=== PATIENT | female | born 1970 | race Caucasian/White ===

== ENCOUNTER → 2016-04-22 | Outpatient (REF) | payer MEDICARE, MEDICAID, OTHER ==
[~2016-04-22] MED LIST: AMIT25TA2 OR; ANTIBIOTIC PO; BACL10TA2 PO; FLEXERIL OR; GABA-283 PO; NAPR250T OR; SOMA250T PO; TRAM50TA2 OR; VICO5TAB OR
[2016-04-22 18:54] LABS: ANION GAP 5 MEQ/L (8-16); BLOOD UREA NITROGEN 8 MG/DL (7-18); CALCIUM LEVEL 8.2 MG/DL (8.5-10.1); CARBON DIOXIDE LEVEL 31 MEQ/L (21-32); CHLORIDE LEVEL 105 MEQ/L (98-107); CHOLESTEROL LEVEL 180 MG/DL (<200); GLOMERULAR FILTRATION RATE > 60.0 (>58); GLUCOSE, FASTING 89 MG/DL (70-105); SODIUM LEVEL 141 MEQ/L (136-145); TRIGLYCERIDES LEVEL 105 MG/DL (<150)
== END ==
LOC: M SFHCLERA 10:58
PROVIDERS: ATTEND Family Medicine
DX: Z13.220 Encounter for screening for lipoid disorders (principal); Z13.1 Encounter for screening for diabetes mellitus

== ENCOUNTER 2016-06-15 07:00 | Outpatient (RCR) | payer MEDICARE, MEDICAID | END 2016-06-18 | LOC: M PT 07:00 | PROVIDERS: ATTEND Family Medicine | DX: Z51.89 Encounter for other specified aftercare (principal); M54.2 Cervicalgia; M77.11 Lateral epicondylitis, right elbow; M54.12 Radiculopathy, cervical region | CPT/HCPCS: 97035; 97110; 97140; 97162; 97166; G8978; G8979; G8984; G8985 ==

== ENCOUNTER → 2016-06-27 | Outpatient (CLI) | payer OTHER, MEDICAID, MEDICARE ==
--- NOTE | 2016-07-11 02:27 | ECWPNPC ---
PATIENT NAME: RADHA RAY : 1970 GENDER: FEMALE VISIT DATE: 06/27/2016 DISCHARGE DATE: 06/27/16 1704 VISIT LOCKED DATE TIME: PHYSICIAN: RACHEL ABRAHAM RESOURCE: RACHEL ABRAHAM REASON FOR APPOINTMENT 1. MEDS HISTORY OF PRESENT ILLNESS HISTORY OF PRESENT ILLNESS: PAIN THE PATIENT DESCRIBES THE PAIN... 45 YEAR OLD FEMALE PATIENT WITH HISTORY OF CHRONIC LOW BACK PAIN. PATIENT DESCRIBES THE PAIN ACHING, SHARP, TENDER, THROBBING, SORE, AND HAVING IT ALL THE TIME WITH A PAIN SCORE OF 9/10 ON TODAY'S VISIT. 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 PATIENT REACHED DOWN TO STOP THE BOY FROM PASSING THROUGH AND HURT HER BACK. PATIENT DENIES HAVING ANY SURGERY ON HER BACK. PATIENT STATES THE PAIN STARTS IN THE LOWER BACK AND MIGRATES TO THE RIGHT HIP AND SHE FEELS A BUMP IN THE RIGHT BUTTOCK AREA. MRS. RAY STATES THAT PHYSICAL THERAPY KEEPS HER MOBILE AND FUNCTIONAL AND MAKES IT EASIER TO TASKS SUCH GETTING DRESSED, PUTTING SHOES ON, AND DAILY ACTIVITIES. PATIENT DENIES UNEXPLAINABLE WEIGHT LOSS, FEVER, CHILLS, NEW CHANGES ON HER URINARY OR BOWEL CONTROL. FALL RISK SCREENING: SCREENING :NO FALLS IN THE PAST YEAR CURRENT MEDICATIONS TAKING TRAMADOL HCL 50 MG TABLET 1-2 TABLETS ORALLY EVERY 6 HRS PRN PAIN MDD=6 TAKING AMITRIPTYLINE HCL 10 MG TABLET 1 TO 2 TABLET AT BEDTIME ORALLY AT BEDTIME TAKING GABAPENTIN 300 MG CAPSULE 1 CAP ORALLY BEFORE BEDTIME TAKING BACLOFEN 10 MG TABLET 1 TABLET WITH FOOD OR MILK ORALLY THREE TIMES A DAY NEEDED FOR SPASMS AND PAIN NOT-TAKING VALIUM 5 MG TABLET 1 TABLET NEEDED ORALLY 3 HRS PRIOR MRI MAY REPEAT 1 HR PRIOR MRI NOT-TAKING SOMA 350 MG TABLET 1 TABLET NEEDED ORALLY 2 HRS BEFORE MRI MEDICATION LIST REVIEWED AND RECONCILED WITH THE PATIENT PAST MEDICAL HISTORY ARTHRITIS, BACK/HIP PAIN (NIDA BELL NP, [facility]) HX OF ABNORMAL PAP PERSISTENT PELVIC PAIN/OVARIAN CYSTS 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) ASVD 05/05 (0.7%) ALLERGIES NONE SURGICAL HISTORY PARTIAL HYSTERECTOMY 2002 CHOLECYSTECTOMY 2010 KNEE-RIGHT 2005 BLADDER LIFT ([place]) 2007 FOOT 05/2014 FAMILY HISTORY FATHER: , DIAGNOSED WITH CANCER MOTHER: ALIVE, DIAGNOSED WITH HYPERTENSION, OTHER 1 BROTHER(S) , 1 SISTER(S) . 3DAUGHTER(S) . FATHER: ESOPHAGUS CAMOTHER: HIGH CHOLESTEROLBROTHER: MS. SOCIAL HISTORY GENERAL: PAIN CLINIC PFS, CLERGY, PUBLIC HEALTH REFERRALS CLERGY REFERRAL NEEDED?NO WAS THE PROVIDER NOTIFIED OF ANY PERTINENT INFO?NO PFS REFERRAL NEEDED?NO PUBLIC HEALTH REFERRAL NEEDED?NO PATIENT: ____. HOSPITALIZATION/MAJOR DIAGNOSTIC PROCEDURE SEE ABOVE REVIEW OF SYSTEMS CONSTITUTIONAL: ANY CHANGE IN YOUR MEDICAL CONDITION? NO . CHILLS NO . FEVER NO . INFECTION: DO YOU HAVE NEW INFECTIONS? NO . DO YOU HAVE HISTORY OF MRSA? NO . MUSCULOSKELETAL: ANY NEW PATTERNS OF PAIN OR NUMBNESS? NO . GASTROENTEROLOGY: ANY NEW CHANGE IN BOWEL CONTROL? NO . GENITOURINARY: ANY NEW CHANGE IN BLADDER CONTROL? NO . IS THERE A CHANCE YOU COULD BE ? NO . HEMATOLOGY/LYMPH: DO YOU TAKE ANY BLOOD THINNERS? (FOR EXAMPLE- COUMADIN, PLAVIX, AGGRENOX, PLATEL, PRADAXA, OR XARELTO) NO . WHEN WAS YOUR LAST DOSE? DATE: TIME: . NEUROLOGY: HAVE YOU FALLEN IN THE PAST 6 MONTHS? NO . ANY NEW EXTREMITY NUMBNESS OR WEAKNESS? NO . CARDIOLOGY: DO YOU HAVE A PACEMAKER OR DEFIBRILLATOR? NO . RESPIRATORY: HAVE YOU BEEN SICK IN THE PAST WEEK? NO . FEVER NO . FLU LIKE SYMPTOMS? NO . COUGH NO . INTEGUMENTARY: DO YOU HAVE ANY RASHES OR OPEN SORES? NO . ALLERGIC/IMMUNO: ARE YOU ALLERGIC TO SHELLFISH OR IV DYE? NO . ANY NEW ALLERGIES? NO . PSYCHIATRIC: DO YOU HAVE THOUGHTS OF HURTING YOURSELF OR SOMEONE ELSE? NO . ARE YOU ABUSED, NEGLECTED, OR IN AN UNSAFE ENVIRONMENT? NO . ENDOCRINOLOGY: ARE YOU DIABETIC? NO . OTHER: DO YOU NEED ANY PRESCRIPTIONS? YES . IF YES, PLEASE LIST: ____AMYTRIPTYLINE . ANY NEW PROBLEMS WITH YOUR MEDICATIONS? NO . WHEN DID YOU LAST EAT? ____ . WHEN DID YOU LAST DRINK? ____ . WHAT DID YOU LAST DRINK? ____ . NAME OF PERSON DRIVING YOU HOME? ____ . DO YOU HAVE ANY OTHER QUESTIONS OR CONCERNS NO . REVIEWED BY: PROVIDER: RACHEL ABRAHAM MD . VITAL SIGNS WT 177.6 LBS, HT 66 IN, BMI 28.66 INDEX, BP 117/60 MM HG, HR 89 /MIN, RR 18 /MIN, TEMP 98.3 F, OXYGEN SAT % 98%, NA INITIALS SC 15:42, REVIEWED BY: CL. EXAMINATION : PATIENT IS ALERT O X 3 AND COOPERATIVE. PATIENT'S RIGHT LEG IS WEAKER AT FLEXION AND EXTENSION COMPARED TO THE LEFT LEG. STRAIGHT LEG RAISING IS POSITIVE FOR PAIN AT 45 DEGREES ON THE RIGHT LEG. FABERE TEST IS POSITIVE ON THE RIGHT LEG. MRI DONE ON 05/22/2008 SHOWS DEGENERATIVE CHANGES. ASSESSMENTS INTERVERTEBRAL DISC DISORDERS WITH RADICULOPATHY, LUMBAR REGION - M51.16 (PRIMARY) INTERVERTEBRAL DISC DISORDERS WITH RADICULOPATHY, LUMBOSACRAL REGION - M51.17 TREATMENT INTERVERTEBRAL DISC DISORDERS WITH RADICULOPATHY, LUMBAR REGION NOTES: WE DISCUSSED SEVERAL ISSUES WITH MRS. RAY PAIN MANAGEMENT CASE. I WAS WITH THE PATIENT MORE THAN 30 MINS IN THE ENCOUNTER TODAY, MORE THAN HALF THE TIME WAS DEDICATED TO DISCUSSING ALTERNATIVES, MEDICATIONS, AND COUNSELING. AT THIS TIME THE PATIENT WILL CONTINUE WITH TRAMADOL FOR THE SOMATIC PAIN, GABAPENTIN FOR THE NEUROPATHIC PAIN, BACLOFEN FOR THE SPASMS, AND AMITRIPTYLINE FOR THE SOMATIC PAIN. PATIENT DENIES ABUSE OF ANY MEDICATION, DENIES USE OF ILLEGAL SUBSTANCES AND STATES SHE IS ONLY USING THE MEDICATION FOR PAIN MANAGEMENT. AFTER REVIEWING THE PATIENT AND EXAMINING THE PATIENT IS A GOOD CANDIDATE FOR A LUMBAR EPIDURAL. WE DISCUSSED THE RISK, BENEFITS, AND ALTERNATIVES, DUE TO THE PAIN, ANXIETY, AND DISCOMFORT THIS PROCEDURE WILL CAUSE HER MS. RAY WANTS IV SEDATION. I WILL REVIEW UNDER X-RAY ON WHICH LEVEL TO PROCEED (L3-L4, L4-L5, OR L5-S1). PATIENT WISHES TO PROCEED FORWARD WITH THE INJECTION WITH IV SEDATION. PATIENT WILL BE BOOKED PENDING APPROVAL. PATIENT WILL FOLLOW UP WITH ME IN 6 WEEKS. INSTRUCTIONS WERE GIVEN, QUESTIONS WERE ANSWERED, PATIENT REPORTS UNDERSTANDING AND AGREES WITH THE PLAN. I, ADARSH TAMAYO, DOCUMENTED THE ABOVE INFORMATION ACTING A SCRIBE FOR DR. ABRAHAM. I HAVE REVIEWED THE ABOVE DOCUMENT, WRITTEN BY ADARSH TAMAYO SCRIBMariah AND I VERIFY THAT IT IS ACCURATE. OTHERS REFILL AMITRIPTYLINE HCL TABLET, 25 MG, 1 TO 2 TABLET AT BEDTIME, ORALLY, AT BEDTIME, 30 DAY(S), 50, REFILLS 2 REFILL TRAMADOL HCL TABLET, 50 MG, 1-2 TABLETS, ORALLY, EVERY 6 HRS PRN PAIN MDD=4, 30 DAY(S), 120, REFILLS 0 REFILL GABAPENTIN CAPSULE, 300 MG, 1 CAP, ORALLY, BEFORE BEDTIME, 30 DAY(S), 30 CAPSULE, REFILLS 1 REFILL BACLOFEN TABLET, 10 MG, 1 TABLET WITH FOOD OR MILK, ORALLY, THREE TIMES A DAY NEEDED FOR SPASMS AND PAIN, 30 DAY(S), 90, REFILLS 1 NOTES: LUMBAR EPIDURAL INJECTION: YOUR PROCEDURE MATERIAL WAS PRINTED,WHAT IS LUMBAR EPIDURAL INJECTION? MATERIAL WAS PRINTED. PROCEDURES PN WORKMANS' COMP OPINION IN YOUR OPINION, WAS THE INCIDENT THAT THE PATIENT DESCRIBED THE COMPETENT MEDICAL CAUSE OF THIS INJURY/ILLNESS? YES ARE THE PATIENT'S COMPLAINTS CONSISTENT WITH HIS/HER HISTORY OF THE INJURY/ILLNESS? YES IS THE PATIENT'S HISTORY OF THE INJURY/ILLNESS CONSISTENT WITH YOUR OBJECTIVE FINDING? YES WHAT IS THE PERCENTAGE OF TEMPORARY IMPAIRMENT? MODERATE TO MARKED = 66.7% IS THE PATIENT WORKING? NO DOCTOR ON SITE: RACHEL MOJICA MD PROCEDURE CODES FA211 ESTABILISHED PATIENT [facility] FACILITY CHARGE G8730 PAIN ASSESS POS TOOL F/U PLAN DOC G8427 DOC MEDS VERIFIED W/PT OR RE DISPOSITION & COMMUNICATION FOLLOW UP L[facility]I PENDING APPROVAL ELECTRONICALLY SIGNED BY RACHEL ABRAHAM MD ON 07/10/2016 AT 06:27 PM EDT DISCLAIMER : THIS IS A VISIT SUMMARY EXTRACTED FROM THE [employer] CHART. IT IS NOT A COPY OF THE [employer] PROGRESS NOTE. CALVIN
== END ==
LOC: M PAIN 15:30
PROVIDERS: ATTEND Anesthesiology
DX: G89.29 Other chronic pain (principal); M51.16 Intervertebral disc disorders with radiculopathy, lumbar region; M51.17 Intervertebral disc disorders with radiculopathy, lumbosacral region; M47.812 Spondylosis without myelopathy or radiculopathy, cervical region; H91.8X9 Other specified hearing loss, unspecified ear; Z79.891 Long term (current) use of opiate analgesic; Z79.899 Other long term (current) drug therapy

== ENCOUNTER 2016-07-12 07:00 | Outpatient (RCR) | payer MEDICARE, MEDICAID | END 2016-07-19 | disposition home or self-care (01) | LOC: M PT 07:00 | PROVIDERS: ATTEND Family Medicine | DX: Z51.89 Encounter for other specified aftercare (principal); M54.2 Cervicalgia; M77.11 Lateral epicondylitis, right elbow | CPT/HCPCS: 97035; 97110; 97140; 97168; G0283; G8978; G8979; G8984; G8985 ==

== ENCOUNTER → 2016-08-29 | Outpatient (CLI) | payer OTHER, MEDICAID, MEDICARE ==
[~2016-08-29] MED LIST changes: +AMIT10TA; +AMIT25TA; +BACL10TA2; +BACT800T5 PO; +CARI350T; +DIAZ5TAB; +GABA-279; +GABA-282; +HYDR-3713 PO; +KEFL500C17 PO; +KETO10TAB PO; +MONI2KIT VA; +SIME180C PO; +TRAM50TA2; +VALI5TAB PO
--- NOTE | 2016-09-12 01:32 | ECWPNPC ---
PATIENT NAME: RADHA RAY : 1970 GENDER: FEMALE VISIT DATE: 08/29/2016 DISCHARGE DATE: 08/29/16 0000 VISIT LOCKED DATE TIME: PHYSICIAN: RACHEL ABRAHAM RESOURCE: RACHEL ABRAHAM REASON FOR APPOINTMENT 1. W/C LOW BACK PAIN HISTORY OF PRESENT ILLNESS HISTORY OF PRESENT ILLNESS: PAIN THE PATIENT DESCRIBES THE PAIN... 46 YEAR OLD FEMALE PATIENT WITH HISTORY OF CHRONIC LOW BACK PAIN. PATIENT DESCRIBES THE PAIN ACHING, SHARP, TENDER, THROBBING, SORE, AND HAVING IT ALL THE TIME WITH A PAIN SCORE OF 7/10 ON TODAY'S VISIT. 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 PATIENT REACHED DOWN TO STOP THE BOY FROM PASSING THROUGH AND HURT HER BACK. PATIENT DENIES HAVING ANY SURGERY ON HER BACK. PATIENT STATES THE PAIN STARTS IN THE LOWER BACK AND MIGRATES TO THE RIGHT HIP AND SHE FEELS A BUMP IN THE RIGHT BUTTOCK AREA. MRS. RAY STATES THAT PHYSICAL THERAPY HAS AIDED GREATLY IN PAIN RELIEF WELL MOBILITY AND FUNCTIONALITY. PATIENT STATES IT IS EASIER FOR HER TO GET DRESSED, SHOWER, AND DO OTHER EVERYDAY ACTIVITIES SINCE STARTING PHYSICAL THERAPY. PATIENT DENIES UNEXPLAINABLE WEIGHT LOSS, FEVER, CHILLS, NEW CHANGES ON HER URINARY OR BOWEL CONTROL. FALL RISK SCREENING: SCREENING :NO FALLS IN THE PAST YEAR CURRENT MEDICATIONS TAKING AMITRIPTYLINE HCL 25 MG TABLET 1 TO 2 TABLET AT BEDTIME ORALLY AT BEDTIME TAKING TRAMADOL HCL 50 MG TABLET 2 TABLETS ORALLY EVERY 6 HRS PRN PAIN MDD=4 TAKING GABAPENTIN 300 MG CAPSULE 1 CAP ORALLY BEFORE BEDTIME TAKING BACLOFEN 10 MG TABLET 1 TABLET WITH FOOD OR MILK ORALLY THREE TIMES A DAY NEEDED FOR SPASMS AND PAIN NOT-TAKING VALIUM 5 MG TABLET 1 TABLET NEEDED ORALLY 3 HRS PRIOR MRI MAY REPEAT 1 HR PRIOR MRI NOT-TAKING SOMA 350 MG TABLET 1 TABLET NEEDED ORALLY 2 HRS BEFORE MRI MEDICATION LIST REVIEWED AND RECONCILED WITH THE PATIENT PAST MEDICAL HISTORY ARTHRITIS, BACK/HIP PAIN (NIDA BELL NP, [facility]) HX OF ABNORMAL PAP PERSISTENT PELVIC PAIN/OVARIAN CYSTS 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) ASVD 05/05 (0.7%) ALLERGIES HAY FEVER SURGICAL HISTORY PARTIAL HYSTERECTOMY 2002 CHOLECYSTECTOMY 2009 KNEE-RIGHT 2005 BLADDER LIFT ([place]) 2007 FOOT 05/2014 FAMILY HISTORY FATHER: , DIAGNOSED WITH CANCER MOTHER: ALIVE, DIAGNOSED WITH HYPERTENSION, OTHER 1 BROTHER(S) , 1 SISTER(S) . 3DAUGHTER(S) . FATHER: ESOPHAGUS CAMOTHER: HIGH CHOLESTEROLBROTHER: . 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 ADVANCE DIRECTIVES HEALTH CARE PROXY?YES NAME OF HCP UNSURE DO YOU HAVE A DNR?NO WOULD YOU LIKE MORE INFORMATION?NO LIVING WILL?NO WOULD YOU LIKE MORE INFORMATION?NO POWER OF MANAGER INSTALLATION?NO WOULD YOU LIKE MORE INFORMATION?NO HOSPITALIZATION/MAJOR DIAGNOSTIC PROCEDURE SEE ABOVE REVIEW OF SYSTEMS REVIEWED BY: PROVIDER: . CONSTITUTIONAL: ANY CHANGE IN YOUR MEDICAL CONDITION? NO . CHILLS NO . FEVER NO . INFECTION: DO YOU HAVE NEW INFECTIONS? NO . DO YOU HAVE HISTORY OF MRSA? NO . MUSCULOSKELETAL: ANY NEW PATTERNS OF PAIN OR NUMBNESS? NO . GASTROENTEROLOGY: ANY NEW CHANGE IN BOWEL CONTROL? NO . GENITOURINARY: ANY NEW CHANGE IN BLADDER CONTROL? NO . IS THERE A CHANCE YOU COULD BE ? NO . HEMATOLOGY/LYMPH: DO YOU TAKE ANY BLOOD THINNERS? (FOR EXAMPLE- COUMADIN, PLAVIX, AGGRENOX, PLATEL, PRADAXA, OR XARELTO) NO . WHEN WAS YOUR LAST DOSE? DATE: TIME: . NEUROLOGY: HAVE YOU FALLEN IN THE PAST 6 MONTHS? NO . ANY NEW EXTREMITY NUMBNESS OR WEAKNESS? NO . CARDIOLOGY: DO YOU HAVE A PACEMAKER OR DEFIBRILLATOR? NO . RESPIRATORY: HAVE YOU BEEN SICK IN THE PAST WEEK? NO . FEVER NO . FLU LIKE SYMPTOMS? NO . COUGH NO . INTEGUMENTARY: DO YOU HAVE ANY RASHES OR OPEN SORES? NO . ALLERGIC/IMMUNO: ARE YOU ALLERGIC TO SHELLFISH OR IV DYE? NO . ANY NEW ALLERGIES? NO . PSYCHIATRIC: DO YOU HAVE THOUGHTS OF HURTING YOURSELF OR SOMEONE ELSE? NO . ARE YOU ABUSED, NEGLECTED, OR IN AN UNSAFE ENVIRONMENT? NO . ENDOCRINOLOGY: ARE YOU DIABETIC? NO . OTHER: DO YOU NEED ANY PRESCRIPTIONS? YES . IF YES, PLEASE LIST: TRAMADOL . ANY NEW PROBLEMS WITH YOUR MEDICATIONS? NO . WHEN DID YOU LAST EAT? ____ . WHEN DID YOU LAST DRINK? ____ . WHAT DID YOU LAST DRINK? ____ . NAME OF PERSON DRIVING YOU HOME? ____ . DO YOU HAVE ANY OTHER QUESTIONS OR CONCERNS NO . VITAL SIGNS WT 173.8 LBS, HT 66 IN, BMI 28.05 INDEX, BP 124/54 MM HG, HR 96 /MIN, RR 18 /MIN, TEMP 99.2 F, OXYGEN SAT % 96%, NA INITIALS SC 15:40, REVIEWED BY: ELIO. EXAMINATION : PATIENT IS ALERT O X 3 AND COOPERATIVE. PATIENT'S RIGHT LEG IS WEAKER AT FLEXION AND EXTENSION COMPARED TO THE LEFT LEG. STRAIGHT LEG RAISING IS POSITIVE FOR PAIN AT 45 DEGREES ON THE RIGHT LEG. FABERE TEST IS POSITIVE ON THE RIGHT LEG. MRI DONE ON 06/13/2016 SHOWS BILGES BULGES AT L3-L4 AND L4-L5 AND FACET ATROPHY. ASSESSMENTS INTERVERTEBRAL DISC DISORDERS WITH RADICULOPATHY, LUMBAR REGION - M51.16 (PRIMARY) TREATMENT INTERVERTEBRAL DISC DISORDERS WITH RADICULOPATHY, LUMBAR REGION NOTES: WE DISCUSSED SEVERAL ISSUES WITH MRS. RAY' PAIN MANAGEMENT CASE. AT THIS TIME THE PATIENT WILL CONTINUE WITH THE SAME MEDICATION REGIME BEFORE. PATIENT IS USING TRAMADOL FOR THE SOMATIC PAIN, GABAPENTIN FOR THE NEUROPATHIC PAIN, BACLOFEN FOR THE MUSCLE SPASMS, AND AMITRIPTYLINE FOR THE SOMATIC PAIN. PATIENT DENIES ABUSE OF ANY MEDICATION, DENIES USE OF ILLEGAL SUBSTANCES, AND STATES SHE IS ONLY USING THE MEDICATION FOR PAIN MANAGEMENT. AT THIS TIME THE PATIENT WOULD BENENFITS FROM A LUMBAR EPIDURAL DUE TO THE PAIN RADIATING DOWN HER LEG. WE WILL PROCEED WITH A LUMBAR EPIDURAL, I WOULD LIKE TO VIEW THE PATIENT UNDER X-RAY. WE DISCUSSED THE RISKS, BENENFITS, AND ALTNERATIVES OF THE INJECTION AND THE PATIENT WOULD LIKE TO PROCEED. INSTRUCTIONS WERE GIVEN, QUESTIONS WERE ANSWERED, PATIENT REPORTS UNDERSTANDING AND AGREES WITH THE PLAN. I, BIANCA TRIANA, DOCUMENTED THE ABOVE INFORMATION ACTING A SCRIBE FOR DR. ABRAHAM. I HAVE REVIEWED THE ABOVE DOCUMENT, WRITTEN BY BIANCA PRUITT AND I VERIFY THAT IT IS ACCURATE. OTHERS REFILL AMITRIPTYLINE HCL TABLET, 25 MG, 1 TO 2 TABLET AT BEDTIME, ORALLY, AT BEDTIME, 30 DAY(S), 60, REFILLS 2 REFILL TRAMADOL HCL TABLET, 50 MG, 2 TABLETS, ORALLY, EVERY 6 HRS PRN PAIN MDD=4, 30 DAY(S), 120, REFILLS 0 REFILL GABAPENTIN CAPSULE, 300 MG, 1 CAP, ORALLY, BEFORE BEDTIME, 30 DAY(S), 30 CAPSULE, REFILLS 1 REFILL BACLOFEN TABLET, 10 MG, 1 TABLET WITH FOOD OR MILK, ORALLY, THREE TIMES A DAY NEEDED FOR SPASMS AND PAIN, 30 DAY(S), 90, REFILLS 1 NOTES: CERVICAL EPIDURAL INJECTION: YOUR EXPERIENCE MATERIAL WAS PRINTED,LUMBAR EPIDURAL INJECTION: YOUR PROCEDURE MATERIAL WAS PRINTED. PROCEDURES PN WORKMANS' COMP OPINION IN YOUR OPINION, WAS THE INCIDENT THAT THE PATIENT DESCRIBED THE COMPETENT MEDICAL CAUSE OF THIS INJURY/ILLNESS? YES ARE THE PATIENT'S COMPLAINTS CONSISTENT WITH HIS/HER HISTORY OF THE INJURY/ILLNESS? YES IS THE PATIENT'S HISTORY OF THE INJURY/ILLNESS CONSISTENT WITH YOUR OBJECTIVE FINDING? YES WHAT IS THE PERCENTAGE OF TEMPORARY IMPAIRMENT? MODERATE = 50% IS THE PATIENT WORKING? YES DOCTOR ON SITE: RACHEL MOJICA MD PREVENTIVE MEDICINE GAVE INFORMATION ON LUMBAR EPIDURAL AND PRE PROCEDURE CARE / INTERPERTER PRESENT AND ASSISTING WITH UNDERSTANDING. PROCEDURE CODES FA211 ESTABILISHED PATIENT [facility] FACILITY CHARGE G8427 DOC MEDS VERIFIED W/PT OR RE G8730 PAIN ASSESS POS TOOL F/U PLAN DOC DISPOSITION & COMMUNICATION FOLLOW UP [facility] AFTER APPROVAL ELECTRONICALLY SIGNED BY RACHEL ABRAHAM MD ON 09/11/2016 AT 08:33 PM EDT DISCLAIMER : THIS IS A VISIT SUMMARY EXTRACTED FROM THE [employer] CHART. IT IS NOT A COPY OF THE [employer] PROGRESS NOTE. CALVIN
== END ==
LOC: M PAIN 15:20
PROVIDERS: ATTEND Anesthesiology
DX: G89.29 Other chronic pain (principal); M51.16 Intervertebral disc disorders with radiculopathy, lumbar region; J30.1 Allergic rhinitis due to pollen; Z79.891 Long term (current) use of opiate analgesic; Z79.899 Other long term (current) drug therapy

== ENCOUNTER 2016-09-25 14:52 | Emergency (ER) | payer MEDICARE, MEDICAID ==
[~2016-09-25] VITALS: Ht 170.2 cm; Wt 77.2 kg
[~2016-09-25 14:52] MED LIST changes: -AMIT10TA; -AMIT25TA; -BACL10TA2; -BACT800T5 PO; -CARI350T; -DIAZ5TAB; -GABA-279; -GABA-282; -HYDR-3713 PO; -KEFL500C17 PO; -KETO10TAB PO; -MONI2KIT VA; -SIME180C PO; -TRAM50TA2; -VALI5TAB PO
[2016-09-25] MEDS ORDERED: KETOROLAC 60 MG/2 ML VIAL (J1885) IM ONE (17:45)
--- NOTE | 2016-09-25 18:15 | REP ---
CERVICAL SPINE, SEVEN VIEWS: HISTORY: Neck pain. There is no acute fracture. The C5-6 and C6-7 intervertebral discs are decreased in height consistent with disc degeneration. Osteophytes are present on C5 through 7. There is narrowing of the right C5 and 6 and left C4 through 6 neural foramina secondary to uncinate process hypertrophy. There are 2 mm of anterior subluxation of C4 on 5 with flexion. This is not seen in neutral or extension radiographs. IMPRESSION: Degenerative change as described above. Signed by Aleks Marie MD 09/25/2016 06:18 P
--- NOTE | 2016-09-25 18:29 | REP ---
RIGHT SHOULDER, THREE VIEWS: HISTORY: Pain. There is no acute fracture or dislocation. There is narrowing of the acromioclavicular joint with associated osteophyte formation. Calcification is present superior to the acromioclavicular joint. This represents ligamentous or tendon calcification. IMPRESSION: Degenerative change as described above. Signed by Aleks Marie MD 09/25/2016 06:32 P
--- NOTE | 2016-09-25 18:40 | REPUSA ---
HISTORY: Right upper arm swelling. TECHNIQUE: The right upper extremity venous ultrasound examination was performed with high-resolution song scale sonography, color flow Doppler imaging, and spectral waveform analysis, with compression and augmentation procedures performed. FINDINGS: The examination demonstrates normal flow and patency with compression and augmentation demo nstrated in the deep venous system extending from the jugular vein, subclavian vein, axillary vein, c ephalic vein brachial vein, and basilic vein, with no intraluminal filling defects and no evidence of deep vein thrombosis. IMPRESSION: Negative right upper extremity venous ultrasound examination with no evidence of deep vei n thrombosis or superficial vein thrombosis or other vascular abnormality identified..
[2016-09-25] MEDS ORDERED: VALI5TAB PO (19:02)
[2016-09-25] MEDS ORDERED: KETO10TAB PO (19:02)
[2016-09-25 19:08] VITALS: BP 139/73
[2016-10-11] MEDS ORDERED: TRAM50TA2 (12:08)
[2016-10-11] MEDS ORDERED: AMIT10TA (12:08)
[2016-10-11] MEDS ORDERED: DIAZ5TAB (12:08)
[2016-10-11] MEDS ORDERED: GABA-279 (12:08)
[2016-10-11] MEDS ORDERED: AMIT25TA (12:08)
[2016-10-11] MEDS ORDERED: GABA-282 (12:08)
[2016-10-11] MEDS ORDERED: CARI350T (12:08)
== END 2016-09-25 19:44 | disposition home or self-care (01) ==
LOC: M ED 14:52
DX: M54.12 Radiculopathy, cervical region (principal); G89.29 Other chronic pain; M79.89 Other specified soft tissue disorders
CPT/HCPCS: 72052; 73030; 93971; 96372; 99284; J1885; J3360

== ENCOUNTER 2016-10-18 14:49 | Day surgery (SDC) | payer MEDICARE, MEDICAID ==
[~2016-10-18] VITALS: Ht 170.2 cm; Wt 78.5 kg
[~2016-10-18 14:49] MED LIST changes: +AMIT10TA; +AMIT25TA; +CARI350T; +DIAZ5TAB; +GABA-279; +GABA-282; +KETO10TAB PO; +TRAM50TA2; +VALI5TAB PO
[2016-10-18] MEDS ORDERED: LR 1,000 ML IV ONE (15:00)
[2016-10-18] MEDS ORDERED: PROPOFOL 200 MG/20 ML VIAL As Ordered ONE (17:19)
[2016-10-18] MEDS ORDERED: MIDAZOLAM INJ 2 MG/2 ML VIAL (J2250) As Ordered ONE (17:19)
[2016-10-18] MEDS ORDERED: LIDOCAINE 2% INJ 100 MG/5 ML SDV (FOR ANES.) As Ordered ONE (17:19)
[2016-10-18] MEDS ORDERED: ONDANSETRON 4MG/2ML VIAL (J2405) As Ordered ONE ×3 (17:19→22:51)
[2016-10-18] MEDS ORDERED: ROCURONIUM BROMIDE 50 MG/5 ML VIAL/SYRINGE As Ordered ONE (17:19)
[2016-10-18] MEDS ORDERED: dexameTHASONE 4 MG/ML 1ML VIAL (J1100) As Ordered ONE (17:19)
[2016-10-18] MEDS ORDERED: fentaNYL 100 MCG/2 ML INJECTION (J3010) As Ordered ONE ×2 (17:19→20:32)
[2016-10-18] MEDS ORDERED: HYDR-3713 PO (18:09)
[2016-10-18] MEDS ORDERED: BUPIVACAINE HCL 0.25% 30 ML VIAL As Ordered ONE (18:10)
[2016-10-18] MEDS ORDERED: HYDROmorphone HCL 2 MG/ML 1ML VIAL (J1170) As Ordered ONE (19:22)
[2016-10-18] MEDS ORDERED: GLYCOPYRROLATE INJ 0.2 MG/ML 2 ML VIAL As Ordered ONE (19:32)
[2016-10-18] MEDS ORDERED: KETOROLAC 60 MG/2 ML VIAL (J1885) As Ordered ONE (19:32)
[2016-10-18] MEDS ORDERED: NEOSTIGMINE 1MG/ML 5 ML SYRINGE (J2710) As Ordered ONE (19:32)
[2016-10-18] MEDS ORDERED: METHYLENE BLUE 0.5% (5MG/ML) 10 ML AMP (PROVAYBLUE)(Q9968 PER 1MG) As Ordered ONE (19:49)
[2016-10-18] MEDS ORDERED: LR 1,000 ML IV SCH (20:45)
[2016-10-18] MEDS ORDERED: ONDANSETRON 4MG/2ML VIAL (J2405) IV PRN (20:45)
[2016-10-18] MEDS ORDERED: fentaNYL 100 MCG/2 ML INJECTION (J3010) IV PRN (20:45)
[2016-10-18] MEDS ORDERED: METOCLOPRAMIDE INJ 10MG/2ML VIAL (J2765) IV PRN (20:45)
[2016-10-18] MEDS ORDERED: MEPERIDINE INJ 25 MG/ML VIAL (J2175) IV PRN (20:45)
[2016-10-18] MEDS: PERCOCET 5MG/325MG TAB PO PRN ×2 (21:25→22:05)
[2016-10-18] MEDS ORDERED: PERCOCET 5MG/325MG TAB As Ordered ONE (21:59)
[2016-10-18] MEDS ORDERED: ONDANSETRON 4MG/2ML VIAL (J2405) IV ONE (23:00)
[2016-10-18 23:20] VITALS: BP 132/60
--- NOTE | 2016-10-19 07:49 | RO ---
DATE OF PROCEDURE: 10/18/2016 PREPROCEDURE DIAGNOSIS: Left ovarian dermoid cyst. POSTPROCEDURE DIAGNOSIS: Left ovarian dermoid cyst. PROCEDURE: Laparoscopic left salpingo-oophorectomy, cystoscopy. SURGEON: Aleks Singh MD MAKE UP ARRANGER: ANESTHESIA: General endotracheal. ESTIMATED BLOOD LOSS: Minimal. URINE OUTPUT: 200 mL. FINDINGS: 6 cm dermoid cyst of the left ovary. There was no normal ovarian tissue visible, surgically absent uterus, normal appearing right ovary and fallopian tube, normal appearing upper abdomen, including liver and stomach. DESCRIPTION OF PROCEDURE: The patient was taken to the operating room where general endotracheal anesthesia was induced. She was prepped and draped in a sterile fashion in the dorsal lithotomy position. Agrawal catheter was placed. Sponge stick was placed in the vagina to use as a manipulator. Periumbilical incision was made with a scalpel. Veress needle was placed through this incision while tenting up on the skin of the abdomen. Intraabdominal location of the Veress needle was assessed with the use of a saline filled syringe. Pneumoperitoneum was created. Veress needle was removed. 11 mm trocar was placed through this incision. Two 5 mm suprapubic ports were placed under direct visualization. A grasping instrument was used to evaluate the pelvis. The ovaries were visualized, as described above. The left ovary was in the posterior cul-de-sac and was obscured by the sigmoid colon, which was draped over top of the ovary. Colon was also adherent to the pelvic sidewall, ovary and IP ligament. The left ovary was grasped and elevated. Adhesions of the sigmoid colon to the IP ligament were dissected sharply using EndoShears. LigaSure device was used to cross clamp the IP ligament at its insertion near the ovary and the IP ligament was coagulated and incised, the specimen, including the ovary, fallopian tube, was released. Specimen was placed in the Endo Catch back and removed through the umbilical port. Good hemostasis was noted. All instruments were removed. The fascia at the umbilical port was closed with interrupted suture of #0 Vicryl. Skin was closed with #4-0 Monocryl subcuticular sutures. The patient received Methylene blue dye intravenously. Cystoscopy was performed using a 70-degree cystoscope. Bilateral ureteral jets were identified. There was no evidence of injury to the bladder. Cystoscope was removed. The patient was extubated and went to the recovery room in stable condition. CALVIN
== END 2016-10-18 23:48 | disposition home or self-care (01) ==
LOC: M SDC 14:49
PROVIDERS: ATTEND Specialist
DX: D27.1 Benign neoplasm of left ovary (principal); N73.6 Female pelvic peritoneal adhesions (postinfective); Z79.899 Other long term (current) drug therapy
CPT/HCPCS: 36415; 58661; 85014; 85018; 88307; J1100; J1170; J1885; J2250; J2405; J2710; J2765; J3010; Q9968

== ENCOUNTER 2016-10-21 18:26 | Emergency (ER) | payer MEDICARE, MEDICAID ==
[~2016-10-21] VITALS: Ht 170.2 cm; Wt 77.3 kg
[~2016-10-21 18:26] MED LIST changes: +HYDR-3713 PO
[2016-10-21] MEDS ORDERED: MORPHINE 2 MG/ML 1ML SYRINGE IV PRN (19:30)
[2016-10-21] MEDS ORDERED: ONDANSETRON 4MG/2ML VIAL (J2405) IV ONE (19:30)
[2016-10-21] MEDS ORDERED: NS 1,000 ML IV ONE (19:30)
[2016-10-21] MEDS ORDERED: SIMETHICONE 80 MG CHEW TAB PO ONE (19:30)
[2016-10-21 19:58] LABS: CALCIUM OXALATE CRYSTALS SMALL
[2016-10-21 20:30] LABS: BASO % 0.5 % (0.0-1.0); EOS # 0.1 K/mm3 (0.0-0.50); EOS % 0.6 % (0.0-3.0); LARGE UNSTAINED CELL # 0.1 K/mm3 (0.0-0.4); LARGE UNSTAINED CELL % 1.4 % (0.0-4.0); LYMPH # 2.6 K/mm3 (1.5-4.5); MEAN CORPUSCULAR HEMOGLOBIN 30.4 pg (27.0-33.0); MEAN CORPUSCULAR HGB CONC 34.5 g/dl (32.0-36.5); MONO # 0.7 K/mm3 (0.0-0.8); MONO % 6.7 % (0.0-5.0); NEUTROPHILS # 6.6 K/mm3 (1.8-7.7); NEUTROPHILS % 65.8 % (36.0-66.0); PLATELET COUNT, AUTOMATED 258 k/mm3 (150-450); RED CELL DISTRIBUTION WIDTH 12.2 % (11.5-14.5)
[2016-10-21 20:34] LABS: ALBUMIN 3.8 GM/DL (3.2-5.2); ALBUMIN/GLOBULIN RATIO 1.03 (1.00-1.93); ALKALINE PHOSPHATASE 59 U/L (45-117); ALT/SGPT 62 U/L (12-78); ANION GAP 6 MEQ/L (8-16); AST/SGOT 17 U/L (15-37); BILIRUBIN,DIRECT < 0.1 MG/DL (0.0-0.2); BILIRUBIN,TOTAL 0.4 MG/DL (0.2-1.0); BLOOD UREA NITROGEN 16 MG/DL (7-18); CALCIUM LEVEL 9.5 MG/DL (8.5-10.1); CARBON DIOXIDE LEVEL 32 MEQ/L (21-32); CHLORIDE LEVEL 103 MEQ/L (98-107); GLOMERULAR FILTRATION RATE > 60.0 (>58); GLUCOSE, FASTING 96 MG/DL (70-105); SODIUM LEVEL 141 MEQ/L (136-145); TOTAL PROTEIN 7.5 GM/DL (6.4-8.2)
[2016-10-21] MEDS ORDERED: ISOVUE-370 76% 100ML VIAL (Q9967) As Ordered ONE (20:36)
--- NOTE | 2016-10-21 21:32 | REP ---
Clinical: Acute periumbilical pain. Technique: Axial contrast enhanced images from the lung bases to the pubic symphysis using 100 ml Isovue 370 intravenous contrast material with coronal and sagittal re-formations. Comparison: 03/05/2013. Findings: Lung bases are clear. Visualized heart and pericardium normal. Scattered sub centimeter hepatic cysts are again identified and similar to prior examination. Liver, spleen, pancreas, bilateral adrenal glands and kidneys are otherwise normal. The patient is status post cholecystectomy. The enteric system is without obstruction. Colonic and sigmoid diverticula noted without evidence for acute diverticulitis although a mild colitis cannot definitively be excluded and should be correlated with physical examination. Normal terminal ileum are appreciated in the right lower quadrant. The appendix is not definitively visualized, but no free fluid in the right lower quadrant and/or pelvis is noted. Pelvis demonstrates normal bladder and evidence for partial hysterectomy. No ascites. No free air. No obvious adenopathy. Abdominal aorta and vasculature appears relatively normal. Musculoskeletal structures demonstrate age-related changes without focal osseous abnormality. Impression: 1. No obvious acute abdominopelvic pathology appreciated. 2. Scattered subcentimeter hepatic cysts similar to prior examination. 3. Colonic diverticula without acute diverticulitis although mild colitis cannot be excluded and should be correlated with physical examination. 4. No free fluid, free air, adenopathy, or mass lesion appreciated. Signed by Nathaniel Weir MD 10/21/2016 09:23 P
[2016-10-21] MEDS ORDERED: MONI2KIT VA (21:35)
[2016-10-21] MEDS ORDERED: SIME180C PO (21:36)
[2016-10-21 21:55] VITALS: BP 111/53
--- NOTE | 2016-10-22 09:14 | ED PDOC ---
Post-Departure Follow-Up CT ABD/P FAXED TO DR ALVAREZ FOR FOLLOW UP James Simmons MD Oct 22, 2016 09:14
== END 2016-10-21 22:35 | disposition home or self-care (01) ==
LOC: M ED 18:26
DX: N76.0 Acute vaginitis (principal)
CPT/HCPCS: 74177; 80048; 80076; 81001; 83605; 83690; 85025; 87086; 96361; 96374; 96375; 99283; J2405; Q9967

== ENCOUNTER → 2016-11-22 | Outpatient (CLI) | payer MEDICARE, MEDICAID ==
[~2016-11-22] MED LIST changes: +BACL10TA2; +BACT800T5 PO; +KEFL500C17 PO; +MONI2KIT VA; +SIME180C PO
--- NOTE | 2016-11-22 14:17 | REP ---
Right finger four views: There are four views of a right finger. Mineralization joint spaces are normal. There is no fracture or dislocation. No calcifications or foreign bodies. Impression: Negative right finger. Signed by Santos White MD 11/22/2016 02:08 P
== END ==
LOC: M WUC 13:43
PROVIDERS: ATTEND Physician Assistant
DX: M79.644 Pain in right finger(s) (principal); M65.9 Synovitis and tenosynovitis, unspecified

== ENCOUNTER 2016-11-24 15:16 | Emergency (ER) | payer MEDICARE, MEDICAID ==
[~2016-11-24] VITALS: Ht 170.2 cm; Wt 77.3 kg
[~2016-11-24 15:16] MED LIST changes: -BACL10TA2; -BACT800T5 PO; -KEFL500C17 PO
[2016-11-24] MEDS ORDERED: TRAM50TA2 (16:40)
[2016-11-24] MEDS ORDERED: GABA-282 (16:40)
[2016-11-24] MEDS ORDERED: BACL10TA2 (16:40)
[2016-11-24] MEDS ORDERED: MORPHINE 4 MG/ML 1ML SYRINGE IV ONE ×2 (17:00→18:00)
[2016-11-24 17:32] LABS: BASO # 0.1 10^3/uL (0.0-0.2); BASO % 0.4 % (0.0-1.0); EOS % 0.2 % (0.0-3.0); IMMATURE GRANULOCYTE % 0.6 % (0-0); LYMPH # 3.1 10^3/uL (1.5-4.5); LYMPH % 18.7 % (24.0-44.0); MEAN CORPUSCULAR HEMOGLOBIN 30.4 pg (27.0-33.0); MEAN CORPUSCULAR HGB CONC 33.9 g/dl (32.0-36.5); MEAN CORPUSCULAR VOLUME 89.5 fl (80.0-96.0); MONO # 0.8 10^3/uL (0.0-0.8); MONO % 5.1 % (0.0-5.0); NEUTROPHILS # 12.3 10^3/uL (1.8-7.7); PLATELET COUNT, AUTOMATED 267 10^3/uL (150-450); RED CELL DISTRIBUTION WIDTH 13.1 % (11.5-14.5); WHITE BLOOD COUNT 16.4 10^3/uL (4.0-10.0)
[2016-11-24] MEDS ORDERED: ONDANSETRON 4MG/2ML VIAL (J2405) IV ONE (18:00)
[2016-11-24 18:02] LABS: ANION GAP 8 MEQ/L (8-16); BLOOD UREA NITROGEN 11 MG/DL (7-18); CALCIUM LEVEL 8.7 MG/DL (8.5-10.1); CARBON DIOXIDE LEVEL 27 MEQ/L (21-32); CHLORIDE LEVEL 104 MEQ/L (98-107); CREATININE FOR GFR 0.58 MG/DL (0.55-1.02); GLOMERULAR FILTRATION RATE > 60.0 (>58); GLUCOSE, FASTING 80 MG/DL (70-105); POTASSIUM SERUM 3.5 MEQ/L (3.5-5.1); SODIUM LEVEL 139 MEQ/L (136-145); URIC ACID 4.2 MG/DL (2.6-6.0)
[2016-11-24 18:53] LABS: ERYTHROCYTE SEDIMENTATION RATE 11 mm/hr (0-20)
[2016-11-24] MEDS ORDERED: GI COCKTAIL 50ML BTL(HYOSCYAMINE/MAALOX/LIDOCAINE VISCOUS)(1:3:1) PO ONE (19:30)
[2016-11-24 20:34] VITALS: BP 159/78
[2016-11-24] MEDS ORDERED: BACT800T5 PO (20:54)
[2016-11-24] MEDS ORDERED: KEFL500C17 PO (20:54)
[2016-11-24] MEDS ORDERED: NORCO 5/325MG TABLET (BULK FOR ED) PO ONE (21:00)
[2016-11-24] MEDS ORDERED: BACTRIM 160MG/800MG DS TAB PO ONE (21:00)
--- NOTE | 2016-11-25 05:47 | ECGEPIP ---
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 Order Number: [id number] Reading MD: Esdras Gutierrez Measurements Intervals [place] Rate: 74 P: 76 MT: 141 QRS: 66 QRSD: 105 T: 26 QT: 391 QTc: 434 Interpretive Statements SINUS RHYTHM WITH SINUS ARRHYTHMIA NO PRIORS Electronically Signed On 11-25-2016 5:47:18 EDT by Esdras Gutierrez
== END 2016-11-24 21:37 | disposition home or self-care (01) ==
LOC: M ED 15:16
DX: L03.011 Cellulitis of right finger (principal); Z79.899 Other long term (current) drug therapy; Z85.41 Personal history of malignant neoplasm of cervix uteri
CPT/HCPCS: 80048; 84550; 85025; 85652; 86140; 87040; 93005; 96374; 96375; 96376; 99284; J0690; J2405

== ENCOUNTER → 2016-11-24 | Outpatient (CLI) | payer OTHER, MEDICAID, MEDICARE | LOC: M PAIN 14:30 | PROVIDERS: ATTEND Anesthesiology | DX: Z53.29 Procedure and treatment not carried out because of patient's decision for other reasons (principal) ==

== ENCOUNTER 2016-11-25 18:03 | Emergency (ER) | payer MEDICARE, MEDICAID ==
[~2016-11-25] VITALS: Ht 170.2 cm; Wt 77.3 kg
[~2016-11-25 18:03] MED LIST changes: +BACL10TA2; +BACT800T5 PO; +KEFL500C17 PO
[2016-11-25 20:17] LABS: BASO % 0.4 % (0.0-1.0); EOS # 0.1 10^3/uL (0.0-0.50); EOS % 0.8 % (0.0-3.0); IMMATURE GRANULOCYTE % 0.7 % (0-0); LYMPH # 2.4 10^3/uL (1.5-4.5); LYMPH % 23.2 % (24.0-44.0); MEAN CORPUSCULAR HEMOGLOBIN 30.4 pg (27.0-33.0); MEAN CORPUSCULAR HGB CONC 33.6 g/dl (32.0-36.5); MEAN CORPUSCULAR VOLUME 90.4 fl (80.0-96.0); MONO # 0.8 10^3/uL (0.0-0.8); MONO % 7.4 % (0.0-5.0); NEUTROPHILS # 6.9 10^3/uL (1.8-7.7); NEUTROPHILS % 67.5 % (36.0-66.0); PLATELET COUNT, AUTOMATED 233 10^3/uL (150-450); RED CELL DISTRIBUTION WIDTH 12.9 % (11.5-14.5); WHITE BLOOD COUNT 10.3 10^3/uL (4.0-10.0)
[2016-11-25 20:58] VITALS: BP 136/75
[2016-11-26] MEDS ORDERED: HYDR-3713 PO (09:05)
== END 2016-11-25 21:15 | disposition home or self-care (01) ==
LOC: M ED 18:03
DX: L03.011 Cellulitis of right finger (principal)

== ENCOUNTER 2016-11-26 06:02 | Emergency (ER) | payer MEDICARE, MEDICAID ==
[2016-11-26] MEDS ORDERED: CLINDAMYCIN 600 MG in APPROPRIATE DILUENT 1 EA IV ONE (07:30)
[2016-11-26] MEDS ORDERED: MORPHINE 2 MG/ML 1ML SYRINGE IV ONE (07:30)
[2016-11-26 07:44] LABS: BASO % 0.5 % (0.0-1.0); EOS # 0.1 10^3/uL (0.0-0.50); EOS % 1.4 % (0.0-3.0); IMMATURE GRANULOCYTE % 0.6 % (0-0); LYMPH # 2.8 10^3/uL (1.5-4.5); LYMPH % 31.9 % (24.0-44.0); MEAN CORPUSCULAR HEMOGLOBIN 30.8 pg (27.0-33.0); MEAN CORPUSCULAR HGB CONC 34.5 g/dl (32.0-36.5); MEAN CORPUSCULAR VOLUME 89.2 fl (80.0-96.0); MONO # 0.7 10^3/uL (0.0-0.8); MONO % 7.8 % (0.0-5.0); NEUTROPHILS # 5.1 10^3/uL (1.8-7.7); NEUTROPHILS % 57.8 % (36.0-66.0); PLATELET COUNT, AUTOMATED 226 10^3/uL (150-450); WHITE BLOOD COUNT 8.8 10^3/uL (4.0-10.0)
[2016-11-26 07:47] LABS: ADD MANUAL DIFFER NO; DIFF SLIDE NUMBER 97
[2016-11-26] MEDS ORDERED: ONDANSETRON 4MG/2ML VIAL (J2405) IV ONE (08:00)
[2016-11-26 08:41] VITALS: BP 131/57
[2016-11-26] MEDS ORDERED: HYDR-3713 PO (09:05)
[2016-11-26 10:43] LABS: ERYTHROCYTE SEDIMENTATION RATE 14 mm/hr (0-20)
== END 2016-11-26 09:20 | disposition home or self-care (01) ==
LOC: M ED 06:02
DX: L03.011 Cellulitis of right finger (principal)
CPT/HCPCS: 85025; 85652; 96365; 96375; 99284; J2405

== ENCOUNTER → 2016-12-15 | Outpatient (CLI) | payer MEDICARE, MEDICAID ==
--- NOTE | 2016-12-15 11:04 | REP ---
ULTRASOUND RIGHT POPLITEAL FOSSA: Real-time sonographic evaluation of the right popliteal fossa performed. There is a large somewhat complex fluid collection at the posterior aspect of the knee extending inferiorly to the mid posterior calf region. It measures about 15.1 cm in length and between 1.2 and 1.4 cm in thickness. This most likely represents a ruptured Castillo's cyst. Signed by Santos Kern MD 12/15/2016 05:48 P
== END ==
LOC: M RAD 09:58
PROVIDERS: ATTEND Family Medicine
DX: M25.561 Pain in right knee (principal); M25.461 Effusion, right knee; L08.9 Local infection of the skin and subcutaneous tissue, unspecified; M79.641 Pain in right hand; R60.0 Localized edema
CPT/HCPCS: 73130; 76882; 85025; 85652; 86140; 87040; 96372; G0463

== ENCOUNTER → 2016-12-15 | Outpatient (REF) | payer MEDICARE, MEDICAID, OTHER ==
[2016-12-15 14:26] LABS: BASO % 0.4 % (0.0-1.0); EOS # 0.1 10^3/uL (0.0-0.50); EOS % 0.6 % (0.0-3.0); IMMATURE GRANULOCYTE % 0.2 % (0-0); LYMPH # 1.9 10^3/uL (1.5-4.5); LYMPH % 22.4 % (24.0-44.0); MEAN CORPUSCULAR HEMOGLOBIN 30.2 pg (27.0-33.0); MEAN CORPUSCULAR HGB CONC 33.1 g/dl (32.0-36.5); MEAN CORPUSCULAR VOLUME 91.3 fl (80.0-96.0); MONO # 0.5 10^3/uL (0.0-0.8); MONO % 5.8 % (0.0-5.0); NEUTROPHILS % 70.6 % (36.0-66.0); PLATELET COUNT, AUTOMATED 282 10^3/uL (150-450); RED CELL DISTRIBUTION WIDTH 12.8 % (11.5-14.5); WHITE BLOOD COUNT 8.5 10^3/uL (4.0-10.0)
[2016-12-15 15:38] LABS: ERYTHROCYTE SEDIMENTATION RATE 17 mm/hr (0-20)
== END ==
LOC: M SFHCLERA 12:30
PROVIDERS: ATTEND Physician Assistant
DX: L08.9 Local infection of the skin and subcutaneous tissue, unspecified (principal)

== ENCOUNTER → 2016-12-15 | Outpatient (CLI) | payer MEDICARE, MEDICAID ==
--- NOTE | 2016-12-15 12:58 | REP ---
Right hand four views: Comparison is the right middle finger study of 11/22/2016. Graph additional history provided by the x-ray technologist states that the the patient had surgery recently and now has skin and subcutaneous soft tissue infection and soft tissue swelling and cannot straighten the finger. There is diffuse soft tissue edema of the middle finger. There is no radiopaque foreign body. Mineralization and joint spaces are normal. There is no lytic, blastic or destructive skeletal change. There is no fracture or dislocation. Impression: Diffuse middle finger soft tissue swelling. Otherwise negative study. Signed by Santos White MD 12/15/2016 12:49 P
== END ==
LOC: M LRY 12:17
PROVIDERS: ATTEND Physician Assistant
DX: M79.641 Pain in right hand (principal); R60.0 Localized edema; L08.9 Local infection of the skin and subcutaneous tissue, unspecified

== ENCOUNTER → 2016-12-25 | Outpatient (CLI) | payer MEDICARE, MEDICAID ==
--- NOTE | 2016-12-25 16:58 | REP ---
LEFT ANKLE, FOUR VIEWS: HISTORY: Sprain. There is no acute fracture or dislocation. The joint space is normal in appearance. IMPRESSION: There is no acute fracture or dislocation. Signed by Aleks Marie MD 12/25/2016 04:59 P
== END ==
LOC: M LRY 14:31
PROVIDERS: ATTEND Family Medicine
DX: S93.412A Sprain of calcaneofibular ligament of left ankle, initial encounter (principal); X58.XXXA Exposure to other specified factors, initial encounter; Y92.9 Unspecified place or not applicable; Y93.9 Activity, unspecified
CPT/HCPCS: 73610; G0463

== ENCOUNTER → 2017-01-05 | Outpatient (CLI) | payer OTHER, MEDICARE, MEDICAID ==
--- NOTE | 2017-01-24 01:25 | ECWPNPC ---
PATIENT NAME: RADHA RAY : 1970 GENDER: FEMALE VISIT DATE: 01/05/2017 DISCHARGE DATE: 01/05/17 1414 VISIT LOCKED DATE TIME: PHYSICIAN: RACHEL ABRAHAM RESOURCE: RACHEL ABRAHAM REASON FOR APPOINTMENT 1. W/C, BACK W/C HISTORY OF PRESENT ILLNESS HISTORY OF PRESENT ILLNESS: PAIN THE PATIENT DESCRIBES THE PAIN... 46 YEAR OLD FEMALE PATIENT WITH HISTORY OF CHRONIC LOW BACK PAIN. PATIENT DESCRIBES THE PAIN ACHING, SHARP, TENDER, THROBBING, SORE, AND HAVING IT ALL THE TIME WITH A PAIN SCORE OF 7-8/10 ON TODAY'S VISIT. 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 PATIENT REACHED DOWN TO STOP THE BOY FROM PASSING THROUGH AND HURT HER BACK. PATIENT DENIES HAVING ANY SURGERY ON HER BACK. PATIENT STATES THE PAIN STARTS IN THE LOWER BACK AND MIGRATES TO THE RIGHT HIP AND SHE FEELS A BUMP IN THE RIGHT BUTTOCK AREA. MRS. RAY STATES THAT PHYSICAL THERAPY HAS AIDED GREATLY IN PAIN RELIEF WELL MOBILITY AND FUNCTIONALITY. PATIENT STATES IT IS EASIER FOR HER TO GET DRESSED, SHOWER, AND DO OTHER EVERYDAY ACTIVITIES SINCE STARTING PHYSICAL THERAPY. PATIENT DENIES UNEXPLAINABLE WEIGHT LOSS, FEVER, CHILLS, NEW CHANGES ON HER URINARY OR BOWEL CONTROL. FALL RISK SCREENING: SCREENING :NO FALLS IN THE PAST YEAR CURRENT MEDICATIONS TAKING GABAPENTIN 600 MG TABLET 1 CAP ORALLY THREE TIMES DAILY TAKING BACLOFEN 10 MG TABLET 1 TABLET WITH FOOD OR MILK ORALLY THREE TIMES A DAY NEEDED FOR SPASMS AND PAIN TAKING AMITRIPTYLINE HCL 25 MG TABLET 1 TO 2 TABLET AT BEDTIME ORALLY AT BEDTIME TAKING TRAMADOL HCL 50 MG TABLET 2 TABLETS ORALLY EVERY 6 HRS PRN PAIN MDD=4 TAKING DICLOFENAC SODIUM 50 MG TABLET DELAYED RELEASE 1 TABLET WITH FOOD OR MILK ORALLY THREE TIMES A DAY TAKING IBUPROFEN 800 MG TABLET 1 TABLET WITH FOOD OR MILK ORALLY THREE TIMES DAILY NEEDED TAKING NEOSPORIN PLUS MAX ST 4 % OINTMENT 1 APPLICATION TO AFFECTED AREA EXTERNALLY ONCE A DAY TAKING ACETAMINOPHEN-CODEINE 300-15 MG TABLET 1 TABLET NEEDED ORALLY EVERY 6 HRS TAKING DIFLUCAN 150 MG TABLET 1 TABLET ORALLY ONCE NOT-TAKING KEFLEX 250 MG CAPSULE 2 CAPSULE ORALLY EVERY 6 HRS NOT-TAKING VALIUM 5 MG TABLET 1 TABLET NEEDED ORALLY 3 HRS PRIOR MRI MAY REPEAT 1 HR PRIOR MRI NOT-TAKING SOMA 350 MG TABLET 1 TABLET NEEDED ORALLY 2 HRS BEFORE MRI MEDICATION LIST REVIEWED AND RECONCILED WITH THE PATIENT PAST MEDICAL HISTORY ARTHRITIS, BACK/HIP PAIN (NIDA BELL NP, [facility]) HX OF ABNORMAL PAP PERSISTENT PELVIC PAIN/OVARIAN CYSTS 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) ASVD 3 (0.7%) BAKERS CYST RIGHT KNEE ALLERGIES HAY FEVER SURGICAL HISTORY PARTIAL HYSTERECTOMY 2002 CHOLECYSTECTOMY 2010 KNEE-RIGHT 2005 BLADDER LIFT ([place]) 2007 FOOT 05/2014 LEFT OVARY - TERITOMA 10/2016 REMOVED INFECTION UNDER SHEATH OFR HAND MIDDLE FINGER 11/2016 SOCIAL HISTORY GENERAL: TOBACCO USE ARE YOU A:NONSMOKER ALCOHOL SCREENING DID YOU HAVE A DRINK CONTAINING ALCOHOL IN THE PAST YEAR?YES HOW OFTEN DID YOU HAVE A DRINK CONTAINING ALCOHOL IN THE PAST YEAR?NEVER (0 POINTS) POINTS0 INTERPRETATIONNEGATIVE HOW MANY DRINKS DID YOU HAVE ON A TYPICAL DAY WHEN YOU WERE DRINKING IN THE PAST YEAR?1 OR 2 (0 POINTS) HOW OFTEN DID YOU HAVE SIX OR MORE DRINKS ON ONE OCCASION IN THE PAST YEAR?NEVER (0 POINTS) RECREATIONAL DRUG USE DRUG USE?NO CAFFEINE CAFFEINE USE?YES HOW OFTEN AND HOW MUCH? OCC HIV / HEP-C SCREENING HIV TEST OFFERED TO PATIENT:YES DATE OFFERED:11/27/2016 TEST ACCEPTED:NO REASON:PATIENT DECLINED HEP-C TEST OFFERED TO PATIENT:NO OCCUPATION: UNEMPLOYED. DIET: REGULAR. EXERCISE: NO REGULAR EXERCISE. MARITAL STATUS: SINGLE. OTHERS AT HOME: CHILD. 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 ADVANCE DIRECTIVES HEALTH CARE PROXY?YES NAME OF HCP UNSURE DO YOU HAVE A DNR?NO WOULD YOU LIKE MORE INFORMATION?NO LIVING WILL?NO WOULD YOU LIKE MORE INFORMATION?NO POWER OF SHADING PAINTER?NO WOULD YOU LIKE MORE INFORMATION?NO REVIEW OF SYSTEMS REVIEWED BY: PROVIDER: RACHEL ABRAHAM MD . CONSTITUTIONAL: ANY CHANGE IN YOUR MEDICAL CONDITION? YES, S/P RIGHT HAND SURGERY, SCAR NOTED TO RIGHT HAND DIGIT #3. . CHILLS NO . FEVER NO . INFECTION: DO YOU HAVE NEW INFECTIONS? NO . DO YOU HAVE HISTORY OF MRSA? NO . MUSCULOSKELETAL: ANY NEW PATTERNS OF PAIN OR NUMBNESS? NO . GASTROENTEROLOGY: ANY NEW CHANGE IN BOWEL CONTROL? NO . GENITOURINARY: ANY NEW CHANGE IN BLADDER CONTROL? NO . IS THERE A CHANCE YOU COULD BE ? NO . HEMATOLOGY/LYMPH: DO YOU TAKE ANY BLOOD THINNERS? (FOR EXAMPLE- COUMADIN, PLAVIX, AGGRENOX, PLATEL, PRADAXA, OR XARELTO) NO . WHEN WAS YOUR LAST DOSE? DATE: TIME: . NEUROLOGY: HAVE YOU FALLEN IN THE PAST 6 MONTHS? NO . ANY NEW EXTREMITY NUMBNESS OR WEAKNESS? NO . CARDIOLOGY: DO YOU HAVE A PACEMAKER OR DEFIBRILLATOR? NO . RESPIRATORY: HAVE YOU BEEN SICK IN THE PAST WEEK? NO . FEVER NO . FLU LIKE SYMPTOMS? NO . COUGH NO . INTEGUMENTARY: DO YOU HAVE ANY RASHES OR OPEN SORES? NO . ALLERGIC/IMMUNO: ARE YOU ALLERGIC TO SHELLFISH OR IV DYE? NO . ANY NEW ALLERGIES? NO . PSYCHIATRIC: DO YOU HAVE THOUGHTS OF HURTING YOURSELF OR SOMEONE ELSE? NO . ARE YOU ABUSED, NEGLECTED, OR IN AN UNSAFE ENVIRONMENT? NO . ENDOCRINOLOGY: ARE YOU DIABETIC? NO . OTHER: DO YOU NEED ANY PRESCRIPTIONS? NO . IF YES, PLEASE LIST: ____ . ANY NEW PROBLEMS WITH YOUR MEDICATIONS? NO . WHEN DID YOU LAST EAT? ____ . WHEN DID YOU LAST DRINK? ____ . WHAT DID YOU LAST DRINK? ____ . NAME OF PERSON DRIVING YOU HOME? ____ . DO YOU HAVE ANY OTHER QUESTIONS OR CONCERNS NO . EXAMINATION : PATIENT IS ALERT O X 3 AND COOPERATIVE. PATIENT'S RIGHT LEG IS WEAKER AT FLEXION AND EXTENSION COMPARED TO THE LEFT LEG. STRAIGHT LEG RAISING IS POSITIVE FOR PAIN AT 45 DEGREES ON THE RIGHT LEG. FABERE TEST IS POSITIVE ON THE RIGHT LEG. MRI DONE ON 06/13/2016 SHOWS BILGES BULGES AT L3-L4 AND L4-L5 AND FACET ATROPHY. ASSESSMENTS INTERVERTEBRAL DISC DISORDER WITH RADICULOPATHY OF LUMBAR REGION - M51.16 (PRIMARY) SACROILIITIS, NOT ELSEWHERE CLASSIFIED - M46.1 MYALGIA - M79.1 TREATMENT INTERVERTEBRAL DISC DISORDER WITH RADICULOPATHY OF LUMBAR REGION NOTES: WE DISCUSSED SEVERAL ISSUES WITH MRS. RAY' PAIN MANAGEMENT CASE. AT THIS TIME THE PATIENT WILL CONTINUE WITH THE SAME MEDICATION REGIME BEFORE. PATIENT IS USING TRAMADOL FOR THE SOMATIC PAIN, GABAPENTIN FOR THE NEUROPATHIC PAIN, BACLOFEN FOR THE MUSCLE SPASMS, AND AMITRIPTYLINE FOR THE SOMATIC PAIN. PATIENT DENIES ABUSE OF ANY MEDICATION, DENIES USE OF ILLEGAL SUBSTANCES, AND STATES SHE IS ONLY USING THE MEDICATION FOR PAIN MANAGEMENT. PATIENT WILL PERFORM A URINE TOXICOLOGY REPORT AT THE NEXT VISIT. PATIENT WAS REMINDED TO BRING ALL PAIN MEDICATIONS TO EVERY VISIT. I WOULD LIEK THE PATIENT TO CONTINUE PHYSICAL THERAPY IT INCREASES HER RANGE OF MOTION WELL MOBILITY AND FUNCTIONALITY. PATIENT STATES IT IS EASIER FOR HER TO BEND OVER, CLEAN, COOK, AND GROCERY SHOP WHEN ATTENDING PHYSICAL THERAPY. DUE TO THE RADICULAR PAIN I WOULD LIEK TO PROCEED WITH A LUMBAR EPIDURAL. PATIENT HAS HAD GOOD RELIEF FROM EPIDURAL'S IN THE PAST. WE DISCUSSED THE RISKS, BENENFITS, AND ALTNERATIVES OF THE INJECTION AND THE PATIENT WOULD LIKE TO PROCEED AT THIS TIME. INSTRUCTIONS WERE GIVEN, QUESTIONS WERE ANSWERED, PATIENT REPORTS UNDERSTANDING AND AGREES WITH THE PLAN. I, BIANCA TRIANA, DOCUMENTED THE ABOVE INFORMATION ACTING A SCRIBE FOR DR. ABRAHAM. I HAVE REVIEWED THE ABOVE DOCUMENT, WRITTEN BY BIANCA PRUITT AND I VERIFY THAT IT IS ACCURATE. PROCEDURES PN WORKMANS' COMP OPINION IN YOUR OPINION, WAS THE INCIDENT THAT THE PATIENT DESCRIBED THE COMPETENT MEDICAL CAUSE OF THIS INJURY/ILLNESS? YES ARE THE PATIENT'S COMPLAINTS CONSISTENT WITH HIS/HER HISTORY OF THE INJURY/ILLNESS? YES IS THE PATIENT'S HISTORY OF THE INJURY/ILLNESS CONSISTENT WITH YOUR OBJECTIVE FINDING? YES WHAT IS THE PERCENTAGE OF TEMPORARY IMPAIRMENT? MARKED = 75% IS THE PATIENT WORKING? NO DOCTOR ON SITE: RACHEL MOJICA MD PROCEDURE CODES FA211 ESTABILISHED PATIENT [facility] FACILITY CHARGE G8427 DOC MEDS VERIFIED W/PT OR RE G8730 PAIN ASSESS POS TOOL F/U PLAN DOC DISPOSITION & COMMUNICATION FOLLOW UP LESI AFTER APPROVAL ELECTRONICALLY SIGNED BY RACHEL ABRAHAM MD ON 01/22/2017 AT 06:39 PM EST DISCLAIMER : THIS IS A VISIT SUMMARY EXTRACTED FROM THE [employer] CHART. IT IS NOT A COPY OF THE [employer] PROGRESS NOTE. MTDD
== END ==
LOC: M PAIN 13:30
PROVIDERS: ATTEND Anesthesiology
DX: M51.16 Intervertebral disc disorders with radiculopathy, lumbar region (principal); M46.1 Sacroiliitis, not elsewhere classified; M79.1 Myalgia; G89.29 Other chronic pain; Z79.891 Long term (current) use of opiate analgesic; Z79.899 Other long term (current) drug therapy; J30.9 Allergic rhinitis, unspecified

== ENCOUNTER → 2017-01-30 | Outpatient (CLI) | payer MEDICARE, MEDICAID, OTHER | LOC: M PAIN 10:00 | DX: G89.29 Other chronic pain (principal); M50.20 Other cervical disc displacement, unspecified cervical region; M54.12 Radiculopathy, cervical region; M46.92 Unspecified inflammatory spondylopathy, cervical region; M79.1 Myalgia; H91.90 Unspecified hearing loss, unspecified ear; J30.1 Allergic rhinitis due to pollen; N83.209 Unspecified ovarian cyst, unspecified side; M71.21 Synovial cyst of popliteal space [Baker], right knee; Z79.891 Long term (current) use of opiate analgesic; Z79.1 Long term (current) use of non-steroidal anti-inflammatories (NSAID); Z79.899 Other long term (current) drug therapy | CPT/HCPCS: G0463 ==

== ENCOUNTER 2017-02-15 13:29 | Outpatient (RCR) | payer MEDICARE, MEDICAID | END 2017-02-18 | LOC: M PT 13:29 | DX: Z51.89 Encounter for other specified aftercare (principal); S93.412D Sprain of calcaneofibular ligament of left ankle, subsequent encounter; X58.XXXD Exposure to other specified factors, subsequent encounter; Y92.9 Unspecified place or not applicable; Y93.9 Activity, unspecified | CPT/HCPCS: 97162 ==

== ENCOUNTER 2017-02-20 12:22 | Outpatient (RCR) | payer MEDICARE, MEDICAID | END 2017-03-21 | LOC: M PT 12:22 | DX: Z51.89 Encounter for other specified aftercare (principal); S93.412D Sprain of calcaneofibular ligament of left ankle, subsequent encounter; X58.XXXD Exposure to other specified factors, subsequent encounter; Y92.9 Unspecified place or not applicable; Y93.9 Activity, unspecified; Y99.9 Unspecified external cause status | CPT/HCPCS: 97110 ==

== ENCOUNTER → 2017-03-13 | Outpatient (CLI) | payer MEDICARE, MEDICAID, OTHER | LOC: M PAIN 13:00 | DX: M50.20 Other cervical disc displacement, unspecified cervical region (principal); M54.12 Radiculopathy, cervical region; M46.92 Unspecified inflammatory spondylopathy, cervical region; M79.1 Myalgia; Z79.891 Long term (current) use of opiate analgesic; Z79.899 Other long term (current) drug therapy; J30.2 Other seasonal allergic rhinitis | CPT/HCPCS: G0463 ==

== ENCOUNTER → 2017-04-10 | Outpatient (CLI) | payer MEDICARE, MEDICAID, OTHER ==
[~2017-04-10] MED LIST changes: -AMIT10TA; -AMIT25TA; -AMIT25TA2 OR; -ANTIBIOTIC PO; -BACL10TA2; -BACL10TA2 PO; -BACT800T5 PO; +BUPIVACAINE HCL 0.25% 10 ML VIAL As Ordered; +BUPIVACAINE HCL 0.25% 30 ML VIAL As Ordered; -CARI350T; -DIAZ5TAB; -FLEXERIL OR; -GABA-279; -GABA-282; -GABA-283 PO; -HYDR-3713 PO; -KEFL500C17 PO; -KETO10TAB PO; -MONI2KIT VA; -NAPR250T OR; -SIME180C PO; -SOMA250T PO; -TRAM50TA2; -TRAM50TA2 OR; +TRIAMCINOLONE ACETONIDE SUSP 40 MG/ML VIAL (J3301) As Ordered; -VALI5TAB PO; -VICO5TAB OR
== END ==
LOC: M PAIN 14:45
DX: G89.29 Other chronic pain (principal); M54.2 Cervicalgia; M25.511 Pain in right shoulder; M54.6 Pain in thoracic spine; M79.1 Myalgia; J30.2 Other seasonal allergic rhinitis; Z79.891 Long term (current) use of opiate analgesic; Z79.899 Other long term (current) drug therapy
CPT/HCPCS: J3301

== ENCOUNTER → 2017-04-10 | Outpatient (CLI) | payer MEDICARE, OTHER, MEDICAID | LOC: M PAIN 14:00 | DX: M54.5 Low back pain (principal); M79.1 Myalgia; M66.0 Rupture of popliteal cyst; Z79.891 Long term (current) use of opiate analgesic; Z79.899 Other long term (current) drug therapy; J30.1 Allergic rhinitis due to pollen | CPT/HCPCS: G0463 ==

== ENCOUNTER → 2017-05-01 | Outpatient (CLI) | payer MEDICARE, MEDICAID, OTHER | LOC: M PAIN 13:30 | DX: M79.1 Myalgia (principal); M50.20 Other cervical disc displacement, unspecified cervical region; M54.12 Radiculopathy, cervical region; M46.92 Unspecified inflammatory spondylopathy, cervical region; Z79.891 Long term (current) use of opiate analgesic; Z79.899 Other long term (current) drug therapy; J30.2 Other seasonal allergic rhinitis | CPT/HCPCS: G0463 ==

== ENCOUNTER → 2017-05-17 | Outpatient (CLI) | payer MEDICARE, MEDICAID, OTHER ==
[~2017-05-17] MED LIST changes: -BUPIVACAINE HCL 0.25% 10 ML VIAL As Ordered; +ISOVUE-M 300 61% 15ML VIAL (Q9967) As Ordered; +LIDOCAINE 1% SDV INJ 30 ML VIAL As Ordered; +MIDAZOLAM INJ 2 MG/2 ML VIAL (J2250) As Ordered; +fentaNYL 100 MCG/2 ML INJECTION (J3010) As Ordered
== END ==
LOC: M PAIN 10:45
DX: G89.29 Other chronic pain (principal); M47.812 Spondylosis without myelopathy or radiculopathy, cervical region; M47.813 Spondylosis without myelopathy or radiculopathy, cervicothoracic region; M16.9 Osteoarthritis of hip, unspecified; J30.1 Allergic rhinitis due to pollen; Z79.891 Long term (current) use of opiate analgesic; Z79.899 Other long term (current) drug therapy
CPT/HCPCS: J3301

== ENCOUNTER → 2017-05-22 | Outpatient (CLI) | payer MEDICARE, MEDICAID, OTHER | LOC: M PAIN 13:30 | DX: M51.26 Other intervertebral disc displacement, lumbar region (principal); M79.1 Myalgia; M54.16 Radiculopathy, lumbar region; J30.2 Other seasonal allergic rhinitis; Z79.891 Long term (current) use of opiate analgesic; Z79.899 Other long term (current) drug therapy | CPT/HCPCS: G0463 ==

== ENCOUNTER → 2017-05-31 | Outpatient (CLI) | payer MEDICARE, MEDICAID, OTHER | LOC: M PAIN 13:00 | DX: M47.812 Spondylosis without myelopathy or radiculopathy, cervical region (principal); M79.1 Myalgia; M54.12 Radiculopathy, cervical region; Z79.899 Other long term (current) drug therapy; Z79.891 Long term (current) use of opiate analgesic; J30.2 Other seasonal allergic rhinitis | CPT/HCPCS: G0463 ==

== ENCOUNTER 2017-06-09 16:45 | Emergency (ER) | payer MEDICARE, MEDICAID, OTHER ==
[2017-06-09] MEDS: NORCO, ANEXSIA 5/325MG TABLET (HYDROcodone/ACETAMINOPHEN) PO (19:03)
== END 2017-06-09 20:32 | disposition home or self-care (01) ==
LOC: M ED 16:45
DX: M54.2 Cervicalgia (principal); N80.9 Endometriosis, unspecified; Z79.899 Other long term (current) drug therapy
CPT/HCPCS: 70450

== ENCOUNTER → 2017-06-22 | Outpatient (CLI) | payer MEDICARE, MEDICAID, OTHER | LOC: M PAIN 14:00 | DX: M54.81 Occipital neuralgia (principal); M47.812 Spondylosis without myelopathy or radiculopathy, cervical region; M79.1 Myalgia; M54.12 Radiculopathy, cervical region; M16.10 Unilateral primary osteoarthritis, unspecified hip; J30.1 Allergic rhinitis due to pollen; Z79.891 Long term (current) use of opiate analgesic; Z79.899 Other long term (current) drug therapy | CPT/HCPCS: G0463 ==

== ENCOUNTER → 2017-07-03 | Outpatient (CLI) | payer MEDICARE, MEDICAID, OTHER | LOC: M PAIN 13:15 | DX: M79.1 Myalgia (principal); M54.81 Occipital neuralgia; M47.812 Spondylosis without myelopathy or radiculopathy, cervical region; M54.12 Radiculopathy, cervical region; M19.90 Unspecified osteoarthritis, unspecified site; J30.1 Allergic rhinitis due to pollen; Z79.891 Long term (current) use of opiate analgesic; Z79.899 Other long term (current) drug therapy | CPT/HCPCS: G0463 ==

== ENCOUNTER → 2017-07-10 | Outpatient (CLI) | payer OTHER, MEDICARE, MEDICAID | LOC: M PAIN 14:00 | DX: Z53.8 Procedure and treatment not carried out for other reasons (principal) ==

== ENCOUNTER → 2017-07-18 | Outpatient (CLI) | payer MEDICARE, MEDICAID, OTHER ==
[~2017-07-18] MED LIST changes: +BUPIVACAINE HCL 0.25% 10 ML VIAL As Ordered; -ISOVUE-M 300 61% 15ML VIAL (Q9967) As Ordered; -LIDOCAINE 1% SDV INJ 30 ML VIAL As Ordered; -MIDAZOLAM INJ 2 MG/2 ML VIAL (J2250) As Ordered; +diazePAM 5 MG TAB As Ordered; -fentaNYL 100 MCG/2 ML INJECTION (J3010) As Ordered; +oxyCODONE 5MG TAB As Ordered
== END ==
LOC: M PAIN 11:45
DX: G89.29 Other chronic pain (principal); M79.1 Myalgia; M54.2 Cervicalgia; M25.511 Pain in right shoulder; M54.6 Pain in thoracic spine; M19.90 Unspecified osteoarthritis, unspecified site; J30.2 Other seasonal allergic rhinitis
CPT/HCPCS: J3301

== ENCOUNTER → 2017-08-10 | Outpatient (CLI) | payer MEDICARE, MEDICAID, OTHER | LOC: M PAIN 13:30 | DX: M79.1 Myalgia (principal); M54.12 Radiculopathy, cervical region; M46.92 Unspecified inflammatory spondylopathy, cervical region; M77.11 Lateral epicondylitis, right elbow; M19.90 Unspecified osteoarthritis, unspecified site; J30.2 Other seasonal allergic rhinitis; Z79.891 Long term (current) use of opiate analgesic; Z79.899 Other long term (current) drug therapy | CPT/HCPCS: G0463 ==

== ENCOUNTER → 2017-08-15 | Outpatient (CLI) | payer OTHER, MEDICARE, MEDICAID ==
[~2017-08-15] MED LIST changes: -BUPIVACAINE HCL 0.25% 10 ML VIAL As Ordered; -BUPIVACAINE HCL 0.25% 30 ML VIAL As Ordered; +ISOVUE-M 300 61% 15ML VIAL (Q9967) As Ordered; +LIDOCAINE 1% SDV INJ 30 ML VIAL As Ordered; +MIDAZOLAM INJ 2 MG/2 ML VIAL (J2250) As Ordered; -TRIAMCINOLONE ACETONIDE SUSP 40 MG/ML VIAL (J3301) As Ordered; -diazePAM 5 MG TAB As Ordered; +fentaNYL 100 MCG/2 ML INJECTION (J3010) As Ordered; +methylPREDNISolone SUSP 40 MG/ML (DEPO-medrol) VIAL (J1030) As Ordered; -oxyCODONE 5MG TAB As Ordered
== END ==
LOC: M PAIN 13:00
DX: G89.29 Other chronic pain (principal); M51.16 Intervertebral disc disorders with radiculopathy, lumbar region; Z79.891 Long term (current) use of opiate analgesic; Z79.899 Other long term (current) drug therapy; J30.2 Other seasonal allergic rhinitis
CPT/HCPCS: J1030

== ENCOUNTER → 2017-09-14 | Outpatient (CLI) | payer OTHER, MEDICAID, MEDICARE | LOC: M PAIN 13:15 | DX: M51.16 Intervertebral disc disorders with radiculopathy, lumbar region (principal); M54.5 Low back pain; M46.1 Sacroiliitis, not elsewhere classified; J30.2 Other seasonal allergic rhinitis; M16.10 Unilateral primary osteoarthritis, unspecified hip; Z79.891 Long term (current) use of opiate analgesic; Z79.899 Other long term (current) drug therapy | CPT/HCPCS: G0463 ==

== ENCOUNTER → 2017-09-24 | Outpatient (CLI) | payer MEDICARE, MEDICAID ==
[~2017-09-24] MED LIST changes: +BUPIVACAINE HCL 0.25% 10 ML VIAL As Ordered; +BUPIVACAINE HCL 0.25% 30 ML VIAL As Ordered; -ISOVUE-M 300 61% 15ML VIAL (Q9967) As Ordered; -LIDOCAINE 1% SDV INJ 30 ML VIAL As Ordered; -MIDAZOLAM INJ 2 MG/2 ML VIAL (J2250) As Ordered; +TRIAMCINOLONE ACETONIDE SUSP 40 MG/ML VIAL (J3301) As Ordered; +diazePAM 5 MG TAB As Ordered; -fentaNYL 100 MCG/2 ML INJECTION (J3010) As Ordered; -methylPREDNISolone SUSP 40 MG/ML (DEPO-medrol) VIAL (J1030) As Ordered; +oxyCODONE 5MG TAB As Ordered
== END ==
LOC: M PAIN 14:00
DX: M79.1 Myalgia (principal); H91.90 Unspecified hearing loss, unspecified ear; J30.1 Allergic rhinitis due to pollen; R10.2 Pelvic and perineal pain; Z90.49 Acquired absence of other specified parts of digestive tract; Z79.899 Other long term (current) drug therapy
CPT/HCPCS: J3301

== ENCOUNTER 2017-10-02 05:43 | Emergency (ER) | payer OTHER, MEDICARE, MEDICAID ==
[2017-10-02 07:35] LABS: BASO % 0.4 % (0.0-1.0); EOS # 0.2 10^3/uL (0.0-0.50); EOS % 2.4 % (0.0-3.0); HEMATOCRIT 34.5 % (36.0-47.0); HEMOGLOBIN 11.7 g/dl (12.0-15.5); IMMATURE GRANULOCYTE % 0.2 % (0-3.0); LYMPH # 1.7 10^3/uL (1.5-4.5); LYMPH % 20.5 % (24.0-44.0); MEAN CORPUSCULAR HEMOGLOBIN 29.9 pg (27.0-33.0); MEAN CORPUSCULAR HGB CONC 33.9 g/dl (32.0-36.5); MEAN CORPUSCULAR VOLUME 88.2 fl (80.0-96.0); MONO # 0.9 10^3/uL (0.0-0.8); MONO % 10.3 % (0.0-5.0); NEUTROPHILS # 5.6 10^3/uL (1.8-7.7); NEUTROPHILS % 66.2 % (36.0-66.0); PLATELET COUNT, AUTOMATED 232 10^3/uL (150-450); RED BLOOD COUNT 3.91 10^6/uL (4.00-5.40); RED CELL DISTRIBUTION WIDTH 11.9 % (11.5-14.5); WHITE BLOOD COUNT 8.4 10^3/uL (4.0-10.0)
[2017-10-02 07:59] LABS: CONTROL LINE HCG INT CTR LINE PRESENT; HCG, SERUM QUALITATIVE NEGATIVE (NEGATIVE)
[2017-10-02] MEDS: KETOROLAC 30 MG/ML VIAL (J1885) IV (08:00)
[2017-10-02 08:05] LABS: ALBUMIN 3.1 GM/DL (3.2-5.2); ALBUMIN/GLOBULIN RATIO 0.89 (1.00-1.93); ALKALINE PHOSPHATASE 62 U/L (45-117); ALT/SGPT 19 U/L (12-78); ANION GAP 5 MEQ/L (8-16); AST/SGOT 14 U/L (7-37); BILIRUBIN,DIRECT 0.1 MG/DL (0.0-0.2); BILIRUBIN,TOTAL 0.5 MG/DL (0.2-1.0); BLOOD UREA NITROGEN 6 MG/DL (7-18); CALCIUM LEVEL 8.3 MG/DL (8.5-10.1); CARBON DIOXIDE LEVEL 32 MEQ/L (21-32); CHLORIDE LEVEL 106 MEQ/L (98-107); CREATININE FOR GFR 0.65 MG/DL (0.55-1.30); GLOMERULAR FILTRATION RATE > 60.0 (>58); GLUCOSE, FASTING 94 MG/DL (70-100); LIPASE 94 U/L (73-393); POTASSIUM SERUM 3.6 MEQ/L (3.5-5.1); SODIUM LEVEL 143 MEQ/L (136-145); TOTAL PROTEIN 6.6 GM/DL (6.4-8.2)
== END 2017-10-02 10:55 | disposition home or self-care (01) ==
LOC: M ED 05:43
DX: M54.10 Radiculopathy, site unspecified (principal); G89.29 Other chronic pain; Z91.81 History of falling; Z79.899 Other long term (current) drug therapy
CPT/HCPCS: J1885

== ENCOUNTER → 2017-10-08 | Outpatient (CLI) | payer MEDICARE, MEDICAID | LOC: M PAIN 13:15 | DX: M79.1 Myalgia (principal); M54.12 Radiculopathy, cervical region; M46.1 Sacroiliitis, not elsewhere classified; M77.11 Lateral epicondylitis, right elbow; M19.90 Unspecified osteoarthritis, unspecified site; J30.2 Other seasonal allergic rhinitis; Z79.891 Long term (current) use of opiate analgesic; Z79.899 Other long term (current) drug therapy | CPT/HCPCS: G0463 ==

== ENCOUNTER → 2017-12-07 | Outpatient (CLI) | payer OTHER, MEDICAID | LOC: M PAIN 14:30 | DX: M79.18 Myalgia, other site (principal); M51.26 Other intervertebral disc displacement, lumbar region; M54.16 Radiculopathy, lumbar region; J30.1 Allergic rhinitis due to pollen; H91.93 Unspecified hearing loss, bilateral; Z79.899 Other long term (current) drug therapy | CPT/HCPCS: G0463 ==

== ENCOUNTER 2017-12-13 17:11 | Emergency (ER) | payer MEDICAID, MEDICARE, OTHER ==
[2017-12-13] MEDS: NAPROXEN 250 MG TAB PO ×2 (19:24)
== END 2017-12-13 19:35 | disposition home or self-care (01) ==
LOC: M ED 17:11
DX: M77.11 Lateral epicondylitis, right elbow (principal); M79.641 Pain in right hand; M50.30 Other cervical disc degeneration, unspecified cervical region; H91.90 Unspecified hearing loss, unspecified ear; Z79.899 Other long term (current) drug therapy
CPT/HCPCS: 99282

== ENCOUNTER → 2018-01-04 | Outpatient (CLI) | payer MEDICARE, MEDICAID | LOC: M RAD 13:43 | DX: M77.11 Lateral epicondylitis, right elbow (principal) | CPT/HCPCS: 73221 ==

== ENCOUNTER → 2018-02-22 | Outpatient (CLI) | payer OTHER, MEDICAID ==
[~2018-02-22] MED LIST changes: +ACET30TAB PO; +AMIT10TA; +AMIT25TA; +AMIT25TA PO; +AMIT25TA2 OR; +ANTIBIOTIC PO; +BACL10TA2; +BACL10TA2 PO; +BACT800T5 PO; -BUPIVACAINE HCL 0.25% 10 ML VIAL As Ordered; -BUPIVACAINE HCL 0.25% 30 ML VIAL As Ordered; +CARI1TAB7; +CARI1TAB7 PO; +DIAZ5TAB; +DICL75TA PO; +FLEXERIL OR; +GABA-1171; +GABA-843; +GABA-845 PO; +HYDR-3713 PO; +KEFL500C17 PO; +KETO10TAB PO; +LYRI75CA PO; +MONI2KIT VA; +NAPR-50 PO; +NAPR250T OR; +NORCOTAB PO; +SIME180C PO; +SOMA250T PO; +TRAM50TA2; +TRAM50TA2 OR; -TRIAMCINOLONE ACETONIDE SUSP 40 MG/ML VIAL (J3301) As Ordered; +VALI5TAB PO; +VICO5TAB OR; -diazePAM 5 MG TAB As Ordered; -oxyCODONE 5MG TAB As Ordered
--- NOTE | 2018-03-11 00:21 | ECWPNPC ---
PATIENT NAME: RADHA RAY : 1970 GENDER: FEMALE VISIT DATE: 02/22/2018 DISCHARGE DATE: 02/22/18 1537 VISIT LOCKED DATE TIME: PHYSICIAN: RACHEL ABRAHAM MD RESOURCE: RACHEL ABRAHAM MD REASON FOR APPOINTMENT 1. W/C MED VISIT HISTORY OF PRESENT ILLNESS HISTORY OF PRESENT ILLNESS: PAIN THE PATIENT DESCRIBES THE PAIN... 47 YEAR OLD FEMALE PATIENT WITH A HISTORY OF CHRONIC LOW BACK PAIN. THE PATIENT DESCRIBES THE PAIN ACHING, SORE, TENDER, AND CONTINUOUS WITH A PAIN SCORE OF 7-10/10 DEPENDING ON PHYSICAL ACTIVITY. THE PATIENT WAS HURT IN A WORK RELATED INJURY ON 06/20/2007 WHILE WORKING AT THE [employer] WHEN SHE WAS BLOCKING A DOORWAY TO PREVENT A STUDENT FROM GETTING TO ANOTHER STUDENT AND SHE TWISTED HER BACK CAUSING AN INJURY. THE PATIENT DID PHYSICAL THERAPY IN THE PAST AND SAYS THAT IT HELPED TEMPORARILY. THE PATIENT IS CURRENTLY USING SOMA, TRAMADOL, AND LYRICA TO AID IN PAIN RELIEF AND REPORTS THAT THE MEDICATIONS HELP KEEP HER MOBILE AND FUNCTIONAL. THE PATIENT SAYS THE PAIN RADIATES DOWN INTO HER RIGHT BUTTOCK AND RIGHT GROIN. THE PATIENT REPORTS THAT IT IS VERY PAINFUL TO LAY ON HER BACK AND SHE REPOSITIONS HERSELF TO HER RIGHT HIP, BUT THE PAIN INCREASES IN HER BACK AND SITTING ON HER LEFT HIP GETS PAINFUL AFTER A SHORT PERIOD OF TIME. PATIENT DENIES UNEXPLAINABLE WEIGHT LOSS, FEVER, CHILLS, NEW CHANGES ON HER URINARY OR BOWEL CONTROL. FALL RISK SCREENING: SCREENING :NO FALLS IN THE PAST YEAR CURRENT MEDICATIONS TAKING LORATADINE 10 MG TABLET 1 TAB ORALLY PRN TAKING DICLOFENAC SODIUM 75 MG TABLET DELAYED RELEASE 1 TABLET WITH FOOD OR MILK ORALLY DAILY TAKING AMITRIPTYLINE HCL 25 MG TABLET 1 TO 2 TABLET AT BEDTIME ORALLY AT BEDTIME TAKING DICLOFENAC SODIUM 50 MG TABLET DELAYED RELEASE 1 TABLET WITH FOOD OR MILK ORALLY BID PRN PAIN TAKING LYRICA 75 MG CAPSULE 1 CAPSULE ORALLY BID MDD=2 TAKING TRAMADOL HCL 50 MG TABLET 2 TABLETS ORALLY EVERY 6 HRS PRN PAIN MDD=4 TAKING CARISOPRODOL 350 MG TABLET 1 TABLET NEEDED ORALLY BID PRNMUSCLE SPASMS MDD=2 TAKING NAPROXEN 250 MG TABLET 1 TABLET WITH FOOD OR MILK ORALLY TWICE A DAY NOT-TAKING CARISOPRODOL 350 MG TABLET 1 TABLET NEEDED ORALLY BID PRN SPASM MDD=2, NOTES: DUPLICATE MEDICATION LIST REVIEWED AND RECONCILED WITH THE PATIENT PAST MEDICAL HISTORY ARTHRITIS, BACK/HIP PAIN (NIDA BELL NP, [facility]) HX OF ABNORMAL PAP PERSISTENT PELVIC PAIN/OVARIAN CYSTS 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) ASVD 3 (0.7%) BAKERS CYST RIGHT KNEE ALLERGIES HAY FEVER SURGICAL HISTORY PARTIAL HYSTERECTOMY 2003 CHOLECYSTECTOMY 2010 KNEE-RIGHT 2005 BLADDER LIFT ([place]) 2007 FOOT 05/2014 LEFT OVARY - TERITOMA 10/2016 REMOVED INFECTION UNDER SHEATH OFR HAND MIDDLE FINGER 11/2016 FAMILY HISTORY FATHER: , DIAGNOSED WITH CANCER MOTHER: ALIVE, DIAGNOSED WITH HYPERTENSION, OTHER 1 BROTHER(S) , 1 SISTER(S) . 3DAUGHTER(S) . FATHER: ESOPHAGUS CAMOTHER: HIGH CHOLESTEROLBROTHER: MSGRANDMOTHER WITH MULTIPLE MYELOMA. SOCIAL HISTORY GENERAL: TOBACCO USE ARE YOU A:NONSMOKER ALCOHOL SCREENING DID YOU HAVE A DRINK CONTAINING ALCOHOL IN THE PAST YEAR?YES HOW OFTEN DID YOU HAVE SIX OR MORE DRINKS ON ONE OCCASION IN THE PAST YEAR?NEVER (0 POINTS) HOW MANY DRINKS DID YOU HAVE ON A TYPICAL DAY WHEN YOU WERE DRINKING IN THE PAST YEAR?1 OR 2 (0 POINTS) HOW OFTEN DID YOU HAVE A DRINK CONTAINING ALCOHOL IN THE PAST YEAR?TWO TO FOUR TIMES A MONTH (2 POINTS) POINTS2 INTERPRETATIONNEGATIVE RECREATIONAL DRUG USE DRUG USE?NO CAFFEINE CAFFEINE USE?YES HOW OFTEN AND HOW MUCH? 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 DIET: REGULAR. EXERCISE: NO REGULAR EXERCISE. MARITAL STATUS: SINGLE. OTHERS AT HOME: CHILD. PAIN CLINIC PFS, CLERGY, PUBLIC HEALTH REFERRALS PFS REFERRAL NEEDED?NO CLERGY REFERRAL NEEDED?NO PUBLIC HEALTH REFERRAL NEEDED?NO WAS THE PROVIDER NOTIFIED OF ANY PERTINENT INFO?NO HAS THE PATIENT BEEN EDUCATED REGARDING HIS/HER PLAN OF CARE?YES HAS THE PATIENT BEEN EDUCATED REGARDING PAIN, THE RISK FOR PAIN, THE IMPORTANCE OF EFFECTIVE PAIN MANAGEMENT, AND THE PAIN ASSESSMENT PROCESS?YES ADVANCE DIRECTIVE ADVANCE DIRECTIVE DISCUSSED WITH PATIENT:YES PT STATES SHE HAS HCP--DAUGHTER-KAMAR [phone]. REVIEWED WITH PATIENT 12/07/17 1506 JSREVIEWED WITH PATIENT 02/22/18 1415 LAS. HOSPITALIZATION/MAJOR DIAGNOSTIC PROCEDURE SURGERY RELATED REVIEW OF SYSTEMS REVIEWED BY: PROVIDER: RACHEL ABRAHAM MD . CONSTITUTIONAL: ANY CHANGE IN YOUR MEDICAL CONDITION? NO . CHILLS NO . FEVER NO . INFECTION: DO YOU HAVE NEW INFECTIONS? NO . DO YOU HAVE HISTORY OF MRSA? NO . MUSCULOSKELETAL: ANY NEW PATTERNS OF PAIN OR NUMBNESS? NO . GASTROENTEROLOGY: ANY NEW CHANGE IN BOWEL CONTROL? NO . GENITOURINARY: ANY NEW CHANGE IN BLADDER CONTROL? NO . IS THERE A CHANCE YOU COULD BE ? NO . HEMATOLOGY/LYMPH: DO YOU TAKE ANY BLOOD THINNERS? (FOR EXAMPLE- COUMADIN, PLAVIX, AGGRENOX, PLATEL, PRADAXA, OR XARELTO) NO . WHEN WAS YOUR LAST DOSE? DATE: TIME: . NEUROLOGY: HAVE YOU FALLEN IN THE PAST 6 MONTHS? YES PT REPORTS TWO FALLS IN PAST SIX MONTHS, STATES HER RIGHT LEG IS WEAK, CAUSING IT TO GIVE WAY. SHE FELL ONTO HER LEFT SIDE, DENIES INJURIES OR ED VISITS . ANY NEW EXTREMITY NUMBNESS OR WEAKNESS? NO . CARDIOLOGY: DO YOU HAVE A PACEMAKER OR DEFIBRILLATOR? NO . RESPIRATORY: HAVE YOU BEEN SICK IN THE PAST WEEK? NO . FEVER NO . FLU LIKE SYMPTOMS? NO . COUGH NO . INTEGUMENTARY: DO YOU HAVE ANY RASHES OR OPEN SORES? NO . ALLERGIC/IMMUNO: ARE YOU ALLERGIC TO SHELLFISH OR IV DYE? NO . ANY NEW ALLERGIES? NO . PSYCHIATRIC: DO YOU HAVE THOUGHTS OF HURTING YOURSELF OR SOMEONE ELSE? NO . ARE YOU ABUSED, NEGLECTED, OR IN AN UNSAFE ENVIRONMENT? NO . ENDOCRINOLOGY: ARE YOU DIABETIC? NO . OTHER: DO YOU NEED ANY PRESCRIPTIONS? NO . IF YES, PLEASE LIST: ____ . ANY NEW PROBLEMS WITH YOUR MEDICATIONS? NO . WHEN DID YOU LAST EAT? ____ . WHEN DID YOU LAST DRINK? ____ . WHAT DID YOU LAST DRINK? ____ . NAME OF PERSON DRIVING YOU HOME? ____ . DO YOU HAVE ANY OTHER QUESTIONS OR CONCERNS YES PT WOULD LIKE TO KNOW ABOUT BED SUPPORT THROUGH WORKER'S COMP . VITAL SIGNS WT 189.6 LBS, HT 66 IN, BMI 30.60 INDEX, BP 111/61 MM HG, HR 75 /MIN, RR 18 /MIN, TEMP 97.5 F, OXYGEN SAT % 100%, SAFE IN ENV? (Y/N) YES, NA INITIALS SC 14:05, REVIEWED BY: DOMINGO. EXAMINATION GENERAL EXAMINATION: PATIENT IS ALERT O X 3 AND COOPERATIVE. TENDERNESS IN THE PARASPINAL MUSCLE GROUP OVER THE LOW BACK AREA. RIGHT LEG WEAKER AT EXTENSION AND FLEXION. STRAIGHT LEG RAISE OF THE RIGHT LEG CAUSES SOME DISCOMFORT AT 60 DEGREES. MRI OF THE LUMBAR SPINE DONE ON 11/05/2017 SHOWS A DISC PROTRUSION AT L3-L4 AND L4-L5. ASSESSMENTS INTERVERTEBRAL DISC DISORDER WITH RADICULOPATHY OF LUMBAR REGION - M51.16 (PRIMARY) TREATMENT INTERVERTEBRAL DISC DISORDER WITH RADICULOPATHY OF LUMBAR REGION CLINICAL NOTES: WE DISCUSSED SEVERAL ISSUES WITH MRS. RAY'S PAIN MANAGEMENT CASE. THE PATIENT WILL CONTINUE USING THE SAME MEDICATION REGIMENT, BUT WE WILL CONSIDER REDUCING THEM AFTER THE WINTER BECAUSE THE COLD WEATHER CAUSES HER PAIN TO INCREASE. I WILL PERFORM A URINE TOXICOLOGY TODAY AND ISTOP _[id number] WAS REVIEWED. WE WILL NOT BE MOVING FORWARD WITH ANY INTERVENTIONS AT THIS TIME DUE TO IT BEING DIFFICULT TO COMMUNICATE WITH THE PATIENT. THE PATIENT IS REQUESTING A LUMBAR SUPPORT CUSHION TO HELP RELIEVE THE PAIN IN HER LOWER BACK SO THAT SHE CAN LAY ON HER BACK. THE PATIENT REPORTS THAT SHE HAS USED LUMBAR SUPPORT CUSHIONS IN THE PAST DURING IMAGING STUDIES AND IT HELPED DECREASE HER LOW BACK PAIN SO THAT SHE WAS ABLE TO LAY ON HER BACK FOR AN EXTENDED TIME PERIOD. I WOULD LIKE TO ORDER A MEMORY FOAM LUMBAR BACK SPINAL SUPPORT CUSHION TO HELP THE PATIENT WITH HER SPINAL INSTABILITY AND PAIN. THE PATIENT WILL FOLLOW UP IN 2 MONTHS. INSTRUCTIONS WERE GIVEN, QUESTIONS WERE ANSWERED, PATIENT REPORTS UNDERSTANDING AND AGREES WITH THE PLAN. I, JOSE L ROACH, DOCUMENTED THE ABOVE INFORMATION ACTING A SCRIBE FOR DR. ABRAHAM. I HAVE REVIEWED THE ABOVE DOCUMENT, WRITTEN BY JOSE L PRUITT AND I VERIFY THAT IT IS ACCURATE. OTHERS REFILL CARISOPRODOL TABLET, 350 MG, 1 TABLET NEEDED, ORALLY, BID PRNMUSCLE SPASMS MDD=2, 30 DAY(S), 60, REFILLS 0 REFILL TRAMADOL HCL TABLET, 50 MG, 2 TABLETS, ORALLY, EVERY 6 HRS PRN PAIN MDD=4, 30 DAY(S), 120, REFILLS 0 REFILL LYRICA CAPSULE, 75 MG, 1 CAPSULE, ORALLY, BID MDD=2, 30 DAY(S), 60, REFILLS 0 PROCEDURES PN WORKMANS' COMP OPINION IN YOUR OPINION, WAS THE INCIDENT THAT THE PATIENT DESCRIBED THE COMPETENT MEDICAL CAUSE OF THIS INJURY/ILLNESS? YES ARE THE PATIENT'S COMPLAINTS CONSISTENT WITH HIS/HER HISTORY OF THE INJURY/ILLNESS? YES IS THE PATIENT'S HISTORY OF THE INJURY/ILLNESS CONSISTENT WITH YOUR OBJECTIVE FINDING? YES WHAT IS THE PERCENTAGE OF TEMPORARY IMPAIRMENT? MODERATE TO MARKED = 66.7% IS THE PATIENT WORKING? NO DOCTOR ON SITE: RACHEL MOJICA MD PROCEDURE CODES FA211 ESTABILISHED PATIENT [facility] FACILITY CHARGE G8427 CURRENT MEDS W/DOSAGES DOCUMENTED G8730 PAIN ASSESS POS TOOL F/U PLAN DOC DISPOSITION & COMMUNICATION FOLLOW UP 2 MONTHS ELECTRONICALLY SIGNED BY RACHEL ABRAHAM MD, MD ON 03/10/2018 AT 10:33 AM EST DISCLAIMER : THIS IS A VISIT SUMMARY EXTRACTED FROM THE [employer] CHART. IT IS NOT A COPY OF THE [employer] PROGRESS NOTE. CALVIN
== END ==
LOC: M PAIN 13:45
PROVIDERS: ATTEND Anesthesiology
DX: M51.16 Intervertebral disc disorders with radiculopathy, lumbar region (principal); G89.29 Other chronic pain; M19.90 Unspecified osteoarthritis, unspecified site; J30.2 Other seasonal allergic rhinitis; Z79.891 Long term (current) use of opiate analgesic; Z79.899 Other long term (current) drug therapy; Z86.61 Personal history of infections of the central nervous system

== ENCOUNTER → 2018-03-19 | Outpatient (REF) | payer MEDICARE, MEDICAID ==
[2018-03-19 21:04] LABS: BASO % 0.5 % (0.0-1.0); EOS # 0.1 10^3/uL (0.0-0.50); EOS % 1.2 % (0.0-3.0); HEMATOCRIT 40.2 % (36.0-47.0); HEMOGLOBIN 13.5 g/dl (12.0-15.5); LYMPH # 2.5 10^3/uL (1.5-4.5); LYMPH % 36.8 % (24.0-44.0); MEAN CORPUSCULAR HEMOGLOBIN 29.7 pg (27.0-33.0); MEAN CORPUSCULAR HGB CONC 33.6 g/dl (32.0-36.5); MEAN CORPUSCULAR VOLUME 88.4 fl (80.0-96.0); MONO # 0.4 10^3/uL (0.0-0.8); MONO % 6.2 % (0.0-5.0); NEUTROPHILS # 3.7 10^3/uL (1.8-7.7); NEUTROPHILS % 55.1 % (36.0-66.0); PLATELET COUNT, AUTOMATED 263 10^3/uL (150-450); RED BLOOD COUNT 4.55 10^6/uL (4.00-5.40); WHITE BLOOD COUNT 6.7 10^3/uL (4.0-10.0)
[2018-03-19 21:06] LABS: BLOOD UREA NITROGEN 6 MG/DL (7-18); CALCIUM LEVEL 8.7 MG/DL (8.5-10.1); CARBON DIOXIDE LEVEL 30 MEQ/L (21-32); CHLORIDE LEVEL 102 MEQ/L (98-107); CREATININE FOR GFR 0.67 MG/DL (0.55-1.30); GLOMERULAR FILTRATION RATE > 60.0 (>58); GLUCOSE, FASTING 88 MG/DL (70-100); POTASSIUM SERUM 3.6 MEQ/L (3.5-5.1); SODIUM LEVEL 139 MEQ/L (136-145); THYROID STIMULATING HORMONE 0.596 uIU/ML (0.358-3.740)
[2018-03-19 22:59] LABS: CHLAMYDIA DNA AMPLIFICATION NEGATIVE (NEGATIVE); GC DNA AMPLIFICATION NEGATIVE (NEGATIVE)
[2018-03-20 10:57] LABS: HIV 1&2 SCREEN CENTAUR NEGATIVE (NEGATIVE)
== END ==
LOC: M SFHCLERA 17:04
PROVIDERS: ATTEND Family Medicine
DX: R55 Syncope and collapse (principal); Z11.3 Encounter for screening for infections with a predominantly sexual mode of transmission
CPT/HCPCS: 80048; 84443; 85025; 86780; 87389; 87491; 87591; 93005; G0463

== ENCOUNTER → 2018-03-22 | Outpatient (CLI) | payer MEDICARE, MEDICAID ==
--- NOTE | 2018-03-25 00:34 | HOLTMON ---
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 No activity reported with the maximum heart rate. No pause. Rare isolated PVCs. No ventricular run. Rare isolated PACs. One supraventricular run made of 7 beats and going at about 150 bpm. Symptoms: Dizziness. No associated arrhythmia. Electronically Signed On 03-25-2018 0:33:31 EST by Jose Denise
== END ==
LOC: M EKG 13:15
PROVIDERS: ATTEND Family Medicine
DX: R55 Syncope and collapse (principal)

== ENCOUNTER → 2018-04-26 | Outpatient (CLI) | payer OTHER, MEDICAID | LOC: M PAIN 14:15 | PROVIDERS: ATTEND Anesthesiology | DX: M54.5 Low back pain (principal); G89.29 Other chronic pain; Z53.29 Procedure and treatment not carried out because of patient's decision for other reasons ==

== ENCOUNTER → 2018-05-13 | Outpatient (CLI) | payer OTHER, MEDICAID ==
[~2018-05-13] MED LIST changes: +ACET-716 PO; -ACET30TAB PO; +HYDR-3715 PO; -NAPR-50 PO; +NAPR-837 PO; -NORCOTAB PO
--- NOTE | 2018-05-26 23:30 | ECWPNPC ---
PATIENT NAME: RADHA RAY : 1970 GENDER: FEMALE VISIT DATE: 05/13/2018 DISCHARGE DATE: 05/13/18 1533 VISIT LOCKED DATE TIME: PHYSICIAN: RACHEL ABRAHAM MD RESOURCE: RACHEL ABRAHAM MD REASON FOR APPOINTMENT 1. W/C-LOW BACK HISTORY OF PRESENT ILLNESS HISTORY OF PRESENT ILLNESS: PAIN THE PATIENT DESCRIBES THE PAIN... 47 YEAR OLD FEMALE PATIENT WITH A HISTORY OF CHRONIC LOW BACK PAIN. THE PATIENT DESCRIBES THE PAIN ACHING, SORE, TENDER, AND CONTINUOUS WITH A PAIN SCORE OF 7-10/10 DEPENDING ON PHYSICAL ACTIVITY. THE PATIENT WAS HURT IN A WORK RELATED INJURY ON 06/20/2007 WHILE WORKING AT THE [facility] [place] [employer] WHEN SHE WAS BLOCKING A DOORWAY TO PREVENT A STUDENT FROM GETTING TO ANOTHER STUDENT AND SHE TWISTED HER BODY CAUSING HER TO INJURE HER BACK. THE PATIENT SAYS THAT HER PAIN STARTS IN HER LOW BACK AND RADIATES DOWN HER RIGHT LEG. THE PATIENT SAYS THAT SHE HAS DIFFICULTY DOING DAILY ACTIVITIES SUCH COOKING, CLEANING, AND GROCERY SHOPPING DUE TO THIS PAIN. THE PATIENT IS CURRENTLY USING TRAMADOL, LYRICA, AND SOMA TO AID IN PAIN RELIEF. THE PATIENT DENIES THE ABUSE OF ANY MEDICATIONS AND SAYS SHE IS ONLY USING THEM FOR PAIN MANAGEMENT. PATIENT DENIES UNEXPLAINABLE WEIGHT LOSS, FEVER, CHILLS, NEW CHANGES ON HER URINARY OR BOWEL CONTROL. FALL RISK SCREENING: SCREENING :NO FALLS REPORTED IN THE LAST YEAR CURRENT MEDICATIONS TAKING CARISOPRODOL 350 MG TABLET 1 TABLET NEEDED ORALLY BID PRNMUSCLE SPASMS MDD=2 TAKING TRAMADOL HCL 50 MG TABLET 2 TABLETS ORALLY EVERY 6 HRS PRN PAIN MDD=4 TAKING LYRICA 75 MG CAPSULE 1 CAPSULE ORALLY BID MDD=2 TAKING LORATADINE 10 MG TABLET 1 TAB ORALLY PRN TAKING DICLOFENAC SODIUM 50 MG TABLET DELAYED RELEASE 1 TABLET WITH FOOD OR MILK ORALLY BID PRN PAIN TAKING AMITRIPTYLINE HCL 25 MG TABLET 1 TO 2 TABLET AT BEDTIME ORALLY AT BEDTIME TAKING DICLOFENAC SODIUM 75 MG TABLET DELAYED RELEASE 1 TABLET WITH FOOD OR MILK ORALLY DAILY NOT-TAKING NAPROXEN 250 MG TABLET 1 TABLET WITH FOOD OR MILK ORALLY TWICE A DAY DISCONTINUED CARISOPRODOL 350 MG TABLET 1 TABLET NEEDED ORALLY BID PRN SPASM MDD=2, NOTES: DUPLICATE MEDICATION LIST REVIEWED AND RECONCILED WITH THE PATIENT PAST MEDICAL HISTORY ARTHRITIS, BACK/HIP PAIN (NIDA BELL NP, [facility]) HX OF ABNORMAL PAP PERSISTENT PELVIC PAIN/OVARIAN CYSTS 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 3DAUGHTER(S) - HEALTHY. FATHER: ESOPHAGUS CA\NMOTHER: HIGH CHOLESTEROL\NBROTHER: MS\NGRANDMOTHER WITH MULTIPLE MYELOMA. SOCIAL HISTORY GENERAL: TOBACCO USE ARE YOU A:NONSMOKER LATEX QUESTIONNAIRE LATEX ALLERGY : HAVE YOU EVER DEVELOPED ANY TYPE OF REACTION AFTER HANDLING LATEX PRODUCTS SUCH RUBBER GLOVES, CONDOMS, DIAPHRAGMS, BALLOONS, SOCKS, OR UNDERWEAR?NO LATEX ALLERGY : HAVE YOU EVER DEVELOPED ANY TYPE OF REACTION DURING OR AFTER DENTAL APPOINTMENT, VAGINAL/RECTAL EXAMINATION, SURGICAL PROCEDURE, OR ANY OTHER EXPOSURE?NO LATEX RISK : HAVE YOU EVER HAD ANY DIFFICULTY BREATHING OR HIVES AFTER EATING OR HANDLING ANY FRUITS, OR VEGETABLES; SUCH KIWI, BANANAS, STONE FRUITS, OR CHESTNUTSNO LATEX RISK : DO YOU HAVE A PREVIOUS PERSONAL HISTORY OF MORE THAN NINE SURGERIES, SPINA BIFIDA, OR REPEATED CATHERTIZATIONS? NO LATEX RISK : ARE YOU FREQUENTLY EXPOSED TO LATEX PRODUCTS IN YOUR OCCUPATION?NO DATE ASKED : 05/13/2018 ALCOHOL SCREENING DID YOU HAVE A DRINK CONTAINING ALCOHOL IN THE PAST YEAR?YES HOW OFTEN DID YOU HAVE SIX OR MORE DRINKS ON ONE OCCASION IN THE PAST YEAR?NEVER (0 POINTS) HOW MANY DRINKS DID YOU HAVE ON A TYPICAL DAY WHEN YOU WERE DRINKING IN THE PAST YEAR?1 OR 2 (0 POINTS) HOW OFTEN DID YOU HAVE A DRINK CONTAINING ALCOHOL IN THE PAST YEAR?TWO TO FOUR TIMES A MONTH (2 POINTS) POINTS2 INTERPRETATIONNEGATIVE RECREATIONAL DRUG USE DRUG USE?NO CAFFEINE CAFFEINE USE?YES HOW OFTEN AND HOW MUCH? OCC SEXUAL HX HAD SEX IN THE LAST 12 MONTHS (VAGINAL, ORAL, OR ANAL)?YES WITHMEN ONLY USE PROTECTION?NO HIV / HEP-C SCREENING HIV TEST OFFERED TO PATIENT:YES DATE OFFERED:03/19/2018 TEST ACCEPTED:YES HEP-C TEST OFFERED TO PATIENT:YES DATE OFFERED:03/19/2018 TEST ACCEPTED:YES BROCHURE PROVIDED TO PATIENTYES RESTORATION [id number] NONE LANGUAGE LANGUAGES SPOKEN:INDIAN ASL EDUCATION LEVEL OF EDUCATION:COLLEGE LEARNING BARRIERS / SPECIAL NEEDS CHANGE FROM LAST VISIT?NO BARRIERS TO LEARNING?YES HEARING IMPAIRED?YES USES RESEARCH COMPLIANCE SPECIALIST AND HAS LEFT EAR HEARING AID VISION IMPAIRED?YES :CORRECTIVE LENSES COGNITIVELY IMPAIRED?NO READINESS TO LEARN?YES LEARNING PREFERENCES?YES :OTHER (PLEASE COMMENT) 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 DIET: REGULAR. EXERCISE: NO REGULAR EXERCISE. MARITAL STATUS: SINGLE. OTHERS AT HOME: CHILD. PAIN CLINIC PFS, CLERGY, PUBLIC HEALTH REFERRALS PFS REFERRAL NEEDED?NO CLERGY REFERRAL NEEDED?NO PUBLIC HEALTH REFERRAL NEEDED?NO WAS THE PROVIDER NOTIFIED OF ANY PERTINENT INFO? N/A HAS THE PATIENT BEEN EDUCATED REGARDING HIS/HER PLAN OF CARE?YES HAS THE PATIENT BEEN EDUCATED REGARDING PAIN, THE RISK FOR PAIN, THE IMPORTANCE OF EFFECTIVE PAIN MANAGEMENT, AND THE PAIN ASSESSMENT PROCESS?YES ADVANCE DIRECTIVE ADVANCE DIRECTIVE DISCUSSED WITH PATIENT:YES PT STATES SHE HAS HCP--DAUGHTER-KAMAR [phone]. REVIEWED WITH PATIENT 12/07/17 1506 JSREVIEWED WITH PATIENT 02/22/18 1415 LAS05/13/18 REVIEWED WITH PT. AD. HOSPITALIZATION/MAJOR DIAGNOSTIC PROCEDURE SURGERY RELATED REVIEW OF SYSTEMS REVIEWED BY: PROVIDER: RACHEL ABRAHAM MD . CONSTITUTIONAL: ANY CHANGE IN YOUR MEDICAL CONDITION? NO . CHILLS NO . FEVER NO . INFECTION: DO YOU HAVE NEW INFECTIONS? NO . DO YOU HAVE HISTORY OF MRSA? NO . MUSCULOSKELETAL: ANY NEW PATTERNS OF PAIN OR NUMBNESS? NO . GASTROENTEROLOGY: ANY NEW CHANGE IN BOWEL CONTROL? NO . GENITOURINARY: ANY NEW CHANGE IN BLADDER CONTROL? NO . IS THERE A CHANCE YOU COULD BE ? NO . HEMATOLOGY/LYMPH: DO YOU TAKE ANY BLOOD THINNERS? (FOR EXAMPLE- COUMADIN, PLAVIX, AGGRENOX, PLATEL, PRADAXA, OR XARELTO) NO . WHEN WAS YOUR LAST DOSE? DATE: TIME: . NEUROLOGY: HAVE YOU FALLEN IN THE PAST 12 MONTHS? YES, A COUPLE OF TIMES SHE JUST LOST HER BALANCE. LAST TIME APPROX A FEW WEEKS AGO, SHE BRACED HERSELF WITH HER LEFT HAND AND LANDED ON HER RIGHT HIP. SHE IS STILL HAVING PAIN IN BOTH AREAS . ANY NEW EXTREMITY NUMBNESS OR WEAKNESS? NO . CARDIOLOGY: DO YOU HAVE A PACEMAKER OR DEFIBRILLATOR? NO . RESPIRATORY: HAVE YOU BEEN SICK IN THE PAST WEEK? NO . FEVER NO . FLU LIKE SYMPTOMS? NO . COUGH NO . INTEGUMENTARY: DO YOU HAVE ANY RASHES OR OPEN SORES? YES, DISCOLORED AREA ON LEFT LOWER ARM THAT WON'T GO AWAY, SHE HAS HAD THIS FOR A COUPLE OF WEEKS. SHE IS NOT SURE WHAT HAPPENED. . ALLERGIC/IMMUNO: ARE YOU ALLERGIC TO IV DYE? NO . ANY NEW ALLERGIES? NO . PSYCHIATRIC: DO YOU HAVE THOUGHTS OF HURTING YOURSELF OR SOMEONE ELSE? NO . ARE YOU ABUSED, NEGLECTED, OR IN AN UNSAFE ENVIRONMENT? NO . ENDOCRINOLOGY: ARE YOU DIABETIC? NO . OTHER: DO YOU NEED ANY PRESCRIPTIONS? YES . IF YES, PLEASE LIST: TRAMADOL, AMITRIPTYLINE, SOMA . ANY NEW PROBLEMS WITH YOUR MEDICATIONS? NO . WHEN DID YOU LAST EAT? ____ . WHEN DID YOU LAST DRINK? ____ . WHAT DID YOU LAST DRINK? ____ . NAME OF PERSON DRIVING YOU HOME? ____ . DO YOU HAVE ANY OTHER QUESTIONS OR CONCERNS SHE HAS BEEN HAVING PAIN RIGHT GROIN AREA. IT WAS REALLY BAD A COUPLE OF DAYS AGO--IT WAS A SEVERE SHARP, STABBING PAIN. 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 VITAL SIGNS WT 181.4 LBS, HT 66 IN, BMI 29.28 INDEX, BP 133/68 MM HG, HR 84 /MIN, RR 16 /MIN, TEMP 99.5 F, OXYGEN SAT % 96%, SAFE IN ENV? (Y/N) Y, NA INITIALS AW 1323, REVIEWED BY: AD. EXAMINATION GENERAL EXAMINATION: PATIENT IS ALERT O X 3 AND COOPERATIVE. RIGHT LEG IS WEAKER AT EXTENSION AND FLEXION. STRAIGHT LEG RAISE OF THE RIGHT LEG IS POSITIVE AT 45 DEGREES FOR RADICULOPATHY. MRI OF THE LUMBAR SPINE DONE ON 11/05/2017 SHOWS A DISC PROTRUSION AT L3-L4. ASSESSMENTS INTERVERTEBRAL DISC DISORDER WITH RADICULOPATHY OF LUMBAR REGION - M51.16 (PRIMARY) TREATMENT INTERVERTEBRAL DISC DISORDER WITH RADICULOPATHY OF LUMBAR REGION CLINICAL NOTES: WE DISCUSSED SEVERAL ISSUES WITH MRS. RAY'S PAIN MANAGEMENT CASE. DUE TO THE LUMBAR RADICULOPATHY, I WOULD LIKE TO MOVE FORWARD WITH A RIGHT L3 AND RIGHT L4 TRANSFORAMINAL EPIDURAL STEROID INJECTION AT THIS TIME. WE DISCUSSED THE BENEFITS, RISKS, AND ALTERNATIVES OF THE INJECTION AND THE PATIENT WOULD LIKE TO PROCEED. THE PATIENT WOULD LIKE TO MOVE FORWARD WITH IV SEDATION DUE TO PAIN AND ANXIETY ASSOCIATED WITH THE PROCEDURE. THE PATIENT WILL CONTINUE USING TRAMADOL FOR THE SOMATIC PAIN, LYRICA FOR THE NEUROPATHIC PAIN, AND SOMA FOR THE SPASMS. THE PATIENT SAYS THAT HER PAIN IS DIFFICULT TO MANAGE IF SHE REDUCES HER MEDICATIONS. ISTOP _#[id number] WAS REVIEWED. URINE TOXICOLOGY DONE ON 02/22/2018 SHOWS CONCURRENT RESULTS. THE PATIENT WILL COME IN FOR A PRE SEDATION FOLLOW UP PRIOR TO THE INJECTION. INSTRUCTIONS WERE GIVEN, QUESTIONS WERE ANSWERED, PATIENT REPORTS UNDERSTANDING AND AGREES WITH THE PLAN. I, JOSE L ROACH, DOCUMENTED THE ABOVE INFORMATION ACTING A SCRIBE FOR DR. ABRAHAM. I HAVE REVIEWED THE ABOVE DOCUMENT, WRITTEN BY JOSE L LOMELIIBMariah AND I VERIFY THAT IT IS ACCURATE. . OTHERS REFILL CARISOPRODOL TABLET, 350 MG, 1 TABLET NEEDED, ORALLY, BID PRNMUSCLE SPASMS MDD=2, 30 DAY(S), 60, REFILLS 0 REFILL TRAMADOL HCL TABLET, 50 MG, 2 TABLETS, ORALLY, EVERY 6 HRS PRN PAIN MDD=4, 30 DAY(S), 120, REFILLS 0 REFILL LYRICA CAPSULE, 75 MG, 1 CAPSULE, ORALLY, BID MDD=2, 30 DAY(S), 60, REFILLS 0 PROCEDURES PN WORKMANS' COMP OPINION IN YOUR OPINION, WAS THE INCIDENT THAT THE PATIENT DESCRIBED THE COMPETENT MEDICAL CAUSE OF THIS INJURY/ILLNESS? YES ARE THE PATIENT'S COMPLAINTS CONSISTENT WITH HIS/HER HISTORY OF THE INJURY/ILLNESS? YES IS THE PATIENT'S HISTORY OF THE INJURY/ILLNESS CONSISTENT WITH YOUR OBJECTIVE FINDING? YES WHAT IS THE PERCENTAGE OF TEMPORARY IMPAIRMENT? MODERATE TO MARKED = 66.7% IS THE PATIENT WORKING? NO DOCTOR ON SITE: RACHEL MOJICA MD PREVENTIVE MEDICINE PAIN CLINIC TEACHING: PROCEDURE TEACHING PRE PROCEDURE TEACHING AND INSTRUCTIONS REVIEWED WITH PATIET AND PT'S MOM. PT VERBALIZES UNDERSTANDING. 05/13/18 1537 LAS. PROCEDURE CODES FA211 ESTABILISHED PATIENT [facility] FACILITY CHARGE G8427 CURRENT MEDS W/DOSAGES DOCUMENTED G8730 PAIN ASSESS POS TOOL F/U PLAN DOC DISPOSITION & COMMUNICATION FOLLOW UP 2 MONTHS ELECTRONICALLY SIGNED BY RACHEL ABRAHAM MD, MD ON 05/26/2018 AT 03:50 PM EDT DISCLAIMER : THIS IS A VISIT SUMMARY EXTRACTED FROM THE [facility] CHART. IT IS NOT A COPY OF THE [facility] PROGRESS NOTE. MTDD
== END ==
LOC: M PAIN 12:15
PROVIDERS: ATTEND Anesthesiology
DX: M51.16 Intervertebral disc disorders with radiculopathy, lumbar region (principal); H91.92 Unspecified hearing loss, left ear; M19.90 Unspecified osteoarthritis, unspecified site; J30.1 Allergic rhinitis due to pollen; R10.2 Pelvic and perineal pain; M71.21 Synovial cyst of popliteal space [Baker], right knee; Z79.891 Long term (current) use of opiate analgesic; Z79.899 Other long term (current) drug therapy; Z90.49 Acquired absence of other specified parts of digestive tract

== ENCOUNTER → 2018-05-17 | Outpatient (CLI) | payer MEDICARE, MEDICAID ==
[~2018-05-17] MED LIST changes: -ACET-716 PO; +ACET30TAB PO; -HYDR-3715 PO; +NAPR-50 PO; -NAPR-837 PO; +NORCOTAB PO
--- NOTE | 2018-05-17 14:38 | REP ---
Clinical: Right lower quadrant pelvic pain to the . Technique: Transabdominal pelvic ultrasound followed by transvaginal examination for better evaluation of the endometrium and adnexa with color Doppler evaluation of the ovaries. Findings: Bladder is unremarkable and measures 7.7 x 7.2 x 5.5 cm . The patient is noted to be status post hysterectomy and left oophorectomy without pelvic mass or fluid collection. Right ovary is normal in appearance and vascularity without evidence for torsion. Right ovary measures 2.9 x 2.6 x 2.5 cm with 2.6 cm presumed physiologic cyst ; R I = 0.60. Impression: 1. Evidence for prior hysterectomy and left oophorectomy. 2. Right ovary includes 2.6 cm presumed physiologic cyst and no evidence for torsion. No pelvic fluid. Consider reevaluation and 4-6 weeks to evaluate for resolution. Electronically Signed by Nathaniel Weir MD 05/17/2018 02:29 P
== END ==
LOC: M RAD 12:57
PROVIDERS: ATTEND Nurse Practitioner Family
DX: R10.31 Right lower quadrant pain (principal); Z90.710 Acquired absence of both cervix and uterus; Z90.722 Acquired absence of ovaries, bilateral

== ENCOUNTER 2018-06-04 06:07 | Day surgery (SDC) | payer MEDICARE, MEDICAID ==
[~2018-06-04] VITALS: Ht 170.2 cm; Wt 81.6 kg
[~2018-06-04 06:07] MED LIST changes: +ACET-716 PO; -ACET30TAB PO; +AMIT50TA PO; +HYDR-3715 PO; +LIDOCAINE 1% MDV 20ML VIAL SQ PRN; -NAPR-50 PO; +NAPR-837 PO; -NORCOTAB PO; +TRAM50TA2 PO
[2018-06-04] MEDS ORDERED: BUPIVACAINE HCL 0.25% 10 ML VIAL ONE (06:08)
[2018-06-04] MEDS ORDERED: LIDOCAINE 1% MDV 20ML VIAL ONE (06:08)
[2018-06-04] MEDS ORDERED: ceFAZolin 2 GM/D5W 50 ML IV BAG (J0690 PER 500MG) As Ordered ONE (06:36)
[2018-06-04] MEDS ORDERED: LR 1,000 ML IV ONE (06:45)
[2018-06-04] MEDS ORDERED: LIDOCAINE 2% INJ 100 MG/5 ML SDV (FOR ANES.) As Ordered ONE (07:12)
[2018-06-04] MEDS ORDERED: fentaNYL 100 MCG/2 ML INJECTION (J3010) As Ordered ONE ×2 (07:12→07:13)
[2018-06-04] MEDS ORDERED: MIDAZOLAM INJ 2 MG/2 ML VIAL (J2250) As Ordered ONE ×2 (07:12→07:13)
[2018-06-04] MEDS ORDERED: PROPOFOL 200 MG/20 ML VIAL As Ordered ONE (07:12)
[2018-06-04] MEDS ORDERED: BUPIVACAINE HCL 0.25% 30 ML VIAL As Ordered ONE ×2 (07:18→07:47)
[2018-06-04] MEDS ORDERED: ROCURONIUM BROMIDE 50 MG/5 ML VIAL As Ordered ONE (07:40)
[2018-06-04] MEDS ORDERED: dexameTHASONE 4 MG/ML 1ML VIAL (J1100) As Ordered ONE (07:56)
[2018-06-04] MEDS ORDERED: MIDAZOLAM INJ 2 MG/2 ML VIAL (J2250) IV ONE (08:00)
[2018-06-04] MEDS ORDERED: fentaNYL 100 MCG/2 ML INJECTION (J3010) IV ONE (08:00)
[2018-06-04] MEDS ORDERED: GLYCOPYRROLATE INJ 0.2 MG/ML 2 ML VIAL As Ordered ONE (08:16)
[2018-06-04] MEDS ORDERED: ONDANSETRON 4MG/2ML VIAL (J2405) As Ordered ONE (08:16)
[2018-06-04] MEDS ORDERED: NEOSTIGMINE 10 MG/10 ML VIAL (J2710) As Ordered ONE (08:16)
[2018-06-04] MEDS ORDERED: LR 1,000 ML IV SCH (09:00)
[2018-06-04] MEDS ORDERED: ACETAMINOPHEN TAB 650MG DOSE (2X325MG) PO PRN (09:00)
[2018-06-04] MEDS ORDERED: MORPHINE 4 MG/ML 1ML VIAL/SYRINGE (J2270) IV PRN (09:00)
[2018-06-04] MEDS ORDERED: ONDANSETRON 4MG/2ML VIAL (J2405) IV PRN ×2 (09:00→09:15)
[2018-06-04] MEDS ORDERED: NORCO, ANEXSIA 5/325MG TABLET (HYDROcodone/ACETAMINOPHEN) PO PRN (09:15)
--- NOTE | 2018-06-04 10:00 | RO ---
DATE OF PROCEDURE: 06/04/2018 PREOPERATIVE DIAGNOSIS: Right elbow lateral epicondylitis. POSTOPERATIVE DIAGNOSIS: Right elbow lateral epicondylitis. PLANNED PROCEDURE: Right elbow arthroscopy and debridement of the lateral epicondyle and intraarticular surgery. PROCEDURE PERFORMED: Right elbow arthroscopy and debridement of the lateral epicondyle and intraarticular surgery (debridement of extensor carpi radialis brevis (ECRB)). SURGEON: Geoffrey Garcia MD WAREHOUSE FORKLIFT OPERATOR: Dr. Barrios TYPE OF ANESTHESIA: General anesthetic plus nerve block. OPERATIVE PREAMBLE: This 47-year-old female failed extensive nonoperative management of her lateral epicondylitis. She had MRI and clinically confirmed lateral epicondylitis. We talked about the pros and cons and risks and benefits of going ahead with operative management in the form of right elbow arthroscopy and debridement of ECRB plus lateral epicondyle. She wished to go ahead, and we confirmed the patient and the site, and I marked the site in preoperative holding. OPERATIVE REPORT: The patient was administered a nerve block prior to surgery. They were brought to the operating theater. They were placed supine on the operating room table. The patient and site was confirmed. General anesthesia was induced. The patient was moved to the right lateral decubitus with the aid of a sandbag. An 18-inch tourniquet was applied to the right upper extremity. A western elbow positioner was used with the left arm moved away. Axillary roll was placed, and the extremity was appropriately padded. 2 grams of intravenous (IV) Ancef was administered prior to the start of the case. The right upper extremity was prepped and draped in the usual sterile fashion. Preoperative time-out was performed. We confirmed the patient and the site. A sterile knee arthroscopy drape was used. The limb was exsanguinated with a 4-inch sterile Esmarch bandage and then the tourniquet inflated to 250 mmHg for the entirety of the case before being taken down at the end of the case. The olecranon tip, lateral and medial epicondyles were marked, as well as radial head and ulnar nerve. Lateral and medial intermuscular septum was also marked. I started the case by distending the joint with approximately 25 mL of sterile normal saline with a spinal needle. I did this through the soft spot portal of the elbow. I confirmed adequate pressure backflow. I then made a proximal anteromedial portal with a skin larry incision using a #11 blade scalpel. I made this 1 cm proximal and anterior to the medial epicondyle. I then spread the subcutaneous tissues using a snap. I then stayed along the anterior crest of the humerus and then entered the joint and spread the track. I then introduced the arthroscope, gravity inflow. I visualized the entirety of the joint. There was no obvious chondral defects. The ECRB origin did appear to have some small evidence of partial thickness tearing and small wavy fibers. I then used inside-out technique to localize my proximal anterolateral portal. I used a spinal needle to localize the portal to just proximal to the radiocapitellar joint. Then I used a #11 blade to cut down on the needle. I introduced the 4.0-mm straight shaver instrument intraarticular. I then debrided away the entirety of the pathologic ECRB tendon, ensuring to stay well above the equator of the radiocapitellar joint as to not disrupt the ACL. I did some debridement, as well, at the ECRB origin/lateral epicondyle. I ensured that I saw the muscular fibers of the extensor carpi radialis longus (ECRL) muscle. I then used a switching stick to examine the joint from the lateral side. There was no obvious cartilage lesions, loose bodies, or intraarticular plica. I thoroughly irrigated the joint and withdrew the arthroscope and shaving instrument. I then closed the portal sites with interrupted 3-0 Ethilon suture. The skin was cleaned with wet and dry dressing, followed by application of Adaptic, 4 x 8 gauze, and sterile 4-inch Gilberto bandage. The patient was transferred off the operating room table, woken up from the general anesthetic, and taken to the postanesthetic care unit in stable condition. All sponge, needle, instrument counts were correct. There were no complications or excess blood loss associated with the procedure. ESTIMATED BLOOD LOSS: Was likely 5 mL. The plan for the patient is to be range of motion as tolerated and followup in either 3 days or 2 weeks to discontinue the sutures.
[2018-06-04 10:30] VITALS: BP 128/59
== END 2018-06-04 11:08 | disposition home or self-care (01) ==
LOC: M ADMPAT 06:07 → M SDC 11:08
PROVIDERS: ATTEND Orthopaedic Surgery Sports Medicine
DX: M77.11 Lateral epicondylitis, right elbow (principal)
CPT/HCPCS: 29837; J0690; J1100; J2250; J2405; J2710; J3010

== ENCOUNTER → 2018-09-17 | Outpatient (CLI) | payer MEDICARE, MEDICAID ==
[~2018-09-17] MED LIST changes: -LIDOCAINE 1% MDV 20ML VIAL SQ PRN
--- NOTE | 2018-09-17 14:18 | REP ---
MRI LEFT ELBOW WITHOUT CONTRAST: HISTORY: Pain in the left elbow. Rule out tennis elbow. Comparison radiographs are from April 26 2010. TECHNIQUE: Axial, coronal and sagittal imaging planes utilized. T1- and T2-weighted scans were included with and without fat saturation. MRI FINDINGS: Cortical and medullary bone signal intensity are normal. There is no evidence of significant joint effusion. No bursal effusion is seen. Triceps, biceps, and brachialis tendons appear intact. Skeletal muscle and vascular structures show normal contours and signal intensity. On coronal T2-weighted scans, the medial epicondyle and medial collateral ligament insertions appear intact. At the lateral epicondyle however, there is a mild pattern of increased T2 signal intensity which may reflect some edema and swelling of the common extensor tendon at the lateral epicondyle. This it is consistent with mild lateral epicondylitis. No tricia tear is seen. No evidence of loose body. No articular cartilage lesion is seen. IMPRESSION: Very mild changes of increased signal intensity and swelling in the tendon insertion at the lateral epicondyle consistent with lateral epicondylitis. Otherwise negative. Electronically Signed by Les Rosado MD 09/17/2018 02:23 P
== END ==
LOC: M RAD 12:32
PROVIDERS: ATTEND Orthopaedic Surgery Sports Medicine
DX: M25.522 Pain in left elbow (principal)

== ENCOUNTER → 2018-09-23 | Outpatient (CLI) | payer MEDICARE, MEDICAID ==
--- NOTE | 2018-10-02 01:41 | ECWPNPC ---
PATIENT NAME: RADHA RAY : 1970 GENDER: FEMALE VISIT DATE: 09/23/2018 DISCHARGE DATE: 09/23/18 1545 VISIT LOCKED DATE TIME: PHYSICIAN: RACHEL ABRAHAM MD RESOURCE: RACHEL ABRAHAM MD REASON FOR APPOINTMENT 1. NON COMP NECK HISTORY OF PRESENT ILLNESS HISTORY OF PRESENT ILLNESS: PAIN THE PATIENT DESCRIBES THE PAIN... 48 YEAR OLD FEMALE WITH A HISTORY OF CHRONIC RIGHT NECK PAIN. THE PATIENT DESCRIBES THE PAIN ACHING, SHARP, PINCHING NERVE, AND CONTINUOUS WITH A PAIN SCORE OF 7-10/10 DEPENDING ON PHYSICAL ACTIVITY. THE PATIENT STATES HER PAIN BEGINS HIGH IN HER NECK AND RADIATES DOWN TOWARDS HER SHOULDER BLADES. THE PATIENT SAYS HER PAIN BEGAN ABOUT 4 YEARS AGO AROUND THE SAME TIME SHE EXPERIENCED TENNIS ELBOW PAIN, WHICH SHE HAD SURGERY ON. THE PATIENT RECEIVED A CERVICAL FACET BLOCK ON 04/27/2017, WHICH PROVIDED HER WITH GOOD PAIN RELIEF. THE PATIENT MENTIONS SHE IS ALSO EXPERIENCING THORACIC PAIN. PATIENT DENIES UNEXPLAINABLE WEIGHT LOSS, FEVER, CHILLS, NEW CHANGES ON HER URINARY OR BOWEL CONTROL. FALL RISK SCREENING: SCREENING :NO FALLS REPORTED IN THE LAST YEAR CURRENT MEDICATIONS TAKING DICLOFENAC SODIUM 50 MG TABLET DELAYED RELEASE 1 TABLET WITH FOOD OR MILK ORALLY BID PRN PAIN TAKING TRAMADOL HCL 50 MG TABLET 1 TABLET NEEDED ORALLY EVERY 6 HRS PRN PAIN MDD=4 TAKING CARISOPRODOL 350 MG TABLET 1 TABLET NEEDED ORALLY BID PRNMUSCLE SPASMS MDD=2 TAKING AMITRIPTYLINE HCL 25 MG TABLET 1 TO 2 TABLET AT BEDTIME ORALLY AT BEDTIME TAKING LYRICA 75 MG CAPSULE 1 CAPSULE ORALLY BID MDD=2 NOT-TAKING FLONASE ALLERGY RELIEF 50 MCG/ACT SUSPENSION 1 SPRAY IN EACH NOSTRIL NASALLY ONCE A DAY NOT-TAKING IBUPROFEN 600 MG TABLET 1 TABLET WITH FOOD OR MILK NEEDED ORALLY THREE TIMES A DAY NOT-TAKING LORATADINE 10 MG TABLET 1 TAB ORALLY PRN NOT-TAKING PERCOCET 5-325 MG TABLET 1 TABLET NEEDED ORALLY EVERY 6 HRS, NOTES: UNSURE OF DOSE NOT-TAKING IBUPROFEN 800 MG TABLET 1 TABLET WITH FOOD OR MILK NEEDED ORALLY THREE TIMES A DAY MEDICATION LIST REVIEWED AND RECONCILED WITH THE PATIENT PAST MEDICAL HISTORY ARTHRITIS, BACK/HIP PAIN (NIDA BELL NP, 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 3DAUGHTER(S) - HEALTHY. FATHER: ESOPHAGUS [place]\\\\NMOTHER: HIGH CHOLESTEROL\\\\NBROTHER: MS\\\\NGRANDMOTHER WITH MULTIPLE MYELOMA. SOCIAL HISTORY GENERAL: TOBACCO USE ARE YOU A:NONSMOKER HIV / HEP-C SCREENING HIV TEST OFFERED TO PATIENT:YES DATE OFFERED:03/19/2018 TEST ACCEPTED:YES HEP-C TEST OFFERED TO PATIENT:YES DATE OFFERED:03/19/2018 TEST ACCEPTED:YES BROCHURE PROVIDED TO PATIENTYES OTHERS AT HOME: CHILD. EDUCATION LEVEL OF EDUCATION:COLLEGE DIET: REGULAR. LANGUAGE LANGUAGES SPOKEN:SPANISH ASL DOMESTIC VIOLENCE DO YOU FEEL SAFE IN YOUR ENVIRONMENT?YES RECREATIONAL DRUG USE DRUG USE?NO EXERCISE: NO REGULAR EXERCISE. LEARNING BARRIERS / SPECIAL NEEDS CHANGE FROM LAST VISIT?NO BARRIERS TO LEARNING?YES HEARING IMPAIRED?YES USES DROP WIRE ALIGNER AND HAS LEFT EAR HEARING AID VISION IMPAIRED?YES COGNITIVELY IMPAIRED?NO :CORRECTIVE LENSES READINESS TO LEARN?YES LEARNING PREFERENCES?YES :OTHER (PLEASE COMMENT) BOOT TRIMMER LEARNING CAPABILITIES PRESENT?NO EMOTIONAL BARRIERS?NO SPECIAL DEVICES?NO DROP WIRE ALIGNER NEEDED?YES [facility] PFS, CLERGY, PUBLIC HEALTH REFERRALS PFS REFERRAL NEEDED?NO CLERGY REFERRAL NEEDED?NO PUBLIC HEALTH REFERRAL NEEDED?NO WAS THE PROVIDER NOTIFIED OF ANY PERTINENT INFO? N/A HAS THE PATIENT BEEN EDUCATED REGARDING HIS/HER PLAN OF CARE?YES HAS THE PATIENT BEEN EDUCATED REGARDING PAIN, THE RISK FOR PAIN, THE IMPORTANCE OF EFFECTIVE PAIN MANAGEMENT, AND THE PAIN ASSESSMENT PROCESS?YES LATEX QUESTIONNAIRE LATEX ALLERGY : HAVE YOU EVER DEVELOPED ANY TYPE OF REACTION AFTER HANDLING LATEX PRODUCTS SUCH RUBBER GLOVES, CONDOMS, DIAPHRAGMS, BALLOONS, SOCKS, OR UNDERWEAR?NO LATEX ALLERGY : HAVE YOU EVER DEVELOPED ANY TYPE OF REACTION DURING OR AFTER DENTAL APPOINTMENT, VAGINAL/RECTAL EXAMINATION, SURGICAL PROCEDURE, OR ANY OTHER EXPOSURE?NO DATE ASKED : 05/14/2018 LATEX RISK : HAVE YOU EVER HAD ANY DIFFICULTY BREATHING OR HIVES AFTER EATING OR HANDLING ANY FRUITS, OR VEGETABLES; SUCH KIWI, BANANAS, STONE FRUITS, OR CHESTNUTSNO LATEX RISK : DO YOU HAVE A PREVIOUS PERSONAL HISTORY OF MORE THAN NINE SURGERIES, SPINA BIFIDA, OR REPEATED CATHERIZATIONS? YES - PLEASE INDICATE : > 9 SURGERIES LATEX RISK : ARE YOU FREQUENTLY EXPOSED TO LATEX PRODUCTS IN YOUR OCCUPATION?NO CAFFEINE CAFFEINE USE?YES HOW OFTEN AND HOW MUCH? OCC ADVANCE DIRECTIVE ADVANCE DIRECTIVE DISCUSSED WITH PATIENT:YES PT STATES SHE HAS HCP--DAUGHTER-KAMAR [phone]. ISLAM [id number] NONE MARITAL STATUS: SINGLE. ALCOHOL SCREENING DID YOU HAVE A DRINK CONTAINING ALCOHOL IN THE PAST YEAR?YES HOW OFTEN DID YOU HAVE SIX OR MORE DRINKS ON ONE OCCASION IN THE PAST YEAR?NEVER (0 POINTS) HOW MANY DRINKS DID YOU HAVE ON A TYPICAL DAY WHEN YOU WERE DRINKING IN THE PAST YEAR?1 OR 2 (0 POINTS) HOW OFTEN DID YOU HAVE A DRINK CONTAINING ALCOHOL IN THE PAST YEAR?TWO TO FOUR TIMES A MONTH (2 POINTS) POINTS2 INTERPRETATIONNEGATIVE OCCUPATION: UNEMPLOYED. SEXUAL HX HAD SEX IN THE LAST 12 MONTHS (VAGINAL, ORAL, OR ANAL)?YES WITHMEN ONLY USE PROTECTION?NO REVIEWED WITH PATIENT 12/07/17 1506 JSREVIEWED WITH PATIENT 02/22/18 1415 LAS05/13/18 REVIEWED WITH PT. AD. HOSPITALIZATION/MAJOR DIAGNOSTIC PROCEDURE SURGERY RELATED REVIEW OF SYSTEMS REVIEWED BY: PROVIDER: RACHEL ABRAHAM MD . CONSTITUTIONAL: ANY CHANGE IN YOUR MEDICAL CONDITION? NO . CHILLS NO . FEVER NO . INFECTION: DO YOU HAVE NEW INFECTIONS? NO . DO YOU HAVE HISTORY OF MRSA? NO . MUSCULOSKELETAL: ANY NEW PATTERNS OF PAIN OR NUMBNESS? NO . GASTROENTEROLOGY: ANY NEW CHANGE IN BOWEL CONTROL? NO . GENITOURINARY: ANY NEW CHANGE IN BLADDER CONTROL? NO . IS THERE A CHANCE YOU COULD BE ? NO . HEMATOLOGY/LYMPH: DO YOU TAKE ANY BLOOD THINNERS? (FOR EXAMPLE- COUMADIN, PLAVIX, AGGRENOX, PLATEL, PRADAXA, OR XARELTO) NO . WHEN WAS YOUR LAST DOSE? DATE: TIME: . NEUROLOGY: HAVE YOU FALLEN IN THE PAST 12 MONTHS? YES, PRIOR TO LAST VISIT . ANY NEW EXTREMITY NUMBNESS OR WEAKNESS? NO . CARDIOLOGY: DO YOU HAVE A PACEMAKER OR DEFIBRILLATOR? NO . RESPIRATORY: HAVE YOU BEEN SICK IN THE PAST WEEK? NO . FEVER NO . FLU LIKE SYMPTOMS? NO . COUGH NO . INTEGUMENTARY: DO YOU HAVE ANY RASHES OR OPEN SORES? NO . ALLERGIC/IMMUNO: ARE YOU ALLERGIC TO IV DYE? NO . ANY NEW ALLERGIES? NO . PSYCHIATRIC: DO YOU HAVE THOUGHTS OF HURTING YOURSELF OR SOMEONE ELSE? NO . ARE YOU ABUSED, NEGLECTED, OR IN AN UNSAFE ENVIRONMENT? NO . ENDOCRINOLOGY: ARE YOU DIABETIC? NO . OTHER: DO YOU NEED ANY PRESCRIPTIONS? YES, DICLOFENAC . IF YES, PLEASE LIST: ____ . ANY NEW PROBLEMS WITH YOUR MEDICATIONS? NO . WHEN DID YOU LAST EAT? ____ . WHEN DID YOU LAST DRINK? ____ . WHAT DID YOU LAST DRINK? ____ . NAME OF PERSON DRIVING YOU HOME? ____ . DO YOU HAVE ANY OTHER QUESTIONS OR CONCERNS NO . VITAL SIGNS WT 174.6 LBS, HT 66 IN, BMI 28.18 INDEX, BP 130/56 MM HG, HR 82 /MIN, RR 18 /MIN, TEMP 97.6 F, OXYGEN SAT % 100%, NA INITIALS AW 1419, REVIEWED BY: EM. EXAMINATION GENERAL EXAMINATION: PATIENT IS ALERT O X 3 AND COOPERATIVE. LUNGS CLEAR, TO AUSCULTATION. HEART: NO MURMURS OR GALLOPS; FACIAL CRANIAL NERVES ARE GROSSLY NORMAL. GOOD SYMMETRY OF FACIAL MUSCLE MOVEMENT. NORMAL VISUAL ZALDIVAR. PAIN INCREASES OVER THE CERVICAL FACET JOINTS WITH EXTENSION AND LATERAL ROTATION OF THE NECK. TENDERNESS OVER THE THORACIC AREA. MRI OF THE CERVICAL SPINE DONE ON 04/21/2016 SHOWS FACET ARTHROPATHY CHANGES. ASSESSMENTS SPONDYLOSIS OF CERVICAL REGION WITHOUT MYELOPATHY OR RADICULOPATHY - M47.812 (PRIMARY) PAIN IN THORACIC SPINE - M54.6 OTHER CHRONIC PAIN - G89.29 TREATMENT SPONDYLOSIS OF CERVICAL REGION WITHOUT MYELOPATHY OR RADICULOPATHY CLINICAL NOTES: WE DISCUSSED SEVERAL ISSUES WITH MS. RAY' PAIN MANAGEMENT CASE. DUE TO THE CERVICAL SPONDYLOSIS, I WOULD LIKE TO MOVE FORWARD WITH A THERAPEUTIC CERVICAL FACET BLOCK AT THIS TIME. THE PATIENT WOULD LIKE TO MOVE FORWARD WITH IV SEDATION DUE TO DISCOMFORT, PAIN, AND ANXIETY ASSOCIATED WITH THE PROCEDURE. WE DISCUSSED THE BENEFITS, RISKS, AND ALTERNATIVES OF THE INJECTION AND THE PATIENT WOULD LIKE TO PROCEED. I PRESCRIBED TWO VALIUM 5 MG TABLETS FOR THE PATIENT TO TAKE BEFORE THE PROCEDURE TO HELP WITH ANXIETY. ISTOP _# [id number] WAS REVIEWED. I AM ORDERING FOR A THORACIC MRI TO BE PERFORMED SINCE THERE ARE NO THORACIC STUDIES, AND DEPENDING ON THE MRI RESULTS, RECOMMENDATIONS WILL BE MADE. THE PATIENT WILL FOLLOW UP WITH THE NURSE PRACTITIONER IN 6 WEEKS AFTER THE PROCEDURE. INSTRUCTIONS WERE GIVEN, QUESTIONS WERE ANSWERED, PATIENT REPORTS UNDERSTANDING AND AGREES WITH THE PLAN. I, RIA CAMPOS, DOCUMENTED THE ABOVE INFORMATION ACTING A SCRIBE FOR DR. ABRAHAM. I HAVE REVIEWED THE ABOVE DOCUMENT, WRITTEN BY RIA LOMELIIBMariah AND I VERIFY THAT IT IS ACCURATE. . OTHERS START DIAZEPAM TABLET, 5 MG, 1 TABLET NEEDED, ORALLY ON THE WAY TO MRI MAY REPEAT AT MRI [address], DAILY, 1 DAYS, 2, REFILLS 0 PROCEDURE CODES FA211 ESTABILISHED PATIENT [facility] FACILITY CHARGE G8427 CURRENT MEDS W/DOSAGES DOCUMENTED G8730 PAIN ASSESS POS TOOL F/U PLAN DOC DISPOSITION & COMMUNICATION FOLLOW UP 6 WEEKS (REASON: CERVICAL FB WITH IV SEDATION--PRE-OP FU WAS DONE TODAY. THORACIC MRI ORDER. F/U WITH STRUCTURAL ENGINEER IN 6 WKS) ELECTRONICALLY SIGNED BY RACHEL ABRAHAM MD, MD ON 10/01/2018 AT 12:52 PM EDT DISCLAIMER : THIS IS A VISIT SUMMARY EXTRACTED FROM THE [employer] CHART. IT IS NOT A COPY OF THE [employer] PROGRESS NOTE. MEKAD
== END ==
LOC: M PAIN 14:00
PROVIDERS: ATTEND Anesthesiology
DX: M47.812 Spondylosis without myelopathy or radiculopathy, cervical region (principal); M54.6 Pain in thoracic spine; G89.29 Other chronic pain; Z79.899 Other long term (current) drug therapy

== ENCOUNTER 2018-09-30 21:20 | Emergency (ER) | payer MEDICARE, MEDICAID ==
[~2018-09-30] VITALS: Ht 170.2 cm; Wt 77.3 kg
[2018-09-30 21:21] VITALS: BP 122/63
== END 2018-10-01 01:07 | disposition left against medical advice (07) ==
LOC: M ED 21:20
DX: L98.9 Disorder of the skin and subcutaneous tissue, unspecified (principal); Z53.21 Procedure and treatment not carried out due to patient leaving prior to being seen by health care provider

== ENCOUNTER → 2018-10-01 | Outpatient (REF) | payer MEDICARE, MEDICAID ==
[2018-10-04 00:07] LABS: Lyme Disease IgG/IgM Antibodie <0.91 ISR (0.00-0.90); Lyme Disease IgM Ab Quantitati <0.80 index (0.00-0.79)
== END ==
LOC: M SFHCLERA 16:38
PROVIDERS: ATTEND Family Medicine
DX: L30.9 Dermatitis, unspecified (principal)
CPT/HCPCS: 86617; G0463

== ENCOUNTER → 2018-10-07 | Outpatient (CLI) | payer MEDICARE, MEDICAID ==
--- NOTE | 2018-10-07 18:13 | REP ---
Soft-tissue ultrasound right popliteal space. History: Knee pain. Prior sonography 2017 showed a large fluid collection suggestive of Castillo's cyst. Findings: Scanning posterior popliteal soft tissues demonstrate a complex cystic lesion 5.6 x 2.1 x 3.1 cm without vascularity consistent with a recurrent Castillo's cyst. Electronically Signed by Les Rosado MD 10/07/2018 06:05 P
== END ==
LOC: M RAD 17:12
PROVIDERS: ATTEND Family Medicine
DX: M25.861 Other specified joint disorders, right knee (principal); M25.561 Pain in right knee

== ENCOUNTER → 2018-10-07 | Outpatient (CLI) | payer MEDICARE, MEDICAID ==
--- NOTE | 2018-10-08 14:55 | REPVR ---
EXAM: MR Thoracic Spine Without Contrast EXAM DATE/TIME: 10/07/2018 7:55 PM CLINICAL HISTORY: 48 years old, female; Pain in thoracic spine; Without myelpathy or radiculopathy; Additional info: Severe back pain, thoracic; US first mri second TECHNIQUE: Imaging protocol: Multiplanar magnetic resonance images of the thoracic spine without intravenous contrast. COMPARISON: XA FLUORO GUIDE SPINE INJECTION 08/15/2017 1:36 PM (report not provided) FINDINGS: Vertebral body heights are intact. Alignment is maintained. The spinal cord appears normal in signal. There are varying degrees of disc desiccation indicating intervertebral disc degeneration. Schmorl's nodes are present at several levels. Partially visualized is a 5 mm T2 signal lesion in the left lobe of the thyroid gland. No followup is necessary. The visualized mediastinal and abdominal structures appear unremarkable. C5-6: Included on the sagittal sequences only, there appears to be a disc osteophyte complex with severe right and moderate left neural foraminal narrowing and possibly spinal stenosis. C6-7: Included on the sagittal sequences only, there appears to be a disc osteophyte complex with an inferiorly directed central extrusion leading to severe right and moderate left neural foraminal narrowing and possibly spinal stenosis. C7-T1: Minimal bulge without significant neural foraminal narrowing or spinal stenosis. T1-2: Small bulge without significant neural foraminal narrowing or spinal stenosis. T2-3: Disc osteophyte complex combining with facet arthrosis to lead to very mild right and mild left neural foraminal narrowing without significant spinal stenosis. T3-4: Disc osteophyte complex combining with facet arthrosis to lead to mild bilateral neural foraminal narrowing without significant spinal stenosis. T4-5: Disc osteophyte complex combining with facet arthrosis to lead to very mild bilateral neural foraminal narrowing without significant spinal stenosis. T5-6: No significant disc displacement. T6-7: No significant disc displacement. T7-8: Small broad-based right paracentral protrusion without significant neural foraminal narrowing or spinal stenosis. T8-9: Further central protrusion which mildly indents the anterior aspect of the spinal cord, without causing significant spinal stenosis or neural foraminal narrowing. T9-10: Small broad-based right paracentral protrusion without significant neural foraminal narrowing or spinal stenosis. T10-11: No significant disc displacement. T11-12: No significant disc displacement. T12-L1: No significant disc displacement. If surgery is considered, recommend level confirmation. IMPRESSION: Multilevel disc desiccation indicating intervertebral disk degeneration with disc displacements as described. This includes some lower cervical disc displacements which are partially evaluated but may be associated with spinal stenosis. Consider dedicated imaging. Electronically signed by: Antoine Cole On 10/08/2018 14:54:44 PM
== END ==
LOC: M RAD 17:30
PROVIDERS: ATTEND Anesthesiology
DX: M51.34 Other intervertebral disc degeneration, thoracic region (principal); M25.861 Other specified joint disorders, right knee; M25.561 Pain in right knee

== ENCOUNTER → 2018-11-05 | Outpatient (CLI) | payer MEDICARE, MEDICAID ==
--- NOTE | 2018-11-05 19:35 | REP ---
MRI RIGHT KNEE: TECHNIQUE: Axial proton density fat saturation, sagittal proton density T2 STIR, water excitation, coronal proton density, proton density fat saturation. I do not see evidence of a meniscal tear. Cruciate and collateral ligaments are intact. Extensor mechanism is intact. There is mid chondromalacia of the patella. There is mild diffuse chondromalacia of the medial tibial plateau with a moderate degree of chondromalacia of the medial femoral condyle. Bone marrow signal is homogeneous and unremarkable with no bone marrow edema or occult fracture. There is a moderate joint effusion. There is a Castillo's cyst in the medial popliteal fossa measuring 5.9 x 3.3 x 2.7 cm. Medial and lateral patellar retinacula are intact. IMPRESSION: No evidence of meniscal tear. Cruciate and collateral ligaments intact. Mild chondromalacia lateral patellar facet and medial tibial plateau. Moderate chondromalacia medial femoral condyle. Moderate joint effusion. Csatillo's cyst. Electronically Signed by Santos Kern MD 11/07/2018 04:36 P
== END ==
LOC: M RAD 17:59
PROVIDERS: ATTEND Orthopaedic Surgery Sports Medicine
DX: M25.561 Pain in right knee (principal)

== ENCOUNTER → 2018-11-07 | Outpatient (CLI) | payer MEDICARE, MEDICAID ==
--- NOTE | 2018-11-23 01:20 | ECWPNPC ---
PATIENT NAME: RADHA RAY : 1970 GENDER: FEMALE VISIT DATE: 11/07/2018 DISCHARGE DATE: 11/07/18 1622 VISIT LOCKED DATE TIME: PHYSICIAN: RACHEL ABRAHAM MD RESOURCE: RACHEL ABRAHAM MD REASON FOR APPOINTMENT 1. PRE SEDATE HISTORY OF PRESENT ILLNESS HISTORY OF PRESENT ILLNESS: PAIN THE PATIENT DESCRIBES THE PAIN... 48 YEAR OLD FEMALE PATIENT WITH A HISTORY OF CHRONIC NECK PAIN. THE PATIENT DESCRIBES THE PAIN ACHING, SHARP, PINCHING NERVES, AND CONTINUOUS WITH A PAIN SCORE OF 6-10/10 DEPENDING ON PHYSICAL ACTIVITY. THE PATIENT STATES HER PAIN IS MORE SEVERE IN HER RIGHT NECK AREA. THE PATIENT SAYS SHE HAS BEEN SUFFERING FROM THIS PAIN FOR SEVERAL YEARS. PATIENT DENIES UNEXPLAINABLE WEIGHT LOSS, FEVER, CHILLS, NEW CHANGES ON HER URINARY OR BOWEL CONTROL. FALL RISK SCREENING: SCREENING :NO FALLS REPORTED IN THE LAST YEAR CURRENT MEDICATIONS TAKING DIAZEPAM 5 MG TABLET 1 TABLET NEEDED ORALLY ON THE WAY TO MRI MAY REPEAT AT MRI [address] DAILY, NOTES: FOR MRIS TAKING AMITRIPTYLINE HCL 25 MG TABLET 1 TO 2 TABLET AT BEDTIME ORALLY AT BEDTIME TAKING LORATADINE 10 MG TABLET 1 TAB ORALLY PRN, NOTES: PRN TAKING TRAMADOL HCL 50 MG TABLET 1 TABLET NEEDED ORALLY EVERY 6 HRS PRN PAIN MDD=4 TAKING CARISOPRODOL 350 MG TABLET 1 TABLET NEEDED ORALLY BID PRNMUSCLE SPASMS MDD=2 TAKING LYRICA 75 MG CAPSULE 1 CAPSULE ORALLY BID MDD=2 NOT-TAKING NAPROXEN 500 MG TABLET 1 TABLET NEEDED ORALLY EVERY 12 HRS NOT-TAKING TRIAMCINOLONE ACETONIDE 0.025 % OINTMENT 1 APPLICATION TO AFFECTED AREA OF RIGHT LEG EXTERNALLY TWICE A DAY NOT-TAKING DICLOFENAC SODIUM 50 MG TABLET DELAYED RELEASE 1 TABLET WITH FOOD OR MILK ORALLY BID PRN PAIN NOT-TAKING FLONASE ALLERGY RELIEF 50 MCG/ACT SUSPENSION 1 SPRAY IN EACH NOSTRIL NASALLY ONCE A DAY NOT-TAKING PERCOCET 5-325 MG TABLET 1 TABLET NEEDED ORALLY EVERY 6 HRS, NOTES: UNSURE OF DOSE MEDICATION LIST REVIEWED AND RECONCILED WITH THE PATIENT PAST MEDICAL HISTORY ARTHRITIS, BACK/HIP PAIN (NIDA BELL NP, [facility]) HX OF ABNORMAL PAP PERSISTENT PELVIC PAIN/OVARIAN CYSTS 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 3DAUGHTER(S) - HEALTHY. FATHER: ESOPHAGUS [place]\\\\NMOTHER: HIGH CHOLESTEROL\\\\NBROTHER: MS\\\\NGRANDMOTHER WITH MULTIPLE MYELOMA. SOCIAL HISTORY GENERAL: TOBACCO USE ARE YOU A:NONSMOKER HIV / HEP-C SCREENING HIV TEST OFFERED TO PATIENT:YES DATE OFFERED:03/19/2018 TEST ACCEPTED:YES HEP-C TEST OFFERED TO PATIENT:YES DATE OFFERED:03/19/2018 TEST ACCEPTED:YES BROCHURE PROVIDED TO PATIENTYES OTHERS AT HOME: CHILD. EDUCATION LEVEL OF EDUCATION:COLLEGE DIET: REGULAR. LANGUAGE LANGUAGES SPOKEN:FAROESE ASL DOMESTIC VIOLENCE DO YOU FEEL SAFE IN YOUR ENVIRONMENT?YES RECREATIONAL DRUG USE DRUG USE?NO EXERCISE: NO REGULAR EXERCISE. 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 N/A HAS THE PATIENT BEEN EDUCATED REGARDING HIS/HER PLAN OF CARE?YES HAS THE PATIENT BEEN EDUCATED REGARDING PAIN, THE RISK FOR PAIN, THE IMPORTANCE OF EFFECTIVE PAIN MANAGEMENT, AND THE PAIN ASSESSMENT PROCESS?YES LATEX QUESTIONNAIRE LATEX ALLERGY : HAVE YOU EVER DEVELOPED ANY TYPE OF REACTION AFTER HANDLING LATEX PRODUCTS SUCH RUBBER GLOVES, CONDOMS, DIAPHRAGMS, BALLOONS, SOCKS, OR UNDERWEAR?NO LATEX ALLERGY : HAVE YOU EVER DEVELOPED ANY TYPE OF REACTION DURING OR AFTER DENTAL APPOINTMENT, VAGINAL/RECTAL EXAMINATION, SURGICAL PROCEDURE, OR ANY OTHER EXPOSURE?NO DATE ASKED : 05/14/2018 LATEX RISK : HAVE YOU EVER HAD ANY DIFFICULTY BREATHING OR HIVES AFTER EATING OR HANDLING ANY FRUITS, OR VEGETABLES; SUCH KIWI, BANANAS, STONE FRUITS, OR CHESTNUTSNO LATEX RISK : DO YOU HAVE A PREVIOUS PERSONAL HISTORY OF MORE THAN NINE SURGERIES, SPINA BIFIDA, OR REPEATED CATHERIZATIONS? YES - PLEASE INDICATE : > 9 SURGERIES LATEX RISK : ARE YOU FREQUENTLY EXPOSED TO LATEX PRODUCTS IN YOUR OCCUPATION?NO CAFFEINE CAFFEINE USE?YES HOW OFTEN AND HOW MUCH? OCC ADVANCE DIRECTIVE ADVANCE DIRECTIVE DISCUSSED WITH PATIENT:YES PT STATES SHE HAS HCP--DAUGHTER-KAMAR [phone]. MANDAEN [id number] NONE MARITAL STATUS: SINGLE. ALCOHOL SCREENING DID YOU HAVE A DRINK CONTAINING ALCOHOL IN THE PAST YEAR?YES HOW OFTEN DID YOU HAVE SIX OR MORE DRINKS ON ONE OCCASION IN THE PAST YEAR?NEVER (0 POINTS) HOW MANY DRINKS DID YOU HAVE ON A TYPICAL DAY WHEN YOU WERE DRINKING IN THE PAST YEAR?1 OR 2 (0 POINTS) HOW OFTEN DID YOU HAVE A DRINK CONTAINING ALCOHOL IN THE PAST YEAR?TWO TO FOUR TIMES A MONTH (2 POINTS) POINTS2 INTERPRETATIONNEGATIVE OCCUPATION: UNEMPLOYED. SEXUAL HX HAD SEX IN THE LAST 12 MONTHS (VAGINAL, ORAL, OR ANAL)?YES WITHMEN ONLY USE PROTECTION?NO REVIEWED WITH PATIENT 12/07/17 1506 JSREVIEWED WITH PATIENT 02/22/18 1415 LAS05/13/18 REVIEWED WITH PT. AD. HOSPITALIZATION/MAJOR DIAGNOSTIC PROCEDURE SURGERY RELATED REVIEW OF SYSTEMS REVIEWED BY: PROVIDER: RACHEL ABRAHAM MD . CONSTITUTIONAL: ANY CHANGE IN YOUR MEDICAL CONDITION? NO . CHILLS NO . FEVER NO . INFECTION: DO YOU HAVE NEW INFECTIONS? NO . DO YOU HAVE HISTORY OF MRSA? NO . MUSCULOSKELETAL: ANY NEW PATTERNS OF PAIN OR NUMBNESS? NO . GASTROENTEROLOGY: ANY NEW CHANGE IN BOWEL CONTROL? NO . GENITOURINARY: ANY NEW CHANGE IN BLADDER CONTROL? NO . IS THERE A CHANCE YOU COULD BE ? NO . HEMATOLOGY/LYMPH: DO YOU TAKE ANY BLOOD THINNERS? (FOR EXAMPLE- COUMADIN, PLAVIX, AGGRENOX, PLATEL, PRADAXA, OR XARELTO) NO . WHEN WAS YOUR LAST DOSE? DATE: TIME: . NEUROLOGY: HAVE YOU FALLEN IN THE PAST 12 MONTHS? YES, PRIOR TO LAST VISIT . ANY NEW EXTREMITY NUMBNESS OR WEAKNESS? YES, RIGHT LEG WEAKNESS . CARDIOLOGY: DO YOU HAVE A PACEMAKER OR DEFIBRILLATOR? NO . RESPIRATORY: HAVE YOU BEEN SICK IN THE PAST WEEK? NO . FEVER NO . FLU LIKE SYMPTOMS? NO . COUGH NO . INTEGUMENTARY: DO YOU HAVE ANY RASHES OR OPEN SORES? NO . ALLERGIC/IMMUNO: ARE YOU ALLERGIC TO IV DYE? NO . ANY NEW ALLERGIES? NO . PSYCHIATRIC: DO YOU HAVE THOUGHTS OF HURTING YOURSELF OR SOMEONE ELSE? NO . ARE YOU ABUSED, NEGLECTED, OR IN AN UNSAFE ENVIRONMENT? NO . ENDOCRINOLOGY: ARE YOU DIABETIC? NO . OTHER: DO YOU NEED ANY PRESCRIPTIONS? NO . IF YES, PLEASE LIST: ____ . ANY NEW PROBLEMS WITH YOUR MEDICATIONS? NO . WHEN DID YOU LAST EAT? ____ . WHEN DID YOU LAST DRINK? ____ . WHAT DID YOU LAST DRINK? ____ . NAME OF PERSON DRIVING YOU HOME? ____ . DO YOU HAVE ANY OTHER QUESTIONS OR CONCERNS NO . VITAL SIGNS WT 182.2 LBS, HT 66 IN, BMI 29.40 INDEX, BP 120/59 MM HG, HR 82 /MIN, RR 18 /MIN, TEMP 98.7 F, OXYGEN SAT % 98%, NA INITIALS AW 1426, REVIEWED BY: EM. EXAMINATION GENERAL EXAMINATION: PATIENT IS ALERT O X 3 AND COOPERATIVE. LUNGS CLEAR, TO AUSCULTATION. HEART: NO MURMURS OR GALLOPS; FACIAL CRANIAL NERVES ARE GROSSLY NORMAL. GOOD SYMMETRY OF FACIAL MUSCLE MOVEMENT. NORMAL VISUAL ZALDIVAR. TENDERNESS IN THE RIGHT CERVICAL AREA. PAIN INCREASES OVER THE CERVICAL FACET JOINTS WITH EXTENSION AND LATERAL ROTATION OF THE NECK. MRI OF THE CERVICAL SPINE DONE ON 04/21/2016 SHOWS FACET ARTHROPATHY CHANGES. ASSESSMENTS SPONDYLOSIS OF CERVICAL REGION WITHOUT MYELOPATHY OR RADICULOPATHY - M47.812 (PRIMARY) TREATMENT SPONDYLOSIS OF CERVICAL REGION WITHOUT MYELOPATHY OR RADICULOPATHY CLINICAL NOTES: WE DISCUSSED SEVERAL ISSUES WITH MS. RAY' PAIN MANAGEMENT CASE. DUE TO THE CERVICAL SPONDYLOSIS, I WOULD LIKE TO MOVE FORWARD WITH A THERAPEUTIC CERVICAL FACET BLOCK AT THIS TIME. THE PATIENT WOULD LIKE TO MOVE FORWARD WITH IV SEDATION DUE TO DISCOMFORT, PAIN, AND ANXIETY ASSOCIATED WITH THE PROCEDURE. WE DISCUSSED THE BENEFITS, RISKS, AND ALTERNATIVES FO THE INJECTION AND THE PATIENT WOULD LIKE TO PROCEED. THE PATIENT WILL CONTINUE WITH LYRICA, SOMA, AND TRAMADOL, WHICH I REFILLED FOR HER TODAY. THE PATIENT WILL FOLLOW UP IN SEVERAL WEEKS AFTER THE INJECTION. INSTRUCTIONS WERE GIVEN, QUESTIONS WERE ANSWERED, PATIENT REPORTS UNDERSTANDING AND AGREES WITH THE PLAN. I, RIA CAMPOS, DOCUMENTED THE ABOVE INFORMATION ACTING A SCRIBE FOR DR. ABRAHAM. I HAVE REVIEWED THE ABOVE DOCUMENT, WRITTEN BY RIA LOMELIIBMariah AND I VERIFY THAT IT IS ACCURATE. . OTHERS CONTINUE TRAMADOL HCL TABLET, 50 MG, 1 TABLET NEEDED, ORALLY, EVERY 6 HRS PRN PAIN MDD=4, 30 DAYS, 120, REFILLS 0 CONTINUE CARISOPRODOL TABLET, 350 MG, 1 TABLET NEEDED, ORALLY, BID PRN MUSCLE SPASMS MDD=2, 30 DAYS, 60, REFILLS 0 CONTINUE LYRICA CAPSULE, 75 MG, 1 CAPSULE, ORALLY FOR PAIN, BID MDD=2, 30 DAYS, 60, REFILLS 0 PROCEDURE CODES G8427 CURRENT MEDS W/DOSAGES DOCUMENTED G8730 PAIN ASSESS POS TOOL F/U PLAN DOC FA211 ESTABILISHED PATIENT [facility] CHARGE DISPOSITION & COMMUNICATION ELECTRONICALLY SIGNED BY RACHEL ABRAHAM MD, MD ON 11/22/2018 AT 09:51 AM EDT DISCLAIMER : THIS IS A VISIT SUMMARY EXTRACTED FROM THE [employer] CHART. IT IS NOT A COPY OF THE [employer] PROGRESS NOTE. MTDD
== END ==
LOC: M PAIN 14:30
PROVIDERS: ATTEND Anesthesiology
DX: M47.812 Spondylosis without myelopathy or radiculopathy, cervical region (principal); G89.29 Other chronic pain; Z79.899 Other long term (current) drug therapy

== ENCOUNTER → 2018-11-12 | Outpatient (CLI) | payer MEDICARE, MEDICAID ==
[~2018-11-12] MED LIST changes: +BUPIVACAINE HCL 0.25% 30 ML VIAL As Ordered ONE; +ISOVUE-M 300 61% 15ML VIAL (Q9967) As Ordered ONE; +LIDOCAINE 1% SDV INJ 30 ML VIAL As Ordered ONE; +MIDAZOLAM INJ 2 MG/2 ML VIAL (J2250) As Ordered ONE; +TRIAMCINOLONE ACETONIDE SUSP 40 MG/ML VIAL (J3301) As Ordered ONE; +fentaNYL 100 MCG/2 ML INJECTION (J3010) As Ordered ONE
--- NOTE | 2018-11-12 15:58 | REP ---
C-ARM VIEW OF THE CERVICAL SPINE: CLINICAL HISTORY: Pain. Single C-arm view of the cervical spine performed during right cervical facet injection performed by Dr. Belcher. Two needles are seen overlying the cervical facets. 47 seconds fluoroscopy time utilized. Electronically Signed by Santos Kern MD 11/12/2018 04:27 P
--- NOTE | 2018-11-23 01:45 | ECWPNPC ---
PATIENT NAME: RADHA RAY : 1970 GENDER: FEMALE VISIT DATE: 11/12/2018 DISCHARGE DATE: 11/12/18 1508 VISIT LOCKED DATE TIME: PHYSICIAN: RACHEL ABRAHAM MD RESOURCE: RACHEL ABRAHAM MD REASON FOR APPOINTMENT 1. CERVICAL FB WITH IV SEDATION- HISTORY OF PRESENT ILLNESS HISTORY OF PRESENT ILLNESS: PAIN THE PATIENT DESCRIBES THE PAIN... FALL RISK SCREENING: SCREENING :NO FALLS REPORTED IN THE LAST YEAR CURRENT MEDICATIONS TAKING DIAZEPAM 5 MG TABLET 1 TABLET NEEDED ORALLY ON THE WAY TO MRI MAY REPEAT AT MRI [address] DAILY, NOTES: FOR MRIS TAKING AMITRIPTYLINE HCL 25 MG TABLET 1 TO 2 TABLET AT BEDTIME ORALLY AT BEDTIME TAKING LORATADINE 10 MG TABLET 1 TAB ORALLY PRN, NOTES: PRN TAKING TRAMADOL HCL 50 MG TABLET 1 TABLET NEEDED ORALLY EVERY 6 HRS PRN PAIN MDD=4, NOTES: 11/11/18 PM TAKING CARISOPRODOL 350 MG TABLET 1 TABLET NEEDED ORALLY BID PRN MUSCLE SPASMS MDD=2 TAKING LYRICA 75 MG CAPSULE 1 CAPSULE ORALLY FOR PAIN BID MDD=2 NOT-TAKING NAPROXEN 500 MG TABLET 1 TABLET NEEDED ORALLY EVERY 12 HRS NOT-TAKING TRIAMCINOLONE ACETONIDE 0.025 % OINTMENT 1 APPLICATION TO AFFECTED AREA OF RIGHT LEG EXTERNALLY TWICE A DAY NOT-TAKING DICLOFENAC SODIUM 50 MG TABLET DELAYED RELEASE 1 TABLET WITH FOOD OR MILK ORALLY BID PRN PAIN NOT-TAKING FLONASE ALLERGY RELIEF 50 MCG/ACT SUSPENSION 1 SPRAY IN EACH NOSTRIL NASALLY ONCE A DAY NOT-TAKING PERCOCET 5-325 MG TABLET 1 TABLET NEEDED ORALLY EVERY 6 HRS, NOTES: UNSURE OF DOSE MEDICATION LIST REVIEWED AND RECONCILED WITH THE PATIENT PAST MEDICAL HISTORY ARTHRITIS, BACK/HIP PAIN (NIDA BELL NP, [facility]) HX OF ABNORMAL PAP PERSISTENT PELVIC PAIN/OVARIAN CYSTS 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) ASVD 05/05 (0.7%) BAKERS CYST RIGHT KNEE ALLERGIES HAY FEVER: SNEEZING, STUFFY NOSE SURGICAL HISTORY PARTIAL HYSTERECTOMY 2003 CHOLECYSTECTOMY 2010 KNEE-RIGHT 2005 BLADDER LIFT (EEK) 2007 FOOT-RIGHT TOE 05/2014 LEFT OVARY - TERATOMA 10/2016 REMOVED INFECTION UNDER SHEATH OFR HAND MIDDLE FINGER 11/2016 LASIK SURGERY-BILATERAL 2007 BILATERAL EYE LID LIFT 2016 RIGHT ELBOW 06/04/18 FAMILY HISTORY FATHER: , DIAGNOSED WITH OTHER MALIGNANT NEOPLASM OF UNSPECIFIED SITE MOTHER: ALIVE, HYPERTENSION, OTHER SPECIFIED CONDITIONS INFLUENCING HEALTH STATUS 1 BROTHER(S) , 1 SISTER(S) . 3DAUGHTER(S) - HEALTHY. FATHER: ESOPHAGUS [place]\\\\NMOTHER: HIGH CHOLESTEROL\\\\NBROTHER: MS\\\\NGRANDMOTHER WITH MULTIPLE MYELOMA. SOCIAL HISTORY GENERAL: TOBACCO USE ARE YOU A:NONSMOKER HIV / HEP-C SCREENING HIV TEST OFFERED TO PATIENT:YES DATE OFFERED:03/19/2018 TEST ACCEPTED:YES HEP-C TEST OFFERED TO PATIENT:YES DATE OFFERED:03/19/2018 TEST ACCEPTED:YES BROCHURE PROVIDED TO PATIENTYES OTHERS AT HOME: CHILD. EDUCATION LEVEL OF EDUCATION:COLLEGE DIET: REGULAR. LANGUAGE LANGUAGES SPOKEN:KYRGYZ ASL DOMESTIC VIOLENCE DO YOU FEEL SAFE IN YOUR ENVIRONMENT?YES RECREATIONAL DRUG USE DRUG USE?NO EXERCISE: NO REGULAR EXERCISE. 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 PFS, CLERGY, PUBLIC HEALTH REFERRALS PFS REFERRAL NEEDED?NO CLERGY REFERRAL NEEDED?NO PUBLIC HEALTH REFERRAL NEEDED?NO WAS THE PROVIDER NOTIFIED OF ANY PERTINENT INFO? N/A HAS THE PATIENT BEEN EDUCATED REGARDING HIS/HER PLAN OF CARE?YES HAS THE PATIENT BEEN EDUCATED REGARDING PAIN, THE RISK FOR PAIN, THE IMPORTANCE OF EFFECTIVE PAIN MANAGEMENT, AND THE PAIN ASSESSMENT PROCESS?YES LATEX QUESTIONNAIRE LATEX ALLERGY : HAVE YOU EVER DEVELOPED ANY TYPE OF REACTION AFTER HANDLING LATEX PRODUCTS SUCH RUBBER GLOVES, CONDOMS, DIAPHRAGMS, BALLOONS, SOCKS, OR UNDERWEAR?NO LATEX ALLERGY : HAVE YOU EVER DEVELOPED ANY TYPE OF REACTION DURING OR AFTER DENTAL APPOINTMENT, VAGINAL/RECTAL EXAMINATION, SURGICAL PROCEDURE, OR ANY OTHER EXPOSURE?NO DATE ASKED : 05/14/2018 LATEX RISK : HAVE YOU EVER HAD ANY DIFFICULTY BREATHING OR HIVES AFTER EATING OR HANDLING ANY FRUITS, OR VEGETABLES; SUCH KIWI, BANANAS, STONE FRUITS, OR CHESTNUTSNO LATEX RISK : DO YOU HAVE A PREVIOUS PERSONAL HISTORY OF MORE THAN NINE SURGERIES, SPINA BIFIDA, OR REPEATED CATHERIZATIONS? YES - PLEASE INDICATE : > 9 SURGERIES LATEX RISK : ARE YOU FREQUENTLY EXPOSED TO LATEX PRODUCTS IN YOUR OCCUPATION?NO CAFFEINE CAFFEINE USE?YES HOW OFTEN AND HOW MUCH? OCC ADVANCE DIRECTIVE ADVANCE DIRECTIVE DISCUSSED WITH PATIENT:YES PT STATES SHE HAS HCP--DAUGHTER-KAMAR [phone]. 11/12/18 ANABAPTISM [id number] NONE MARITAL STATUS: SINGLE. ALCOHOL SCREENING DID YOU HAVE A DRINK CONTAINING ALCOHOL IN THE PAST YEAR?YES HOW OFTEN DID YOU HAVE SIX OR MORE DRINKS ON ONE OCCASION IN THE PAST YEAR?NEVER (0 POINTS) HOW MANY DRINKS DID YOU HAVE ON A TYPICAL DAY WHEN YOU WERE DRINKING IN THE PAST YEAR?1 OR 2 (0 POINTS) HOW OFTEN DID YOU HAVE A DRINK CONTAINING ALCOHOL IN THE PAST YEAR?TWO TO FOUR TIMES A MONTH (2 POINTS) POINTS2 INTERPRETATIONNEGATIVE OCCUPATION: UNEMPLOYED. SEXUAL HX HAD SEX IN THE LAST 12 MONTHS (VAGINAL, ORAL, OR ANAL)?YES WITHMEN ONLY USE PROTECTION?NO REVIEWED WITH PATIENT 12/07/17 1506 JSREVIEWED WITH PATIENT 02/22/18 1415 LAS05/13/18 REVIEWED WITH PT. AD11/12/18 1325 REVIEWED WITH PT BV. HOSPITALIZATION/MAJOR DIAGNOSTIC PROCEDURE SURGERY RELATED REVIEW OF SYSTEMS REVIEWED BY: PROVIDER: . CONSTITUTIONAL: ANY CHANGE IN YOUR MEDICAL CONDITION? NO . CHILLS NO . FEVER NO . INFECTION: DO YOU HAVE NEW INFECTIONS? NO . DO YOU HAVE HISTORY OF MRSA? NO . MUSCULOSKELETAL: ANY NEW PATTERNS OF PAIN OR NUMBNESS? NO . GASTROENTEROLOGY: ANY NEW CHANGE IN BOWEL CONTROL? NO . GENITOURINARY: ANY NEW CHANGE IN BLADDER CONTROL? NO . IS THERE A CHANCE YOU COULD BE ? NO . HEMATOLOGY/LYMPH: DO YOU TAKE ANY BLOOD THINNERS? (FOR EXAMPLE- COUMADIN, PLAVIX, AGGRENOX, PLATEL, PRADAXA, OR XARELTO) NO . WHEN WAS YOUR LAST DOSE? DATE: TIME: . NEUROLOGY: HAVE YOU FALLEN IN THE PAST 12 MONTHS? NO . ANY NEW EXTREMITY NUMBNESS OR WEAKNESS? NO . CARDIOLOGY: DO YOU HAVE A PACEMAKER OR DEFIBRILLATOR? NO . RESPIRATORY: HAVE YOU BEEN SICK IN THE PAST WEEK? NO . FEVER NO . FLU LIKE SYMPTOMS? NO . COUGH NO . INTEGUMENTARY: DO YOU HAVE ANY RASHES OR OPEN SORES? NO . ALLERGIC/IMMUNO: ARE YOU ALLERGIC TO IV DYE? NO . ANY NEW ALLERGIES? NO . PSYCHIATRIC: DO YOU HAVE THOUGHTS OF HURTING YOURSELF OR SOMEONE ELSE? NO . ARE YOU ABUSED, NEGLECTED, OR IN AN UNSAFE ENVIRONMENT? NO . ENDOCRINOLOGY: ARE YOU DIABETIC? NO . OTHER: DO YOU NEED ANY PRESCRIPTIONS? NO . IF YES, PLEASE LIST: ____ . ANY NEW PROBLEMS WITH YOUR MEDICATIONS? NO . WHEN DID YOU LAST EAT? 11/11/181999 . WHEN DID YOU LAST DRINK? 11-12-18 10AM . WHAT DID YOU LAST DRINK? WATER . NAME OF PERSON DRIVING YOU HOME? RENETTA . DO YOU HAVE ANY OTHER QUESTIONS OR CONCERNS NO . VITAL SIGNS WT 182.2 LBS, HT 66 IN, BMI 29.40 INDEX, BP 111/71 MM HG, HR 90 /MIN, RR 18 /MIN, TEMP 98.5 F, OXYGEN SAT % 94%, NA INITIALS AW 1311, REVIEWED BY: BV. ASSESSMENTS SPONDYLOSIS OF CERVICAL REGION WITHOUT MYELOPATHY OR RADICULOPATHY - M47.812 (PRIMARY) TREATMENT SPONDYLOSIS OF CERVICAL REGION WITHOUT MYELOPATHY OR RADICULOPATHY SMC FACET BLOCK (PAIN)[id number] PROCEDURES PN CERVICAL FACET BLOCK LOW BILATERAL CERVICAL PRE PROCEDURE DIAGNOSIS CERVICAL SPONDYLOSIS POST PROCEDURE DIAGNOSIS CERVICAL SPONDYLOSIS PROCEDURE RIGHT C4-C5 AND RIGHT C5-C6 CERVICAL FACET BLOCK THERAPEUTIC SURGEON DR. RACHEL ABRAHAM HEATER ROOM HELPER NONE ANESTHESIA LOCAL WITH IV SEDATION PRE PROCEDURE NOTE THE PATIENT HAS HISTORY OF CHRONIC CERVICAL PAIN. I EVALUATED THE PATIENT AND REVIEWED THE CHART. I WENT OVER THE RISKS, ALTERNATIVES, AND BENEFITS ASSOCIATED WITH THIS PROCEDURE. THE PATIENT WOULD LIKE TO MOVE FORWARD WITH IV SEDATION DUE TO DISCOMFORT, PAIN, AND ANXIETY ASSOCIATED WITH THE PROCEDURE. THE PATIENT WOULD LIKE TO PROCEED AND GIVES CONSENT TO PERFORM THE PROCEDURE. THE PATIENT DENIES UNEXPLAINABLE WEIGHT LOSS, FEVER, CHILLS, OR NEW CHANGES IN URINARY OR BOWEL CONTROL. DESCRIPTION OF PROCEDURE THE PATIENT WAS BROUGHT TO THE PROCEDURE ROOM AND PLACED IN THE PRONE POSITION. THE CERVICOTHORACIC AREA WAS CLEANED WITH CHLORAPREP SOLUTION AND DRAPED ASEPTICALLY. THE PROCEDURE WAS DONE UNDER STERILE CONDITIONS. I CHECKED LATERALITY AND THE LEVEL WHERE THE PROCEDURE WAS GOING TO BE PERFORMED WITH THE PATIENT AND THE SUPPORTING STAFF AT THE MOMENT OF THE TIME OUT IN THE PROCEDURE ROOM. UNDER FLUOROSCOPIC GUIDANCE, TARGET POINT WAS SELECTED AT THE RIGHT C4-C5 AND RIGHT C5-C6 CERVICAL FACET JOINTS. TARGET POINTS WERE SELECTED AFTER LATERAL ROTATION AND TILT OF THE MAGNIFIER OF THE C-ARM. LIDOCAINE 0.5% WAS USED TO NUMB THE SKIN AND THE SUBCUTANEOUS TISSUE BELOW IT. SPINAL NEEDLES, 22-GAUGE, WERE ADVANCED UNDER FLUOROSCOPIC GUIDANCE AND FOLLOWING PATIENT FEEDBACK UNTIL THE TARGETS WERE TOUCHED. THE POSITION OF THE NEEDLES WAS VERIFIED WITH AP AND LATERAL VIEWS. AFTER PROPER POSITION OF THE NEEDLES WAS ACHIEVED, ISOVUE M DYE 30, 0.1 ML WAS INJECTED SHOWING SPREAD OF THE DYE. THEN A SOLUTION OF 0.9 ML OF BUPIVACAINE 0.125% AND KENALOG 10 MG WAS INJECTED AT EACH SITE. THERE WAS NO EVIDENCE OF BLOOD, PARESTHESIA OR CEREBROSPINAL FLUID DURING THE PROCEDURE. THE PATIENT WAS SENT TO THE RECOVERY ROOM. THE PATIENT WAS MOVING THE EXTREMITIES AND DOING WELL. THERE WAS NO COMPLICATION DURING THE PROCEDURE. PATIENT RECEIVED VERSED 2 MG AND FENTANYL 100 MCG IV DIVIDED DOSES. FACE TO FACE TIME WAS 25 MINUTES. FLUOROSCOPY TIME WAS 47 SECONDS POST PROCEDURE NOTE THE PATIENT WILL BE SEEN IN A FOLLOW UP IN THE NEXT FEW WEEKS. INSTRUCTIONS WERE GIVEN, QUESTIONS WERE ANSWERED, AND THE PATIENT EXPRESSED UNDERSTANDING AND AGREES WITH THE PLAN. I, RIA CAMPOS, DOCUMENTED THE ABOVE INFORMATION ACTING A SCRIBE FOR DR. ABRAHAM. I HAVE REVIEWED THE ABOVE DOCUMENT, WRITTEN BY RIA CAMPOS SCRIBE AND I VERIFY THAT IT IS ACCURATE. PROCEDURE CODES 18364 INJ PARAVERT F JNT C/T 1 LEV, MODIFIERS: RT 36235 INJ PARAVERT F JNT C/T 2 LEV, MODIFIERS: RT 6045F RADXPS IN END [id number] PXD 86154 MOD SED SAME PHYS/QHP 5/>YRS 16746 MOD SED SAME PHYS/QHP EA DISPOSITION & COMMUNICATION FOLLOW UP 3 WEEKS ELECTRONICALLY SIGNED BY RACHEL ABRAHAM MD, MD ON 11/22/2018 AT 12:54 PM EDT DISCLAIMER : THIS IS A VISIT SUMMARY EXTRACTED FROM THE [employer] CHART. IT IS NOT A COPY OF THE [employer] PROGRESS NOTE. MTDD
== END ==
LOC: M PAIN 13:00
PROVIDERS: ATTEND Anesthesiology
DX: M47.812 Spondylosis without myelopathy or radiculopathy, cervical region (principal); M19.90 Unspecified osteoarthritis, unspecified site; R10.2 Pelvic and perineal pain; H91.93 Unspecified hearing loss, bilateral; M71.21 Synovial cyst of popliteal space [Baker], right knee; J30.1 Allergic rhinitis due to pollen; Z90.49 Acquired absence of other specified parts of digestive tract; Z79.899 Other long term (current) drug therapy; Z79.891 Long term (current) use of opiate analgesic
CPT/HCPCS: 64490; 64491; 99152; 99153; J2250; J3010; J3301; Q9967

== ENCOUNTER → 2018-12-16 | Outpatient (CLI) | payer MEDICARE, MEDICAID ==
[~2018-12-16] MED LIST changes: -BUPIVACAINE HCL 0.25% 30 ML VIAL As Ordered ONE; -ISOVUE-M 300 61% 15ML VIAL (Q9967) As Ordered ONE; -LIDOCAINE 1% SDV INJ 30 ML VIAL As Ordered ONE; -MIDAZOLAM INJ 2 MG/2 ML VIAL (J2250) As Ordered ONE; -TRIAMCINOLONE ACETONIDE SUSP 40 MG/ML VIAL (J3301) As Ordered ONE; -fentaNYL 100 MCG/2 ML INJECTION (J3010) As Ordered ONE
--- NOTE | 2018-12-17 07:30 | REP ---
Clinical: Right ovarian cyst. History of oophorectomy for teratoma. Technique: Transabdominal pelvic ultrasound followed by transvaginal examination for better evaluation of the endometrium and adnexa with color Doppler evaluation of the ovaries. Comparison: 05/17/2018. Findings: Bladder is unremarkable and measures 5.5 x 5.1 x 7.6 cm. The patient is noted to be status post hysterectomy and left oophorectomy without pelvic fluid or significant mass lesion. A nonspecific 1.7 x 0.9 x 1.1 cm left adnexal cyst is identified. The right ovary measures 3.7 x 1.6 x 1.5 cm; RI 0.50 and includes 9 x 6 x 6 mm involuting cyst decreased from prior examination. Impression: 1. Small nonspecific cyst in the left adnexa. 2. Involuting right ovarian cyst decreased from prior examination. 3. Evidence for hysterectomy and left oophorectomy. Electronically Signed by Nathaniel Weir MD 12/16/2018 03:49 P
== END ==
LOC: M LRY 13:46
PROVIDERS: ATTEND Family Medicine
DX: N83.201 Unspecified ovarian cyst, right side (principal); Z90.710 Acquired absence of both cervix and uterus; Z90.721 Acquired absence of ovaries, unilateral; R10.2 Pelvic and perineal pain

== ENCOUNTER → 2019-01-15 | Outpatient (CLI) | payer MEDICARE, MEDICAID ==
--- NOTE | 2019-01-21 05:38 | ECWPNPC ---
PATIENT NAME: RADHA RAY : 1970 GENDER: FEMALE VISIT DATE: 01/15/2019 DISCHARGE DATE: 01/15/19 1216 VISIT LOCKED DATE TIME: PHYSICIAN: PAUL MTZ RESOURCE: PAUL MTZ REASON FOR APPOINTMENT 1. NON COMP-POST PROC HISTORY OF PRESENT ILLNESS HISTORY OF PRESENT ILLNESS: PAIN THE PATIENT DESCRIBES THE PAIN... 48 YEAR OLD FEMALE IN FOR POST CERVICAL FACET BLOCK FOLLOW UP. SHE FEELS THE PROCEDURE WORKED WELL OVERALL. SHE RATES HER PAIN PREPROCEDURE AT A 10/10 AND POST PROCEDURE AT A 3/10. SHE RATES HER PAIN CURRENTLY AT A 3/10 AND DESCRIBES IT ACHING, SHARP, AND TENDER. FALL RISK SCREENING: SCREENING :NO FALLS REPORTED IN THE LAST YEAR CURRENT MEDICATIONS TAKING AMITRIPTYLINE HCL 25 MG TABLET 1 TO 2 TABLET AT BEDTIME ORALLY AT BEDTIME TAKING LORATADINE 10 MG TABLET 1 TAB ORALLY PRN TAKING TRAMADOL HCL 50 MG TABLET 1 TABLET NEEDED ORALLY EVERY 6 HRS PRN PAIN MDD=4 TAKING CARISOPRODOL 350 MG TABLET 1 TABLET NEEDED ORALLY BID PRN MUSCLE SPASMS MDD=2 TAKING LYRICA 75 MG CAPSULE 1 CAPSULE ORALLY FOR PAIN BID MDD=2 NOT-TAKING NAPROXEN 500 MG TABLET 1 TABLET NEEDED ORALLY EVERY 12 HRS NOT-TAKING DIAZEPAM 5 MG TABLET 1 TABLET NEEDED ORALLY ON THE WAY TO MRI MAY REPEAT AT MRI SUITE [address] DAILY, NOTES: FOR MRIS NOT-TAKING TRIAMCINOLONE ACETONIDE 0.025 % OINTMENT 1 APPLICATION TO AFFECTED AREA OF RIGHT LEG EXTERNALLY TWICE A DAY NOT-TAKING DICLOFENAC SODIUM 50 MG TABLET DELAYED RELEASE 1 TABLET WITH FOOD OR MILK ORALLY BID PRN PAIN NOT-TAKING FLONASE ALLERGY RELIEF 50 MCG/ACT SUSPENSION 1 SPRAY IN EACH NOSTRIL NASALLY ONCE A DAY NOT-TAKING PERCOCET 5-325 MG TABLET 1 TABLET NEEDED ORALLY EVERY 6 HRS, NOTES: UNSURE OF DOSE MEDICATION LIST REVIEWED AND RECONCILED WITH THE PATIENT PAST MEDICAL HISTORY ARTHRITIS, BACK/HIP PAIN (NIDA BELL NP, [facility]) HX OF ABNORMAL PAP PERSISTENT PELVIC PAIN/OVARIAN CYSTS 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 3DAUGHTER(S) - HEALTHY. FATHER: ESOPHAGUS [place]\\\\NMOTHER: HIGH CHOLESTEROL\\\\NBROTHER: MS\\\\NGRANDMOTHER WITH MULTIPLE MYELOMA. SOCIAL HISTORY GENERAL: TOBACCO USE ARE YOU A:NONSMOKER HIV / HEP-C SCREENING HIV TEST OFFERED TO PATIENT:YES DATE OFFERED:03/19/2018 TEST ACCEPTED:YES HEP-C TEST OFFERED TO PATIENT:YES DATE OFFERED:03/19/2018 TEST ACCEPTED:YES BROCHURE PROVIDED TO PATIENTYES OTHERS AT HOME: CHILD. EDUCATION LEVEL OF EDUCATION:COLLEGE DIET: REGULAR. LANGUAGE LANGUAGES SPOKEN:ITALIAN ASL DOMESTIC VIOLENCE DO YOU FEEL SAFE IN YOUR ENVIRONMENT?YES RECREATIONAL DRUG USE DRUG USE?NO EXERCISE: NO REGULAR EXERCISE. 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 N/A HAS THE PATIENT BEEN EDUCATED REGARDING HIS/HER PLAN OF CARE?YES HAS THE PATIENT BEEN EDUCATED REGARDING PAIN, THE RISK FOR PAIN, THE IMPORTANCE OF EFFECTIVE PAIN MANAGEMENT, AND THE PAIN ASSESSMENT PROCESS?YES LATEX QUESTIONNAIRE LATEX ALLERGY : HAVE YOU EVER DEVELOPED ANY TYPE OF REACTION AFTER HANDLING LATEX PRODUCTS SUCH RUBBER GLOVES, CONDOMS, DIAPHRAGMS, BALLOONS, SOCKS, OR UNDERWEAR?NO LATEX ALLERGY : HAVE YOU EVER DEVELOPED ANY TYPE OF REACTION DURING OR AFTER DENTAL APPOINTMENT, VAGINAL/RECTAL EXAMINATION, SURGICAL PROCEDURE, OR ANY OTHER EXPOSURE?NO LATEX RISK : HAVE YOU EVER HAD ANY DIFFICULTY BREATHING OR HIVES AFTER EATING OR HANDLING ANY FRUITS, OR VEGETABLES; SUCH KIWI, BANANAS, STONE FRUITS, OR CHESTNUTSNO LATEX RISK : DO YOU HAVE A PREVIOUS PERSONAL HISTORY OF MORE THAN NINE SURGERIES, SPINA BIFIDA, OR REPEATED CATHERIZATIONS? YES - PLEASE INDICATE : > 9 SURGERIES LATEX RISK : ARE YOU FREQUENTLY EXPOSED TO LATEX PRODUCTS IN YOUR OCCUPATION?NO DATE ASKED : 05/14/2018 CAFFEINE CAFFEINE USE?YES HOW OFTEN AND HOW MUCH? OCC ADVANCE DIRECTIVE ADVANCE DIRECTIVE DISCUSSED WITH PATIENT:YES PT STATES SHE HAS HCP--DAUGHTER-KAMAR [phone]. 11/12/18 TAOISM [id number] NONE MARITAL STATUS: SINGLE. ALCOHOL SCREENING DID YOU HAVE A DRINK CONTAINING ALCOHOL IN THE PAST YEAR?YES HOW OFTEN DID YOU HAVE SIX OR MORE DRINKS ON ONE OCCASION IN THE PAST YEAR?NEVER (0 POINTS) HOW MANY DRINKS DID YOU HAVE ON A TYPICAL DAY WHEN YOU WERE DRINKING IN THE PAST YEAR?1 OR 2 (0 POINTS) HOW OFTEN DID YOU HAVE A DRINK CONTAINING ALCOHOL IN THE PAST YEAR?TWO TO FOUR TIMES A MONTH (2 POINTS) POINTS2 INTERPRETATIONNEGATIVE OCCUPATION: UNEMPLOYED. SEXUAL HX HAD SEX IN THE LAST 12 MONTHS (VAGINAL, ORAL, OR ANAL)?YES WITHMEN ONLY USE PROTECTION?NO REVIEWED WITH PATIENT 12/07/17 1506 JSREVIEWED WITH PATIENT 02/22/18 1415 LAS05/13/18 REVIEWED WITH PT. AD11/12/18 1325 REVIEWED WITH PT BV12/01/18 REVIEWED WITH PATIENT JPREVIEWED WITH PATIENT 01/15/19 1123 JS. HOSPITALIZATION/MAJOR DIAGNOSTIC PROCEDURE SURGERY RELATED REVIEW OF SYSTEMS REVIEWED BY: PROVIDER: TIFFANY SIMON . CONSTITUTIONAL: ANY CHANGE IN YOUR MEDICAL CONDITION? NO . CHILLS NO . FEVER NO . INFECTION: DO YOU HAVE NEW INFECTIONS? NO . DO YOU HAVE HISTORY OF MRSA? NO . MUSCULOSKELETAL: ANY NEW PATTERNS OF PAIN OR NUMBNESS? NO . GASTROENTEROLOGY: ANY NEW CHANGE IN BOWEL CONTROL? NO . GENITOURINARY: ANY NEW CHANGE IN BLADDER CONTROL? NO . IS THERE A CHANCE YOU COULD BE ? NO . HEMATOLOGY/LYMPH: DO YOU TAKE ANY BLOOD THINNERS? (FOR EXAMPLE- COUMADIN, PLAVIX, AGGRENOX, PLATEL, PRADAXA, OR XARELTO) NO . WHEN WAS YOUR LAST DOSE? DATE: TIME: . NEUROLOGY: HAVE YOU FALLEN IN THE PAST 12 MONTHS? YES, STATES PRIOR TO LAST VISIT, DISCUSSED AT PREVIOUS VISIT . ANY NEW EXTREMITY NUMBNESS OR WEAKNESS? NO . CARDIOLOGY: DO YOU HAVE A PACEMAKER OR DEFIBRILLATOR? NO . RESPIRATORY: HAVE YOU BEEN SICK IN THE PAST WEEK? YES, STATES A COLD . FEVER NO . FLU LIKE SYMPTOMS? NO . COUGH NO . INTEGUMENTARY: DO YOU HAVE ANY RASHES OR OPEN SORES? NO . ALLERGIC/IMMUNO: ARE YOU ALLERGIC TO IV DYE? NO . ANY NEW ALLERGIES? NO . PSYCHIATRIC: DO YOU HAVE THOUGHTS OF HURTING YOURSELF OR SOMEONE ELSE? NO . ARE YOU ABUSED, NEGLECTED, OR IN AN UNSAFE ENVIRONMENT? NO . ENDOCRINOLOGY: ARE YOU DIABETIC? NO . OTHER: DO YOU NEED ANY PRESCRIPTIONS? YES . IF YES, PLEASE LIST: ____SOMA, AMITRIPTYLINE, TRAMADOL,LYRICA . ANY NEW PROBLEMS WITH YOUR MEDICATIONS? NO . WHEN DID YOU LAST EAT? ____ . WHEN DID YOU LAST DRINK? ____ . WHAT DID YOU LAST DRINK? ____ . NAME OF PERSON DRIVING YOU HOME? ____ . DO YOU HAVE ANY OTHER QUESTIONS OR CONCERNS FLU, TETANUS, AND WHOOPING COUGH VACCINES IN NOVEMBER . VITAL SIGNS WT 177.0 LBS, HT 66 IN, BMI 28.57 INDEX, BP 135/60 MM HG, HR 75 /MIN, RR 18 /MIN, TEMP 97.7 F, OXYGEN SAT % 96%, SAFE IN ENV? (Y/N) YES, NA INITIALS AW 1120, REVIEWED BY: MATIAS. EXAMINATION GENERAL EXAMINATION: GENERALNO ACUTE DISTRESS, WELL NOURISHED AND HYDRATED. PSYCHAPPROPRIATE MOOD AND AFFECT . LUNGS:CLEAR TO AUSCULTATION BILATERALLY, NO WHEEZES, RHONCHI, RALES. HEART:NO MURMURS, REGULAR RATE AND RHYTHM. ASSESSMENTS SPONDYLOSIS OF CERVICAL REGION WITHOUT MYELOPATHY OR RADICULOPATHY - M47.812 (PRIMARY) TREATMENT SPONDYLOSIS OF CERVICAL REGION WITHOUT MYELOPATHY OR RADICULOPATHY REFILL AMITRIPTYLINE HCL TABLET, 25 MG, 1 TO 2 TABLET AT BEDTIME, ORALLY, AT BEDTIME, 30 DAY(S), 60, REFILLS 5 CLINICAL NOTES: 48 YEAR OLD FEMALE IN FOR POST CERVICAL FACET BLOCK FOLLOW UP. GIVEN PRESENTING SYMPTOMS AND RESULTS OF PHYSICAL EXAMINATION RECOMMENDED FOLLOW UP IN 2 MONTHS AND CONTINUATION OF CURRENT MEDICATION REGIMEN. PATIENT HAS EXPRESSED UNDERSTANDING OF AND WAS IN AGREEMENT WITH TREATMENT PLAN. GIVEN TIME TO ASK QUESTIONS AND EXPRESS CONCERNS., ISTOP REGISTRY REVIEWED AND DEMONSTRATES COMPLLIANCE. (REF # [id number] ) BRINGS IN MEDICATIONS WHICH IS APPROPRIATE FOR WHAT WAS DISPENSED. RECENT URINE TOXICOLOGY REVIEWED. NO UNAUTHORIZED MEDICATIONS. NO ILLICIT SUBSTANCES AND PRESCRIBED MEDICATIONS WERE PRESENT. OTHERS REFILL TRAMADOL HCL TABLET, 50 MG, 1 TABLET NEEDED, ORALLY, EVERY 6 HRS PRN PAIN MDD=4, 30 DAYS, 120, REFILLS 0 REFILL CARISOPRODOL TABLET, 350 MG, 1 TABLET NEEDED, ORALLY, BID PRN MUSCLE SPASMS MDD=2, 30 DAYS, 60, REFILLS 0 REFILL LYRICA CAPSULE, 75 MG, 1 CAPSULE, ORALLY FOR PAIN, BID MDD=2, 30 DAYS, 60, REFILLS 0 PROCEDURE CODES FA211 ESTABILISHED PATIENT [facility] FACILITY CHARGE DISPOSITION & COMMUNICATION FOLLOW UP 2 MONTHS (REASON: NECK PAIN ) ELECTRONICALLY SIGNED BY NAHID BAINS ON 01/20/2019 AT 08:47 AM EST DISCLAIMER : THIS IS A VISIT SUMMARY EXTRACTED FROM THE [employer] CHART. IT IS NOT A COPY OF THE [employer] PROGRESS NOTE. CALVIN
== END ==
LOC: M PAIN 10:30
PROVIDERS: ATTEND Family Medicine
DX: M47.812 Spondylosis without myelopathy or radiculopathy, cervical region (principal)

== ENCOUNTER → 2019-01-21 | Outpatient (REF) | payer MEDICARE, MEDICAID | LOC: M SFHCPLAZ 14:30 | PROVIDERS: ATTEND Specialist | DX: Z12.4 Encounter for screening for malignant neoplasm of cervix (principal) | CPT/HCPCS: 87624; G0123 ==

== ENCOUNTER 2019-01-30 11:24 | Day surgery (SDC) | payer MEDICAID, MEDICARE ==
[~2019-01-30] VITALS: Ht 170.2 cm; Wt 78.6 kg
[~2019-01-30 11:24] MED LIST changes: +LR 1,000 ML IV ONE; +ceFAZolin SOD 2 GM in IV 1 EA IV ONE
[2019-01-30] MEDS ORDERED: EPINEPHrine INJ 1 MG/ML 1ML AMP ONE (11:25)
[2019-01-30] MEDS ORDERED: dexameTHASONE 10 MG/1 ML VIAL PRES.FREE (J1100) ONE (11:25)
[2019-01-30] MEDS ORDERED: ROPIvacaine 0.5% 30 ML INJECTION (J2795 PER 1MG) ONE (11:25)
[2019-01-30] MEDS ORDERED: SUGAMMADEX SODIUM 500 MG/5 ML VIAL (BRIDION) As Ordered ONE (12:15)
[2019-01-30] MEDS ORDERED: LIDOCAINE 2% INJ 100 MG/5 ML SDV (FOR ANES.) As Ordered ONE (12:15)
[2019-01-30] MEDS ORDERED: PROPOFOL 200 MG/20 ML VIAL As Ordered ONE (12:15)
[2019-01-30] MEDS ORDERED: fentaNYL 100 MCG/2 ML INJECTION (J3010) As Ordered ONE ×2 (12:15→14:05)
[2019-01-30] MEDS ORDERED: ONDANSETRON 4MG/2ML VIAL (J2405) As Ordered ONE (12:15)
[2019-01-30] MEDS ORDERED: ROCURONIUM BROMIDE 50 MG/5 ML VIAL As Ordered ONE (12:15)
[2019-01-30] MEDS ORDERED: KETOROLAC 60 MG/2 ML VIAL (J1885) As Ordered ONE (12:15)
[2019-01-30] MEDS ORDERED: dexameTHASONE 4 MG/ML 1ML VIAL (J1100) As Ordered ONE (12:15)
[2019-01-30] MEDS ORDERED: MIDAZOLAM INJ 2 MG/2 ML VIAL (J2250) As Ordered ONE ×2 (12:15→14:05)
[2019-01-30] MEDS: fentaNYL 100 MCG/2 ML INJECTION (J3010) IV SCH ×3 (14:25→15:05)
[2019-01-30] MEDS ORDERED: MIDAZOLAM INJ 2 MG/2 ML VIAL (J2250) IV ONE (15:00)
[2019-01-30] MEDS: fentaNYL 100 MCG/2 ML INJECTION (J3010) IV PRN ×4 (16:32→16:50)
[2019-01-30] MEDS ORDERED: ACETAMINOPHEN TAB 650MG DOSE (2X325MG) PO PRN (16:45)
[2019-01-30] MEDS ORDERED: PERCOCET 5MG/325MG TAB PO PRN ×2 (16:45)
[2019-01-30] MEDS ORDERED: MORPHINE 4 MG/ML 1ML VIAL/SYRINGE (J2270) IV PRN (16:45)
[2019-01-30] MEDS ORDERED: LR 1,000 ML IV SCH ×2 (16:45)
[2019-01-30] MEDS ORDERED: ONDANSETRON 4MG/2ML VIAL (J2405) IV PRN ×2 (16:45)
[2019-01-30] MEDS ORDERED: NORCO, ANEXSIA 5/325MG TABLET (HYDROcodone/ACETAMINOPHEN) As Ordered ONE (17:15)
--- NOTE | 2019-01-30 17:19 | RO ---
DATE OF PROCEDURE: 01/30/2019 PREPROCEDURE DIAGNOSIS: Left elbow lateral epicondylitis. POSTOPERATIVE DIAGNOSIS: Left elbow lateral epicondylitis. PLANNED PROCEDURE: Left elbow arthroscopy, debridement lateral epicondyle. PROCEDURE PERFORMED: Left elbow arthroscopy, debridement lateral epicondyle. SURGEON: Geoffrey Garcia MD TYPE OF ANESTHESIA: General anesthetic plus block. CARD FEEDER: Ashtyn. OPERATIVE PREAMBLE: This 48-year-old female had complaints of left elbow lateral epicondylitis. She had already undergone right elbow arthroscopy, lateral epicondylitis debridement. Procedure described was the same procedure on the left side. We talked about the pros and cons, risks and benefits of nonoperative care versus surgical management. She wished to go ahead with this. Signed consent form. I reiterated these risks in preoperative holding, and we proceeded with surgery. Limb was marked prior to the case. DESCRIPTION OF PROCEDURE: The patient was brought to the operating theater after having administered a block. Two grams of IV Ancef was administered. General anesthesia was induced. Preoperative block was performed. She was placed supine on the operating room table. Patient was transferred to left lateral decubitus with a beanbag positioner. All bony prominences were padded. Sequential compression devices (SCDs) were used. Axillary roll was used. Western elbow positioner was used. An 18-inch tourniquet was applied and secured in place. The limb was prepped and draped in the usual sterile fashion. Prep solution was allowed to thoroughly dry prior to draping. Preoperative time-out was performed to confirm the site, the patient and the surgery. Tourniquet was inflated to 250 mmHg. I began by marking out the medial and lateral epicondyles. I began by making a standard anteromedial portal. I insufflated the joint with 20 mL of normal saline through the normal soft spot portal. I then used a curved snap to enter into the joint and dilate the portal. The arthroscope was introduced. Joint was visualized. There was some mild thickening and fraying to the extensor carpi radialis brevis (ECRB) undersurface. Anterolateral portal was then made through inside-out spinal needle localization. A curved tip shaver instrument was introduced. Intra-articular extent of the ECRB was then fully debrided as well as mild debridement at the origin. I ensured to stay above the equator to avoid iatrogenic damage to the lateral ulnar collateral ligament (LUCL) complex. Performed thorough debridement until the muscle belly of extensor carpi radialis longus (ECRL) was showing. I then switched the arthroscope into the anterolateral portal. I performed a gentle debridement from the contralateral portal, again using the curved tip shaver instrument. Arthroscopic pictures were taken throughout. I withdrew the arthroscope. I made a standard posterior working portal in the midline of the triceps 3 cm proximal to the triceps insertion. I then inserted 3 cm lateral to this another working portal. I debrided the posterior compartment of the elbow. There were no obvious osteophytes. Pictures were taken. Scope was withdrawn. Joint was thoroughly irrigated. Skin was cleaned with a wet and dry dressing followed by closure of the portal sites with #3-0 Ethilon suture in an interrupted fashion. Adaptic, 4 x 8 gauze, ABD dressings were then placed and overwrapped with sterile 6 inch Gilberto bandage. The patient's upper extremity was then placed into a sling. The patient was woken up from general anesthetic, transferred off the operating table and taken to the postanesthetic care unit in stable condition. All sponge, needle, and instrument counts were correct. No complications. Estimated blood loss 50 mL. PLAN: Plan for the patient will be to discharge home according to day surgery criteria. Begin gentle active and passive range of motion of the elbow. Followup in the clinic in 2 weeks time to discontinue the sutures. Pain control will be achieved with oral medications which have been electronically sent into their pharmacy of choice. I would like them to change dressing postoperative day #2.
[2019-01-30] MEDS ORDERED: NORCO, ANEXSIA 5/325MG TABLET (HYDROcodone/ACETAMINOPHEN) PO PRN (17:30)
[2019-01-30 19:15] VITALS: BP 129/70
== END 2019-01-30 19:15 | disposition home or self-care (01) ==
LOC: M SDC 11:24
PROVIDERS: ATTEND Orthopaedic Surgery Sports Medicine
DX: M77.12 Lateral epicondylitis, left elbow (principal); H91.3 Deaf nonspeaking, not elsewhere classified; Z79.899 Other long term (current) drug therapy; M54.5 Low back pain
CPT/HCPCS: 29837; 64418; J0690; J1100; J1885; J2250; J2405; J2795; J3010

== ENCOUNTER → 2019-03-17 | Outpatient (CLI) | payer MEDICARE, MEDICAID ==
[~2019-03-17] MED LIST changes: -LR 1,000 ML IV ONE; -ceFAZolin SOD 2 GM in IV 1 EA IV ONE
--- NOTE | 2019-03-19 02:54 | ECWPNPC ---
PATIENT NAME: RADHA RAY : 1970 GENDER: FEMALE VISIT DATE: 03/17/2019 DISCHARGE DATE: 03/17/19 1216 VISIT LOCKED DATE TIME: PHYSICIAN: PAUL MTZ RESOURCE: PAUL MTZ REASON FOR APPOINTMENT 1. 2 MONS HISTORY OF PRESENT ILLNESS HISTORY OF PRESENT ILLNESS: 48-YEAR-OLD FEMALE IN FOR CHRONIC PAIN FOLLOW-UP. SHE RATES HER PAIN CURRENTLY AT A 6 OUT OF 10 AND DESCRIBES IT ACHING. SHE HAS HAD CERVICAL FACET BLOCKS IN THE PAST AND THESE HELPED TO ALLEVIATE HER SYMPTOMS. FALL RISK SCREENING: SCREENING :NO FALLS REPORTED IN THE LAST YEAR CURRENT MEDICATIONS TAKING AMITRIPTYLINE HCL 25 MG TABLET 1 TO 2 TABLET AT BEDTIME ORALLY AT BEDTIME TAKING DICLOFENAC SODIUM 50 MG TABLET DELAYED RELEASE 1 TABLET WITH FOOD OR MILK ORALLY BID PRN PAIN TAKING TRAMADOL HCL 50 MG TABLET 1 TABLET NEEDED ORALLY EVERY 6 HRS PRN PAIN MDD=4 TAKING CARISOPRODOL 350 MG TABLET 1 TABLET NEEDED ORALLY BID PRN MUSCLE SPASMS MDD=2 TAKING LYRICA 75 MG CAPSULE 1 CAPSULE ORALLY FOR PAIN BID MDD=2 NOT-TAKING LORATADINE 10 MG TABLET 1 TAB ORALLY PRN DISCONTINUED AMOXICILLIN-POT CLAVULANATE 875-125 MG TABLET 1 TABLET ORALLY EVERY 12 HRS MEDICATION LIST REVIEWED AND RECONCILED WITH THE PATIENT PAST MEDICAL HISTORY ARTHRITIS, BACK/HIP PAIN (NIDA BELL NP, [facility]) HX OF ABNORMAL PAP PERSISTENT PELVIC PAIN/OVARIAN CYSTS 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) ASVD 3 (0.7%) BAKERS CYST RIGHT KNEE ALLERGIES HAY FEVER: SNEEZING, STUFFY NOSE SURGICAL HISTORY PARTIAL HYSTERECTOMY 2003 CHOLECYSTECTOMY 2010 KNEE-RIGHT 2005 BLADDER LIFT ([place]) 2007 FOOT-RIGHT TOE 05/2014 LEFT OVARY - TERATOMA 10/2016 REMOVED INFECTION UNDER SHEATH OFR HAND MIDDLE FINGER 11/2016 LASIK SURGERY-BILATERAL 2007 BILATERAL EYE LID LIFT 2015 RIGHT ELBOW 06/04/18 LEFT ELBOW REPAIR 01/2019 FAMILY HISTORY FATHER: , DIAGNOSED WITH OTHER MALIGNANT NEOPLASM OF UNSPECIFIED SITE MOTHER: ALIVE, HYPERTENSION, OTHER SPECIFIED CONDITIONS INFLUENCING HEALTH STATUS 1 BROTHER(S) , 1 SISTER(S) . 3DAUGHTER(S) - HEALTHY. FATHER: ESOPHAGUS [place]\\\\NMOTHER: HIGH CHOLESTEROL\\\\NBROTHER: MS\\\\NGRANDMOTHER WITH MULTIPLE MYELOMA. SOCIAL HISTORY GENERAL: TOBACCO USE ARE YOU A:NONSMOKER HIV / HEP-C SCREENING HIV TEST OFFERED TO PATIENT:YES DATE OFFERED:03/19/2018 TEST ACCEPTED:YES HEP-C TEST OFFERED TO PATIENT:YES DATE OFFERED:03/19/2018 TEST ACCEPTED:YES BROCHURE PROVIDED TO PATIENTYES OTHERS AT HOME: CHILD. EDUCATION LEVEL OF EDUCATION:COLLEGE DIET: REGULAR. LANGUAGE LANGUAGES SPOKEN:ROMANIAN ASL DOMESTIC VIOLENCE DO YOU FEEL SAFE IN YOUR ENVIRONMENT?YES RECREATIONAL DRUG USE DRUG USE?NO EXERCISE: NO REGULAR EXERCISE. 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 N/A HAS THE PATIENT BEEN EDUCATED REGARDING HIS/HER PLAN OF CARE?YES HAS THE PATIENT BEEN EDUCATED REGARDING PAIN, THE RISK FOR PAIN, THE IMPORTANCE OF EFFECTIVE PAIN MANAGEMENT, AND THE PAIN ASSESSMENT PROCESS?YES LATEX QUESTIONNAIRE LATEX ALLERGY : HAVE YOU EVER DEVELOPED ANY TYPE OF REACTION AFTER HANDLING LATEX PRODUCTS SUCH RUBBER GLOVES, CONDOMS, DIAPHRAGMS, BALLOONS, SOCKS, OR UNDERWEAR?NO LATEX ALLERGY : HAVE YOU EVER DEVELOPED ANY TYPE OF REACTION DURING OR AFTER DENTAL APPOINTMENT, VAGINAL/RECTAL EXAMINATION, SURGICAL PROCEDURE, OR ANY OTHER EXPOSURE?NO DATE ASKED : 05/14/2018 LATEX RISK : HAVE YOU EVER HAD ANY DIFFICULTY BREATHING OR HIVES AFTER EATING OR HANDLING ANY FRUITS, OR VEGETABLES; SUCH KIWI, BANANAS, STONE FRUITS, OR CHESTNUTSNO LATEX RISK : DO YOU HAVE A PREVIOUS PERSONAL HISTORY OF MORE THAN NINE SURGERIES, SPINA BIFIDA, OR REPEATED CATHERIZATIONS? YES - PLEASE INDICATE : > 9 SURGERIES LATEX RISK : ARE YOU FREQUENTLY EXPOSED TO LATEX PRODUCTS IN YOUR OCCUPATION?NO CAFFEINE CAFFEINE USE?YES HOW OFTEN AND HOW MUCH? OCC ADVANCE DIRECTIVE ADVANCE DIRECTIVE DISCUSSED WITH PATIENT:YES PT STATES SHE HAS HCP--DAUGHTER-KAMAR [phone]. CATHOLIC [id number] NONE MARITAL STATUS: SINGLE. ALCOHOL SCREENING DID YOU HAVE A DRINK CONTAINING ALCOHOL IN THE PAST YEAR?YES HOW OFTEN DID YOU HAVE SIX OR MORE DRINKS ON ONE OCCASION IN THE PAST YEAR?NEVER (0 POINTS) HOW MANY DRINKS DID YOU HAVE ON A TYPICAL DAY WHEN YOU WERE DRINKING IN THE PAST YEAR?1 OR 2 (0 POINTS) HOW OFTEN DID YOU HAVE A DRINK CONTAINING ALCOHOL IN THE PAST YEAR?TWO TO FOUR TIMES A MONTH (2 POINTS) POINTS2 INTERPRETATIONNEGATIVE OCCUPATION: UNEMPLOYED. SEXUAL HX HAD SEX IN THE LAST 12 MONTHS (VAGINAL, ORAL, OR ANAL)?YES WITHMEN ONLY USE PROTECTION?NO REVIEWED WITH PATIENT 12/07/17 1506 JSREVIEWED WITH PATIENT 02/22/18 1415 LAS05/13/18 REVIEWED WITH PT. AD11/12/18 1325 REVIEWED WITH PT BV12/01/18 REVIEWED WITH PATIENT JPREVIEWED WITH PATIENT 01/15/19 1123 JS. HOSPITALIZATION/MAJOR DIAGNOSTIC PROCEDURE SURGERY RELATED REVIEW OF SYSTEMS REVIEWED BY: PROVIDER: TIFFANY SIMON . CONSTITUTIONAL: ANY CHANGE IN YOUR MEDICAL CONDITION? NO . CHILLS NO . FEVER NO . INFECTION: DO YOU HAVE NEW INFECTIONS? YES, URI RESOLVED W ABX [place] . DO YOU HAVE HISTORY OF MRSA? NO . MUSCULOSKELETAL: ANY NEW PATTERNS OF PAIN OR NUMBNESS? NO . GASTROENTEROLOGY: ANY NEW CHANGE IN BOWEL CONTROL? NO . GENITOURINARY: ANY NEW CHANGE IN BLADDER CONTROL? NO . IS THERE A CHANCE YOU COULD BE ? NO . HEMATOLOGY/LYMPH: DO YOU TAKE ANY BLOOD THINNERS? (FOR EXAMPLE- COUMADIN, PLAVIX, AGGRENOX, PLATEL, PRADAXA, OR XARELTO) NO . WHEN WAS YOUR LAST DOSE? DATE: TIME: . NEUROLOGY: HAVE YOU FALLEN IN THE PAST 12 MONTHS? YES, NOT COMPLETE FALL, TRIPPED OVER SOMETHING . ANY NEW EXTREMITY NUMBNESS OR WEAKNESS? NO . CARDIOLOGY: DO YOU HAVE A PACEMAKER OR DEFIBRILLATOR? NO . RESPIRATORY: HAVE YOU BEEN SICK IN THE PAST WEEK? YES . FEVER NO . FLU LIKE SYMPTOMS? NO . COUGH YES, RESOLVED . INTEGUMENTARY: DO YOU HAVE ANY RASHES OR OPEN SORES? NO . ALLERGIC/IMMUNO: ARE YOU ALLERGIC TO IV DYE? NO . ANY NEW ALLERGIES? NO . PSYCHIATRIC: DO YOU HAVE THOUGHTS OF HURTING YOURSELF OR SOMEONE ELSE? NO . ARE YOU ABUSED, NEGLECTED, OR IN AN UNSAFE ENVIRONMENT? NO . ENDOCRINOLOGY: ARE YOU DIABETIC? NO . OTHER: DO YOU NEED ANY PRESCRIPTIONS? NO . IF YES, PLEASE LIST: ____ . ANY NEW PROBLEMS WITH YOUR MEDICATIONS? NO . WHEN DID YOU LAST EAT? ____ . WHEN DID YOU LAST DRINK? ____ . WHAT DID YOU LAST DRINK? ____ . NAME OF PERSON DRIVING YOU HOME? ____ . DO YOU HAVE ANY OTHER QUESTIONS OR CONCERNS NO . VITAL SIGNS WT 182 LBS, HT 66 IN, BMI 29.37 INDEX, BP 101/68 MM HG, HR 93 /MIN, RR 16 /MIN, TEMP 98.4 F, OXYGEN SAT % 95, REVIEWED BY: EM. EXAMINATION GENERAL EXAMINATION: GENERALNO ACUTE DISTRESS, WELL NOURISHED AND HYDRATED. PSYCHAPPROPRIATE MOOD AND AFFECT . NECK:POINT TENDER ALONG CERVICAL SPINE, SURROUNDING SKIN SHOWS NO ERYTHEMA, ECCHYMOSIS, INCREASED WARMTH, AND/OR SKIN ERUPTIONS NOTED. PATIENT DOES ENDORSE INCREASED PAIN WITH FACET LOADING. . LUNGS:CLEAR TO AUSCULTATION BILATERALLY, NO WHEEZES, RHONCHI, RALES. HEART:NO MURMURS, REGULAR RATE AND RHYTHM. ASSESSMENTS SPONDYLOSIS OF CERVICAL REGION WITHOUT MYELOPATHY OR RADICULOPATHY - M47.812 (PRIMARY) TREATMENT SPONDYLOSIS OF CERVICAL REGION WITHOUT MYELOPATHY OR RADICULOPATHY NOTES: THERAPEUTIC CERVICAL FACET BLOCK WITH IV SEDATION C4-C5 C5-C6. CLINICAL NOTES: 48-YEAR-OLD FEMALE IN FOR CHRONIC PAIN FOLLOW-UP. GIVEN PRESENTING SYMPTOMS AND RESULTS OF PHYSICAL EXAMINATION RECOMMENDED CERVICAL FACET BLOCK WITH POSTPROCEDURAL FOLLOW-UP. PATIENT HAS EXPRESSED UNDERSTANDING OF AND WAS IN AGREEMENT WITH TREATMENT PLAN. GIVEN TIME TO ASK QUESTIONS AND EXPRESS CONCERNS., ISTOP REGISTRY REVIEWED AND DEMONSTRATES COMPLLIANCE. (REF # [id number] ) BRINGS IN MEDICATIONS WHICH IS APPROPRIATE FOR WHAT WAS DISPENSED. RECENT URINE TOXICOLOGY REVIEWED. NO UNAUTHORIZED MEDICATIONS. NO ILLICIT SUBSTANCES AND PRESCRIBED MEDICATIONS WERE PRESENT. PROCEDURE CODES FA211 ESTABILISHED PATIENT [facility] FACILITY CHARGE DISPOSITION & COMMUNICATION FOLLOW UP POSTPROCEDURE (REASON: THERAPEUTIC CERVICAL FACET BLOCK WITH IV SEDATION C4-C5 C5-C6) ELECTRONICALLY SIGNED BY NAHID BAINS ON 03/18/2019 AT 08:52 AM EST DISCLAIMER : THIS IS A VISIT SUMMARY EXTRACTED FROM THE [employer] CHART. IT IS NOT A COPY OF THE [employer] PROGRESS NOTE. CALVIN
== END ==
LOC: M PAIN 11:15
PROVIDERS: ATTEND Family Medicine
DX: M47.812 Spondylosis without myelopathy or radiculopathy, cervical region (principal)

== ENCOUNTER → 2019-03-25 | Outpatient (CLI) | payer MEDICARE, MEDICAID ==
--- NOTE | 2019-03-25 13:23 | REP ---
MRI left knee without contrast: History: Synovial cyst in the popliteal space. Rule out lateral meniscal tear. No comparison left knee imaging. Technique: Axial, coronal and sagittal imaging planes were utilized. T1, proton density and T2-weighted scans were obtained with and without fat saturation. MRI findings: MRI study confirms the presence of a small Castillo's cyst in the posterior popliteal soft tissues. No significant joint effusion is seen. Cortical and medullary bone signal intensity are normal. Patellar and quadriceps tendons have an intact appearance. Anterior and posterior cruciate ligaments are intact. There is no evidence of medial or lateral collateral ligament disruption. There is horizontally oriented linear area of increased signal intensity within the medial meniscus posterior horn and posterior body. This extends to the inferior articular margin near its free edge and is consistent with a horizontal posterior horn medial meniscal tear. There is some fraying of the inner free margin of the posterior horn as well. No displaced meniscal material is appreciated. No lateral meniscal tear is seen. No significant chondromalacia or articular cartilage deficit is appreciated. Study is otherwise unremarkable. Impression: Very small Castillo's cyst. Horizontal tear pattern posterior body and posterior horn medial meniscus. Otherwise negative. Electronically Signed by Les Rosado MD 03/25/2019 06:54 P
== END ==
LOC: M RAD 11:00
PROVIDERS: ATTEND Orthopaedic Surgery Sports Medicine
DX: M71.22 Synovial cyst of popliteal space [Baker], left knee (principal)

== ENCOUNTER → 2019-03-27 | Outpatient (CLI) | payer MEDICARE, MEDICAID ==
[~2019-03-27] MED LIST changes: +LIDOCAINE 1% MDV 20ML VIAL As Ordered ONE; +diazePAM 5 MG TAB As Ordered ONE; +diazePAM 5 MG TAB PO ONE
[2019-03-27 10:02] VITALS: BP 139/96
[2019-03-27 10:41] LABS: BODY FLUID RHEUMATOID SCREEN NEGATIVE (NEGATIVE); MUCIN CLOT TEST NO CLOT (4+)
[2019-03-27 10:48] LABS: CRYSTALS, BODY FLUID CA PYROPHOSPHATE (NONE SEEN); SOURCE, BODY FLUID CRYSTALS RT KNEE
[2019-03-27 11:00] LABS: SOURCE, BODY FLUID GLUCOSE RT KNEE; SOURCE, BODY FLUID URIC ACID RT KNEE
[2019-03-27 11:20] LABS: SOURCE, BODY FLUID RT KNEE; SYNOVIAL FLUID COLOR YELLOW (YELLOW)
--- NOTE | 2019-03-28 08:23 | REP ---
ULTRASOUND-GUIDED RIGHT KNEE CASTILLO'S CYST ASPIRATION The procedure was performed under the direct supervision of Dr. Rosado. The risks and benefits of the procedure were explained to the patient and informed consent was obtained. The right Castillo's cyst was localized using ultrasound guidance. The skin was prepped and draped in a sterile fashion. 1% lidocaine was used as a local anesthetic. Using ultrasound guidance a 5-Israeli centesis needle was inserted using trocar technique. 5 ml of clear yellow fluid was withdrawn and sent to lab for analysis. The patient tolerated the procedure well and there were no immediate complications. After the appropriate amount of monitored convalescence the patient was discharged from the department. Electronically Signed by JAMES Mims 03/27/2019 05:38 P Electronically Signed by Les Rosado MD 03/28/2019 08:14 A
== END ==
LOC: M IRPRO 08:26
PROVIDERS: ATTEND Orthopaedic Surgery Sports Medicine
DX: M71.21 Synovial cyst of popliteal space [Baker], right knee (principal)

== ENCOUNTER → 2019-05-01 | Outpatient (REF) | payer MEDICARE, MEDICAID ==
[~2019-05-01] MED LIST changes: -LIDOCAINE 1% MDV 20ML VIAL As Ordered ONE; -diazePAM 5 MG TAB As Ordered ONE; -diazePAM 5 MG TAB PO ONE
[2019-05-02 01:13] LABS: CHLAMYDIA DNA AMPLIFICATION NEGATIVE (NEGATIVE); GC DNA AMPLIFICATION NEGATIVE (NEGATIVE)
== END ==
LOC: M SFHCWAGY 17:51
PROVIDERS: ATTEND Specialist
DX: Z20.2 Contact with and (suspected) exposure to infections with a predominantly sexual mode of transmission (principal)
CPT/HCPCS: 87491; 87591; G0463

== ENCOUNTER → 2019-07-10 | Outpatient (CLI) | payer MEDICARE, MEDICAID | LOC: M LABSMTC 12:07 | PROVIDERS: ATTEND Anesthesiology | DX: Z01.818 Encounter for other preprocedural examination (principal); Z11.59 Encounter for screening for other viral diseases ==

== ENCOUNTER 2019-08-26 20:56 | Emergency (ER) | payer MEDICARE, MEDICAID ==
[~2019-08-26] VITALS: Ht 170.2 cm; Wt 84.1 kg
[2019-08-26] MEDS ORDERED: DICL50TAB (21:40)
[2019-08-26] MEDS ORDERED: IBUPROFEN 600MG TAB PO ONE (22:00)
--- NOTE | 2019-08-26 22:46 | REPVR ---
PROCEDURE INFORMATION: Exam: XR Sacrum and Coccyx, 2 or More Views Exam date and time: 08/26/19 (10:09pm) Age: 49 years old Clinical indication: Fall. Initial encounter. Tenderness. TECHNIQUE: Imaging protocol: XR of the sacrum and coccyx, 2 or more views COMPARISON: Right hip and pelvis plain films of 10/02/17 FINDINGS: Bones/joints: Unremarkable. No acute fracture nor dislocation. Soft tissues: Unremarkable. IMPRESSION: No acute findings. Electronically signed by: Abby Cantu On 08/26/2019 22:45:27 PM
[2019-08-26 23:18] VITALS: BP 127/71
== END 2019-08-26 23:21 | disposition home or self-care (01) ==
LOC: M ED 20:56
DX: S30.0XXA Contusion of lower back and pelvis, initial encounter (principal); W19.XXXA Unspecified fall, initial encounter; Y92.9 Unspecified place or not applicable; Y93.9 Activity, unspecified; Y99.9 Unspecified external cause status; N80.9 Endometriosis, unspecified; H91.90 Unspecified hearing loss, unspecified ear; Z85.41 Personal history of malignant neoplasm of cervix uteri; Z79.899 Other long term (current) drug therapy

== ENCOUNTER → 2019-09-05 | Outpatient (CLI) | payer MEDICARE, MEDICAID ==
[~2019-09-05] MED LIST changes: +DICL50TAB
== END ==
LOC: M LABSMTC 13:55
PROVIDERS: ATTEND Anesthesiology
DX: Z11.59 Encounter for screening for other viral diseases (principal); Z20.828 Contact with and (suspected) exposure to other viral communicable diseases
CPT/HCPCS: C9803; U0003

== ENCOUNTER → 2019-09-08 | Outpatient (CLI) | payer MEDICARE, MEDICAID ==
--- NOTE | 2019-09-09 02:22 | ECWPNPC ---
PATIENT NAME: RADHA RAY : 1970 GENDER: FEMALE VISIT DATE: 09/08/2019 DISCHARGE DATE: 09/08/19 1450 VISIT LOCKED DATE TIME: PHYSICIAN: RACHEL ABRAHAM MD RESOURCE: RACHEL ABRAHAM MD REASON FOR APPOINTMENT 1. PRESEDATE APPT. HISTORY OF PRESENT ILLNESS GENERAL: 49-YEAR-OLD FEMALE PATIENT WITH A HISTORY OF CHRONIC NECK PAIN. THE PATIENT DESCRIBES THE PAIN ACHING, SHARP AND TENDER WITH A PAIN SCORE RANGING FROM 5-10/10 DEPENDING ON PHYSICAL ACTIVITY. THE PAIN IS MAINLY LOCATED OVER THE RIGHT SIDE. PATIENT DENIES UNEXPLAINABLE WEIGHT LOSS, FEVER, CHILLS, NEW CHANGES ON HER URINARY OR BOWEL CONTROL. FALL RISK SCREENING: SCREENING :TWO OR MORE FALLS WITH INJURY IN THE PAST YEAR EDUCATED PT REGARDING USING ASSISTANCE FOR AMBULATION SUCH A CANE PAIN SCREENING: PATIENT HAS A COMPLAINT OF ACUTE OR CHRONIC PAIN :YES LOCATION OF PAIN:OTHER: TAILBONE INTENSITY OF PAIN (SCALE OF 1 TO 10):10 WHAT DOES YOUR PAIN FEEL LIKE:ACHING, SHARP, TENDER NURSING NOTE: -. PAIN CENTER INTAKE QUESTIONS: DO YOU HAVE A HISTORY OF MRSA? :NO DO YOU TAKE A BLOOD THINNERS? :NO DO YOU HAVE ANY BLEEDING DISORDERS? :NO ANY NEW NUMBNESS OR WEAKNESS IN YOUR LEGS OR ARMS? :NO ANY PACEMAKER,DEFIBRILLATOR, OR DORSAL COLUMN STIMULATOR? :NO DO YOU HAVE ANY RASHES OR OPEN SORES? :NO ARE YOU ALLERGIC TO IV DYE? :NO ARE YOU DIABETIC? :NO ANY NEW PROBLEMS WITH YOUR MEDICATIONS? :NO HAVE YOU RECEIVED A VACCINE IN THE PAST 30 DAYS? :NO DO YOU PLAN TO RECEIVE A VACCINE IN THE NEXT 21 DAYS? :NO DO YOU NEED ANY PRESCRIPTION? :NO DO YOU TAKE ANY IMMUNOSUPPRESSIVE MEDICATIONS? :NO IS THERE A CHANCE YOU COULD BE ? :NO ARE YOU BREAST FEEDING? :NO CURRENT MEDICATIONS TAKING AMITRIPTYLINE HCL 25 MG TABLET 1 TO 2 TABLET AT BEDTIME ORALLY AT BEDTIME TAKING DICLOFENAC SODIUM 50 MG TABLET DELAYED RELEASE 1 TABLET WITH FOOD OR MILK ORALLY BID PRN PAIN TAKING LYRICA 75 MG CAPSULE 1 CAPSULE ORALLY FOR PAIN BID MDD=2 TAKING CARISOPRODOL 350 MG TABLET 1 TABLET NEEDED ORALLY BID PRN MUSCLE SPASMS MDD=2 TAKING TRAMADOL HCL 50 MG TABLET 1 TABLET NEEDED ORALLY EVERY 6 HRS PRN PAIN MDD=4 NOT-TAKING LORATADINE 10 MG TABLET 1 TAB ORALLY PRN MEDICATION LIST REVIEWED AND RECONCILED WITH THE PATIENT PAST MEDICAL HISTORY ARTHRITIS, BACK/HIP PAIN (NIDA BELL NP, [facility]) HX OF ABNORMAL PAP PERSISTENT PELVIC PAIN/OVARIAN CYSTS 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) ASVD 05/05 (0.7%) BAKERS CYST RIGHT KNEE ALLERGIES HAY FEVER: SNEEZING, STUFFY NOSE SURGICAL HISTORY PARTIAL HYSTERECTOMY 2003 CHOLECYSTECTOMY 2010 KNEE-RIGHT 2005 BLADDER LIFT (SHEBA) 2007 FOOT-RIGHT TOE 05/2014 LEFT OVARY - TERATOMA 10/2016 REMOVED INFECTION UNDER SHEATH OFR HAND MIDDLE FINGER 11/2016 LASIK SURGERY-BILATERAL 2007 BILATERAL EYE LID LIFT 2015 RIGHT ELBOW 06/04/18 LEFT ELBOW REPAIR 01/2019 LEFT KNEE 04/2019 RIGHT KNEE SCOPE 06/2019 FAMILY HISTORY FATHER: , DIAGNOSED WITH OTHER MALIGNANT NEOPLASM OF UNSPECIFIED SITE MOTHER: ALIVE, HYPERTENSION, OTHER SPECIFIED CONDITIONS INFLUENCING HEALTH STATUS 1 BROTHER(S) , 1 SISTER(S) . 3DAUGHTER(S) - HEALTHY. FATHER: ESOPHAGUS [place]\\\\NMOTHER: HIGH CHOLESTEROL\\\\NBROTHER: MS\\\\NGRANDMOTHER WITH MULTIPLE MYELOMA. SOCIAL HISTORY GENERAL: TOBACCO USE ARE YOU A:NONSMOKER LATEX QUESTIONNAIRE LATEX ALLERGY : HAVE YOU EVER DEVELOPED ANY TYPE OF REACTION AFTER HANDLING LATEX PRODUCTS SUCH RUBBER GLOVES, CONDOMS, DIAPHRAGMS, BALLOONS, SOCKS, OR UNDERWEAR?NO LATEX ALLERGY : HAVE YOU EVER DEVELOPED ANY TYPE OF REACTION DURING OR AFTER DENTAL APPOINTMENT, VAGINAL/RECTAL EXAMINATION, SURGICAL PROCEDURE, OR ANY OTHER EXPOSURE?NO LATEX RISK : HAVE YOU EVER HAD ANY DIFFICULTY BREATHING OR HIVES AFTER EATING OR HANDLING ANY FRUITS, OR VEGETABLES; SUCH KIWI, BANANAS, STONE FRUITS, OR CHESTNUTSNO LATEX RISK : DO YOU HAVE A PREVIOUS PERSONAL HISTORY OF MORE THAN NINE SURGERIES, SPINA BIFIDA, OR REPEATED CATHERIZATIONS? YES - PLEASE INDICATE : > 9 SURGERIES LATEX RISK : ARE YOU FREQUENTLY EXPOSED TO LATEX PRODUCTS IN YOUR OCCUPATION?NO DATE ASKED : 09/08/2019 ALCOHOL SCREENING DID YOU HAVE A DRINK CONTAINING ALCOHOL IN THE PAST YEAR?YES HOW OFTEN DID YOU HAVE SIX OR MORE DRINKS ON ONE OCCASION IN THE PAST YEAR?NEVER (0 POINTS) HOW MANY DRINKS DID YOU HAVE ON A TYPICAL DAY WHEN YOU WERE DRINKING IN THE PAST YEAR?1 OR 2 (0 POINTS) HOW OFTEN DID YOU HAVE A DRINK CONTAINING ALCOHOL IN THE PAST YEAR?TWO TO FOUR TIMES A MONTH (2 POINTS) POINTS2 INTERPRETATIONNEGATIVE RECREATIONAL DRUG USE DRUG USE?NO CAFFEINE CAFFEINE USE?YES HOW OFTEN AND HOW MUCH? 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 DIET: REGULAR. EXERCISE: NO REGULAR EXERCISE. MARITAL STATUS: SINGLE. OTHERS AT HOME: CHILD. PAIN CLINIC PFS, CLERGY, PUBLIC HEALTH REFERRALS PFS REFERRAL NEEDED?NO CLERGY REFERRAL NEEDED?NO PUBLIC HEALTH REFERRAL NEEDED?NO WAS THE PROVIDER NOTIFIED OF ANY PERTINENT INFO? N/A HAS THE PATIENT BEEN EDUCATED REGARDING HIS/HER PLAN OF CARE?YES HAS THE PATIENT BEEN EDUCATED REGARDING PAIN, THE RISK FOR PAIN, THE IMPORTANCE OF EFFECTIVE PAIN MANAGEMENT, AND THE PAIN ASSESSMENT PROCESS?YES ADVANCE DIRECTIVE ADVANCE DIRECTIVE DISCUSSED WITH PATIENT:YES PT STATES SHE HAS HCP--DAUGHTER-KAMAR [phone]. HOSPITALIZATION/MAJOR DIAGNOSTIC PROCEDURE SURGERY RELATED ER VISIT TO ED FOR FALL ON [address] COMPLETED 08/26/2019 REVIEW OF SYSTEMS GLAUCOMA: NOTHYROID DISEASE: NOHYPERTENSION: NOHEART DISEASE: NOLUNG DISEASE: NODIABETES: NOGI DISEASE: NO LIVER DISEASE: NO KIDNEY DISEASE: NOSTERIOD USE: NONEUROLOGICAL DISEASE: NOBACK PROBLEMS: NOEXTREMITIES: NOGENITOURINARY: NOBLEEDING DISORDER: NOASA CLASS: [id number] CLASS: II. VITAL SIGNS WT 185.5 LBS, HT 66 IN, BMI 29.94 INDEX, BP 131/74 MM HG, HR 87 /MIN, RR 18 /MIN, TEMP 97.9 F, OXYGEN SAT % 96%, SAFE IN ENV? (Y/N) Y, NA INITIALS AW 1353, REVIEWED BY: JAVIER. EXAMINATION GENERAL EXAMINATION: THE PATIENT IS ALERT, ORIENTED TIMES THREE AND COOPERATIVE. HEART SHOWS REGULAR RHYTHM, NO MURMURS AND NO GALLOPS. LUNGS ARE CLEAR TO AUSCULTATION. THERE IS TENDERNESS OVER THE CERVICAL FACETS WITH ROTATION OVER THE RIGHT SIDE. CERVICAL MRI DONE ON 04/21/2016 SHOWS SOME FACET ARTHROPATHY CHANGES AT MULTIPLE LEVELS. ASSESSMENTS SPONDYLOSIS OF CERVICAL REGION WITHOUT MYELOPATHY OR RADICULOPATHY - M47.812 (PRIMARY) TREATMENT SPONDYLOSIS OF CERVICAL REGION WITHOUT MYELOPATHY OR RADICULOPATHY CLINICAL NOTES: WE DISCUSSED SEVERAL ALTERNATIVES WITH MS. RAY REGARDING HER TREATMENT OPTIONS AND CARE. WE ARE GOING TO MOVE FORWARD WITH THERAPEUTIC RIGHT CERVICAL FACET BLOCK C4-C5, C5-C6. THE PATIENT WOULD LIKE TO MOVE FORWARD WITH IV SEDATION DUE TO ANXIETY AND DISCOMFORT ASSOCIATED WITH THE PROCEDURE. I DISCUSSED THAT THE USE OF STEROIDS MAY CONTRIBUTE TO IMMUNOSUPPRESSION OF THE PATIENT'S BODY AGAINST INFECTIONS SUCH COVID-19. THE PATIENT IS AWARE OF THE POTENTIAL COMPLICATIONS ASSOCIATED WITH THIS VIRUS, INCLUDING, BUT NOT LIMITED TO, . I DISCUSSED THE USE OF DEXAMETHASONE INSTEAD OF KENALOG; HOWEVER, THE PATIENT WOULD LIKE TO MOVE FORWARD WITH KENALOG. THE PATIENT KNOWS TO CALL THE OFFICE IF SHE HAS ANY QUESTIONS OR CONCERNS. THE PATIENT UNDERSTANDS AND IS IN AGREEMENT WITH THE TREATMENT PLAN. I, CHAGO RODRIGUEZ, DOCUMENTED THE ABOVE INFORMATION ACTING A SCRIBE FOR DR. ABRAHAM. I HAVE REVIEWED THE ABOVE DOCUMENT, WRITTEN BY CHAGO RODRIGUEZ, PAINT MAKER, AND I VERIFY THAT IT IS ACCURATE. PROCEDURE CODES FA211 ESTABILISHED PATIENT [facility] CHARGE [id number] OFFICE/OUTPATIENT VISIT EST DISPOSITION & COMMUNICATION FOLLOW UP CFBT RT C4-C5, C5-C6 (REASON: CFBT RT C4-C5, C5-C6 WITH IV SED) ELECTRONICALLY SIGNED BY RACHEL ABRAHAM MD, MD ON 09/08/2019 AT 05:51 PM EDT DISCLAIMER : THIS IS A VISIT SUMMARY EXTRACTED FROM THE [employer] CHART. IT IS NOT A COPY OF THE [employer] PROGRESS NOTE. MTDD
== END ==
LOC: M PAIN 13:45
PROVIDERS: ATTEND Anesthesiology
DX: M47.812 Spondylosis without myelopathy or radiculopathy, cervical region (principal)

== ENCOUNTER 2019-09-18 22:49 | Emergency (ER) | payer MEDICARE, MEDICAID ==
[~2019-09-18 22:49] MED LIST changes: +AUGMENTIN 875 MG TAB ONE; +KETOROLAC TROMETHAMINE 10 MG TAB ONE; +diazePAM 5 MG TAB ONE
== END 2019-09-18 22:54 | disposition home or self-care (01) ==
LOC: M ED 22:49
DX: S51.001A Unspecified open wound of right elbow, initial encounter (principal); S80.871A Other superficial bite, right lower leg, initial encounter; W54.0XXA Bitten by dog, initial encounter; Y92.008 Other place in unspecified non-institutional (private) residence as the place of occurrence of the external cause

== ENCOUNTER → 2019-09-19 | Outpatient (RCR) | payer MEDICARE, MEDICAID ==
[~2019-09-19] MED LIST changes: -AUGMENTIN 875 MG TAB ONE; -KETOROLAC TROMETHAMINE 10 MG TAB ONE; -diazePAM 5 MG TAB ONE
== END | disposition home or self-care (01) ==
LOC: M PT 08-25 09:54
PROVIDERS: ATTEND Orthopaedic Surgery Sports Medicine
DX: Z47.89 Encounter for other orthopedic aftercare (principal)

== ENCOUNTER → 2019-10-06 | Outpatient (CLI) | payer MEDICARE, MEDICAID | LOC: M RAD 14:00 | PROVIDERS: ATTEND Orthopaedic Surgery Sports Medicine | DX: S32.2XXA Fracture of coccyx, initial encounter for closed fracture (principal); W19.XXXA Unspecified fall, initial encounter; Y92.89 Other specified places as the place of occurrence of the external cause; Y93.89 Activity, other specified; Y99.8 Other external cause status ==

== ENCOUNTER → 2019-10-20 | Outpatient (RCR) | payer MEDICARE, MEDICAID | LOC: M PT 09-22 11:15 | PROVIDERS: ATTEND Orthopaedic Surgery Sports Medicine | DX: Z47.89 Encounter for other orthopedic aftercare (principal) ==

== ENCOUNTER 2019-11-17 13:00 | Outpatient (RCR) | payer MEDICARE, MEDICAID | END 2019-11-19 | disposition home or self-care (01) | LOC: M PT 13:00 | PROVIDERS: ATTEND Orthopaedic Surgery Sports Medicine | DX: M25.551 Pain in right hip (principal) ==

== ENCOUNTER 2019-12-15 11:45 | Outpatient (RCR) | payer MEDICARE, MEDICAID | END 2019-12-20 | LOC: M PT 11:45 | PROVIDERS: ATTEND Orthopaedic Surgery Sports Medicine | DX: M25.551 Pain in right hip (principal) ==

== ENCOUNTER → 2019-12-31 | Outpatient (CLI) | payer MEDICARE, MEDICAID ==
--- NOTE | 2020-01-02 03:09 | ECWPNPC ---
PATIENT NAME: RADHA RAY : 1970 GENDER: FEMALE VISIT DATE: 12/31/2019 DISCHARGE DATE: 12/31/19 1431 VISIT LOCKED DATE TIME: PHYSICIAN: PAUL MTZ PHYSICIAN PAGER NO: ACTIVE RESOURCE: PAUL MTZ REASON FOR APPOINTMENT 1. F/U HISTORY OF PRESENT ILLNESS GENERAL: - 49 YEAR OLD FEMALE IN FOR CHRONIC PAIN FOLLOW UP. SHE RATES HER PAIN AT A 2/10 CURRENTLY AND DESCRIBES IT UNCOMFORTABLE. SHE FEELS HER MEDICATIONS ARE HELPFUL AND DENIES MED SIDE EFFECTS AT THIS TIME. FALL RISK SCREENING: SCREENING :ONE FALL WITHOUT INJURY IN THE PAST YEAR NEAR FALL. PAIN SCREENING: PATIENT HAS A COMPLAINT OF ACUTE OR CHRONIC PAIN :YES LOCATION OF PAIN: NECK INTENSITY OF PAIN (SCALE OF 1 TO 10):2 WHAT DOES YOUR PAIN FEEL LIKE:SHARP UNCOMFORTABLE AND STIFF DURATION:INTERMITTENT PAIN IS INCREASED BY:ACTIVITIES PLAN/GOALS/TREATMENT/INTERVENTION/FOLLOW UP:SEE PLAN NURSING NOTE: -. PAIN CENTER INTAKE QUESTIONS: DO YOU HAVE A HISTORY OF MRSA? :NO DO YOU TAKE A BLOOD THINNERS? :NO DO YOU HAVE ANY BLEEDING DISORDERS? :NO ANY NEW NUMBNESS OR WEAKNESS IN YOUR LEGS OR ARMS? :NO ANY PACEMAKER,DEFIBRILLATOR, OR DORSAL COLUMN STIMULATOR? :NO DO YOU HAVE ANY RASHES OR OPEN SORES? :NO ARE YOU ALLERGIC TO IV DYE? :NO ARE YOU DIABETIC? :NO ANY NEW PROBLEMS WITH YOUR MEDICATIONS? :NO HAVE YOU RECEIVED A VACCINE IN THE PAST 30 DAYS? :NO DO YOU PLAN TO RECEIVE A VACCINE IN THE NEXT 21 DAYS? :NO DO YOU NEED ANY PRESCRIPTION? :YES LYRICA, OTHER TO MEDICATIONS HAVE ALREADY BEEN PLACED. DO YOU TAKE ANY IMMUNOSUPPRESSIVE MEDICATIONS? :NO IS THERE A CHANCE YOU COULD BE ? :NO ARE YOU BREAST FEEDING? :NO CURRENT MEDICATIONS TAKING DICLOFENAC SODIUM 50 MG TABLET DELAYED RELEASE 1 TABLET WITH FOOD OR MILK ORALLY BID PRN PAIN TAKING AMITRIPTYLINE HCL 25 MG TABLET 1 TO 2 TABLET AT BEDTIME ORALLY AT BEDTIME TAKING LYRICA 75 MG CAPSULE 1 CAPSULE ORALLY FOR PAIN BID MDD=2 TAKING CARISOPRODOL 350 MG TABLET 1 TABLET NEEDED ORALLY BID PRN MUSCLE SPASMS MDD=2 TAKING TRAMADOL HCL 50 MG TABLET 1 TABLET NEEDED ORALLY EVERY 6 HRS PRN PAIN MDD=4 NOT-TAKING LORATADINE 10 MG TABLET 1 TAB ORALLY PRN MEDICATION LIST REVIEWED AND RECONCILED WITH THE PATIENT PAST MEDICAL HISTORY ARTHRITIS, BACK/HIP PAIN (NIDA BELL NP, [facility]) HX OF ABNORMAL PAP PERSISTENT PELVIC PAIN/OVARIAN CYSTS 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) ASVD 05/05 (0.7%) BAKERS CYST RIGHT KNEE ALLERGIES HAY FEVER: SNEEZING, STUFFY NOSE SURGICAL HISTORY PARTIAL HYSTERECTOMY 2003 CHOLECYSTECTOMY 2010 KNEE-RIGHT 2005 BLADDER LIFT ([place]) 2007 FOOT-RIGHT TOE 05/2014 LEFT OVARY - TERATOMA 10/2016 REMOVED INFECTION UNDER SHEATH OFR HAND MIDDLE FINGER 11/2016 LASIK SURGERY-BILATERAL 2007 BILATERAL EYE LID LIFT 2016 RIGHT ELBOW 06/04/18 LEFT ELBOW REPAIR 01/2019 LEFT KNEE 04/2019 RIGHT KNEE SCOPE 06/2019 FAMILY HISTORY FATHER: , DIAGNOSED WITH OTHER MALIGNANT NEOPLASM OF UNSPECIFIED SITE MOTHER: ALIVE, HYPERTENSION, OTHER SPECIFIED CONDITIONS INFLUENCING HEALTH STATUS 1 BROTHER(S) , 1 SISTER(S) . 3DAUGHTER(S) - HEALTHY. FATHER: ESOPHAGUS [place]\\\\NMOTHER: HIGH CHOLESTEROL\\\\NBROTHER: MS\\\\NGRANDMOTHER WITH MULTIPLE MYELOMA. SOCIAL HISTORY GENERAL: TOBACCO USE ARE YOU A:NONSMOKER LATEX QUESTIONNAIRE LATEX ALLERGY : HAVE YOU EVER DEVELOPED ANY TYPE OF REACTION AFTER HANDLING LATEX PRODUCTS SUCH RUBBER GLOVES, CONDOMS, DIAPHRAGMS, BALLOONS, SOCKS, OR UNDERWEAR?NO LATEX ALLERGY : HAVE YOU EVER DEVELOPED ANY TYPE OF REACTION DURING OR AFTER DENTAL APPOINTMENT, VAGINAL/RECTAL EXAMINATION, SURGICAL PROCEDURE, OR ANY OTHER EXPOSURE?NO LATEX RISK : HAVE YOU EVER HAD ANY DIFFICULTY BREATHING OR HIVES AFTER EATING OR HANDLING ANY FRUITS, OR VEGETABLES; SUCH KIWI, BANANAS, STONE FRUITS, OR CHESTNUTSNO LATEX RISK : DO YOU HAVE A PREVIOUS PERSONAL HISTORY OF MORE THAN NINE SURGERIES, SPINA BIFIDA, OR REPEATED CATHERIZATIONS? YES - PLEASE INDICATE : > 9 SURGERIES LATEX RISK : ARE YOU FREQUENTLY EXPOSED TO LATEX PRODUCTS IN YOUR OCCUPATION?NO DATE ASKED : 12/31/2019 ALCOHOL SCREENING DID YOU HAVE A DRINK CONTAINING ALCOHOL IN THE PAST YEAR?YES HOW OFTEN DID YOU HAVE SIX OR MORE DRINKS ON ONE OCCASION IN THE PAST YEAR?NEVER (0 POINTS) HOW MANY DRINKS DID YOU HAVE ON A TYPICAL DAY WHEN YOU WERE DRINKING IN THE PAST YEAR?1 OR 2 (0 POINTS) HOW OFTEN DID YOU HAVE A DRINK CONTAINING ALCOHOL IN THE PAST YEAR?TWO TO FOUR TIMES A MONTH (2 POINTS) POINTS2 INTERPRETATIONNEGATIVE RECREATIONAL DRUG USE DRUG USE?NO CAFFEINE CAFFEINE USE?YES HOW OFTEN AND HOW MUCH? 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 DIET: REGULAR. EXERCISE: NO REGULAR EXERCISE. MARITAL STATUS: SINGLE. OTHERS AT HOME: CHILD. PAIN CLINIC PFS, CLERGY, PUBLIC HEALTH REFERRALS PFS REFERRAL NEEDED?NO CLERGY REFERRAL NEEDED?NO PUBLIC HEALTH REFERRAL NEEDED?NO WAS THE PROVIDER NOTIFIED OF ANY PERTINENT INFO? N/A HAS THE PATIENT BEEN EDUCATED REGARDING HIS/HER PLAN OF CARE?YES HAS THE PATIENT BEEN EDUCATED REGARDING PAIN, THE RISK FOR PAIN, THE IMPORTANCE OF EFFECTIVE PAIN MANAGEMENT, AND THE PAIN ASSESSMENT PROCESS?YES ADVANCE DIRECTIVE ADVANCE DIRECTIVE DISCUSSED WITH PATIENT:YES PT STATES SHE HAS HCP--DAUGHTER (KAMAR ) [phone]. HOSPITALIZATION/MAJOR DIAGNOSTIC PROCEDURE SURGERY RELATED [facility] REVIEW OF SYSTEMS CONSTITUTIONAL: ANY RECENT FEVER NO . CHILLS NO . WEIGHT CHANGE OF UNKNOWN REASONS NO . GASTROENTEROLOGY: NEW UNEXPLAINABLE CHANGES IN BOWEL CONTROL NO . CONSTIPATION NO . GENITOURINARY: ANY NEW CHANGE IN BLADDER CONTROL? NO . NEUROLOGY: NEW ONSET DIZZINESS OR NEUROLOGICAL CHANGES NOT MENTIONED NO . NEW NUMBNESS OR PAIN PATTERNS NOT MENTIONED AND PERTINENT TO TODAY'S VISIT NO . CARDIOLOGY: NEW CHEST PRESSURE NO . NEW CHEST PAIN NO . RESPIRATORY: UNEXPLAINABLE COUGH NO . NEW SHORTNESS OF BREATH NO . VITAL SIGNS WT 183.8 LBS, HT 66 IN, BMI 29.66 INDEX, BP 119/56 MM HG, HR 84 /MIN, RR 18 /MIN, TEMP 96.8 F, OXYGEN SAT % 94%, NA INITIALS SC 13:57. EXAMINATION GENERAL EXAMINATION: GENERALNO ACUTE DISTRESS, WELL NOURISHED AND HYDRATED. PSYCHAPPROPRIATE MOOD AND AFFECT . LUNGS:CLEAR TO AUSCULTATION BILATERALLY, NO WHEEZES, RHONCHI, RALES. HEART:NO MURMURS, REGULAR RATE AND RHYTHM. ASSESSMENTS SPONDYLOSIS OF CERVICAL REGION WITHOUT MYELOPATHY OR RADICULOPATHY - M47.812 (PRIMARY) TREATMENT SPONDYLOSIS OF CERVICAL REGION WITHOUT MYELOPATHY OR RADICULOPATHY NOTES: 49 YEAR OLD FEMALE IN FOR CHRONIC PAIN FOLLOW UP. GIVEN PRESENTING SYMPTOMS AND RESULTS OF PHYSICAL EXAMINATION RECOMMEND FOLLOW UP IN 1 MONTH. PATIENT HAS EXPRESSED UNDERSTANDING OF AND WAS IN AGREEMENT WITH TREATMENT PLAN. GIVEN TIME TO ASK QUESTIONS AND EXPRESS CONCERNS. [employer] REGISTRY REVIEWED AND DEMONSTRATES COMPLLIANCE. (REF #[id number] ) BRINGS IN MEDICATIONS WHICH IS APPROPRIATE FOR WHAT WAS DISPENSED. RECENT URINE TOXICOLOGY REVIEWED. NO UNAUTHORIZED MEDICATIONS. NO ILLICIT SUBSTANCES AND PRESCRIBED MEDICATIONS WERE PRESENT. ,. OTHERS REFILL LYRICA CAPSULE, 75 MG, 1 CAPSULE, ORALLY FOR PAIN, BID MDD=2, 30 DAYS, 60, REFILLS 0 PROCEDURE CODES FA211 ESTABILISHED PATIENT [facility] CHARGE DISPOSITION & COMMUNICATION FOLLOW UP 4 WEEKS (REASON: NECK PAIN ) ELECTRONICALLY SIGNED BY NAHID BAINS ON 01/01/2020 AT 12:58 PM EST DISCLAIMER : THIS IS A VISIT SUMMARY EXTRACTED FROM THE [employer] CHART. IT IS NOT A COPY OF THE [employer] PROGRESS NOTE. MTDD
== END ==
LOC: M PAIN 13:45
PROVIDERS: ATTEND Family Medicine
DX: M47.812 Spondylosis without myelopathy or radiculopathy, cervical region (principal); R10.2 Pelvic and perineal pain; H91.93 Unspecified hearing loss, bilateral; J30.1 Allergic rhinitis due to pollen; Z79.891 Long term (current) use of opiate analgesic; Z79.899 Other long term (current) drug therapy

== ENCOUNTER → 2020-02-25 | Outpatient (REF) | payer MEDICARE, MEDICAID ==
[~2020-02-25] MED LIST changes: -AMIT25TA; -AMIT25TA PO; +AMIT25TA17; +AMIT25TA17 PO; +GABA-282; -GABA-843
== END ==
LOC: M SFHCWAGY 10:10
PROVIDERS: ATTEND Specialist
DX: Z01.419 Encounter for gynecological examination (general) (routine) without abnormal findings (principal)
CPT/HCPCS: G0101; G0123

== ENCOUNTER → 2020-03-10 | Outpatient (CLI) | payer OTHER, MEDICARE, MEDICAID ==
--- NOTE | 2020-03-11 23:54 | ECWPNPC ---
PATIENT NAME: RADHA RAY : 1970 GENDER: FEMALE VISIT DATE: 03/10/2020 DISCHARGE DATE: 03/10/20 1541 VISIT LOCKED DATE TIME: PHYSICIAN: PAUL MTZ PHYSICIAN PAGER NO: ACTIVE RESOURCE: PAUL MTZ REASON FOR APPOINTMENT 1. [facility]MEDICARE HISTORY OF PRESENT ILLNESS DEPRESSION SCREENING: PHQ-2 (2015 EDITION) LITTLE INTEREST OR PLEASURE IN DOING THINGS?SEVERAL DAYS FEELING DOWN, DEPRESSED, OR HOPELESS?NOT AT ALL TOTAL SCORE1 49-YEAR-OLD FEMALE IN FOR CHRONIC PAIN FOLLOW-UP. SHE RATES HER PAIN CURRENTLY AT A 6 OUT OF 10 AND DESCRIBES IT ACHING, AND PINCHING. PATIENT HAS HAD CERVICAL FACET BLOCKS IN THE PAST WITH GOOD RESULTS AND WE WILL DISCUSS REPEAT PROCEDURES TODAY. GENERAL: -. FALL RISK SCREENING: SCREENING :NO FALLS REPORTED IN THE LAST YEAR PAIN SCREENING: PATIENT HAS A COMPLAINT OF ACUTE OR CHRONIC PAIN :YES LOCATION OF PAIN:NECK, LEG(S) RADIATES DOWN SHOULDER, INNER RIGHT LEG INTENSITY OF PAIN (SCALE OF 1 TO 10):6 WHAT DOES YOUR PAIN FEEL LIKE:ACHING, OTHER PINCHING DURATION:CONTINOUS, CONSTANT PAIN IS INCREASED BY:ACTIVITIES, OTHERS TURNING HEAD PAIN IS DECREASED BY:USE OF PAIN MEDICATIONS, OTHERS HEAT AND REST NURSING NOTE: -. PAIN CENTER INTAKE QUESTIONS: DO YOU HAVE A HISTORY OF MRSA? :NO DO YOU TAKE A BLOOD THINNERS? :NO DO YOU HAVE ANY BLEEDING DISORDERS? :NO ANY NEW NUMBNESS OR WEAKNESS IN YOUR LEGS OR ARMS? :NO ANY PACEMAKER,DEFIBRILLATOR, OR DORSAL COLUMN STIMULATOR? :NO DO YOU HAVE ANY RASHES OR OPEN SORES? :YES SCRATCHES ON BOTH LEGS ARE YOU ALLERGIC TO IV DYE? :NO ARE YOU DIABETIC? :NO ANY NEW PROBLEMS WITH YOUR MEDICATIONS? :NO HAVE YOU RECEIVED A VACCINE IN THE PAST 30 DAYS? :NO DO YOU PLAN TO RECEIVE A VACCINE IN THE NEXT 21 DAYS? :NO DO YOU NEED ANY PRESCRIPTION? :YES AMYTRIPTLINE DO YOU TAKE ANY IMMUNOSUPPRESSIVE MEDICATIONS? :NO IS THERE A CHANCE YOU COULD BE ? :NO ARE YOU BREAST FEEDING? :NO CURRENT MEDICATIONS TAKING DICLOFENAC SODIUM 50 MG TABLET DELAYED RELEASE 1 TABLET WITH FOOD OR MILK ORALLY BID PRN PAIN TAKING AMITRIPTYLINE HCL 25 MG TABLET 1 TO 2 TABLET AT BEDTIME ORALLY AT BEDTIME TAKING LYRICA 75 MG CAPSULE 1 CAPSULE ORALLY FOR PAIN BID MDD=2 TAKING TRAMADOL HCL 50 MG TABLET 1 TABLET 2-3 TIMES A DAY ORALLY EVERY 6 HRS PRN PAIN MDD=4 TAKING CARISOPRODOL 350 MG TABLET 1 TABLET NEEDED ORALLY BID MUSCLE SPASMS MDD=2 NOT-TAKING LORATADINE 10 MG TABLET 1 TAB ORALLY PRN MEDICATION LIST REVIEWED AND RECONCILED WITH THE PATIENT PAST MEDICAL HISTORY ARTHRITIS, BACK/HIP PAIN (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) HX OF ABNORMAL PAP PERSISTENT PELVIC PAIN/OVARIAN CYSTS 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) ASVD 3/17 (0.7%) BAKERS CYST RIGHT KNEE ALLERGIES HAY FEVER: SNEEZING, STUFFY NOSE SOCIAL HISTORY GENERAL: TOBACCO USE ARE YOU A:NONSMOKER LATEX QUESTIONNAIRE LATEX ALLERGY : HAVE YOU EVER DEVELOPED ANY TYPE OF REACTION AFTER HANDLING LATEX PRODUCTS SUCH RUBBER GLOVES, CONDOMS, DIAPHRAGMS, BALLOONS, SOCKS, OR UNDERWEAR?NO LATEX ALLERGY : HAVE YOU EVER DEVELOPED ANY TYPE OF REACTION DURING OR AFTER DENTAL APPOINTMENT, VAGINAL/RECTAL EXAMINATION, SURGICAL PROCEDURE, OR ANY OTHER EXPOSURE?NO LATEX RISK : HAVE YOU EVER HAD ANY DIFFICULTY BREATHING OR HIVES AFTER EATING OR HANDLING ANY FRUITS, OR VEGETABLES; SUCH KIWI, BANANAS, STONE FRUITS, OR CHESTNUTSNO LATEX RISK : DO YOU HAVE A PREVIOUS PERSONAL HISTORY OF MORE THAN NINE SURGERIES, SPINA BIFIDA, OR REPEATED CATHERIZATIONS? YES - PLEASE INDICATE : > 9 SURGERIES LATEX RISK : ARE YOU FREQUENTLY EXPOSED TO LATEX PRODUCTS IN YOUR OCCUPATION?NO DATE ASKED : 03/10/2020 ALCOHOL USE: YES, OCCASIONALLY. ALCOHOL SCREENING DID YOU HAVE A DRINK CONTAINING ALCOHOL IN THE PAST YEAR?YES HOW OFTEN DID YOU HAVE SIX OR MORE DRINKS ON ONE OCCASION IN THE PAST YEAR?NEVER (0 POINTS) HOW MANY DRINKS DID YOU HAVE ON A TYPICAL DAY WHEN YOU WERE DRINKING IN THE PAST YEAR?1 OR 2 (0 POINTS) HOW OFTEN DID YOU HAVE A DRINK CONTAINING ALCOHOL IN THE PAST YEAR?TWO TO FOUR TIMES A MONTH (2 POINTS) POINTS2 INTERPRETATIONNEGATIVE RECREATIONAL DRUG USE DRUG USE?NO CAFFEINE CAFFEINE USE?YES HOW OFTEN AND HOW MUCH? OCC SEXUAL HX HAD SEX IN THE LAST 12 MONTHS (VAGINAL, ORAL, OR ANAL)?YES WITHMEN ONLY USE PROTECTION?NO HIV / HEP-C SCREENING HIV TEST OFFERED TO PATIENT:YES DATE OFFERED:03/19/2018 TEST ACCEPTED:YES HEP-C TEST OFFERED TO PATIENT:YES DATE OFFERED:03/19/2018 TEST ACCEPTED:YES BROCHURE PROVIDED TO PATIENTYES HOLINESS [id number] NONE LANGUAGE LANGUAGES SPOKEN:SAMI ASL EDUCATION LEVEL OF EDUCATION:COLLEGE LEARNING BARRIERS / SPECIAL NEEDS CHANGE FROM LAST VISIT?NO BARRIERS TO LEARNING?YES HEARING IMPAIRED?YES USES COLUMN PRECASTER AND HAS LEFT EAR HEARING AID :HEARING AIDES VISION IMPAIRED?YES :CORRECTIVE LENSES COGNITIVELY IMPAIRED?NO READINESS TO LEARN?YES LEARNING CAPABILITIES PRESENT?NO EMOTIONAL BARRIERS?NO SPECIAL DEVICES?NO COLUMN PRECASTER NEEDED?YES ASL OCCUPATION: UNEMPLOYED. DIET: REGULAR. EXERCISE: NO REGULAR EXERCISE. MARITAL STATUS: SINGLE. OTHERS AT HOME: CHILD. REVIEW OF SYSTEMS CONSTITUTIONAL: ANY RECENT FEVER NO . CHILLS NO . WEIGHT CHANGE OF UNKNOWN REASONS NO . GASTROENTEROLOGY: NEW UNEXPLAINABLE CHANGES IN BOWEL CONTROL NO . CONSTIPATION NO . GENITOURINARY: ANY NEW CHANGE IN BLADDER CONTROL? NO . NEUROLOGY: NEW ONSET DIZZINESS OR NEUROLOGICAL CHANGES NOT MENTIONED NO . NEW NUMBNESS OR PAIN PATTERNS NOT MENTIONED AND PERTINENT TO TODAY'S VISIT NO . CARDIOLOGY: NEW CHEST PRESSURE NO . NEW CHEST PAIN NO . RESPIRATORY: UNEXPLAINABLE COUGH NO . NEW SHORTNESS OF BREATH NO . VITAL SIGNS WT 186.4 LBS, HT 66 IN, BMI 30.08 INDEX, BP 118/59 MM HG, HR 62 /MIN, RR 18 /MIN, TEMP 98.1 F, OXYGEN SAT % 100, SAFE IN ENV? (Y/N) YES, REVIEWED BY: [employer]. DEAN DONATO. EXAMINATION GENERAL EXAMINATION: GENERALNO ACUTE DISTRESS, WELL NOURISHED AND HYDRATED. PSYCHAPPROPRIATE MOOD AND AFFECT . NECK:POINT TENDER ALONG CERVICAL SPINE, SURROUNDING SKIN SHOWS NO ERYTHEMA, ECCHYMOSIS, INCREASED WARMTH, AND/OR SKIN ERUPTIONS NOTED. PATIENT DOES ENDORSE INCREASED PAIN WITH FACET LOADING. . LUNGS:CLEAR TO AUSCULTATION BILATERALLY, NO WHEEZES, RHONCHI, RALES. HEART:NO MURMURS, REGULAR RATE AND RHYTHM. ASSESSMENTS SPONDYLOSIS OF CERVICAL REGION WITHOUT MYELOPATHY OR RADICULOPATHY - M47.812 (PRIMARY) TREATMENT SPONDYLOSIS OF CERVICAL REGION WITHOUT MYELOPATHY OR RADICULOPATHY START VALIUM TABLET, 5 MG, 1 TABLET NEEDED, ORALLY 30 MINUTES PRIOR TO PROCEDURE THEN 2ND JUST PRIOR TO PROCEDURE, X1, 1 DAYS, 2 [facility] MRI SPINE, CERVICAL WITHOUT [id number] NOTES: 49-YEAR-OLD FEMALE IN FOR CHRONIC PAIN FOLLOW-UP. GIVEN PRESENTING SYMPTOMS AND RESULTS OF PHYSICAL EXAMINATION RECOMMEND RIGHT CERVICAL THERAPEUTIC FACET BLOCK C4-C5 C5-C6 WITH POST PROCEDURAL FOLLOW-UP. PATIENT HAS EXPRESSED UNDER STANDING OF AND WAS IN AGREEMENT WITH TREATMENT PLAN. GIVEN TIME TO ASK QUESTIONS AND EXPRESS CONCERNS. OTHERS REFILL AMITRIPTYLINE HCL TABLET, 25 MG, 1 TO 2 TABLET AT BEDTIME, ORALLY, AT BEDTIME, 90 DAY(S), 90, REFILLS 0 PROCEDURE CODES FA211 ESTABILISHED PATIENT [facility] CHARGE DISPOSITION & COMMUNICATION FOLLOW UP POSTPROCEDURE (REASON: RIGHT THERAPEUTIC CERVICAL FACET BLOCK WITH IV SEDATION C4-C5 C5-C6 MRI OF THE CERVICAL SPINE) ELECTRONICALLY SIGNED BY NAHID BAINS ON 03/11/2020 AT 04:11 PM EST DISCLAIMER : THIS IS A VISIT SUMMARY EXTRACTED FROM THE [employer] CHART. IT IS NOT A COPY OF THE [employer] PROGRESS NOTE. CALVIN
== END ==
LOC: M PAIN 14:15
PROVIDERS: ATTEND Family Medicine
DX: M47.812 Spondylosis without myelopathy or radiculopathy, cervical region (principal); G89.29 Other chronic pain; Z79.891 Long term (current) use of opiate analgesic; Z79.899 Other long term (current) drug therapy

== ENCOUNTER → 2020-03-26 | Outpatient (CLI) | payer OTHER, MEDICARE, MEDICAID ==
--- NOTE | 2020-03-30 00:37 | ECWPNPC ---
PATIENT NAME: RADHA RAY : 1970 GENDER: FEMALE VISIT DATE: 03/26/2020 DISCHARGE DATE: 03/26/20 1534 VISIT LOCKED DATE TIME: PHYSICIAN: RACHEL ABRAHAM MD PHYSICIAN PAGER NO: ACTIVE RESOURCE: RACHEL ABRAHAM MD REASON FOR APPOINTMENT 1. PRE SEDATE FOR RIGHT THERAPEUTIC CERVICAL FACET BLOCK C4-C5, C5-C6 WITH IV SEDATION HISTORY OF PRESENT ILLNESS GENERAL: 49-YEAR-OLD FEMALE PATIENT WITH A HISTORY OF CHRONIC NECK PAIN. SHE HAS BEEN SUFFERING FROM THIS PAIN FOR MANY YEARS. THE PATIENT DESCRIBES THE PAIN ACHING, SHARP AND PRESSURE WITH A PAIN SCORE RANGING FROM 8-10/10 IN THE RIGHT NECK AREA. TURNING HER HEAD MAKES IT WORKS. THIS IS AFFECTING HER ABILITY TO DO ACTIVITIES SUCH CLEANING HER HOUSE AND DOING ACTIVITIES. SHE IS INTERESTED IN REPEATING THE NECK INJECTIONS THAT HAVE HELPED HER IN THE PAST. FALL RISK SCREENING: SCREENING :NO FALLS REPORTED IN THE LAST YEAR PAIN SCREENING: PATIENT HAS A COMPLAINT OF ACUTE OR CHRONIC PAIN :YES LOCATION OF PAIN:NECK, RIGHT SHOULDER, UPPER BACK INTENSITY OF PAIN (SCALE OF 1 TO 10):9 WHAT DOES YOUR PAIN FEEL LIKE:ACHING, SHARP, OTHER PINCHING, PRESSURE DURATION:CONTINOUS WORSE AT TIMES, BETTER AT TIMES PAIN IS INCREASED BY:OTHERS TURNING HEAD PAIN IS DECREASED BY:USE OF PAIN MEDICATIONS, OTHERS HEATING PAD, BIOFREEEZE, INJECTIONS NURSING NOTE: -. PAIN CENTER INTAKE QUESTIONS: DO YOU HAVE A HISTORY OF MRSA? :NO DO YOU TAKE A BLOOD THINNERS? :NO DO YOU HAVE ANY BLEEDING DISORDERS? :NO ANY NEW NUMBNESS OR WEAKNESS IN YOUR LEGS OR ARMS? :YES WEAKNESS IN RIGHT LEG ANY PACEMAKER,DEFIBRILLATOR, OR DORSAL COLUMN STIMULATOR? :NO DO YOU HAVE ANY RASHES OR OPEN SORES? :NO ARE YOU ALLERGIC TO IV DYE? :NO ARE YOU DIABETIC? :NO ANY NEW PROBLEMS WITH YOUR MEDICATIONS? :NO HAVE YOU RECEIVED A VACCINE IN THE PAST 30 DAYS? :NO DO YOU PLAN TO RECEIVE A VACCINE IN THE NEXT 21 DAYS? :NO DO YOU NEED ANY PRESCRIPTION? :YES PAUL HAD MENTIONED A NECK SUPPORT BUT NEVER PUT IN FOR A PRESCRIPTION FOR IT AND PATIENT WAS WONDERING IF IT WAS SOMETHING DR. ABRAHAM COULD DO. DO YOU TAKE ANY IMMUNOSUPPRESSIVE MEDICATIONS? :NO IS THERE A CHANCE YOU COULD BE ? :NO ARE YOU BREAST FEEDING? :NO CURRENT MEDICATIONS TAKING DICLOFENAC SODIUM 50 MG TABLET DELAYED RELEASE 1 TABLET WITH FOOD OR MILK ORALLY BID PRN PAIN TAKING LYRICA 75 MG CAPSULE 1 CAPSULE ORALLY FOR PAIN BID MDD=2 TAKING TRAMADOL HCL 50 MG TABLET 1 TABLET 2-3 TIMES A DAY ORALLY EVERY 6 HRS PRN PAIN MDD=4 TAKING CARISOPRODOL 350 MG TABLET 1 TABLET NEEDED ORALLY BID MUSCLE SPASMS MDD=2 TAKING AMITRIPTYLINE HCL 25 MG TABLET 1 TO 2 TABLET AT BEDTIME ORALLY AT BEDTIME NOT-TAKING VALIUM 5 MG TABLET 1 TABLET NEEDED ORALLY 30 MINUTES PRIOR TO PROCEDURE THEN 2ND JUST PRIOR TO PROCEDURE X1 NOT-TAKING LORATADINE 10 MG TABLET 1 TAB ORALLY PRN MEDICATION LIST REVIEWED AND RECONCILED WITH THE PATIENT PAST MEDICAL HISTORY ARTHRITIS, BACK/HIP PAIN (NIDA BELL NP, [facility]) HX OF ABNORMAL PAP PERSISTENT PELVIC PAIN/OVARIAN CYSTS 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) ASVD 3/ (0.7%) BAKERS CYST RIGHT KNEE ALLERGIES HAY FEVER: SNEEZING, STUFFY NOSE FAMILY HISTORY FATHER: , DIAGNOSED WITH OTHER MALIGNANT NEOPLASM OF UNSPECIFIED SITE MOTHER: ALIVE, HYPERTENSION, OTHER SPECIFIED CONDITIONS INFLUENCING HEALTH STATUS 1 BROTHER(S) , 1 SISTER(S) . 3DAUGHTER(S) - HEALTHY. FATHER: ESOPHAGUS CA\\\\NMOTHER: HIGH CHOLESTEROL\\\\NBROTHER: MS\\\\NGRANDMOTHER WITH MULTIPLE MYELOMA. SOCIAL HISTORY GENERAL: TOBACCO USE ARE YOU A:NONSMOKER LATEX QUESTIONNAIRE LATEX ALLERGY : HAVE YOU EVER DEVELOPED ANY TYPE OF REACTION AFTER HANDLING LATEX PRODUCTS SUCH RUBBER GLOVES, CONDOMS, DIAPHRAGMS, BALLOONS, SOCKS, OR UNDERWEAR?NO LATEX ALLERGY : HAVE YOU EVER DEVELOPED ANY TYPE OF REACTION DURING OR AFTER DENTAL APPOINTMENT, VAGINAL/RECTAL EXAMINATION, SURGICAL PROCEDURE, OR ANY OTHER EXPOSURE?NO LATEX RISK : HAVE YOU EVER HAD ANY DIFFICULTY BREATHING OR HIVES AFTER EATING OR HANDLING ANY FRUITS, OR VEGETABLES; SUCH KIWI, BANANAS, STONE FRUITS, OR CHESTNUTSNO LATEX RISK : DO YOU HAVE A PREVIOUS PERSONAL HISTORY OF MORE THAN NINE SURGERIES, SPINA BIFIDA, OR REPEATED CATHERIZATIONS? YES - PLEASE INDICATE : > 9 SURGERIES LATEX RISK : ARE YOU FREQUENTLY EXPOSED TO LATEX PRODUCTS IN YOUR OCCUPATION?NO DATE ASKED : 03/10/2020 ALCOHOL USE: YES, OCCASIONALLY. ALCOHOL SCREENING DID YOU HAVE A DRINK CONTAINING ALCOHOL IN THE PAST YEAR?YES HOW OFTEN DID YOU HAVE SIX OR MORE DRINKS ON ONE OCCASION IN THE PAST YEAR?NEVER (0 POINTS) HOW MANY DRINKS DID YOU HAVE ON A TYPICAL DAY WHEN YOU WERE DRINKING IN THE PAST YEAR?1 OR 2 (0 POINTS) HOW OFTEN DID YOU HAVE A DRINK CONTAINING ALCOHOL IN THE PAST YEAR?TWO TO FOUR TIMES A MONTH (2 POINTS) POINTS2 INTERPRETATIONNEGATIVE RECREATIONAL DRUG USE DRUG USE?NO CAFFEINE CAFFEINE USE?YES HOW OFTEN AND HOW MUCH? OCC SEXUAL HX HAD SEX IN THE LAST 12 MONTHS (VAGINAL, ORAL, OR ANAL)?YES WITHMEN ONLY USE PROTECTION?NO HIV / HEP-C SCREENING HIV TEST OFFERED TO PATIENT:YES DATE OFFERED:03/19/2018 TEST ACCEPTED:YES HEP-C TEST OFFERED TO PATIENT:YES DATE OFFERED:03/19/2018 TEST ACCEPTED:YES BROCHURE PROVIDED TO PATIENTYES MANDAEN [id number] NONE LANGUAGE LANGUAGES SPOKEN:LIBERIAN ASL EDUCATION LEVEL OF EDUCATION:COLLEGE LEARNING BARRIERS / SPECIAL NEEDS CHANGE FROM LAST VISIT?NO BARRIERS TO LEARNING?YES HEARING IMPAIRED?YES USES STAPLE FIBER WASHER AND HAS LEFT EAR HEARING AID :HEARING AIDES VISION IMPAIRED?YES :CORRECTIVE LENSES COGNITIVELY IMPAIRED?NO READINESS TO LEARN?YES LEARNING CAPABILITIES PRESENT?NO EMOTIONAL BARRIERS?NO SPECIAL DEVICES?NO STAPLE FIBER WASHER NEEDED?YES ASL OCCUPATION: UNEMPLOYED. DIET: REGULAR. EXERCISE: NO REGULAR EXERCISE. MARITAL STATUS: SINGLE. OTHERS AT HOME: CHILD. REVIEW OF SYSTEMS GLAUCOMA: NOTHYROID DISEASE: NOHYPERTENSION: NOHEART DISEASE: NOLUNG DISEASE: NODIABETES: NOGI DISEASE: NO LIVER DISEASE: NO KIDNEY DISEASE: NOSTERIOD USE: NONEUROLOGICAL DISEASE: NOBACK PROBLEMS: YES, PAINEXTREMITIES: YES, PAINGENITOURINARY: NOBLEEDING DISORDER: NOASA CLASS: [id number] CLASS: II. VITAL SIGNS WT 185.2 LBS, HT 66 IN, BMI 29.89 INDEX, BP 113/57 MM HG, HR 70 /MIN, RR 18 /MIN, TEMP 98.5 F, OXYGEN SAT % 98%, SAFE IN ENV? (Y/N) YES, NA INITIALS AW 1435, REVIEWED BY: JSJ. BRIANA RN. EXAMINATION GENERAL EXAMINATION: THE PATIENT IS ALERT, ORIENTED TIMES THREE AND COOPERATIVE. LUNGS ARE CLEAR TO AUSCULTATION. HEART SHOWS REGULAR RHYTHM, NO MURMURS AND NO GALLOPS. SHE CAN ABDUCT HER ARMS WITH MORE DIFFICULTY OVER THE RIGHT ARM. SHE CAN ABDUCT THE RIGHT ARM TO THE SHOULDER LEVEL. THERE IS TENDERNESS OVER THE RIGHT CERVICAL FACET WITH EXTENSION AND LATERAL ROTATION. MRI OF THE CERVICAL DATED 04/21/2016 SHOWS SOME BULGING DISC AT C5-C6, C6-C7, FACET ARTHROPATHY CHANGES. ASSESSMENTS SPONDYLOSIS OF CERVICAL REGION WITHOUT MYELOPATHY OR RADICULOPATHY - M47.812 (PRIMARY) FACET ARTHROPATHY, CERVICAL - M47.812 TREATMENT SPONDYLOSIS OF CERVICAL REGION WITHOUT MYELOPATHY OR RADICULOPATHY IV LACTATED RINGER'S AT KVO (ORDERED FOR 04/23/2020) OXYGEN AT 2 LITERS PER NASAL CANNULA (ORDERED FOR 04/23/2020) MEDICATION: VERSED 1MG IV (MIDAZOLAM) (ORDERED FOR 04/23/2020) MEDICATION: FENTANYL CITRATE 50MCG IV (ORDERED FOR 04/23/2020) CLINICAL NOTES: I DISCUSSED ALTERNATIVES WITH MS. RAY. WE AGREE ON DOING A RIGHT THERAPEUTIC CERVICAL FACET BLOCK C4-C5, C5-C6 WITH IV SEDATION DUE TO ANXIETY AND DISCOMFORT ASSOCIATED WITH THE PROCEDURE. I DISCUSSED THE USE OF STEROIDS AND THE POSSIBLE IMMUNOSUPPRESSION AND THE EFFECTIVENESS OF THE VACCINE WITH THE PATIENT. THE PATIENT REPORTS UNDERSTANDING AND AGREES WITH THE PLAN. I, CHAGO RODRIGUEZ, DOCUMENTED THE ABOVE INFORMATION ACTING A SCRIBE FOR DR. ABRAHAM. I HAVE REVIEWED THE ABOVE DOCUMENT, WRITTEN BY CHAGO RODRIGUEZ, LOADER TECHNICIAN, AND I VERIFY THAT IT IS ACCURATE. OTHERS NOTES: FACET JOINT INJECTION MATERIAL WAS PRINTED AND GIVEN TO PATIENT, PRE PROCEDURE INSTRUCTIONS PROVIDED AND REVIEWED WITH PATIENT 03/26/2020 Tobi BARRETO RN. PROCEDURE CODES FA211 ESTABILISHED PATIENT [facility] FACILITY CHARGE [id number] OFFICE/OUTPATIENT VISIT EST DISPOSITION & COMMUNICATION FOLLOW UP OKAY TO BOOK (REASON: RIGHT THERAPEUTIC CERVICAL FACET BLOCK C4-C5, C5-C6) ELECTRONICALLY SIGNED BY RACHEL ABRAHAM MD, MD ON 03/29/2020 AT 12:21 PM EST DISCLAIMER : THIS IS A VISIT SUMMARY EXTRACTED FROM THE [employer] CHART. IT IS NOT A COPY OF THE [employer] PROGRESS NOTE. [facility]
== END ==
LOC: M PAIN 14:15
PROVIDERS: ATTEND Anesthesiology
DX: M47.812 Spondylosis without myelopathy or radiculopathy, cervical region (principal); G89.29 Other chronic pain; Z79.891 Long term (current) use of opiate analgesic; Z79.899 Other long term (current) drug therapy

== ENCOUNTER → 2020-04-01 | Outpatient (CLI) | payer MEDICARE, MEDICAID | LOC: M LABSMTC 11:45 | PROVIDERS: ATTEND Anesthesiology | DX: Z20.822 Contact with and (suspected) exposure to COVID-19 (principal) ==

== ENCOUNTER → 2020-04-02 | Outpatient (CLI) | payer MEDICARE, MEDICAID ==
[~2020-04-02] MED LIST changes: -AMIT10TA; +AMIT10TA7
--- NOTE | 2020-04-02 10:52 | REPVR ---
PROCEDURE INFORMATION: Exam: MR Cervical Spine Without Contrast Exam date and time: 04/02/2020 9:31 AM Age: 49 years old Clinical indication: Other: Spondylosis; Additional info: Spondylosis of cervical region without myelopathy or radiculopathy. TECHNIQUE: Imaging protocol: Multiplanar magnetic resonance images of the cervical spine without contrast. COMPARISON: [facility] FLUORO GUIDE SPINE INJECTION 08/15/2017 1:36 PM FINDINGS: Vertebrae: Trace 1-2 mm of degenerative retrolisthesis of C6 on C7. No acute fracture seen. Spinal cord: Normal signal. No cord compression. Moderate disc height loss and spondylosis at C5-C6 and C6-C7. Prevertebral spondylosis is mild at C4-C5. C2-C3: No significant disc disease. No significant spinal stenosis. C3-C4: Mild disc bulge does not contribute to central spinal canal stenosis. Uncovertebral and facet arthropathy causing mild right neural foraminal stenosis. The left neural foramen is patent. C4-C5: Subtle central disc protrusion does not contribute to central spinal canal stenosis. Uncovertebral and facet arthropathy causing mild left neural foraminal stenosis. The right neural foramen is patent. C5-C6: Moderate diffuse disc osteophyte complex and mild ligamentum flavum buckling. Central spinal canal stenosis is [id number]. Uncovertebral and facet arthropathy causing severe bilateral neural foraminal stenoses. C6-C7: Retrolisthesis. A shallow component of caudally migrating left paracentral disc extrusion along the C7 superior endplate. Central spinal canal stenosis is [id number]. Uncovertebral and facet arthropathy causing severe bilateral neural foraminal stenoses. C7-T1: No significant disc disease. No significant spinal stenosis. Soft tissues: Unremarkable. Vertebral arteries: Expected flow voids in the vertebral arteries. IMPRESSION: Moderate diffuse disc height loss and spondylosis at C5-C6 and C6-C7 with [id number] central spinal canal stenoses as well as severe bilateral neural foraminal stenoses. Electronically signed by: Lori Lawernce On 04/02/2020 10:52:50 AM
== END ==
LOC: M RAD 09:23
PROVIDERS: ATTEND Family Medicine
DX: M47.812 Spondylosis without myelopathy or radiculopathy, cervical region (principal)

== ENCOUNTER → 2020-04-06 | Outpatient (CLI) | payer OTHER, MEDICARE, MEDICAID ==
[~2020-04-06] MED LIST changes: +AMIT10TA; -AMIT10TA7; +BUPIVACAINE HCL 0.25% 30ML VIAL As Ordered ONE; +ISOVUE-M 300 61% 15ML VIAL As Ordered ONE; +LIDOCAINE 1% SDV 30ML VIAL As Ordered ONE; +MIDAZOLAM INJ 2MG/2ML VIAL (J2250 PER 1MG) As Ordered ONE; +TRIAMCINOLONE ACETONIDE SUSP 40 MG/ML VIAL (J3301) As Ordered ONE; +fentaNYL 100 MCG/2 ML INJECTION (J3010) As Ordered ONE
--- NOTE | 2020-04-06 15:21 | REP ---
INDICATION: CHRONIC PAIN. COMPARISON: None. TECHNIQUE: A single views. 83.8 seconds of fluoroscopy time is reported. FINDINGS: A single last image hold fluoroscopically obtained spot radiograph(s) of the cervical spine document(s) needle position(s) and contrast injection associated with injection procedure. IMPRESSION: Procedural imaging. <Electronically signed by Kelby Rosado > 04/06/20 [id number]
--- NOTE | 2020-04-14 04:33 | ECWPNPC ---
PATIENT NAME: RADHA RAY : 1970 GENDER: FEMALE VISIT DATE: 04/06/2020 DISCHARGE DATE: 04/06/20 1528 VISIT LOCKED DATE TIME: PHYSICIAN: RACHEL ABRAHAM MD PHYSICIAN PAGER NO: ACTIVE RESOURCE: RACHEL ABRAHAM MD REASON FOR APPOINTMENT 1. RIGHT THERAPEUTIC CERVICAL FACET BLOCK C4-C5, C5-C6 WITH IV SEDATION HISTORY OF PRESENT ILLNESS GENERAL: -. FALL RISK SCREENING: SCREENING :NO FALLS REPORTED IN THE LAST YEAR PAIN SCREENING: PATIENT HAS A COMPLAINT OF ACUTE OR CHRONIC PAIN :YES LOCATION OF PAIN:NECK, RIGHT SHOULDER INTENSITY OF PAIN (SCALE OF 1 TO 10):7 WHAT DOES YOUR PAIN FEEL LIKE:ACHING, OTHER HEAVY FEELING DURATION:CONTINOUS, CONSTANT PAIN IS INCREASED BY:ACTIVITIES PAIN IS DECREASED BY:OTHERS HEATING PAD, ICE, REST NURSING NOTE: -. PAIN CENTER INTAKE QUESTIONS: DO YOU HAVE A HISTORY OF MRSA? :NO DO YOU TAKE A BLOOD THINNERS? :NO DO YOU HAVE ANY BLEEDING DISORDERS? :NO ANY NEW NUMBNESS OR WEAKNESS IN YOUR LEGS OR ARMS? :NO ANY PACEMAKER,DEFIBRILLATOR, OR DORSAL COLUMN STIMULATOR? :NO DO YOU HAVE ANY RASHES OR OPEN SORES? :NO ARE YOU ALLERGIC TO IV DYE? :NO ARE YOU DIABETIC? :NO ANY NEW PROBLEMS WITH YOUR MEDICATIONS? :NO HAVE YOU RECEIVED A VACCINE IN THE PAST 30 DAYS? :NO DO YOU PLAN TO RECEIVE A VACCINE IN THE NEXT 21 DAYS? :NO DO YOU TAKE ANY IMMUNOSUPPRESSIVE MEDICATIONS? :NO ANY HISTORY OF SEIZURES? :NO ANY HISTORY OF CARDIAC ISSUES OR EVENTS? :NO DO YOU HAVE SLEEP APNEA? :NO ANY RECENT HEAD INJURY? :NO DO YOU HAVE ANY NEW INFECTIONS? :NO IS THERE A CHANCE YOU COULD BE ? :NO ARE YOU BREAST FEEDING? :NO WHEN DID YOU LAST EAT? : -04/05/20 WHEN DID YOU LAST DRINK? : -04/06/20 0600 WHAT DID YOU LAST DRINK? : -WATER NAME OF PERSON DRIVING YOU HOME? : -MOTHER DO YOU HAVE ANY OTHER QUESTIONS OR CONCERNS? : -DENIES CURRENT MEDICATIONS TAKING DICLOFENAC SODIUM 50 MG TABLET DELAYED RELEASE 1 TABLET WITH FOOD OR MILK ORALLY BID PRN PAIN TAKING LYRICA 75 MG CAPSULE 1 CAPSULE ORALLY FOR PAIN BID MDD=2 TAKING TRAMADOL HCL 50 MG TABLET 1 TABLET 2-3 TIMES A DAY ORALLY EVERY 6 HRS PRN PAIN MDD=4 TAKING CARISOPRODOL 350 MG TABLET 1 TABLET NEEDED ORALLY BID MUSCLE SPASMS MDD=2 TAKING AMITRIPTYLINE HCL 25 MG TABLET 1 TO 2 TABLET AT BEDTIME ORALLY AT BEDTIME NOT-TAKING VALIUM 5 MG TABLET 1 TABLET NEEDED ORALLY 30 MINUTES PRIOR TO PROCEDURE THEN 2ND JUST PRIOR TO PROCEDURE X1 NOT-TAKING LORATADINE 10 MG TABLET 1 TAB ORALLY PRN PAST MEDICAL HISTORY ARTHRITIS, BACK/HIP PAIN (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, [facility]) HX OF ABNORMAL PAP PERSISTENT PELVIC PAIN/OVARIAN CYSTS 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) ASVD 3 (0.7%) BAKERS CYST RIGHT KNEE ALLERGIES HAY FEVER: SNEEZING, STUFFY NOSE SURGICAL HISTORY PARTIAL HYSTERECTOMY 2003 CHOLECYSTECTOMY 2010 KNEE-RIGHT 2005 BLADDER LIFT (SHEBA) 2007 FOOT-RIGHT TOE 05/2014 LEFT OVARY - TERATOMA 10/2016 REMOVED INFECTION UNDER SHEATH OFR HAND MIDDLE FINGER 11/2016 LASIK SURGERY-BILATERAL 2007 BILATERAL EYE LID LIFT 2015 RIGHT ELBOW 06/04/18 LEFT ELBOW REPAIR 01/2019 LEFT KNEE 04/2019 RIGHT KNEE SCOPE 06/2019 SOCIAL HISTORY GENERAL: TOBACCO USE ARE YOU A:NONSMOKER LATEX QUESTIONNAIRE LATEX ALLERGY : HAVE YOU EVER DEVELOPED ANY TYPE OF REACTION AFTER HANDLING LATEX PRODUCTS SUCH RUBBER GLOVES, CONDOMS, DIAPHRAGMS, BALLOONS, SOCKS, OR UNDERWEAR?NO LATEX ALLERGY : HAVE YOU EVER DEVELOPED ANY TYPE OF REACTION DURING OR AFTER DENTAL APPOINTMENT, VAGINAL/RECTAL EXAMINATION, SURGICAL PROCEDURE, OR ANY OTHER EXPOSURE?NO DATE ASKED : 03/10/2020 LATEX RISK : HAVE YOU EVER HAD ANY DIFFICULTY BREATHING OR HIVES AFTER EATING OR HANDLING ANY FRUITS, OR VEGETABLES; SUCH KIWI, BANANAS, STONE FRUITS, OR CHESTNUTSNO LATEX RISK : DO YOU HAVE A PREVIOUS PERSONAL HISTORY OF MORE THAN NINE SURGERIES, SPINA BIFIDA, OR REPEATED CATHERIZATIONS? YES - PLEASE INDICATE : > 9 SURGERIES LATEX RISK : ARE YOU FREQUENTLY EXPOSED TO LATEX PRODUCTS IN YOUR OCCUPATION?NO ALCOHOL USE: YES, OCCASIONALLY. ALCOHOL SCREENING DID YOU HAVE A DRINK CONTAINING ALCOHOL IN THE PAST YEAR?YES HOW OFTEN DID YOU HAVE SIX OR MORE DRINKS ON ONE OCCASION IN THE PAST YEAR?NEVER (0 POINTS) HOW MANY DRINKS DID YOU HAVE ON A TYPICAL DAY WHEN YOU WERE DRINKING IN THE PAST YEAR?1 OR 2 (0 POINTS) HOW OFTEN DID YOU HAVE A DRINK CONTAINING ALCOHOL IN THE PAST YEAR?TWO TO FOUR TIMES A MONTH (2 POINTS) POINTS2 INTERPRETATIONNEGATIVE RECREATIONAL DRUG USE DRUG USE?NO CAFFEINE CAFFEINE USE?YES HOW OFTEN AND HOW MUCH? OCC SEXUAL HX HAD SEX IN THE LAST 12 MONTHS (VAGINAL, ORAL, OR ANAL)?YES WITHMEN ONLY USE PROTECTION?NO HIV / HEP-C SCREENING HIV TEST OFFERED TO PATIENT:YES DATE OFFERED:03/19/2018 TEST ACCEPTED:YES HEP-C TEST OFFERED TO PATIENT:YES DATE OFFERED:03/19/2018 TEST ACCEPTED:YES BROCHURE PROVIDED TO PATIENTYES [id number] NONE LANGUAGE LANGUAGES SPOKEN:UPPER SORBIAN ASL EDUCATION LEVEL OF EDUCATION:COLLEGE LEARNING BARRIERS / SPECIAL NEEDS CHANGE FROM LAST VISIT?NO BARRIERS TO LEARNING?YES HEARING IMPAIRED?YES USES CABIN CREW AND HAS LEFT EAR HEARING AID VISION IMPAIRED?YES COGNITIVELY IMPAIRED?NO :HEARING AIDES :CORRECTIVE LENSES READINESS TO LEARN?YES LEARNING CAPABILITIES PRESENT?NO EMOTIONAL BARRIERS?NO SPECIAL DEVICES?NO CABIN CREW NEEDED?YES ASL OCCUPATION: UNEMPLOYED. DIET: REGULAR. EXERCISE: NO REGULAR EXERCISE. MARITAL STATUS: SINGLE. OTHERS AT HOME: CHILD. HOSPITALIZATION/MAJOR DIAGNOSTIC PROCEDURE SURGERY RELATED ER VISIT TO ED FOR FALL ON [address] COMPLETED 08/26/2019 VITAL SIGNS WT 184.4 LBS, HT 66 IN, BMI 29.76 INDEX, BP 124/57 MM HG, HR 66 /MIN, RR 18 /MIN, TEMP 96.0 F, OXYGEN SAT % 95%, SAFE IN ENV? (Y/N) YES, NA INITIALS AW 1253, REVIEWED BY: CHERYL. EXAMINATION GENERAL EXAMINATION: A HISTORY AND PHYSICAL EXAM ON THE PATIENT WAS DONE ON 03/26/2020 (DATE OF ORIGINAL ASSESSMENT) IN PREPARATION OF SURGERY/PROCEDURE. I HAVE NOW REASSESSED THIS PATIENT'S HEALTH STATUS AND PERFORMED AN UPDATED EXAM TODAY. ALL CHANGES IN THE PATIENT'S HISTORY, PHYSICAL EXAM, PRE-EXISTING CONDITONS, AND INDICATIONS/CONTRAINDICATIONS TO THE PLANNED PROCEDURE AND ANESTHESIA ARE DOCUMENTED AND EVALUATED BELOW. I ATTEST TO THE ADEQUACY AND APPROPRIATENESS OF MY ASSESSMENT, AND CONFIRM THE NECESSITY FOR THE PLANNED PROCEDURE. THE PATIENT IS ALERT, ORIENTED TIMES THREE AND COOPERATIVE. LUNGS ARE CLEAR TO AUSCULTATION. HEART SHOWS REGULAR RHYTHM, NO MURMURS AND NO GALLOPS. ASSESSMENTS SPONDYLOSIS WITHOUT MYELOPATHY OR RADICULOPATHY, CERVICAL REGION - M47.812 (PRIMARY) SPONDYLOSIS OF CERVICAL REGION WITHOUT MYELOPATHY OR RADICULOPATHY - M47.812 TREATMENT SPONDYLOSIS WITHOUT MYELOPATHY OR RADICULOPATHY, CERVICAL REGION SMC FACET BLOCK (PAIN)[id number] CLINICAL NOTES: 22G IV ACCESS OBTAINED IN LAC PATIENT'S FIRST CHOICE OF LOCATION ON FIRST ATTEMPT. PATIENT TOLERATED WELL. CHERYL. SPONDYLOSIS OF CERVICAL REGION WITHOUT MYELOPATHY OR RADICULOPATHY COMPLETION OF PROCEDURAL VISIT WHEN MEETS [facility] 04/06/2020 3:48:03 PM > CRITERIA MET 1525 MED: VERSED 1MG IV MIDAZOLAMJOSE L MOE 04/06/2020 1:41:02 PM > VERIFIED CHAGO RODRIGUEZ 04/06/2020 02:52:37 PM - SECOND DOSE ORDERED, [facility] 3:22:34 PM > VERSED 1 MG ADMINISTERED @ 1444. 2ND DOSE OF VERSED 1 MG ADMINISTERED @ 1453. MEDICATION: FENTANYL CITRATE 50MCG IV ABHIJOSE L BROCK 04/06/2020 1:41:14 PM > VERIFIED CHAGO RODRIGUEZ 04/06/2020 02:51:49 PM - SECOND DOSE ORDERED, VERIFIED WITH CHAGO RAMIREZ 04/06/2020 02:55:26 PM - THIRD DOSE ORDERED, [facility] 04/06/2020 3:24:52 PM > FENTANYL 50 MCG ADMINISTERED AT 1449. FENTANYL 50 MCG 2ND DOSE ADMINISTERED AT 1452 FENTANYL 50 MCG 3RD DOSE ADMINISTERED AT 1455. OXYGEN AT 2 LITERS PER NASAL [facility] 04/06/2020 4:03:45 PM > O2 ADMINISTERED @ 1435, D/C @ 1459. [facility] 04[facility] 3:59:43 PM > 1400- 22 G IV ACCESS OBTAINED IN LAC. PATIENT TOLERATED WELL. CHERYL [facility] 04/06/2020 4:00:35 PM > 1500 - 500CC OF LR ADMINISTERED. CHERYL PROCEDURES PAIN NURSING RECORD PROCEDURE IN ROOM 1428, PHYSICIAN IN ROOM 1439, START 1453, FINISH 1459, PHYSICIAN OUT OF ROOM 1459, OUT OF ROOM 1514, ECG NORMAL SINUS, PATIENT SHIELDED YES, SAFETY STRAP YES, PREP CHLOROPREP BY Chilango NOBLE AND DR ABRAHAM, DRESSING TEGADERM BY DR ABRAHAM LOC: 1. ALERT, ORIENTED, BENITA NOBLE 04/06/2020 2:47:27 PM > RESP: 1. REGULAR, NO DYSPNEA, BENITA NOBLE 04/06/2020 2:47:33 PM > COLOR: 1. PINK, BENITA NOBLE 04/06/2020 2:47:38 PM > SKIN: 1. WARM, DRY, BENITA NOBLE 04/06/2020 2:47:44 PM > POSITION: BENITA NOBLE 04/06/2020 2:48:45 PM > , . LATERAL VITALS: 1425- 60, 107/57, 100% 1430- HR58, 107/57, 100% 1435 - HR 58, 106/55, 100% 2 L 1440 - HR 62, 107/55, 100% 2L 1445 - HR 56, 116/55, 100% 2L 1450- HR 70, 105/53, 100% 2L 1455 - HR 65, 102/ 52, 100% 2L 1500- HR65, 105/52, 100% 2L EXIT VITALS 1425 - HR70, 131/62, 99% RA NOTES Roya NOBLE RN COMPLETION OF PROCEDURE APPOINTMENT: POST PAIN 6, DRESSING SITE DRY AND INTACT, IV DISCONTINUED, CATHETER INTACT, GAIT STEADY, TEACHING COMPLETED, PATIENT ACKNOWLEDGES UNDERSTANDING YES, PROCEDURE APPOINTMENT COMPLETED AT 1525 : PATIENT IS GIVEN POST PROCEDURE INSTRUCTIONS VERBALLY, DUE TO HER BEING DEAF WITH THE UNDERSTANDING THAT SHE WOULD ASK ANY QUESTIONS THRU HER CABIN CREW ABOUT HER INSTRUCTIONS. CABIN CREW ACCOMPANIED PATIENT WHEN SHE DEPARTED. GAIT IS STEADY. PATIENT DENIES NEED FOR ASSISTANCE. PN CERVICAL FACET BLOCK LOW BILATERAL CERVICAL PRE PROCEDURE DIAGNOSIS CERVICAL SPONDYLOSIS POST PROCEDURE DIAGNOSIS CERVICAL SPONDYLOSIS PROCEDURE RIGHT C4-C5 AND RIGHT C5-C6 THERAPEUTIC CERVICAL FACET BLOCK SURGEON DR. RACHEL ABRAHAM INSTRUCTOR KNITTING NONE ANESTHESIA LOCAL WITH IV SEDATION PRE PROCEDURE NOTE THE PATIENT HAS HISTORY OF CHRONIC CERVICAL PAIN. I EVALUATED THE PATIENT AND REVIEWED THE CHART. I WENT OVER THE RISKS, ALTERNATIVES, AND BENEFITS ASSOCIATED WITH THIS PROCEDURE. THE PATIENT WOULD LIKE TO PROCEED AND GIVE CONSENT TO PERFORMED THE PROCEDURE. THE PATIENT WOULD LIKE TO MOVE FORWARD WITH IV SEDATION DUE TO ANXIETY AND DISCOMFORT ASSOCIATED WITH THE PROCEDURE. THE PATIENT DENIES UNEXPLAINABLE WEIGHT LOSS, FEVER, CHILLS, OR NEW CHANGES IN URINARY OR BOWEL CONTROL. THE PATIENT IS COVID-19 NEGATIVE DESCRIPTION OF PROCEDURE THE PATIENT WAS BROUGHT TO THE PROCEDURE ROOM AND PLACED IN THE LEFT LATERAL DECUBITUS POSITION. THE CERVICOTHORACIC AREA WAS CLEANED WITH CHLORAPREP SOLUTION AND DRAPED ASEPTICALLY. THE PROCEDURE WAS DONE UNDER STERILE CONDITIONS. A TIMEOUT WAS PERFORMED WHERE THE CONSENTED SITE WAS VERIFIED WITH EVERYONE IN THE ROOM. UNDER FLUOROSCOPIC GUIDANCE, TARGET POINT WAS SELECTED AT THE RIGHT C4-C5 AND RIGHT C5-C6 CERVICAL FACET JOINT. TARGET POINTS WERE SELECTED AFTER LATERAL ROTATION AND TILT OF THE MAGNIFIER OF THE C-ARM. I CONFIRMED AGAIN THE SITE OF THE TARGET. LIDOCAINE 0.5% WAS USED TO NUMB THE SKIN AND THE SUBCUTANEOUS TISSUE BELOW IT. SPINAL NEEDLES, 22-GAUGE, WERE ADVANCED UNDER FLUOROSCOPIC GUIDANCE AND FOLLOWING PATIENT FEEDBACK UNTIL THE TARGETS WERE TOUCHED. THE POSITION OF THE NEEDLES WAS VERIFIED WITH AP AND LATERAL VIEWS. AFTER PROPER POSITION OF THE NEEDLES WAS ACHIEVED, ISOVUE-M DYE 30%, 0.1 ML, WAS INJECTED SHOWING SPREAD OF THE DYE. KENALOG 10 MG WAS INJECTED AT EACH SITE. THEN A SOLUTION OF 6 ML OF BUPIVACAINE 0.125% WAS USED TO FLUSH EACH SITE. THE MEDICATIONS WERE VERIFIED WITH THE NURSE. THERE WAS NO EVIDENCE OF BLOOD, PARESTHESIA OR CEREBROSPINAL FLUID DURING THE PROCEDURE. THE PATIENT WAS SENT TO THE RECOVERY ROOM. THE PATIENT WAS MOVING THE EXTREMITIES AND DOING WELL. THERE WERE NO COMPLICATIONS DURING THE PROCEDURE. ESTIMATED BLOOD LOSS WAS LESS THAN 5 ML. FLUOROSCOPY TIME WAS 1 MINUTE 23 SECONDS. THE PATIENT RECEIVED VERSED 2 MG AND FENTANYL 150 MCG IV IN DIVIDED DOSES. FACE TO FACE START TIME: 1444 FACE TO FACE END TIME: 1501 TOTAL FACE TO FACE TIME: 17 MINUTES POST PROCEDURE NOTE THE PATIENT WILL BE SEEN IN A FOLLOW UP IN THE NEXT FEW WEEKS. I AM LOOKING FOR LONG LASTING RELIEF FOR THE PATIENT WITH THIS INTERVENTION. INSTRUCTIONS WERE GIVEN, QUESTIONS WERE ANSWERED, AND THE PATIENT EXPRESSED UNDERSTANDING AND AGREES WITH THE PLAN. I, CHAGO RODRIGUEZ, DOCUMENTED THE ABOVE INFORMATION ACTING A SCRIBE FOR DR. ABRAHAM. I HAVE REVIEWED THE ABOVE DOCUMENT, WRITTEN BY CHAGO RODRIGUEZ, SERVICE TESTER, AND I VERIFY THAT IT IS ACCURATE PROCEDURE CODES 11397 INJ PARAVERT F JNT C/T 1 LEV, MODIFIERS: [place] 16422 INJ PARAVERT F JNT C/T 2 LEV, MODIFIERS: [place] [id number] MOD SED SAME PHYS/QHP 5/>YRS DISPOSITION & COMMUNICATION FOLLOW UP FOLLOW UP WITH INTEGRATION CONSULTANT (REASON: POST RIGHT THERAPEUTIC CERVICAL FACET BLOCK C4-C5, C5-C6) ELECTRONICALLY SIGNED BY RACHEL ABRAHAM MD, ON 04/13/2020 AT 03:47 PM EST DISCLAIMER : THIS IS A VISIT SUMMARY EXTRACTED FROM THE [employer] CHART. IT IS NOT A COPY OF THE [employer] PROGRESS NOTE. MTDD
== END ==
LOC: M PAIN 12:30
PROVIDERS: ATTEND Anesthesiology
DX: M47.812 Spondylosis without myelopathy or radiculopathy, cervical region (principal); Z79.899 Other long term (current) drug therapy; Z79.891 Long term (current) use of opiate analgesic; J30.1 Allergic rhinitis due to pollen
CPT/HCPCS: 64490; 64491; 99152; J2250; J3010; J3301; Q9967

== ENCOUNTER → 2020-04-26 | Outpatient (CLI) | payer OTHER ==
[~2020-04-26] MED LIST changes: -AMIT10TA; +AMIT10TA7; -BUPIVACAINE HCL 0.25% 30ML VIAL As Ordered ONE; -ISOVUE-M 300 61% 15ML VIAL As Ordered ONE; -LIDOCAINE 1% SDV 30ML VIAL As Ordered ONE; -MIDAZOLAM INJ 2MG/2ML VIAL (J2250 PER 1MG) As Ordered ONE; -TRIAMCINOLONE ACETONIDE SUSP 40 MG/ML VIAL (J3301) As Ordered ONE; -fentaNYL 100 MCG/2 ML INJECTION (J3010) As Ordered ONE
--- NOTE | 2020-04-28 03:09 | ECWPNPC ---
PATIENT NAME: RADHA RAY : 1970 GENDER: FEMALE VISIT DATE: 04/26/2020 DISCHARGE DATE: 04/26/20 1435 VISIT LOCKED DATE TIME: PHYSICIAN: PAUL MTZ PHYSICIAN PAGER NO: ACTIVE RESOURCE: PAUL MTZ REASON FOR APPOINTMENT 1. BACK PAIN HISTORY OF PRESENT ILLNESS GENERAL: - 49-YEAR-OLD FEMALE IN FOR WORKER'S COMP. CHRONIC PAIN FOLLOW-UP SHE RATES HER PAIN CURRENTLY AT AN 8 OUT OF 10 AND DESCRIBES IT ACHING, STABBING, AND TENDER. PATIENT FEELS HER MEDICATIONS ARE HELPFUL BUT DOES ADMIT TO INCREASED PAIN AT TIMES. FALL RISK SCREENING: SCREENING 1 FALL REPORTED IN THE LAST YEAR WITH INJURY TO RIGHT KNEE. PAIN SCREENING: PATIENT HAS A COMPLAINT OF ACUTE OR CHRONIC PAIN :YES LOCATION OF PAIN:LOW BACK, RIGHT HIP INTENSITY OF PAIN (SCALE OF 1 TO 10):8 WHAT DOES YOUR PAIN FEEL LIKE:ACHING, STABBING, TENDER DURATION:CONTINOUS, CONSTANT PAIN IS INCREASED BY:ACTIVITIES PAIN IS DECREASED BY:USE OF PAIN MEDICATIONS NURSING NOTE: -. PAIN CENTER INTAKE QUESTIONS: DO YOU HAVE A HISTORY OF MRSA? :NO DO YOU TAKE A BLOOD THINNERS? :NO DO YOU HAVE ANY BLEEDING DISORDERS? :NO ANY NEW NUMBNESS OR WEAKNESS IN YOUR LEGS OR ARMS? :YES LEG WEAKNESS ANY PACEMAKER,DEFIBRILLATOR, OR DORSAL COLUMN STIMULATOR? :NO DO YOU HAVE ANY RASHES OR OPEN SORES? :YES LEFT KNEE ROAD RASH ARE YOU ALLERGIC TO IV DYE? :NO ARE YOU DIABETIC? :NO ANY NEW PROBLEMS WITH YOUR MEDICATIONS? :NO HAVE YOU RECEIVED A VACCINE IN THE PAST 30 DAYS? :NO DO YOU PLAN TO RECEIVE A VACCINE IN THE NEXT 21 DAYS? :NO DO YOU NEED ANY PRESCRIPTION? :NO DO YOU TAKE ANY IMMUNOSUPPRESSIVE MEDICATIONS? :NO DO YOU HAVE ANY KIDNEY OR LIVER DISEASE? :NO IS THERE A CHANCE YOU COULD BE ? :NO ARE YOU BREAST FEEDING? :NO CURRENT MEDICATIONS TAKING DICLOFENAC SODIUM 50 MG TABLET DELAYED RELEASE 1 TABLET WITH FOOD OR MILK ORALLY BID PRN PAIN TAKING AMITRIPTYLINE HCL 25 MG TABLET 1 TO 2 TABLET AT BEDTIME ORALLY AT BEDTIME TAKING LYRICA 75 MG CAPSULE 1 CAPSULE ORALLY FOR PAIN BID MDD=2 TAKING TRAMADOL HCL 50 MG TABLET 1 TABLET 2-3 TIMES A DAY ORALLY EVERY 6 HRS PRN PAIN MDD=4 TAKING CARISOPRODOL 350 MG TABLET 1 TABLET NEEDED ORALLY BID MUSCLE SPASMS MDD=2 NOT-TAKING VALIUM 5 MG TABLET 1 TABLET NEEDED ORALLY 30 MINUTES PRIOR TO PROCEDURE THEN 2ND JUST PRIOR TO PROCEDURE X1 NOT-TAKING LORATADINE 10 MG TABLET 1 TAB ORALLY PRN MEDICATION LIST REVIEWED AND RECONCILED WITH THE PATIENT PAST MEDICAL HISTORY ARTHRITIS, BACK/HIP PAIN (NIDA BELL NP, [facility]) HX OF ABNORMAL PAP PERSISTENT PELVIC PAIN/OVARIAN CYSTS 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) ASVD 3/ (0.7%) BAKERS CYST RIGHT KNEE ALLERGIES HAY FEVER: SNEEZING, STUFFY NOSE SOCIAL HISTORY GENERAL: TOBACCO USE ARE YOU A:NONSMOKER LATEX QUESTIONNAIRE LATEX ALLERGY : HAVE YOU EVER DEVELOPED ANY TYPE OF REACTION AFTER HANDLING LATEX PRODUCTS SUCH RUBBER GLOVES, CONDOMS, DIAPHRAGMS, BALLOONS, SOCKS, OR UNDERWEAR?NO LATEX ALLERGY : HAVE YOU EVER DEVELOPED ANY TYPE OF REACTION DURING OR AFTER DENTAL APPOINTMENT, VAGINAL/RECTAL EXAMINATION, SURGICAL PROCEDURE, OR ANY OTHER EXPOSURE?NO DATE ASKED : 03/10/2020 LATEX RISK : HAVE YOU EVER HAD ANY DIFFICULTY BREATHING OR HIVES AFTER EATING OR HANDLING ANY FRUITS, OR VEGETABLES; SUCH KIWI, BANANAS, STONE FRUITS, OR CHESTNUTSNO LATEX RISK : DO YOU HAVE A PREVIOUS PERSONAL HISTORY OF MORE THAN NINE SURGERIES, SPINA BIFIDA, OR REPEATED CATHERIZATIONS? YES - PLEASE INDICATE : > 9 SURGERIES LATEX RISK : ARE YOU FREQUENTLY EXPOSED TO LATEX PRODUCTS IN YOUR OCCUPATION?NO ALCOHOL USE: YES, OCCASIONALLY. ALCOHOL SCREENING DID YOU HAVE A DRINK CONTAINING ALCOHOL IN THE PAST YEAR?YES HOW OFTEN DID YOU HAVE SIX OR MORE DRINKS ON ONE OCCASION IN THE PAST YEAR?NEVER (0 POINTS) HOW MANY DRINKS DID YOU HAVE ON A TYPICAL DAY WHEN YOU WERE DRINKING IN THE PAST YEAR?1 OR 2 (0 POINTS) HOW OFTEN DID YOU HAVE A DRINK CONTAINING ALCOHOL IN THE PAST YEAR?TWO TO FOUR TIMES A MONTH (2 POINTS) POINTS2 INTERPRETATIONNEGATIVE RECREATIONAL DRUG USE DRUG USE?NO CAFFEINE CAFFEINE USE?YES HOW OFTEN AND HOW MUCH? OCC SEXUAL HX HAD SEX IN THE LAST 12 MONTHS (VAGINAL, ORAL, OR ANAL)?YES WITHMEN ONLY USE PROTECTION?NO HIV / HEP-C SCREENING HIV TEST OFFERED TO PATIENT:YES DATE OFFERED:03/19/2018 TEST ACCEPTED:YES HEP-C TEST OFFERED TO PATIENT:YES DATE OFFERED:03/19/2018 TEST ACCEPTED:YES BROCHURE PROVIDED TO PATIENTYES CHRISTIAN [id number] NONE LANGUAGE LANGUAGES SPOKEN:MONGOLIAN ASL EDUCATION LEVEL OF EDUCATION:COLLEGE LEARNING BARRIERS / SPECIAL NEEDS CHANGE FROM LAST VISIT?NO BARRIERS TO LEARNING?YES HEARING IMPAIRED?YES USES TAVERN OPERATOR AND HAS LEFT EAR HEARING AID VISION IMPAIRED?YES COGNITIVELY IMPAIRED?NO :HEARING AIDES :CORRECTIVE LENSES READINESS TO LEARN?YES LEARNING CAPABILITIES PRESENT?NO EMOTIONAL BARRIERS?NO SPECIAL DEVICES?NO TAVERN OPERATOR NEEDED?YES ASL OCCUPATION: UNEMPLOYED. DIET: REGULAR. EXERCISE: NO REGULAR EXERCISE. MARITAL STATUS: SINGLE. OTHERS AT HOME: CHILD. REVIEW OF SYSTEMS CONSTITUTIONAL: ANY RECENT FEVER NO . CHILLS NO . WEIGHT CHANGE OF UNKNOWN REASONS NO . GASTROENTEROLOGY: NEW UNEXPLAINABLE CHANGES IN BOWEL CONTROL NO . CONSTIPATION NO . GENITOURINARY: ANY NEW CHANGE IN BLADDER CONTROL? NO . NEUROLOGY: NEW ONSET DIZZINESS OR NEUROLOGICAL CHANGES NOT MENTIONED NO . NEW NUMBNESS OR PAIN PATTERNS NOT MENTIONED AND PERTINENT TO TODAY'S VISIT NO . CARDIOLOGY: NEW CHEST PRESSURE NO . PATIENT DENIES NO . RESPIRATORY: UNEXPLAINABLE COUGH NO . NEW SHORTNESS OF BREATH NO . VITAL SIGNS WT 184.2 LBS, HT 66 IN, BMI 29.73 INDEX, BP 119/57 MM HG, HR 67 /MIN, RR 18 /MIN, TEMP 98.0 F, OXYGEN SAT % 95%, SAFE IN ENV? (Y/N) Y, NA INITIALS AW 1351, REVIEWED BY: BARAHAN. EXAMINATION GENERAL EXAMINATION: GENERALNO ACUTE DISTRESS, WELL NOURISHED AND HYDRATED. PSYCHAPPROPRIATE MOOD AND AFFECT . LUNGS:CLEAR TO AUSCULTATION BILATERALLY, NO WHEEZES, RHONCHI, RALES. HEART:NO MURMURS, REGULAR RATE AND RHYTHM. ASSESSMENTS OTHER CHRONIC PAIN - G89.29 (PRIMARY) INTERVERTEBRAL DISC DISORDERS WITH RADICULOPATHY, LUMBOSACRAL REGION - M51.17 SKILLED NURSING (CURRENT) USE OF OPIATE ANALGESIC - Z79.891 TREATMENT OTHER CHRONIC PAIN LAB: URINE TEST GROUP ARTHUR HERNANDEZ 04/26/2020 2:28:46 PM > LAST DOSE LYRICA 04/25/20, TRAMADOL 04/26/20 PAIN PROCEDURE LOG (ORDER CANCELLED) NOTES: 49-YEAR-OLD FEMALE IN FOR WORKER'S COMP. CHRONIC PAIN FOLLOW-UP. GIVEN PRESENTING SYMPTOMS RECOMMENDED INCREASING LYRICA TO 100 MG TWICE A DAY WITH FOLLOW-UP IN ONE MONTH TO DETERMINE EFFICACY OF TREATMENT FURTHER RECOMMENDED MRI FOR FURTHER EVALUATION. PATIENT HAS EXPRESSED UNDERSTANDING OF AND WAS IN AGREEMENT WITH TREATMENT PLAN. GIVEN TIME TO ASK QUESTIONS AND EXPRESS CONCERNS. , ISTOP REGISTRY REVIEWED AND DEMONSTRATES COMPLLIANCE. (REF # [id number] ) BRINGS IN MEDICATIONS WHICH IS APPROPRIATE FOR WHAT WAS DISPENSED. RECENT URINE TOXICOLOGY REVIEWED. NO UNAUTHORIZED MEDICATIONS. NO ILLICIT SUBSTANCES AND PRESCRIBED MEDICATIONS WERE PRESENT. INTERVERTEBRAL DISC DISORDERS WITH RADICULOPATHY, LUMBOSACRAL REGION REFILL LYRICA CAPSULE, 100 MG, 1 CAPSULE, ORALLY, BID MDD=2, 30 DAYS, 60, REFILLS 0 [facility] MRI SPINE, L.S. WITHOUT [id number] PROCEDURE CODES FA211 ESTABILISHED PATIENT [facility] CHARGE DISPOSITION & COMMUNICATION FOLLOW UP 4 WEEKS (REASON: MEDICATION INCREASE MRI LUMBAR SPINE) ELECTRONICALLY SIGNED BY NAHID BAINS ON 04/27/2020 AT 01:17 PM EST DISCLAIMER : THIS IS A VISIT SUMMARY EXTRACTED FROM THE [employer] CHART. IT IS NOT A COPY OF THE [employer] PROGRESS NOTE. CALVIN
== END ==
LOC: M PAIN 13:45
PROVIDERS: ATTEND Family Medicine
DX: G89.29 Other chronic pain (principal); M51.17 Intervertebral disc disorders with radiculopathy, lumbosacral region; Z79.891 Long term (current) use of opiate analgesic; Z79.899 Other long term (current) drug therapy

== ENCOUNTER → 2020-04-29 | Outpatient (CLI) | payer OTHER, MEDICARE, MEDICAID ==
--- NOTE | 2020-05-01 04:25 | ECWPNPC ---
PATIENT NAME: RADHA RAY : 1970 GENDER: FEMALE VISIT DATE: 04/29/2020 DISCHARGE DATE: 04/29/20 1523 VISIT LOCKED DATE TIME: PHYSICIAN: PAUL MTZ PHYSICIAN PAGER NO: ACTIVE RESOURCE: PAUL MTZ REASON FOR APPOINTMENT 1. POST RIGHT THERAPEUTIC CERVICAL FACET BLOCK C4-C5, C5-C6 WITH IV SEDATION HISTORY OF PRESENT ILLNESS GENERAL: 49-YEAR-OLD FEMALE IN FOR POST CERVICAL FACET BLOCK FOLLOW-UP. PATIENT FEELS THE PROCEDURE WAS NOT EFFECTIVE IT USED TO BE FURTHER STATING THAT SHE DEVELOPED A NOT IN HER SHOULDER STATUS POST PROCEDURE. SHE RATES HER PAIN CURRENTLY AT AN 8 OUT OF 10 AND DESCRIBES IT ACHING, SHARP, AND SORE. FALL RISK SCREENING: SCREENING : NO FALLS REPORTED IN THE LAST YEAR. PAIN SCREENING: PATIENT HAS A COMPLAINT OF ACUTE OR CHRONIC PAIN :YES LOCATION OF PAIN:NECK INTENSITY OF PAIN (SCALE OF 1 TO 10):8 WHAT DOES YOUR PAIN FEEL LIKE:ACHING, SHARP, SORE DURATION:CONTINOUS, CONSTANT, STEADY, ALL DAY PAIN IS INCREASED BY:OTHERS INHALING & TURNING NECK PAIN IS DECREASED BY:OTHERS HEAT NURSING NOTE: HAD 2 FALLS WITH NO INJURY. PAIN CENTER INTAKE QUESTIONS: DO YOU HAVE A HISTORY OF MRSA? :NO DO YOU TAKE A BLOOD THINNERS? :NO DO YOU HAVE ANY BLEEDING DISORDERS? :NO ANY NEW NUMBNESS OR WEAKNESS IN YOUR LEGS OR ARMS? :YES LEG WEAKNESS ANY PACEMAKER,DEFIBRILLATOR, OR DORSAL COLUMN STIMULATOR? :NO DO YOU HAVE ANY RASHES OR OPEN SORES? :YES LEFT KN[address] RO[address] RASH ARE YOU ALLERGIC TO IV DYE? :NO ARE YOU DIABETIC? :NO ANY NEW PROBLEMS WITH YOUR MEDICATIONS? :NO HAVE YOU RECEIVED A VACCINE IN THE PAST 30 DAYS? :NO DO YOU PLAN TO RECEIVE A VACCINE IN THE NEXT 21 DAYS? :NO DO YOU NEED ANY PRESCRIPTION? :NO DO YOU TAKE ANY IMMUNOSUPPRESSIVE MEDICATIONS? :NO DO YOU HAVE ANY KIDNEY OR LIVER DISEASE? :NO IS THERE A CHANCE YOU COULD BE ? :NO ARE YOU BREAST FEEDING? :NO CURRENT MEDICATIONS TAKING DICLOFENAC SODIUM 50 MG TABLET DELAYED RELEASE 1 TABLET WITH FOOD OR MILK ORALLY BID PRN PAIN TAKING AMITRIPTYLINE HCL 25 MG TABLET 1 TO 2 TABLET AT BEDTIME ORALLY AT BEDTIME TAKING TRAMADOL HCL 50 MG TABLET 1 TABLET 2-3 TIMES A DAY ORALLY EVERY 6 HRS PRN PAIN MDD=4 TAKING CARISOPRODOL 350 MG TABLET 1 TABLET NEEDED ORALLY BID MUSCLE SPASMS MDD=2 TAKING LYRICA 100 MG CAPSULE 1 CAPSULE ORALLY BID MDD=2 NOT-TAKING VALIUM 5 MG TABLET 1 TABLET NEEDED ORALLY 30 MINUTES PRIOR TO PROCEDURE THEN 2ND JUST PRIOR TO PROCEDURE X1 NOT-TAKING LORATADINE 10 MG TABLET 1 TAB ORALLY PRN MEDICATION LIST REVIEWED AND RECONCILED WITH THE PATIENT PAST MEDICAL HISTORY ARTHRITIS, BACK/HIP PAIN (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, [facility]) HX OF ABNORMAL PAP PERSISTENT PELVIC PAIN/OVARIAN CYSTS 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) ASVD 3 (0.7%) BAKERS CYST RIGHT KNEE ALLERGIES HAY FEVER: SNEEZING, STUFFY NOSE SOCIAL HISTORY GENERAL: TOBACCO USE ARE YOU A:NONSMOKER LATEX QUESTIONNAIRE LATEX ALLERGY : HAVE YOU EVER DEVELOPED ANY TYPE OF REACTION AFTER HANDLING LATEX PRODUCTS SUCH RUBBER GLOVES, CONDOMS, DIAPHRAGMS, BALLOONS, SOCKS, OR UNDERWEAR?NO LATEX ALLERGY : HAVE YOU EVER DEVELOPED ANY TYPE OF REACTION DURING OR AFTER DENTAL APPOINTMENT, VAGINAL/RECTAL EXAMINATION, SURGICAL PROCEDURE, OR ANY OTHER EXPOSURE?NO LATEX RISK : HAVE YOU EVER HAD ANY DIFFICULTY BREATHING OR HIVES AFTER EATING OR HANDLING ANY FRUITS, OR VEGETABLES; SUCH KIWI, BANANAS, STONE FRUITS, OR CHESTNUTSNO LATEX RISK : DO YOU HAVE A PREVIOUS PERSONAL HISTORY OF MORE THAN NINE SURGERIES, SPINA BIFIDA, OR REPEATED CATHERIZATIONS? YES - PLEASE INDICATE : > 9 SURGERIES LATEX RISK : ARE YOU FREQUENTLY EXPOSED TO LATEX PRODUCTS IN YOUR OCCUPATION?NO DATE ASKED : 03/10/2020 ALCOHOL USE: YES, OCCASIONALLY. ALCOHOL SCREENING DID YOU HAVE A DRINK CONTAINING ALCOHOL IN THE PAST YEAR?YES HOW OFTEN DID YOU HAVE SIX OR MORE DRINKS ON ONE OCCASION IN THE PAST YEAR?NEVER (0 POINTS) HOW MANY DRINKS DID YOU HAVE ON A TYPICAL DAY WHEN YOU WERE DRINKING IN THE PAST YEAR?1 OR 2 (0 POINTS) HOW OFTEN DID YOU HAVE A DRINK CONTAINING ALCOHOL IN THE PAST YEAR?TWO TO FOUR TIMES A MONTH (2 POINTS) POINTS2 INTERPRETATIONNEGATIVE RECREATIONAL DRUG USE DRUG USE?NO CAFFEINE CAFFEINE USE?YES HOW OFTEN AND HOW MUCH? 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 DIET: REGULAR. EXERCISE: NO REGULAR EXERCISE. MARITAL STATUS: SINGLE. OTHERS AT HOME: CHILD. REVIEW OF SYSTEMS CONSTITUTIONAL: ANY RECENT FEVER NO . CHILLS NO . WEIGHT CHANGE OF UNKNOWN REASONS NO . GASTROENTEROLOGY: NEW UNEXPLAINABLE CHANGES IN BOWEL CONTROL NO . CONSTIPATION NO . GENITOURINARY: ANY NEW CHANGE IN BLADDER CONTROL? NO . NEUROLOGY: NEW ONSET DIZZINESS OR NEUROLOGICAL CHANGES NOT MENTIONED NO . NEW NUMBNESS OR PAIN PATTERNS NOT MENTIONED AND PERTINENT TO TODAY'S VISIT NO . CARDIOLOGY: NEW CHEST PRESSURE NO . PATIENT DENIES NO . RESPIRATORY: UNEXPLAINABLE COUGH NO . NEW SHORTNESS OF BREATH NO . VITAL SIGNS WT 181.6 LBS, HT 66 IN, BMI 29.31 INDEX, BP 131/70 MM HG, HR 92 /MIN, RR 18 /MIN, TEMP 98 F, OXYGEN SAT % 95%, SAFE IN ENV? (Y/N) YES, NA INITIALS VA 14:40, REVIEWED BY: [facility]. DEAN RN. EXAMINATION GENERAL EXAMINATION: GENERALNO ACUTE DISTRESS, WELL NOURISHED AND HYDRATED. PSYCHAPPROPRIATE MOOD AND AFFECT . NECK:POINT TENDER RIGHT SHOULDER, BANDS OF RESTRICTED TISSUE NOTED OVER TRIGGER POINTS. LUNGS:CLEAR TO AUSCULTATION BILATERALLY, NO WHEEZES, RHONCHI, RALES. HEART:NO MURMURS, REGULAR RATE AND RHYTHM. ASSESSMENTS OTHER CHRONIC PAIN - G89.29 (PRIMARY) MYALGIA, OTHER SITE - M79.18 TREATMENT OTHER CHRONIC PAIN PAIN PROCEDURE LOGDATE OF PROCEDURE1PROCEDURE:RIGHT THERAPEUTIC CERVICAL FACET BLOCK C4-C5,C5-V4SKDNTZ OF PRE SEDATEVERSED 1MG,FENTANYL CITRATE 50MGRESULT:NOT EFFECTIVE BEFORE MEDICATION: VALIUM TAB 5MG ORALLY (DIAZEPAM) (ORDERED FOR 05/06/2020) MED: PAIN NORCO TABLET 5MG/325MG ORALLY HYDROCODONE/ACETAMINOPHEN (ORDERED FOR 05/06/2020) NOTES: 49-YEAR-OLD FEMALE IN FOR POST CERVICAL FACET BLOCK FOLLOW-UP. GIVEN PRESENTING SYMPTOMS RECOMMEND RIGHT SHOULDER TRIGGER POINT INJECTIONS WITH POST PROCEDURAL FOLLOW-UP. PATIENT HAS EXPRESSED UNDERSTANDING OF AND WAS IN AGREEMENT WITH TREATMENT PLAN. GIVEN TIME TO ASK QUESTIONS AND EXPRESS CONCERNS. PRE-PROCEDURE INSTRUCTIONS PRINTED AND REVIEWED WITH PATIENT & REGIONAL MANAGER. EDUCATIONAL INFORMATION ON TRIGGER POINT INJECTIONS PRINTED AND GIVEN TO PATIENT. PATIENT REPORTS AN UNDERSTANDING OF PRE-PROCEDURE INSTRUCTIONS. Keiry MORAN RN . DISPOSITION & COMMUNICATION FOLLOW UP POST PROCEDURE (REASON: RIGHT SHOULDER TRIGGER POINT INJECTION) ELECTRONICALLY SIGNED BY NAHID BAINS ON 04/30/2020 AT 01:25 PM EST DISCLAIMER : THIS IS A VISIT SUMMARY EXTRACTED FROM THE [employer] CHART. IT IS NOT A COPY OF THE [employer] PROGRESS NOTE. CALVIN
== END ==
LOC: M PAIN 14:30
PROVIDERS: ATTEND Family Medicine
DX: G89.29 Other chronic pain (principal); M79.18 Myalgia, other site; Z79.891 Long term (current) use of opiate analgesic; Z79.899 Other long term (current) drug therapy

== ENCOUNTER → 2020-04-29 | Outpatient (CLI) | payer OTHER ==
--- NOTE | 2020-04-29 13:13 | REP ---
INDICATION: PAIN IN LEFT KNEE. COMPARISON: None. TECHNIQUE: AP, lateral, tunnel and sunrise views of the left knee. FINDINGS: Osseous structures, joint spaces, and surrounding soft tissues are essentially age-appropriate. No evidence for acute fracture or dislocation. No effusion. No overt arthritic findings. IMPRESSION: Age-appropriate left knee radiographs. No evidence for acute fracture or dislocation. <Electronically signed by Nathaniel Weir > 04/29/20 [id number]
== END ==
LOC: M SOG 11:27
PROVIDERS: ATTEND Orthopaedic Surgery Sports Medicine
DX: M25.562 Pain in left knee (principal)

== ENCOUNTER → 2020-05-20 | Outpatient (CLI) | payer OTHER, MEDICARE, MEDICAID ==
--- NOTE | 2020-05-22 11:24 | ECWPNPC ---
PATIENT NAME: RADHA RAY : 1970 GENDER: FEMALE VISIT DATE: 05/20/2020 DISCHARGE DATE: 05/20/20 1442 VISIT LOCKED DATE TIME: PHYSICIAN: PAUL MTZ PHYSICIAN PAGER NO: ACTIVE RESOURCE: PAUL MTZ REASON FOR APPOINTMENT 1. MEDICATION INCREASE/REVIEW MRI HISTORY OF PRESENT ILLNESS GENERAL: - 49-YEAR-OLD FEMALE IN FOR CHRONIC PAIN FOLLOW-UP AND TO REVIEW RECENT MRI PERFORMED. SHE RATES HER PAIN CURRENTLY AT A 2 OUT OF 10 AND DESCRIBES IT ACHING, PULLING, AND UNCOMFORTABLE. SHE FEELS MEDICATIONS ARE HELPFUL AND DENIES MED SIDE EFFECTS AT THIS TIME. FALL RISK SCREENING: SCREENING ONE FALL REPORTED IN THE LAST YEAR WITH INJURY. PATIENT DID NOT SEEK IMMEDIATE MEDICAL TREATMENT. . PAIN SCREENING: PATIENT HAS A COMPLAINT OF ACUTE OR CHRONIC PAIN :YES LOCATION OF PAIN:RIGHT SHOULDER, UPPER BACK INTENSITY OF PAIN (SCALE OF 1 TO 10):2 PAIN IS AROUND A 2 WHEN TURNING HER HEAD WHAT DOES YOUR PAIN FEEL LIKE:ACHING, OTHER MUSCLE STRAINED, PULLING, UNCOMFORTABLE DURATION:INTERMITTENT ONLY WHEN TURNING HER HEAD PAIN IS INCREASED BY:OTHERS ONLY WHEN TURNING HEAD PAIN IS DECREASED BY:OTHERS HEAT, MEDICATION, STRETCHING NURSING NOTE: -. PAIN CENTER INTAKE QUESTIONS: DO YOU HAVE A HISTORY OF MRSA? :NO DO YOU TAKE A BLOOD THINNERS? :NO DO YOU HAVE ANY BLEEDING DISORDERS? :NO ANY NEW NUMBNESS OR WEAKNESS IN YOUR LEGS OR ARMS? :NO ANY PACEMAKER,DEFIBRILLATOR, OR DORSAL COLUMN STIMULATOR? :NO DO YOU HAVE ANY RASHES OR OPEN SORES? :NO ARE YOU ALLERGIC TO IV DYE? :NO ARE YOU DIABETIC? :NO ANY NEW PROBLEMS WITH YOUR MEDICATIONS? :NO HAVE YOU RECEIVED A VACCINE IN THE PAST 30 DAYS? :YES IF SO WHAT VACCINE AND WHEN? FIRST COVID INJECTION RECEIVED 05/14/2020 DO YOU PLAN TO RECEIVE A VACCINE IN THE NEXT 21 DAYS? :YES IF SO WHAT VACCINE AND WHEN? IS SCHEDULED FOR SECOND COVID VACCINATION AROUND 06/14/2020 DO YOU NEED ANY PRESCRIPTION? :NO DO YOU TAKE ANY IMMUNOSUPPRESSIVE MEDICATIONS? :NO DO YOU HAVE ANY KIDNEY OR LIVER DISEASE? :NO IS THERE A CHANCE YOU COULD BE ? :NO ARE YOU BREAST FEEDING? :NO CURRENT MEDICATIONS TAKING DICLOFENAC SODIUM 50 MG TABLET DELAYED RELEASE 1 TABLET WITH FOOD OR MILK ORALLY BID PRN PAIN TAKING AMITRIPTYLINE HCL 25 MG TABLET 1 TO 2 TABLET AT BEDTIME ORALLY AT BEDTIME TAKING TRAMADOL HCL 50 MG TABLET 1 TABLET 2-3 TIMES A DAY ORALLY EVERY 6 HRS PRN PAIN MDD=4 TAKING CARISOPRODOL 350 MG TABLET 1 TABLET NEEDED ORALLY BID MUSCLE SPASMS MDD=2 UNKNOWN LYRICA 100 MG CAPSULE 1 CAPSULE ORALLY BID MDD=2 UNKNOWN VALIUM 5 MG TABLET 1 TABLET NEEDED ORALLY 30 MINUTES PRIOR TO PROCEDURE THEN 2ND JUST PRIOR TO PROCEDURE X1 UNKNOWN LORATADINE 10 MG TABLET 1 TAB ORALLY PRN MEDICATION LIST REVIEWED AND RECONCILED WITH THE PATIENT PAST MEDICAL HISTORY ARTHRITIS, BACK/HIP PAIN (NIDA BELL NP, [facility]) HX OF ABNORMAL PAP PERSISTENT PELVIC PAIN/OVARIAN CYSTS 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) ASVD 3 (0.7%) BAKERS CYST RIGHT KNEE ALLERGIES HAY FEVER: SNEEZING, STUFFY NOSE SOCIAL HISTORY GENERAL: TOBACCO USE ARE YOU A:NONSMOKER LATEX QUESTIONNAIRE LATEX ALLERGY : HAVE YOU EVER DEVELOPED ANY TYPE OF REACTION AFTER HANDLING LATEX PRODUCTS SUCH RUBBER GLOVES, CONDOMS, DIAPHRAGMS, BALLOONS, SOCKS, OR UNDERWEAR?NO LATEX ALLERGY : HAVE YOU EVER DEVELOPED ANY TYPE OF REACTION DURING OR AFTER DENTAL APPOINTMENT, VAGINAL/RECTAL EXAMINATION, SURGICAL PROCEDURE, OR ANY OTHER EXPOSURE?NO LATEX RISK : HAVE YOU EVER HAD ANY DIFFICULTY BREATHING OR HIVES AFTER EATING OR HANDLING ANY FRUITS, OR VEGETABLES; SUCH KIWI, BANANAS, STONE FRUITS, OR CHESTNUTSNO LATEX RISK : DO YOU HAVE A PREVIOUS PERSONAL HISTORY OF MORE THAN NINE SURGERIES, SPINA BIFIDA, OR REPEATED CATHERIZATIONS? YES - PLEASE INDICATE : > 9 SURGERIES LATEX RISK : ARE YOU FREQUENTLY EXPOSED TO LATEX PRODUCTS IN YOUR OCCUPATION?NO DATE ASKED : 05/20/2020 ALCOHOL USE: YES, OCCASIONALLY. ALCOHOL SCREENING DID YOU HAVE A DRINK CONTAINING ALCOHOL IN THE PAST YEAR?YES HOW OFTEN DID YOU HAVE SIX OR MORE DRINKS ON ONE OCCASION IN THE PAST YEAR?NEVER (0 POINTS) HOW MANY DRINKS DID YOU HAVE ON A TYPICAL DAY WHEN YOU WERE DRINKING IN THE PAST YEAR?1 OR 2 (0 POINTS) HOW OFTEN DID YOU HAVE A DRINK CONTAINING ALCOHOL IN THE PAST YEAR?TWO TO FOUR TIMES A MONTH (2 POINTS) POINTS2 INTERPRETATIONNEGATIVE RECREATIONAL DRUG USE DRUG USE?NO CAFFEINE CAFFEINE USE?YES HOW OFTEN AND HOW MUCH? 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 DIET: REGULAR. EXERCISE: NO REGULAR EXERCISE. MARITAL STATUS: SINGLE. OTHERS AT HOME: CHILD. REVIEW OF SYSTEMS CONSTITUTIONAL: ANY RECENT FEVER NO . CHILLS NO . WEIGHT CHANGE OF UNKNOWN REASONS NO . GASTROENTEROLOGY: NEW UNEXPLAINABLE CHANGES IN BOWEL CONTROL NO . CONSTIPATION NO . GENITOURINARY: ANY NEW CHANGE IN BLADDER CONTROL? NO . NEUROLOGY: NEW ONSET DIZZINESS OR NEUROLOGICAL CHANGES NOT MENTIONED NO . NEW NUMBNESS OR PAIN PATTERNS NOT MENTIONED AND PERTINENT TO TODAY'S VISIT NO . CARDIOLOGY: NEW CHEST PRESSURE NO . PATIENT DENIES NO . RESPIRATORY: UNEXPLAINABLE COUGH NO . NEW SHORTNESS OF BREATH NO . VITAL SIGNS WT 183.4 LBS, HT 66 IN, BMI 29.60 INDEX, BP 132/58 MM HG, HR 85 /MIN, RR 18 /MIN, TEMP 98.6 F, OXYGEN SAT % 94%, SAFE IN ENV? (Y/N) YES, REVIEWED BY: ZARINA EVANS MA. EXAMINATION GENERAL EXAMINATION: GENERALNO ACUTE DISTRESS, WELL NOURISHED AND HYDRATED. PSYCHAPPROPRIATE MOOD AND AFFECT . LUNGS:CLEAR TO AUSCULTATION BILATERALLY, NO WHEEZES, RHONCHI, RALES. HEART:NO MURMURS, REGULAR RATE AND RHYTHM. ASSESSMENTS SPONDYLOSIS OF CERVICAL REGION WITHOUT MYELOPATHY OR RADICULOPATHY - M47.812 (PRIMARY) TREATMENT SPONDYLOSIS OF CERVICAL REGION WITHOUT MYELOPATHY OR RADICULOPATHY NOTES: 49-YEAR-OLD FEMALE IN FOR CHRONIC PAIN FOLLOW-UP. GIVEN PRESENTING SYMPTOMS RECOMMENDED CONTINUATION OF CURRENT MEDICATION REGIMEN WITH FOLLOW-UP IN 3 MONTHS. PATIENT HAS EXPRESSED UNDERSTANDING OF WAS IN AGREEMENT WITH TREATMENT PLAN. GIVEN TIME TO ASK QUESTIONS AND EXPRESS CONCERNS. PROCEDURE CODES FA211 ESTABILISHED PATIENT [facility] CHARGE DISPOSITION & COMMUNICATION FOLLOW UP 3 MONTHS (REASON: NECK PAIN ) ELECTRONICALLY SIGNED BY NAHID BAINS ON 05/21/2020 AT 09:35 AM EDT DISCLAIMER : THIS IS A VISIT SUMMARY EXTRACTED FROM THE [employer] CHART. IT IS NOT A COPY OF THE [employer] PROGRESS NOTE. CALVIN
== END ==
LOC: M PAIN 14:00
PROVIDERS: ATTEND Family Medicine
DX: M47.812 Spondylosis without myelopathy or radiculopathy, cervical region (principal); G89.29 Other chronic pain; Z79.891 Long term (current) use of opiate analgesic; Z79.899 Other long term (current) drug therapy

== ENCOUNTER → 2020-05-27 | Outpatient (CLI) | payer OTHER ==
[~2020-05-27] MED LIST changes: -SIME180C PO; +SIME180C25 PO
--- NOTE | 2020-05-28 08:26 | REP ---
INDICATION: DISC DISORDER LUMBAR REGION. COMPARISON: None. TECHNIQUE: Sagittal T1, T2, stir, axial T1 and T2 weighted images of the lumbar spine are obtained. FINDINGS: There is mild multilevel degenerative disc disease with loss of disc height and disc desiccation seen diffusely throughout the lumbar spine. Vertebral heights are overall preserved. No malalignments. Conus ends normally at L1 level. On the sagittal T2 weighted images, no limiting canal stenosis. On the STIR images, no significant stir signal abnormality to suggest soft tissue or ligamentous injury. On the review of axial images, At L1-2 and L2-3 no significant canal or foraminal narrowing At L3-4 and L4-5 disc bulges with mild canal narrowing and moderate bilateral foraminal narrowing, slightly greater at L3-4 on the right. At L5-S1 a disc bulge and loss of disc height with mild canal narrowing and [id number] bilateral foraminal narrowing. When compared to prior study of 11/05/2017, no definite changes. IMPRESSION: Mild multilevel degenerative disc disease. No definite limiting canal or foraminal stenosis. No disc herniation identified. When compared to prior study of 11/05/2017, no definite changes. <Electronically signed by Avery Ramírez > 05/28/20 [id number]
== END ==
LOC: M RAD 18:13
PROVIDERS: ATTEND Family Medicine
DX: M51.17 Intervertebral disc disorders with radiculopathy, lumbosacral region (principal)

== ENCOUNTER → 2020-07-15 | Outpatient (CLI) | payer OTHER ==
[~2020-07-15] MED LIST changes: +GABA-283 PO; -GABA-845 PO
--- NOTE | 2020-07-15 17:00 | REP ---
INDICATION: PAIN. COMPARISON: None. TECHNIQUE: Internal rotation, external rotation, axillary and Y-view of the right and left shoulder. FINDINGS: Left shoulder demonstrates cortical irregularity and spurring at the acromioclavicular joint as well as small 9 mm corticated density above the greater tuberosity within the subacromial space consistent with tendinopathy. The glenoid and humeral head appear normal. No acute fracture or dislocation. Right shoulder demonstrates cortical irregularity at the acromioclavicular joint. The subacromial space is normal. No periarticular calcifications or loose bodies are identified. The glenoid rim and humeral head are normal. No acute fracture or dislocation. IMPRESSION: Mild bilateral degenerative changes Suspected mild left calcific tendinopathy. <Electronically signed by Nathaniel Weir > 07/15/20 [id number]
== END ==
LOC: M SOG 14:40
PROVIDERS: ATTEND Orthopaedic Surgery Sports Medicine
DX: M19.012 Primary osteoarthritis, left shoulder (principal); M19.011 Primary osteoarthritis, right shoulder; M75.41 Impingement syndrome of right shoulder; M75.42 Impingement syndrome of left shoulder

== ENCOUNTER 2020-08-15 11:53 | Emergency (ER) | payer MEDICARE, MEDICAID ==
[~2020-08-15] VITALS: Ht 170.2 cm; Wt 82.5 kg
[2020-08-15] MEDS ORDERED: BACITRACIN OINTMENT 30GM TUBE TOP STA (13:11)
[2020-08-15] MEDS ORDERED: ACETAMINOPHEN 500 MG TAB PO ONE (13:15)
[2020-08-15] MEDS ORDERED: BOOSTRIX/ADACEL VACCINE (DIPHTH/PERTUSS/ACELL/TETANUS) 0.5ML SYR IM ONE (13:15)
--- NOTE | 2020-08-15 13:29 | REP ---
INDICATION: L knee pain s/p fall COMPARISON: None. TECHNIQUE: AP, lateral, bilateral oblique and sunrise views. FINDINGS: The osseous structures and joint spaces are intact and age-appropriate. There is no evidence for acute fracture or dislocation. No joint effusion is appreciated. Surrounding soft tissues are unremarkable. No subcutaneous emphysema or radiodense foreign body. IMPRESSION: Normal age-appropriate left knee examination. No acute fracture or dislocation. <Electronically signed by Nathaniel Weir > 08/15/20 0905
[2020-08-15] MEDS ORDERED: BACI500O21 TOP (13:50)
[2020-08-15 14:06] VITALS: BP 137/67
== END 2020-08-15 14:02 | disposition home or self-care (01) ==
LOC: M ED 11:53
DX: S80.212A Abrasion, left knee, initial encounter (principal); S80.02XA Contusion of left knee, initial encounter; S83.92XA Sprain of unspecified site of left knee, initial encounter; W01.0XXA Fall on same level from slipping, tripping and stumbling without subsequent striking against object, initial encounter; Y92.009 Unspecified place in unspecified non-institutional (private) residence as the place of occurrence of the external cause; Y93.89 Activity, other specified; Y99.8 Other external cause status; H91.90 Unspecified hearing loss, unspecified ear; M54.9 Dorsalgia, unspecified; G89.29 Other chronic pain; F41.9 Anxiety disorder, unspecified; Z79.899 Other long term (current) drug therapy; Z91.048 Other nonmedicinal substance allergy status

== ENCOUNTER → 2020-09-17 | Outpatient (CLI) | payer MEDICARE, MEDICAID ==
[~2020-09-17] MED LIST changes: +BACI500O21 TOP
[2020-09-17 16:35] LABS: BASO % 0.5 % (0.0-1.0); EOS # 0.1 10^3/uL (0.0-0.5); EOS % 1.3 % (0.0-3.0); HEMATOCRIT 40.2 % (36.0-47.0); HEMOGLOBIN 13.2 g/dl (12.0-15.5); LYMPH # 2.3 10^3/uL (1.5-5.0); LYMPH % 28.2 % (24.0-44.0); MEAN CORPUSCULAR HEMOGLOBIN 29.7 pg (27.0-33.0); MEAN CORPUSCULAR HGB CONC 32.8 g/dl (32.0-36.5); MEAN CORPUSCULAR VOLUME 90.5 fl (80.0-96.0); MONO # 0.5 10^3/uL (0.0-0.8); MONO % 6.5 % (2.0-8.0); NEUTROPHILS # 5.2 10^3/uL (1.5-8.5); NEUTROPHILS % 63.1 % (36.0-66.0); PLATELET COUNT, AUTOMATED 252 10^3/uL (150-450); RED BLOOD COUNT 4.44 10^6/uL (4.00-5.40); WHITE BLOOD COUNT 8.3 10^3/uL (4.0-10.0)
[2020-09-17 16:52] LABS: ALT/SGPT 18 U/L (12-78); BILIRUBIN,TOTAL 0.5 MG/DL (0.2-1.0); BLOOD UREA NITROGEN 6 MG/DL (7-18); CALCIUM LEVEL 8.8 MG/DL (8.5-10.1); CARBON DIOXIDE LEVEL 32 MEQ/L (21-32); CHLORIDE LEVEL 108 MEQ/L (98-107); CHOLESTEROL LEVEL 206 MG/DL (<200); CHOLESTEROL RISK RATIO 3.678 (<5); CREATININE FOR GFR 0.59 MG/DL (0.55-1.30); GLOMERULAR FILTRATION RATE > 60.0 (>51); GLUCOSE, FASTING 87 MG/DL (70-100); HDL CHOLESTEROL 56 MG/DL (>40); LDL CHOLESTEROL 130 MG/DL (<100); NON-HDL-C 150 MG/DL; POTASSIUM SERUM 4.1 MEQ/L (3.5-5.1); SODIUM LEVEL 141 MEQ/L (136-145); TOTAL PROTEIN 6.7 GM/DL (6.4-8.2); TRIGLYCERIDES LEVEL 102 MG/DL (<150)
== END ==
LOC: M WUC 13:31
PROVIDERS: ATTEND Nurse Practitioner Family
DX: Z00.00 Encounter for general adult medical examination without abnormal findings (principal)

== ENCOUNTER → 2020-09-21 | Outpatient (CLI) | payer MEDICARE, MEDICAID ==
--- NOTE | 2020-09-22 09:04 | REP ---
INDICATION: IMPINGEMENT SYNDROME DIGNA, MENISCAL TEAR. COMPARISON: Radiographs 07/15/2020. TECHNIQUE: Coronal oblique T1, T2 fat sat, sagittal oblique T2 fat sat, axial T2 fat sat, gradient echo. FINDINGS: Rotator cuff: A small low signal calcification is seen in the supraspinatus tendon. There are findings of mild supraspinatus tendinopathy/tendinitis. There is a partial thickness bursal surface tear of the distal supraspinatus tendon. Acromioclavicular joint: There are mild hypertrophic degenerative changes of the acromioclavicular joint. Acromion: Type 2 Biceps Tendon: In bicipital groove, with mild surrounding fluid. Hill Sach's deformity: None. Deltoid muscle: No abnormal signal. Biceps labral complex: There is mild fraying of the biceps labral complex. Labrum: No tear. Cartilage: No defects. Bone marrow: There is a cluster of subcentimeter round T2 hyperintensities in the central humeral head, having the appearance of a chondroid lesion, likely an enchondroma. This measures approximately 2 cm in diameter. There is no bone marrow edema or occult fracture. Joint fluid: There is no significant glenohumeral joint effusion. There is a tiny amount of subacromial fluid. IMPRESSION: Findings consistent with mild calcific tendinitis of the supraspinatus tendon, as well as a partial bursal surface tear of the distal aspect of the tendon. Mild hypertrophic degenerative changes acromioclavicular joint with a type 2 acromion. Mild fraying of the biceps labral complex. No discrete labral tear is seen. 2 cm bone lesion in the central humeral head most consistent with an enchondroma. <Electronically signed by Santos Kern > 09/22/20 [id number]
--- NOTE | 2020-09-22 09:09 | REP ---
INDICATION: IMPINGEMENT SYNDROME DIGNA, MENISCAL TEAR. COMPARISON: Radiographs 07/15/2020. TECHNIQUE: Coronal oblique T1, T2 fat sat, sagittal oblique T2 fat sat, axial T2 fat sat, gradient echo. FINDINGS: Rotator cuff: There is mild to moderate diffuse tendinopathy/tendinitis of the supraspinatus tendon. No discrete rotator cuff tendon tear is seen. Acromioclavicular joint: There are moderate hypertrophic degenerative changes of the acromioclavicular joint with subchondral marrow edema. Acromion: Type 2 Biceps Tendon: In bicipital groove, mild to moderate fluid surrounding the biceps tendon in the bicipital groove may represent tenosynovitis.. Hill Sach's deformity: None. Deltoid muscle: No abnormal signal. Biceps labral complex: There is mild fraying of the biceps labral complex. Labrum: The superior labrum appears diffusely frayed. No discrete labral tear is seen. Cartilage: No defects. Bone marrow: There are few tiny subcortical cysts in the superolateral humeral head. Joint fluid: No effusion. IMPRESSION: [id number] supraspinatus tendinopathy/tendinitis, with no discrete rotator cuff tendon tear. Moderate hypertrophic degenerative changes acromioclavicular joint with a type 2 acromion. Mild to moderate fluid surrounding the biceps tendon in the bicipital groove may represent tenosynovitis. Mild fraying of the biceps labral complex and superior labrum. No discrete labral tear. <Electronically signed by Santos Kern > 09/22/20 0905
--- NOTE | 2020-09-22 09:15 | REP ---
INDICATION: IMPINGEMENT SYNDROME DIGNA, MENISCAL TEAR. COMPARISON: MRI 03/25/2019. TECHNIQUE: Multiple sequences obtained in the axial, coronal and sagittal planes. FINDINGS: Menisci: Once again there is a horizontal tear of the posterior horn of the medial meniscus appearing similar to the prior exam. Lateral meniscus is intact. Cruciate ligaments: Intact. Collateral ligaments: Intact. Extensor mechanism/patellar retinacula: Intact. Cartilage: Smooth, no osteochondral defect. Bone marrow: Normal signal, no edema or occult fracture. Joint fluid: A small amount of joint fluid is unchanged. Popliteal region: A thin Castillo's cyst is unchanged. IMPRESSION: Stable MR findings as discussed in detail above. <Electronically signed by Santos Kern > 09/22/20 0967
== END ==
LOC: M RAD 16:50
PROVIDERS: ATTEND Orthopaedic Surgery Sports Medicine
DX: M75.41 Impingement syndrome of right shoulder (principal); S83.242A Other tear of medial meniscus, current injury, left knee, initial encounter; X58.XXXD Exposure to other specified factors, subsequent encounter; Y92.9 Unspecified place or not applicable; Y93.9 Activity, unspecified; Y99.9 Unspecified external cause status; M75.32 Calcific tendinitis of left shoulder; M75.112 Incomplete rotator cuff tear or rupture of left shoulder, not specified as traumatic

== ENCOUNTER → 2020-10-01 | Outpatient (CLI) | payer OTHER, MEDICARE, MEDICAID ==
--- NOTE | 2020-10-05 01:36 | ECWPNPC ---
PATIENT NAME: RADHA RAY : 1970 GENDER: FEMALE VISIT DATE: 10/01/2020 DISCHARGE DATE: 10/01/20 1623 VISIT LOCKED DATE TIME: PHYSICIAN: RACHEL ABRAHAM MD PHYSICIAN PAGER NO: ACTIVE RESOURCE: RACHEL ABRAHAM MD REASON FOR APPOINTMENT 1. LOW BACK PAIN HISTORY OF PRESENT ILLNESS GENERAL: 50-YEAR-OLD FEMALE PATIENT WITH A HISTORY OF CHRONIC LOW BACK PAIN. 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 SINCE THEN, SHE HAS BEEN SUFFERING FROM THIS CHRONIC BACK PAIN. THE PATIENT DESCRIBES THE PAIN SHARP, ACHING WITH A PAIN SCORE RANGING FROM 6-10/10 IN THE BACK WITH RADIATION TO THE LEGS. SHE HAS SOME PAIN IN THE INGUINAL AREA ON THE RIGHT. THIS IS AFFECTING HER ABILITY TO CLEAN HER HOUSE AND GROCERY SHOPPING. THE PATIENT STATES THAT SOMETIMES SHE FEELS DIZZY AND WEAK. FALL RISK SCREENING: SCREENING : NO FALLS REPORTED IN THE LAST YEAR. PAIN SCREENING: PATIENT HAS A COMPLAINT OF ACUTE OR CHRONIC PAIN :YES LOCATION OF PAIN:NECK INTENSITY OF PAIN (SCALE OF 1 TO 10):0 0-1 WHAT DOES YOUR PAIN FEEL LIKE:SHARP DURATION:MOMENTARY PAIN IS INCREASED BY:OTHERS TURNING HEAD OFTEN PAIN IS DECREASED BY:OTHERS REST NURSING NOTE: -. PAIN CENTER INTAKE QUESTIONS: DO YOU HAVE A HISTORY OF MRSA? :NO DO YOU TAKE A BLOOD THINNERS? :NO DO YOU HAVE ANY BLEEDING DISORDERS? :NO ANY NEW NUMBNESS OR WEAKNESS IN YOUR LEGS OR ARMS? :NO ANY PACEMAKER,DEFIBRILLATOR, OR DORSAL COLUMN STIMULATOR? :NO DO YOU HAVE ANY RASHES OR OPEN SORES? :NO ARE YOU ALLERGIC TO IV DYE? :NO ARE YOU DIABETIC? :NO ANY NEW PROBLEMS WITH YOUR MEDICATIONS? :NO HAVE YOU RECEIVED A VACCINE IN THE PAST 30 DAYS? :NO DO YOU PLAN TO RECEIVE A VACCINE IN THE NEXT 21 DAYS? :NO DO YOU NEED ANY PRESCRIPTION? :NO DO YOU TAKE ANY IMMUNOSUPPRESSIVE MEDICATIONS? :NO DO YOU HAVE ANY KIDNEY OR LIVER DISEASE? :NO IS THERE A CHANCE YOU COULD BE ? :NO ARE YOU BREAST FEEDING? :NO CURRENT MEDICATIONS TAKING DICLOFENAC SODIUM 50 MG TABLET DELAYED RELEASE 1 TABLET WITH FOOD OR MILK ORALLY BID PRN PAIN TAKING AMITRIPTYLINE HCL 25 MG TABLET 1 TO 2 TABLET AT BEDTIME ORALLY AT BEDTIME TAKING TRAMADOL HCL 50 MG TABLET 1 TABLET 2-3 TIMES A DAY ORALLY EVERY 6 HRS PRN PAIN MDD=4 TAKING LYRICA 100 MG CAPSULE 1 CAPSULE ORALLY BID MDD=2 TAKING CARISOPRODOL 350 MG TABLET 1 TABLET NEEDED ORALLY BID MUSCLE SPASMS MDD=2 NOT-TAKING VALIUM 5 MG TABLET 1 TABLET NEEDED ORALLY X1 PRIOR TO MRI NOT-TAKING VALIUM 5 MG TABLET 1 TABLET NEEDED ORALLY X1 TO BE ADDED TO PREVIOUS VALIUM SCRIPT FOR A TOTAL OF 2 UNKNOWN VALIUM 5 MG TABLET 1 TABLET NEEDED ORALLY 30 MINUTES PRIOR TO PROCEDURE THEN 2ND JUST PRIOR TO PROCEDURE X1 UNKNOWN LORATADINE 10 MG TABLET 1 TAB ORALLY PRN MEDICATION LIST REVIEWED AND RECONCILED WITH THE PATIENT PAST MEDICAL HISTORY ARTHRITIS, BACK/HIP PAIN (NIDA BELL NP, [facility]) HX OF ABNORMAL PAP PERSISTENT PELVIC PAIN/OVARIAN CYSTS 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) ASVD 3 (0.7%) BAKERS CYST RIGHT KNEE ALLERGIES HAY FEVER: SNEEZING, STUFFY NOSE SOCIAL HISTORY GENERAL: TOBACCO USE ARE YOU A:NONSMOKER LATEX QUESTIONNAIRE LATEX ALLERGY : HAVE YOU EVER DEVELOPED ANY TYPE OF REACTION AFTER HANDLING LATEX PRODUCTS SUCH RUBBER GLOVES, CONDOMS, DIAPHRAGMS, BALLOONS, SOCKS, OR UNDERWEAR?NO LATEX ALLERGY : HAVE YOU EVER DEVELOPED ANY TYPE OF REACTION DURING OR AFTER DENTAL APPOINTMENT, VAGINAL/RECTAL EXAMINATION, SURGICAL PROCEDURE, OR ANY OTHER EXPOSURE?NO LATEX RISK : HAVE YOU EVER HAD ANY DIFFICULTY BREATHING OR HIVES AFTER EATING OR HANDLING ANY FRUITS, OR VEGETABLES; SUCH KIWI, BANANAS, STONE FRUITS, OR CHESTNUTSNO LATEX RISK : DO YOU HAVE A PREVIOUS PERSONAL HISTORY OF MORE THAN NINE SURGERIES, SPINA BIFIDA, OR REPEATED CATHERIZATIONS? YES - PLEASE INDICATE : > 9 SURGERIES LATEX RISK : ARE YOU FREQUENTLY EXPOSED TO LATEX PRODUCTS IN YOUR OCCUPATION?NO DATE ASKED : 05/20/2020 ALCOHOL USE: YES, OCCASIONALLY. ALCOHOL SCREENING DID YOU HAVE A DRINK CONTAINING ALCOHOL IN THE PAST YEAR?YES HOW OFTEN DID YOU HAVE A DRINK CONTAINING ALCOHOL IN THE PAST YEAR?TWO TO FOUR TIMES A MONTH (2 POINTS) HOW MANY DRINKS DID YOU HAVE ON A TYPICAL DAY WHEN YOU WERE DRINKING IN THE PAST YEAR?1 OR 2 (0 POINTS) HOW OFTEN DID YOU HAVE SIX OR MORE DRINKS ON ONE OCCASION IN THE PAST YEAR?NEVER (0 POINTS) POINTS2 INTERPRETATIONNEGATIVE RECREATIONAL DRUG USE DRUG USE?NO CAFFEINE CAFFEINE USE?YES HOW OFTEN AND HOW MUCH? 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 DIET: REGULAR. EXERCISE: NO REGULAR EXERCISE. MARITAL STATUS: SINGLE. OTHERS AT HOME: SELF. REVIEW OF SYSTEMS CONSTITUTIONAL: ANY RECENT FEVER NO . CHILLS NO . WEIGHT CHANGE OF UNKNOWN REASONS NO . GASTROENTEROLOGY: NEW UNEXPLAINABLE CHANGES IN BOWEL CONTROL NO . CONSTIPATION NO . GENITOURINARY: ANY NEW CHANGE IN BLADDER CONTROL? NO . NEUROLOGY: NEW ONSET DIZZINESS OR NEUROLOGICAL CHANGES NOT MENTIONED OCCASIONAL DIZZINESS AND WEAKNESS . NEW NUMBNESS OR PAIN PATTERNS NOT MENTIONED AND PERTINENT TO TODAY'S VISIT NO . CARDIOLOGY: NEW CHEST PRESSURE NO . PATIENT DENIES NO . RESPIRATORY: UNEXPLAINABLE COUGH NO . NEW SHORTNESS OF BREATH NO . VITAL SIGNS WT 174 LBS, WT-KG 78.93 KG, HT 66 IN, BMI 28.08 INDEX, BP 123/59 MM HG, HR 83 /MIN, RR 18 /MIN, TEMP 97.8 F, OXYGEN SAT % 95%, SAFE IN ENV? (Y/N) YES, REVIEWED BY: APA. DEAN RN. EXAMINATION GENERAL EXAMINATION: THE PATIENT IS ALERT, ORIENTED TIMES THREE AND COOPERATIVE. LUNGS ARE CLEAR TO AUSCULTATION. HEART SHOWS REGULAR RHYTHM, NO MURMURS AND NO GALLOPS. THE PATIENT'S WALK IS ANTALGIC. SHE SEEMS TO BE LIMPING FROM THE RIGHT LEG WHICH IS WEAKER THAN THE LEFT LEG ON FLEXION AND EXTENSION. STRAIGHT LEG RAISING IN OVER THE RIGHT LEG IS POSITIVE FOR RADICULOPATHY AT 35 DEGREES. MRI OF THE LUMBOSACRAL SPINE DATED 11/05/2017 IS SHOWING SOME BULGING DISC AT L3-L4 WITH SOME COMPRESSION OF THE NERVE AT L3. ALSO, THERE ARE BANDS OF TISSUE WITH RESTRICTION OF MOVEMENT AND PRESENCE OF TRIGGER POINTS AT THE BACK AREA. ASSESSMENTS MYALGIA - M79.1 (PRIMARY) RADICULOPATHY DUE TO LUMBAR INTERVERTEBRAL DISC DISORDER - M51.16 LUMBAR RADICULOPATHY - M54.16 TREATMENT MYALGIA CONTINUE VALIUM TABLET, 5 MG, 1 TABLET NEEDED, ORALLY, IN WAY TO MRI MAY REPEAT AT MRI UNIT MDD2, 1 DAYS, 2, REFILLS 0 CONTINUE DICLOFENAC SODIUM TABLET DELAYED RELEASE, 50 MG, 1 TABLET WITH FOOD OR MILK, ORALLY, BID PRN PAIN, 30 DAYS, 60, REFILLS 0 CONTINUE TRAMADOL HCL TABLET, 50 MG, 1 TABLET 2-3 TIMES A DAY, ORALLY, EVERY 6 HRS PRN PAIN MDD=4, 30 DAYS, 120, REFILLS 0 CONTINUE LYRICA CAPSULE, 100 MG, 1 CAPSULE, ORALLY, BID MDD=2, 30 DAYS, 60, REFILLS 0 CONTINUE CARISOPRODOL TABLET, 350 MG, 1 TABLET NEEDED, ORALLY, BID MUSCLE SPASMS MDD=2, 30 DAYS, 60, REFILLS 0 CONTINUE AMITRIPTYLINE HCL TABLET, 25 MG, 1 TO 2 TABLET AT BEDTIME, ORALLY, AT BEDTIME, 30 DAYS, 30, REFILLS 0 NOTES: PRE-PROCEDURE INSTRUCTIONS REVIEWED WITH PT. 10/01/20 Kiesha NORWOOD RN. CLINICAL NOTES: I DISCUSSED ALTERNATIVES WITH MS. RAY. I WILL ORDER A LUMBAR MRI SINCE HER LAST ONE WAS DONE IN 2018 AND SHE IS HAVING WORSENING PAIN. THE PATIENT IS ALSO HAVING ROME FACIAL PAIN SO I WILL REQUEST AUTHORIZATION FOR TRIGGER POINT INJECTIONS BILATERAL LOWER BACK. [employer]STOP REFERENCE NUMBER [id number]. WE TALKED ABOUT USING THE DICLOFENAC A LOWER AMOUNT EVERY DAY. THE PATIENT REPORTS UNDERSTANDING AND AGREES WITH THE PLAN. I, CHAGO RODRIGUEZ, DOCUMENTED THE ABOVE INFORMATION ACTING A SCRIBE FOR DR. ABRAHAM. I HAVE REVIEWED THE ABOVE DOCUMENT, WRITTEN BY CHAGO RODRIGUEZ, CARDIOVASCULAR OR NURSE, AND I VERIFY THAT IT IS ACCURATE. RADICULOPATHY DUE TO LUMBAR INTERVERTEBRAL DISC DISORDER [facility] MRI LUMBAR W/O CONTRAST (CPT 66252)[id number] PROCEDURES PN WORKMANS' COMP OPINION IN YOUR OPINION, WAS THE INCIDENT THAT THE PATIENT DESCRIBED THE COMPETENT MEDICAL CAUSE OF THIS INJURY/ILLNESS? YES ARE THE PATIENT'S COMPLAINTS CONSISTENT WITH HIS/HER HISTORY OF THE INJURY/ILLNESS? YES IS THE PATIENT'S HISTORY OF THE INJURY/ILLNESS CONSISTENT WITH YOUR OBJECTIVE FINDING? YES WHAT IS THE PERCENTAGE OF TEMPORARY IMPAIRMENT? MODERATE TO MARKED = 66.7% . IS THE PATIENT WORKING? NO . DOCTOR ON SITE: RACHEL MOJICA MD VISIT CODES PROCEDURE CODES FA211 ESTABILISHED PATIENT [facility] FACILITY CHARGE [id number] OFFICE/OUTPATIENT VISIT EST DISPOSITION & COMMUNICATION FOLLOW UP REQUEST AUTH FOR TRIGGER POINT INJECTIONS BILATERAL LOW BACK. REQUEST AUTHORIZATION FOR LUMBAR MRI (REASON: REQUEST AUTH FOR TRIGGER POINT INJECTIONS BILATERAL LOW BACK. REQUEST AUTHORIZATION FOR LUMBAR MRI) ELECTRONICALLY SIGNED BY RACHEL ABRAHAM MD, MD ON 10/04/2020 AT 04:36 PM EDT DISCLAIMER : THIS IS A VISIT SUMMARY EXTRACTED FROM THE [employer] CHART. IT IS NOT A COPY OF THE [employer] PROGRESS NOTE. [place]
== END ==
LOC: M PAIN 14:30
PROVIDERS: ATTEND Anesthesiology
DX: M79.10 Myalgia, unspecified site (principal); M51.16 Intervertebral disc disorders with radiculopathy, lumbar region; Z79.891 Long term (current) use of opiate analgesic; Z79.899 Other long term (current) drug therapy

== ENCOUNTER → 2021-01-17 | Outpatient (CLI) | payer MEDICARE, MEDICAID ==
[~2021-01-17] MED LIST changes: +IBUP80TA; +VALA500T5
== END ==
LOC: M SOG 15:18
PROVIDERS: ATTEND Orthopaedic Surgery Sports Medicine
DX: M75.42 Impingement syndrome of left shoulder (principal); M19.012 Primary osteoarthritis, left shoulder

== ENCOUNTER 2021-01-20 20:15 | Emergency (ER) | payer OTHER, MEDICARE, MEDICAID ==
[~2021-01-20] VITALS: Ht 170.2 cm; Wt 81.1 kg
[~2021-01-20 20:15] MED LIST changes: -IBUP80TA; -VALA500T5
[2021-01-20 20:17] VITALS: BP 110/56
== END 2021-01-20 23:00 | disposition left against medical advice (07) ==
LOC: M ED 20:15
DX: Z53.21 Procedure and treatment not carried out due to patient leaving prior to being seen by health care provider (principal)

== ENCOUNTER 2021-02-06 18:01 | Emergency (ER) | payer OTHER, MEDICARE, MEDICAID ==
[~2021-02-06] VITALS: Ht 170.2 cm; Wt 83.7 kg
[2021-02-06] MEDS ORDERED: IBUP80TA (18:13)
[2021-02-06] MEDS ORDERED: VALA500T5 (18:13)
[2021-02-06] MEDS ORDERED: MORPHINE 2 MG/ML 1ML VIAL (J2270) IV ONE (18:35)
[2021-02-06 19:13] LABS: BASO # 0.1 10^3/uL (0.0-0.2); BASO % 0.6 % (0.0-1.0); EOS # 0.1 10^3/uL (0.0-0.5); EOS % 1.6 % (0.0-3.0); HEMATOCRIT 36.6 % (36.0-47.0); HEMOGLOBIN 12.3 g/dl (12.0-15.5); LYMPH # 2.7 10^3/uL (1.5-5.0); MEAN CORPUSCULAR HEMOGLOBIN 29.7 pg (27.0-33.0); MEAN CORPUSCULAR HGB CONC 33.6 g/dl (32.0-36.5); MEAN CORPUSCULAR VOLUME 88.4 fl (80.0-96.0); MONO # 0.5 10^3/uL (0.0-0.8); MONO % 6.3 % (2.0-8.0); NEUTROPHILS # 4.9 10^3/uL (1.5-8.5); NEUTROPHILS % 58.9 % (36.0-66.0); PLATELET COUNT, AUTOMATED 213 10^3/uL (150-450); RED BLOOD COUNT 4.14 10^6/uL (4.00-5.40); WHITE BLOOD COUNT 8.3 10^3/uL (4.0-10.0)
[2021-02-06 19:30] LABS: ALBUMIN 3.4 GM/DL (3.2-5.2); ALT/SGPT 48 U/L (12-78); BILIRUBIN,DIRECT < 0.1 MG/DL (0.0-0.2); BILIRUBIN,TOTAL 0.3 MG/DL (0.2-1.0); BLOOD UREA NITROGEN 8 MG/DL (7-18); CARBON DIOXIDE LEVEL 29 MEQ/L (21-32); CHLORIDE LEVEL 107 MEQ/L (98-107); CREATININE FOR GFR 0.56 MG/DL (0.55-1.30); GLOMERULAR FILTRATION RATE > 60.0 (>51); GLUCOSE, FASTING 83 MG/DL (70-100); LIPASE 102 U/L (73-393); POTASSIUM SERUM 4.1 MEQ/L (3.5-5.1); SODIUM LEVEL 140 MEQ/L (136-145); TOTAL PROTEIN 6.6 GM/DL (6.4-8.2)
[2021-02-06] MEDS ORDERED: ISOVUE-370 76% 100ML VIAL As Ordered ONE (19:35)
[2021-02-06 21:53] VITALS: BP 129/59
== END 2021-02-06 21:55 | disposition home or self-care (01) ==
LOC: M ED 18:01
DX: B02.9 Zoster without complications (principal); M54.50 Low back pain, unspecified; M19.90 Unspecified osteoarthritis, unspecified site; Z79.899 Other long term (current) drug therapy
CPT/HCPCS: 36415; 74177; 80048; 80076; 83690; 85025; 93041; 96374; 99285; J2270; Q9967

== ENCOUNTER 2021-02-20 10:45 | Emergency (ER) | payer MEDICARE, MEDICAID ==
[~2021-02-20] VITALS: Ht 170.2 cm; Wt 80.8 kg
[2021-02-20 10:45] VITALS: BP 141/80
[~2021-02-20 10:45] MED LIST changes: +IBUP80TA; +VALA500T5
[2021-02-20] MEDS ORDERED: DOXYCYCLINE HYCLATE 100MG TABLET PO ONE (11:25)
== END 2021-02-20 11:52 | disposition home or self-care (01) ==
LOC: M ED 10:45
DX: S20.369A Insect bite (nonvenomous) of unspecified front wall of thorax, initial encounter (principal); W57.XXXA Bitten or stung by nonvenomous insect and other nonvenomous arthropods, initial encounter; Y92.9 Unspecified place or not applicable; Y93.9 Activity, unspecified; Y99.9 Unspecified external cause status; Z79.899 Other long term (current) drug therapy

== ENCOUNTER → 2021-03-07 | Outpatient (CLI) | payer MEDICARE, MEDICAID ==
[2021-03-07 14:15] LABS: BASO % 0.7 % (0.0-1.0); EOS # 0.1 10^3/uL (0.0-0.5); HEMATOCRIT 39.4 % (36.0-47.0); HEMOGLOBIN 13.2 g/dl (12.0-15.5); LYMPH # 2.2 10^3/uL (1.5-5.0); LYMPH % 36.1 % (24.0-44.0); MEAN CORPUSCULAR HEMOGLOBIN 29.5 pg (27.0-33.0); MEAN CORPUSCULAR HGB CONC 33.5 g/dl (32.0-36.5); MEAN CORPUSCULAR VOLUME 88.1 fl (80.0-96.0); MONO # 0.4 10^3/uL (0.0-0.8); NEUTROPHILS # 3.4 10^3/uL (1.5-8.5); PLATELET COUNT, AUTOMATED 250 10^3/uL (150-450); RED BLOOD COUNT 4.47 10^6/uL (4.00-5.40); WHITE BLOOD COUNT 6.1 10^3/uL (4.0-10.0)
[2021-03-07 14:39] LABS: ALBUMIN 3.6 GM/DL (3.2-5.2); ALT/SGPT 46 U/L (12-78); BILIRUBIN,TOTAL 0.3 MG/DL (0.2-1.0); BLOOD UREA NITROGEN 7 MG/DL (7-18); CALCIUM LEVEL 9.2 MG/DL (8.5-10.1); CARBON DIOXIDE LEVEL 32 MEQ/L (21-32); CHLORIDE LEVEL 105 MEQ/L (98-107); CHOLESTEROL LEVEL 216 MG/DL (<200); CHOLESTEROL RISK RATIO 4.075 (<5); CREATININE FOR GFR 0.66 MG/DL (0.55-1.30); GLOMERULAR FILTRATION RATE > 60.0 (>51); GLUCOSE, FASTING 90 MG/DL (70-100); HDL CHOLESTEROL 53 MG/DL (>40); LDL CHOLESTEROL 135 MG/DL (<100); NON-HDL-C 163 MG/DL; POTASSIUM SERUM 3.8 MEQ/L (3.5-5.1); SODIUM LEVEL 139 MEQ/L (136-145); TOTAL PROTEIN 6.6 GM/DL (6.4-8.2); TRIGLYCERIDES LEVEL 140 MG/DL (<150)
[2021-03-08 16:08] LABS: Lyme Disease IgG/IgM Antibodie <0.91 ISR (0.00-0.90); Lyme Disease IgM Ab Quantitati <0.80 index (0.00-0.79)
== END ==
LOC: M LAB 13:40
PROVIDERS: ATTEND Nurse Practitioner Family
DX: Z00.00 Encounter for general adult medical examination without abnormal findings (principal); Z11.8 Encounter for screening for other infectious and parasitic diseases

== ENCOUNTER 2021-03-27 12:26 | Emergency (ER) | payer MEDICARE, MEDICAID ==
[~2021-03-27] VITALS: Ht 170.2 cm; Wt 79.5 kg
[2021-03-27 12:42] VITALS: BP 123/57
[2021-03-27] MEDS ORDERED: NS 1,000 ML IV ONE (14:00)
[2021-03-27 14:30] LABS: BASO % 0.3 % (0.0-1.0); EOS # 0.1 10^3/uL (0.0-0.5); EOS % 1.2 % (0.0-3.0); HEMATOCRIT 39.7 % (36.0-47.0); HEMOGLOBIN 12.9 g/dl (12.0-15.5); LYMPH # 1.6 10^3/uL (1.5-5.0); LYMPH % 21.6 % (24.0-44.0); MEAN CORPUSCULAR HEMOGLOBIN 29.3 pg (27.0-33.0); MEAN CORPUSCULAR HGB CONC 32.5 g/dl (32.0-36.5); MONO # 0.7 10^3/uL (0.0-0.8); MONO % 8.9 % (2.0-8.0); NEUTROPHILS # 5.1 10^3/uL (1.5-8.5); NEUTROPHILS % 67.7 % (36.0-66.0); PLATELET COUNT, AUTOMATED 209 10^3/uL (150-450); RED BLOOD COUNT 4.41 10^6/uL (4.00-5.40); WHITE BLOOD COUNT 7.6 10^3/uL (4.0-10.0)
[2021-03-27 15:16] LABS: BLOOD UREA NITROGEN 8 MG/DL (7-18); CALCIUM LEVEL 8.6 MG/DL (8.5-10.1); CARBON DIOXIDE LEVEL 32 MEQ/L (21-32); CHLORIDE LEVEL 99 MEQ/L (98-107); CREATININE FOR GFR 0.61 MG/DL (0.55-1.30); GLOMERULAR FILTRATION RATE > 60.0 (>51); GLUCOSE, FASTING 104 MG/DL (70-100); POTASSIUM SERUM 3.8 MEQ/L (3.5-5.1); SODIUM LEVEL 136 MEQ/L (136-145)
== END 2021-03-27 15:48 | disposition home or self-care (01) ==
LOC: M ED 12:26
DX: U07.1 COVID-19 (principal); R19.7 Diarrhea, unspecified; Z87.01 Personal history of pneumonia (recurrent); H91.90 Unspecified hearing loss, unspecified ear; Z79.899 Other long term (current) drug therapy

== ENCOUNTER → 2021-03-28 | Outpatient (REF) | payer MEDICARE, MEDICAID | LOC: M LAB REF 13:44 | PROVIDERS: ATTEND Student in an Organized Health Care Education/Training Program | DX: R19.7 Diarrhea, unspecified (principal) ==

== ENCOUNTER → 2021-05-19 | Outpatient (CLI) | payer OTHER | LOC: M SOG 14:55 | PROVIDERS: ATTEND Physician Assistant | DX: M75.32 Calcific tendinitis of left shoulder (principal); M75.42 Impingement syndrome of left shoulder; M75.112 Incomplete rotator cuff tear or rupture of left shoulder, not specified as traumatic ==

== ENCOUNTER 2021-06-10 12:43 | Emergency (ER) | payer MEDICARE, MEDICAID ==
[~2021-06-10] VITALS: Ht 170.2 cm; Wt 79.4 kg
[2021-06-10] MEDS ORDERED: CARI1TAB7 PO (13:21)
[2021-06-10] MEDS ORDERED: ACETAMINOPHEN 325 MG TAB PO ONE (14:15)
[2021-06-10 15:30] VITALS: BP 131/60
[2021-06-10 15:33] LABS: RSV AMPLIFICATION NEGATIVE (NEGATIVE)
[2021-06-10] MEDS ORDERED: IBUPROFEN 600MG TAB PO ONE (16:15)
== END 2021-06-10 16:28 | disposition home or self-care (01) ==
LOC: M ED 12:43
DX: S80.811A Abrasion, right lower leg, initial encounter (principal); S80.11XA Contusion of right lower leg, initial encounter; Z11.52 Encounter for screening for COVID-19; R09.82 Postnasal drip; W19.XXXA Unspecified fall, initial encounter; Y92.099 Unspecified place in other non-institutional residence as the place of occurrence of the external cause; Y93.9 Activity, unspecified; Y99.9 Unspecified external cause status; F41.9 Anxiety disorder, unspecified; Z79.899 Other long term (current) drug therapy

== ENCOUNTER → 2021-08-16 | Outpatient (CLI) | payer MEDICARE, MEDICAID | LOC: M LAB 15:23 | PROVIDERS: ATTEND Student in an Organized Health Care Education/Training Program | DX: R21 Rash and other nonspecific skin eruption (principal) ==

== ENCOUNTER → 2021-08-19 | Outpatient (CLI) | payer MEDICARE, MEDICAID, OTHER | LOC: M SOG 08:40 | PROVIDERS: ATTEND Orthopaedic Surgery | DX: Z47.89 Encounter for other orthopedic aftercare (principal) ==

== ENCOUNTER → 2021-08-27 | Outpatient (CLI) | payer MEDICARE, MEDICAID, OTHER | LOC: M RAD 10:02 | PROVIDERS: ATTEND Family Medicine | DX: M25.571 Pain in right ankle and joints of right foot (principal) ==

== ENCOUNTER → 2021-09-11 | Outpatient (CLI) | payer MEDICARE, MEDICAID | LOC: M LABSMTC 09:43 | PROVIDERS: ATTEND Anesthesiology | DX: Z01.812 Encounter for preprocedural laboratory examination (principal); Z20.822 Contact with and (suspected) exposure to COVID-19 ==

== ENCOUNTER → 2021-09-11 | Outpatient (CLI) | payer MEDICARE, MEDICAID | LOC: M EKG 10:01 | PROVIDERS: ATTEND Anesthesiology | DX: Z01.812 Encounter for preprocedural laboratory examination (principal); M19.90 Unspecified osteoarthritis, unspecified site; Z20.822 Contact with and (suspected) exposure to COVID-19 ==

== ENCOUNTER 2021-09-14 14:13 | Day surgery (SDC) | payer MEDICARE, MEDICAID ==
[~2021-09-14] VITALS: Ht 170.2 cm; Wt 77.6 kg
[~2021-09-14 14:13] MED LIST changes: +ceFAZolin SOD 2 GM in IV 1 EA IV ONE
[2021-09-14] MEDS ORDERED: LR 1,000 ML IV SCH ×2 (14:25→16:50)
[2021-09-14 14:26] VITALS: BP 140/79
[2021-09-14] MEDS ORDERED: ROPIvacaine 0.5% 30ML INJECTION (J2795 PER 1MG) PN ONE (16:50)
[2021-09-14] MEDS ORDERED: fentaNYL 100 MCG/2 ML INJECTION IV PRN ×2 (16:50)
[2021-09-14] MEDS ORDERED: oxyCODONE 5MG TAB PO PRN (16:50)
[2021-09-14] MEDS ORDERED: EPINEPHrine INJ 1 MG/ML 1ML AMP PN ONE (16:50)
[2021-09-14] MEDS ORDERED: MIDAZOLAM INJ 2MG/2ML VIAL (J2250 PER 1MG) IV PRN (16:50)
[2021-09-14] MEDS ORDERED: ONDANSETRON 4MG 2ML VIAL IV PRN (16:50)
[2021-09-14] MEDS ORDERED: dexameTHASONE 10MG/1ML VIAL PRES.FREE (J1100 PER 1MG) PN ONE (16:50)
== END 2021-09-14 14:30 | disposition home or self-care (01) ==
LOC: M SDC 14:13
PROVIDERS: ATTEND Orthopaedic Surgery
DX: Z53.8 Procedure and treatment not carried out for other reasons (principal)

== ENCOUNTER → 2021-09-23 | Outpatient (CLI) | payer OTHER ==
[~2021-09-23] MED LIST changes: -ceFAZolin SOD 2 GM in IV 1 EA IV ONE
== END ==
LOC: M PAIN 10:45
PROVIDERS: ATTEND Anesthesiology
DX: M54.50 Low back pain, unspecified (principal); M53.3 Sacrococcygeal disorders, not elsewhere classified; G89.29 Other chronic pain; Z79.899 Other long term (current) drug therapy

== ENCOUNTER → 2021-09-26 | Outpatient (CLI) | payer MEDICARE, MEDICAID | LOC: M LABSMTC 11:59 | PROVIDERS: ATTEND Anesthesiology | DX: Z01.812 Encounter for preprocedural laboratory examination (principal); Z20.822 Contact with and (suspected) exposure to COVID-19 ==

== ENCOUNTER 2021-09-28 15:05 | Day surgery (SDC) | payer MEDICARE, MEDICAID ==
[~2021-09-28] VITALS: Ht 170.2 cm; Wt 77.6 kg
[~2021-09-28 15:05] MED LIST changes: +LR 1,000 ML IV SCH; +ceFAZolin SOD 2 GM in IV 1 EA IV ONE
[2021-09-28] MEDS ORDERED: ACETAMINOPHEN TAB 650MG DOSE (2X325MG) PO ONE ×2 (16:30)
[2021-09-28] MEDS ORDERED: LR 1,000 ML IV SCH ×2 (16:30→20:20)
[2021-09-28] MEDS ORDERED: LIDOCAINE 1% SDV 5ML VIAL PN ONE (16:45)
[2021-09-28] MEDS ORDERED: EPINEPHrine INJ 1 MG/ML 1ML AMP PN ONE (16:45)
[2021-09-28] MEDS ORDERED: ROPIvacaine 0.5% 30ML INJECTION (J2795 PER 1MG) PN ONE (16:45)
[2021-09-28] MEDS ORDERED: dexameTHASONE 10MG/1ML VIAL PRES.FREE (J1100 PER 1MG) PN ONE (16:45)
[2021-09-28] MEDS ORDERED: LIDOCAINE 1% SDV 30ML VIAL As Ordered ONE (16:53)
[2021-09-28] MEDS ORDERED: ROCURONIUM BROMIDE 50 MG/5 ML VIAL As Ordered ONE (16:53)
[2021-09-28] MEDS ORDERED: propofoL 200 MG/20 ML VIAL As Ordered ONE (16:53)
[2021-09-28] MEDS ORDERED: TRANEXAMIC ACID 100 MG/ML 10ML VIAL As Ordered ONE ×2 (16:53→18:30)
[2021-09-28] MEDS ORDERED: LIDOCAINE 2% 100MG/5ML SDV (FOR ANES.) As Ordered ONE (16:53)
[2021-09-28] MEDS ORDERED: EPINEPHrine 1MG/ML INJ 30ML MD-VIAL As Ordered ONE (16:54)
[2021-09-28] MEDS ORDERED: MIDAZOLAM INJ 2MG/2ML VIAL (J2250 PER 1MG) As Ordered ONE (16:54)
[2021-09-28] MEDS ORDERED: VANCOMYCIN 1000MG/20ML VIAL As Ordered ONE (16:54)
[2021-09-28] MEDS ORDERED: fentaNYL 100 MCG/2 ML INJECTION As Ordered ONE (16:55)
[2021-09-28] MEDS: fentaNYL 100 MCG/2 ML INJECTION IV PRN ×2 (17:12→17:15)
[2021-09-28] MEDS: MIDAZOLAM INJ 2MG/2ML VIAL (J2250 PER 1MG) IV PRN ×2 (17:12→17:15)
[2021-09-28] MEDS ORDERED: PHENYLephrine 500MCG 5ML (100MCG/ML) SYRINGE As Ordered ONE ×2 (17:56→19:25)
[2021-09-28] MEDS ORDERED: ONDANSETRON 4MG 2ML VIAL As Ordered ONE (18:05)
[2021-09-28] MEDS ORDERED: dexameTHASONE 4 MG/ML 1ML VIAL (J1100 PER 1MG) As Ordered ONE (18:05)
[2021-09-28] MEDS ORDERED: SUGAMMADEX SODIUM 500 MG/5 ML VIAL (BRIDION) As Ordered ONE (18:36)
[2021-09-28] MEDS ORDERED: ACETAMINOPHEN 1000MG 100ML IV BTL (OFIRMEV) (J0131 PER 10MG) As Ordered ONE (18:39)
[2021-09-28] MEDS ORDERED: fentaNYL 100 MCG/2 ML INJECTION IV PRN (20:20)
[2021-09-28] MEDS ORDERED: MORPHINE 2 MG/ML 1ML VIAL IV PRN (20:20)
[2021-09-28] MEDS ORDERED: oxyCODONE 5MG TAB PO PRN (20:20)
[2021-09-28] MEDS ORDERED: ONDANSETRON 4MG 2ML VIAL IV PRN (20:20)
[2021-09-28 22:18] VITALS: BP 142/77
== END 2021-09-28 22:21 | disposition home or self-care (01) ==
LOC: M SDC 15:05
PROVIDERS: ATTEND Orthopaedic Surgery
DX: M75.32 Calcific tendinitis of left shoulder (principal); M75.22 Bicipital tendinitis, left shoulder; M75.102 Unspecified rotator cuff tear or rupture of left shoulder, not specified as traumatic; M75.42 Impingement syndrome of left shoulder; H91.93 Unspecified hearing loss, bilateral; Z85.43 Personal history of malignant neoplasm of ovary; Z79.899 Other long term (current) drug therapy
CPT/HCPCS: 23120; 29823; 29826; 29828; J0131; J0171; J0690; J1100; J2250; J2370; J2405; J3010; J3370

== ENCOUNTER → 2021-10-21 | Outpatient (CLI) | payer MEDICARE, MEDICAID ==
[~2021-10-21] MED LIST changes: -LR 1,000 ML IV SCH; -ceFAZolin SOD 2 GM in IV 1 EA IV ONE
== END ==
LOC: M SOG 13:39
PROVIDERS: ATTEND Orthopaedic Surgery Adult Reconstructive Orthopaedic Surgery
DX: M16.11 Unilateral primary osteoarthritis, right hip (principal); M25.551 Pain in right hip

== ENCOUNTER → 2021-11-09 | Outpatient (CLI) | payer OTHER | LOC: M PAIN 13:00 | PROVIDERS: ATTEND Anesthesiology | DX: M53.3 Sacrococcygeal disorders, not elsewhere classified (principal); G89.29 Other chronic pain; Z79.899 Other long term (current) drug therapy ==

== ENCOUNTER → 2021-11-15 | Outpatient (CLI) | payer MEDICARE, MEDICAID ==
[2021-11-15 15:21] LABS: BASO % 0.5 % (0.0-1.0); EOS # 0.2 10^3/uL (0.0-0.5); EOS % 2.9 % (0.0-3.0); HEMATOCRIT 39.8 % (36.0-47.0); MEAN CORPUSCULAR HEMOGLOBIN 29.7 pg (27.0-33.0); MEAN CORPUSCULAR HGB CONC 32.7 g/dl (32.0-36.5); MEAN CORPUSCULAR VOLUME 91.1 fl (80.0-96.0); MONO # 0.3 10^3/uL (0.0-0.8); MONO % 5.9 % (2.0-8.0); NEUTROPHILS # 3.1 10^3/uL (1.5-8.5); NEUTROPHILS % 54.3 % (36.0-66.0); PLATELET COUNT, AUTOMATED 234 10^3/uL (150-450); RED BLOOD COUNT 4.37 10^6/uL (4.00-5.40); WHITE BLOOD COUNT 5.6 10^3/uL (4.0-10.0)
[2021-11-15 15:45] LABS: HEMOGLOBIN A1c 5.1 %
[2021-11-15 15:59] LABS: ALBUMIN 3.8 GM/DL (3.2-5.2); ALT/SGPT 23 U/L (12-78); BILIRUBIN,TOTAL 0.4 MG/DL (0.2-1.0); BLOOD UREA NITROGEN 6 MG/DL (7-18); CALCIUM LEVEL 9.4 MG/DL (8.5-10.1); CARBON DIOXIDE LEVEL 30 MEQ/L (21-32); CHLORIDE LEVEL 103 MEQ/L (98-107); CHOLESTEROL LEVEL 230 MG/DL (<200); GLOMERULAR FILTRATION RATE > 60.0 (>51); GLUCOSE, FASTING 94 MG/DL (70-100); HDL CHOLESTEROL 61 MG/DL (>40); LDL CHOLESTEROL 116 MG/DL (<100); NON-HDL-C 169 MG/DL; POTASSIUM SERUM 3.9 MEQ/L (3.5-5.1); SODIUM LEVEL 136 MEQ/L (136-145); TOTAL PROTEIN 7.2 GM/DL (6.4-8.2); TRIGLYCERIDES LEVEL 264 MG/DL (<150)
[2021-11-15 16:00] LABS: FERRITIN 26 NG/ML (8-252); IRON (FE) 62 UG/DL (50-170); PERCENT SATURATION 20.9 % (13.2-45.0); THYROID STIMULATING HORMONE 0.733 uIU/ML (0.358-3.740); TOTAL IRON BINDING CAPACITY 297 UG/DL (250-450)
[2021-11-15 16:31] LABS: TOTAL 25(OH) VITAMIN D 29.9 NG/ML (30.0-100.0); VITAMIN B12 LEVEL 560 PG/ML (247-911)
== END ==
LOC: M LAB 14:43
PROVIDERS: ATTEND Family Medicine
DX: R53.83 Other fatigue (principal); E66.3 Overweight

== ENCOUNTER 2021-11-17 13:29 | Outpatient (RCR) | payer MEDICARE, MEDICAID | END 2021-11-18 | LOC: M PT 13:29 | PROVIDERS: ATTEND Orthopaedic Surgery | DX: M75.32 Calcific tendinitis of left shoulder (principal) ==

== ENCOUNTER → 2022-01-09 | Outpatient (CLI) | payer MEDICARE, MEDICAID | LOC: M SOG 09:27 | PROVIDERS: ATTEND Orthopaedic Surgery Adult Reconstructive Orthopaedic Surgery | DX: M25.561 Pain in right knee (principal) ==

== ENCOUNTER 2022-01-10 13:11 | Emergency (ER) | payer MEDICARE, MEDICAID ==
[~2022-01-10] VITALS: Ht 170.2 cm; Wt 78.2 kg
[2022-01-10] MEDS ORDERED: NS 1,000 ML IV ONE (18:40)
[2022-01-10] MEDS ORDERED: dexameTHASONE 20MG/5ML VIAL (J1100 PER 1MG) IV ONE (18:40)
[2022-01-10] MEDS ORDERED: METOCLOPRAMIDE INJ 10MG/2ML VIAL (J2765 PER 1) IV ONE (18:40)
[2022-01-10] MEDS ORDERED: ACETAMINOPHEN 500 MG TAB PO ONE (18:40)
[2022-01-10 18:51] LABS: BASO % 0.1 % (0.0-1.0); HEMATOCRIT 41.5 % (36.0-47.0); HEMOGLOBIN 13.6 g/dl (12.0-15.5); LYMPH # 1.6 10^3/uL (1.5-5.0); MEAN CORPUSCULAR HEMOGLOBIN 29.2 pg (27.0-33.0); MEAN CORPUSCULAR HGB CONC 32.8 g/dl (32.0-36.5); MEAN CORPUSCULAR VOLUME 89.2 fl (80.0-96.0); MONO # 0.7 10^3/uL (0.0-0.8); MONO % 3.1 % (2.0-8.0); NEUTROPHILS # 20.6 10^3/uL (1.5-8.5); NEUTROPHILS % 89.2 % (36.0-66.0); PLATELET COUNT, AUTOMATED 269 10^3/uL (150-450); RED BLOOD COUNT 4.65 10^6/uL (4.00-5.40); WHITE BLOOD COUNT 23.1 10^3/uL (4.0-10.0)
[2022-01-10 19:13] LABS: BLOOD UREA NITROGEN 12 MG/DL (9-23); CALCIUM LEVEL 9.2 MG/DL (8.5-10.1); CARBON DIOXIDE LEVEL 27 MMOL/L (20-31); CHLORIDE LEVEL 103 MMOL/L (98-107); GLOMERULAR FILTRATION RATE > 60.0 (>51); GLUCOSE, FASTING 114 MG/DL (60-100); POTASSIUM SERUM 3.8 MMOL/L (3.5-5.1); SODIUM LEVEL 140 MMOL/L (136-145)
[2022-01-10 20:33] LABS: ERYTHROCYTE SEDIMENTATION RATE 6 mm/hr (0-30)
[2022-01-10] MEDS ORDERED: KETO10TAB PO (20:55)
[2022-01-10 21:00] VITALS: BP 130/66
== END 2022-01-10 21:12 | disposition home or self-care (01) ==
LOC: M ED 13:11
DX: R51.9 Headache, unspecified (principal); H91.90 Unspecified hearing loss, unspecified ear; N80.9 Endometriosis, unspecified; F41.9 Anxiety disorder, unspecified; Z79.899 Other long term (current) drug therapy; Z98.890 Other specified postprocedural states; Z90.711 Acquired absence of uterus with remaining cervical stump
CPT/HCPCS: 70450; 80048; 85025; 85652; 87635; 96374; 96375; 99283; J1100; J2765

== ENCOUNTER → 2022-02-14 | Outpatient (CLI) | payer OTHER | LOC: M RAD 15:15 | PROVIDERS: ATTEND Anesthesiology | DX: M53.3 Sacrococcygeal disorders, not elsewhere classified (principal) ==

== ENCOUNTER → 2022-02-16 | Outpatient (CLI) | payer OTHER, MEDICAID, MEDICARE | LOC: M TMPAIN 09:00 → M PAIN 09:00 | PROVIDERS: ATTEND Anesthesiology | DX: M51.16 Intervertebral disc disorders with radiculopathy, lumbar region (principal); M48.061 Spinal stenosis, lumbar region without neurogenic claudication; M25.551 Pain in right hip; S73.191A Other sprain of right hip, initial encounter; M70.71 Other bursitis of hip, right hip; G89.29 Other chronic pain; Z79.899 Other long term (current) drug therapy; X58.XXXA Exposure to other specified factors, initial encounter; Y92.9 Unspecified place or not applicable; Y93.9 Activity, unspecified; Y99.9 Unspecified external cause status ==

== ENCOUNTER 2022-02-17 13:44 | Outpatient (RCR) | payer MEDICARE, MEDICAID | END 2022-02-18 | LOC: M PT 13:44 | PROVIDERS: ATTEND Anesthesiology | DX: M25.512 Pain in left shoulder (principal); Z98.890 Other specified postprocedural states; Z47.89 Encounter for other orthopedic aftercare; M17.11 Unilateral primary osteoarthritis, right knee ==

== ENCOUNTER 2022-03-01 15:13 | Outpatient (RCR) | payer MEDICARE, MEDICAID | END 2022-03-21 | LOC: M PT 15:13 | PROVIDERS: ATTEND Anesthesiology | DX: Z47.89 Encounter for other orthopedic aftercare (principal); M25.512 Pain in left shoulder ==

== ENCOUNTER → 2022-03-09 | Outpatient (CLI) | payer OTHER, MEDICAID, MEDICARE | LOC: M PAIN 15:30 | PROVIDERS: ATTEND Anesthesiology | DX: M25.551 Pain in right hip (principal); M70.71 Other bursitis of hip, right hip; M51.16 Intervertebral disc disorders with radiculopathy, lumbar region; M48.061 Spinal stenosis, lumbar region without neurogenic claudication; Z79.899 Other long term (current) drug therapy ==

== ENCOUNTER 2022-03-16 15:15 | Outpatient (RCR) | payer OTHER | END 2022-03-21 | LOC: M PT 15:15 | PROVIDERS: ATTEND Anesthesiology | DX: M53.3 Sacrococcygeal disorders, not elsewhere classified (principal) ==

== ENCOUNTER → 2022-03-22 | Outpatient (CLI) | payer OTHER | LOC: M RAD 08:59 | PROVIDERS: ATTEND Anesthesiology | DX: M51.16 Intervertebral disc disorders with radiculopathy, lumbar region (principal) ==

== ENCOUNTER → 2022-06-05 | Outpatient (CLI) | payer OTHER | LOC: M PAIN 15:00 | PROVIDERS: ATTEND Nurse Practitioner Family | DX: M25.551 Pain in right hip (principal); G89.29 Other chronic pain; Z79.899 Other long term (current) drug therapy ==

== ENCOUNTER → 2022-08-25 | Outpatient (CLI) | payer OTHER, MEDICARE, MEDICAID | LOC: M SOG 09:41 | PROVIDERS: ATTEND Orthopaedic Surgery | DX: M17.11 Unilateral primary osteoarthritis, right knee (principal) ==

== ENCOUNTER → 2022-09-07 | Outpatient (CLI) | payer MEDICARE, MEDICAID | LOC: M PAIN 14:15 | PROVIDERS: ATTEND Nurse Practitioner Family | DX: M25.551 Pain in right hip (principal); Z79.891 Long term (current) use of opiate analgesic; M16.11 Unilateral primary osteoarthritis, right hip; G89.29 Other chronic pain; H91.93 Unspecified hearing loss, bilateral; Z79.899 Other long term (current) drug therapy; J30.1 Allergic rhinitis due to pollen ==

== ENCOUNTER 2022-09-22 23:12 | Emergency (ER) | payer MEDICARE, MEDICAID ==
[~2022-09-22] VITALS: Ht 170.2 cm; Wt 78.2 kg
[2022-09-22 23:12] VITALS: BP 123/70; TEMP 98.2; O2SAT 96
[~2022-09-22 23:12] MED LIST changes: -AMIT25TA17; -AMIT25TA17 PO; +AMIT25TA19; +AMIT25TA19 PO; -GABA-283 PO; +GABA-284 PO
== END 2022-09-23 01:12 | disposition left against medical advice (07) ==
LOC: M ED 23:12
DX: Z53.21 Procedure and treatment not carried out due to patient leaving prior to being seen by health care provider (principal)

== ENCOUNTER → 2022-11-23 | Outpatient (CLI) | payer MEDICARE, MEDICAID | LOC: M LAB 12:27 | PROVIDERS: ATTEND Family Medicine | DX: M25.50 Pain in unspecified joint (principal); W57.XXXS Bitten or stung by nonvenomous insect and other nonvenomous arthropods, sequela ==

== ENCOUNTER → 2023-01-01 | Outpatient (CLI) | payer MEDICARE, MEDICAID ==
[2023-01-01 17:16] LABS: BASO % 0.6 % (0.0-1.0); C REACTIVE PROTEIN QUANTITATIV < 0.40 MG/DL (<1.0); EOS # 0.2 10^3/uL (0.0-0.5); EOS % 2.4 % (0.0-3.0); HEMATOCRIT 37.7 % (36.0-47.0); HEMOGLOBIN 12.7 g/dl (12.0-15.5); LYMPH # 2.5 10^3/uL (1.5-5.0); LYMPH % 37.6 % (24.0-44.0); MEAN CORPUSCULAR HEMOGLOBIN 29.9 pg (27.0-33.0); MEAN CORPUSCULAR HGB CONC 33.7 g/dl (32.0-36.5); MEAN CORPUSCULAR VOLUME 88.7 fl (80.0-96.0); MONO # 0.4 10^3/uL (0.0-0.8); MONO % 6.4 % (2.0-8.0); NEUTROPHILS # 3.6 10^3/uL (1.5-8.5); NEUTROPHILS % 52.9 % (36.0-66.0); PLATELET COUNT, AUTOMATED 242 10^3/uL (150-450); RED BLOOD COUNT 4.25 10^6/uL (4.00-5.40); URIC ACID 4.9 MG/DL (3.1-7.8); WHITE BLOOD COUNT 6.7 10^3/uL (4.0-10.0)
[2023-01-01 17:18] LABS: ALBUMIN 3.9 G/DL (3.2-5.2); ALKALINE PHOSPHATASE 53 U/L (46-116); ALT/SGPT 25 U/L (7.0-40); AST/SGOT 14 U/L (<34); BILIRUBIN,TOTAL 0.3 MG/DL (0.3-1.2); BLOOD UREA NITROGEN 12 MG/DL (9-23); CALCIUM LEVEL 9.4 MG/DL (8.5-10.1); CARBON DIOXIDE LEVEL 32 MMOL/L (20-31); CHLORIDE LEVEL 103 MMOL/L (98-107); CREATININE FOR GFR 0.62 MG/DL (0.55-1.30); GLOMERULAR FILTRATION RATE > 60.0 (>51); GLUCOSE, FASTING 106 MG/DL (60-100); RHEUMATOID FACTOR QUANT < 3.5 IU/ML (<14); SODIUM LEVEL 141 MMOL/L (136-145); TOTAL PROTEIN 6.6 G/DL (5.7-8.2)
[2023-01-01 18:07] LABS: ERYTHROCYTE SEDIMENTATION RATE 10 mm/hr (0-30)
[2023-01-03 23:11] LABS: ANA (HEP2) Negative (.); CYCLIC CITRULLINATED PEPTIDE 1 units (0-19)
== END ==
LOC: M LAB 15:44
PROVIDERS: ATTEND Family Medicine
DX: R76.8 Other specified abnormal immunological findings in serum (principal)

== ENCOUNTER → 2023-01-18 | Outpatient (RCR) | payer MEDICARE, MEDICAID | LOC: M PT 01-03 13:24 | PROVIDERS: ATTEND Physician Assistant | DX: S82.134D Nondisplaced fracture of medial condyle of right tibia, subsequent encounter for closed fracture with routine healing (principal); W18.30XD Fall on same level, unspecified, subsequent encounter ==

== ENCOUNTER 2023-02-15 14:27 | Outpatient (RCR) | payer MEDICARE, MEDICAID | END 2023-02-18 | LOC: M PT 14:27 | PROVIDERS: ATTEND Physician Assistant | DX: S82.134D Nondisplaced fracture of medial condyle of right tibia, subsequent encounter for closed fracture with routine healing (principal) ==

== ENCOUNTER 2023-03-06 14:30 | Outpatient (RCR) | payer MEDICARE, MEDICAID | END 2023-03-21 | LOC: M PT 14:30 | PROVIDERS: ATTEND Physician Assistant | DX: S82.134D Nondisplaced fracture of medial condyle of right tibia, subsequent encounter for closed fracture with routine healing (principal) ==

== ENCOUNTER → 2023-08-10 | Outpatient (CLI) | payer MEDICAID, MEDICARE, OTHER | LOC: M PLAIMG 12:38 | PROVIDERS: ATTEND Physician Assistant Surgical | DX: M17.12 Unilateral primary osteoarthritis, left knee (principal) ==

== ENCOUNTER → 2023-09-13 | Outpatient (CLI) | payer OTHER | LOC: M PLAIMG 12:36 | PROVIDERS: ATTEND Physician Assistant Surgical | DX: S52.522A Torus fracture of lower end of left radius, initial encounter for closed fracture (principal); Y93.9 Activity, unspecified; Y92.9 Unspecified place or not applicable ==

== ENCOUNTER 2024-07-02 09:33 | Day surgery (SDC) | payer MEDICARE, OTHER ==
[~2024-07-02] VITALS: Ht 170.2 cm; Wt 84.9 kg
[~2024-07-02 09:33] MED LIST changes: +CARI-555; +CARI-555 PO; -CARI1TAB7; -CARI1TAB7 PO; +GABA-1172; -GABA-282; -SIME180C25 PO; +SIME1CAP4 PO
[2024-07-02] MEDS ORDERED: LIDOCAINE 2% 100MG/5ML SDV (FOR ANES.) As Ordered ONE (10:58)
[2024-07-02] MEDS ORDERED: propofoL 200 MG/20 ML VIAL As Ordered ONE (10:58)
[2024-07-02 11:02] VITALS: TEMP 97.2
[2024-07-02 11:22] VITALS: BP 111/55; O2SAT 97
== END 2024-07-02 11:55 | disposition home or self-care (01) ==
LOC: M OPP 09:33
PROVIDERS: ATTEND Surgery
DX: Z12.11 Encounter for screening for malignant neoplasm of colon (principal); Z12.12 Encounter for screening for malignant neoplasm of rectum; K57.30 Diverticulosis of large intestine without perforation or abscess without bleeding; Z85.43 Personal history of malignant neoplasm of ovary; Z90.711 Acquired absence of uterus with remaining cervical stump

== ENCOUNTER → 2024-08-28 | Outpatient (CLI) | payer MEDICARE, MEDICAID ==
[~2024-08-28] MED LIST changes: +AMIT10TA11; -AMIT10TA7
== END ==
LOC: M RAD 09:34
PROVIDERS: ATTEND Student in an Organized Health Care Education/Training Program
DX: S90.31XA Contusion of right foot, initial encounter (principal); M77.31 Calcaneal spur, right foot

== ENCOUNTER → 2024-12-23 | Outpatient (CLI) | payer MEDICAID, MEDICARE ==
[2024-12-23 17:39] LABS: BASO # 0.1 10^3/uL (0.0-0.2); BASO % 0.7 % (0.0-1.0); EOS # 0.3 10^3/uL (0.0-0.5); EOS % 3.4 % (0.0-3.0); LYMPH # 2.4 10^3/uL (1.5-5.0); LYMPH % 28.8 % (24.0-44.0); MONO # 0.6 10^3/uL (0.0-0.8); MONO % 7.7 % (2.0-8.0); NEUTROPHILS # 4.9 10^3/uL (1.5-8.5); NEUTROPHILS % 59.0 % (36.0-66.0); PLATELET COUNT, AUTOMATED 248 10^3/uL (150-450)
[2024-12-23 17:49] LABS: ESTIMATED AVERAGE GLUCOSE 108.0 MG/DL (60-110)
[2024-12-23 18:03] LABS: ALT/SGPT 33 U/L (7.0-40); AST/SGOT 23 U/L (<34); CALCIUM LEVEL 9.5 MG/DL (8.5-10.1); CARBON DIOXIDE LEVEL 30 MMOL/L (20-31); CHLORIDE LEVEL 103 MMOL/L (98-107); CHOLESTEROL LEVEL 215 MG/DL (<200); CHOLESTEROL RISK RATIO 4.45 (<5); CREATININE FOR GFR 0.66 MG/DL (0.55-1.30); GLOMERULAR FILTRATION RATE > 90.0 (>51); LDL CHOLESTEROL 128.3 MG/DL (<100); NON-HDL-C 166.7 MG/DL; POTASSIUM SERUM 3.9 MMOL/L (3.5-5.1); SODIUM LEVEL 142 MMOL/L (136-145); TRIGLYCERIDES LEVEL 192 MG/DL (<150)
[2024-12-23 18:09] LABS: LUTEINIZING HORMONE 30.4 mIU/ML
[2024-12-23 18:11] LABS: TOTAL 25(OH) VITAMIN D 86.2 NG/ML (20.0-100.0)
== END ==
LOC: M LAB 15:54
PROVIDERS: ATTEND Family Medicine
DX: Z00.00 Encounter for general adult medical examination without abnormal findings (principal); E55.9 Vitamin D deficiency, unspecified; E66.811 Obesity, class 1; Z68.30 Body mass index [BMI] 30.0-30.9, adult; H91.93 Unspecified hearing loss, bilateral; Z87.2 Personal history of diseases of the skin and subcutaneous tissue; M25.551 Pain in right hip; Z82.49 Family history of ischemic heart disease and other diseases of the circulatory system; Z80.0 Family history of malignant neoplasm of digestive organs; Z83.42 Family history of familial hypercholesterolemia; Z79.899 Other long term (current) drug therapy

== ENCOUNTER → 2024-12-25 | Outpatient (CLI) | payer MEDICAID, MEDICARE | LOC: M WUC 09:55 | PROVIDERS: ATTEND Family Medicine | DX: M25.551 Pain in right hip (principal); M16.11 Unilateral primary osteoarthritis, right hip ==